=== PATIENT | male | born 1940 | race Caucasian/White ===

== ENCOUNTER 2016-08-13 09:03 | Inpatient (IN) | payer BC, OTHER ==
[~2016-08-13] VITALS: Ht 172.7 cm; Wt 59.5 kg
[~2016-08-13 09:03] MED LIST: ASPEC325 PO; CLOP1TAB15 PO; CRG25 PO; DVN80 PO; SERT25TA PO
[2016-08-13] MEDS ORDERED: SODIUM CHLORIDE 0.9% 1000ML 1,000 ML IV SCH ×2 (09:22→12:16)
--- NOTE | 2016-08-13 09:35 | EMERGENCY ROOM VISIT NOTE ---
History Report prepared by Negrito: Viviana Langley Under the Supervision of: Dr. Hollis Ngo M.D. First contact with patient: 09:21 Chief Complaint: ALTERED MENTAL STATUS Stated Complaint: CONFUSION Nursing Triage Summary: pt presents via [facility] from home with c/o confusion, lethargy, and s/p fall ems reports that patient has had increased confusion and lethargy since yesterday history of alzheimer's disease at baseline is able to recognize family, was unable to this morning patient was found on the floor facedown in the bathroom this morning has redness noted to right forehead and bilateral knees History of Present Illness The patient is a 76 year old male who presents to the Emergency Room via ALS with complaints of altered mental status starting yesterday. The patient has a history of Alzheimer's disease. He was last seen at baseline yesterday morning. His confusion is worse than normal. As per , the patient fell down in the bathroom this morning. He has erythema on his right forehead and bilateral knees. The patient remembers the fall. He currently denies any pain. He denies headache, fevers, chills, urinary symptoms, or any other complaints. HPI is limited secondary to altered mental status. Additional history is obtained as per . Source of History: patient, spouse/significant other History Limited By: AMS Onset: yesterday Position: other (global) Symptom Intensity: No pain Quality: other (altered mental status) Associated Symptoms: No chills, No fevers, No headache, No urinary symptoms Review of Systems ROS is limited secondary to altered mental status. Past Medical & Surgical Medical Problems: (1) CAD (coronary artery disease) (2) Hyperlipidemia (3) Hypertension (4) Mental status change (5) Myocardial infarction (6) Rhabdomyolysis Surgical Problems: (1) H/O inguinal hernia repair (2) Hx of colonoscopy Family History Heart disease Social History Smoking Status: Unknown if Ever Smoked Marital Status: Housing Status: lives with family Occupation Status: retired Current/Historical Medications Scheduled Aspirin (Aspir-81), 1 TAB PO DAILY Carvedilol (Coreg), 25 MG PO BID Memantine Hcl (Namenda Xr), 1 TAB PO DAILY Rivastigmine Tartrate (Exelon), 3 MG PO BID Sertraline (Zoloft), 25 MG PO DAILY Simvastatin (Zocor), 40 MG PO QPM Allergies Coded Allergies: No Known Allergies (Verified , 08/13/16) Physical Exam Vital Signs Date Time Temp Pulse Resp B/P Pulse Ox O2 Delivery O2 Flow Rate FiO2 08/13/16 11:07 68 08/13/16 10:10 64 14 130/77 92 Room Air 08/13/16 09:10 67 08/13/16 09:08 96 Room Air 08/13/16 09:08 36.9 70 16 154/89 96 Room Air Physical Exam GENERAL: Patient is a healthy-appearing well-nourished HEAD: Normocephalic atraumatic EYES: Ocular movements intact pupils equal and react to light OROPHARYNX mucous membranes are moist no exudates present no erythema or edema present NECK: Supple no nuchal rigidity CHEST: Good equal expansion LUNGS: Clear and equal to auscultation CARDIAC: Normal S1 and S2 ABDOMEN: Soft nontender no guarding BACK: No CVA tenderness EXTREMITIES: No pain upon palpation normal muscle strength in all groups no clubbing cyanosis or edema NEURO: Alert, not oriented to person, place or time, cannot follow simple commands. Cranial Nerves 2-12 grossly intact Medical Decision & Procedures ER Provider Diagnostic Interpretation: X-ray results as stated below per interpretation by me and the radiologist: SINGLE VIEW CHEST CLINICAL HISTORY: Strokelike symptoms. FINDINGS: An AP, portable, upright chest radiograph is compared to study dated 06/06/2010. Correlation is made with chest CT dated 01/03/2010. The examination is degraded by portable technique and patient rotation. The heart is mildly enlarged and there is atherosclerotic calcification of the thoracic aorta. The pulmonary vasculature is noncongested. Chronic interstitial thickening is unchanged. There is bibasilar atelectasis. No airspace consolidation is seen typical for pneumonia and there is no large pleural effusion. No pneumothorax is seen. The skeletal structures are osteopenic. The bony thorax is grossly intact. IMPRESSION: Cardiomegaly with no acute cardiopulmonary abnormality. Electronically signed by: Graeme Luna M.D. 08/13/2016 10:09 AM Dictated Date/Time: 08/13/2016 10:[address] results as stated below per my review and radiologist interpretation: CT HEAD WITHOUT CONTRAST (CT) CLINICAL HISTORY: Confusion. Stroke like symptoms. COMPARISON STUDY: 06/06/2010 TECHNIQUE: Axial CT of the brain is performed from the vertex to the skull base. IV contrast was not administered for this examination. CT DOSE: 537.48 mGy.cm FINDINGS: No intra or extra-axial mass lesions are visualized. There is no CT evidence of acute cortical infarction. There is no evidence of midline shift. There is no acute hemorrhage. No calvarial fractures are visualized. There are patchy white matter hypodensities likely on a small vessel basis. There is mild ventricular dilatation which has increased since the prior study. This is likely secondary to volume loss. There is mild mucosal thickening within the ethmoid and sphenoid sinuses. The frontal sinuses are hypoplastic. There are calcifications within the distal vertebral arteries. IMPRESSION: 1. No evidence of intracranial mass 2. No evidence of acute hemorrhage 3. Progressive ventricular dilatation, likely secondary to volume loss Electronically signed by: Leodan Galindo M.D. 08/13/2016 9:57 AM Dictated Date/Time: 08/13/2016 9:55 AM Laboratory Results Test 08/13/16 00:00 08/13/16 09:43 08/13/16 09:45 Urine Color DK YELLOW Urine Appearance CLEAR (CLEAR) Urine pH 5.0 (4.5-7.5) Urine Specific [place] 1.024 (1.000-1.030) Urine Protein TRACE (NEG) Urine Glucose (UA) NEG (NEG) Urine Ketones 1+ (NEG) Urine Occult Blood 3+ (NEG) Urine Nitrite NEG (NEG) Urine Bilirubin NEG (NEG) Urine Urobilinogen NEG (NEG) Urine Leukocyte Esterase NEG (NEG) Urine WBC (Auto) 1-5 /hpf (0-5) Urine RBC (Auto) 10-30 /hpf (0-4) Urine Hyaline Casts (Auto) 1-5 /lpf (0-5) Urine Epithelial Cells (Auto) 5-10 /lpf (0-5) Urine Bacteria (Auto) NEG (NEG) Bedside Prothrombin Time INR 1.2 (0.9-1.1) Immature Granulocyte % (Auto) 0.2 % White Blood Count 4.92 K/uL (4.8-10.8) Red Blood Count 5.00 M/uL (4.7-6.1) Hemoglobin 15.8 g/dL (14.0-18.0) Hematocrit 45.4 % (42-52) Mean Corpuscular Volume 90.8 fL (80-100) Mean Corpuscular Hemoglobin 31.6 pg (25-34) Mean Corpuscular Hemoglobin Concent 34.8 g/dl (32-36) Platelet Count 102 K/uL (130-400) Mean Platelet Volume 9.3 fL (7.4-10.4) Neutrophils (%) (Auto) 71.8 % Lymphocytes (%) (Auto) 15.2 % Monocytes (%) (Auto) 11.6 % Eosinophils (%) (Auto) 1.0 % Basophils (%) (Auto) 0.2 % Neutrophils # (Auto) 3.53 K/uL (1.4-6.5) Lymphocytes # (Auto) 0.75 K/uL (1.2-3.4) Monocytes # (Auto) 0.57 K/uL (0.11-0.59) Eosinophils # (Auto) 0.05 K/uL (0-0.5) Basophils # (Auto) 0.01 K/uL (0-0.2) Immature Granulocyte # (Auto) 0.01 K/uL (0.00-0.02) Prothrombin Time 11.8 SECONDS (9.0-12.0) Prothromb Time International Ratio 1.1 (0.9-1.1) Activated Partial Thromboplast Time 28.6 SECONDS (21.0-31.0) Partial Thromboplastin Ratio 1.1 Creatine Kinase MB 35.3 ng/ml (0.5-3.6) Creatine Kinase MB Ratio 1.3 (0-3.0) Troponin I < 0.015 ng/ml (0-0.045) Labs reviewed by ED physician. Medications Administered Medications (Trade) Dose Ordered Sig/Yuli Route Start Time Stop Time Status Last Admin Dose Admin Sodium Chloride 1,000 ml @ 50 mls/hr Q20H IV 08/13/16 09:22 08/13/16 13:16 DC 08/13/16 10:07 50 MLS/HR Sodium Chloride 500 ml @ 999 mls/hr Q31M STAT IV 08/13/16 10:37 08/13/16 11:07 DC 08/13/16 10:50 999 MLS/HR Sodium Chloride (Nss 1000ml) 1,000 ml @ 100 mls/hr Q10H IV 08/13/16 12:16 3/24/17 22:15 DC 08/13/16 13:50 100 MLS/HR ECG Indication: altered mental status Rate (beats per minute): 69 Rhythm: normal sinus Findings: no acute ischemic change, no ectopy, other (old anterior infarct) ED Course 0921: Past medical records reviewed. The patient was evaluated in room B09. A complete history and physical examination was performed. 0922: Sodium Chloride 1000 ml @ 50 mls/hr IV 1037: Sodium Chloride 500 ml @ 999 mls/hr IV 1047: Upon reexamination the patient is resting comfortably. I discussed results and treatment plan with the patient's family. They verbalize agreement and understanding. [facility] The patient will be evaluated for further management. Medical Decision Differential diagnosis: Etiologies such as metabolic, infection, hypoglycemia, electrolyte abnormalities , cardiac sources, intracerebral event, toxicologic, neurologic, as well as others were entertained. This is a 76-year-old male who presents emergency department acutely confused. The patient was found down on the floor this morning. He has reddened areas where his skin was in contact with the floor. He does appear to be in a mild rhabdomyolysis. CAT scan of his head is normal. He has no other evidence of infection or injury. I did discuss the case with the hospitalist service after gentle hydration. Patient family were in agreement with the treatment plan. Consults Time Called: 1045 Consulting Physician: [facility] Returned Call: [phone] [facility]. Impression Primary Impression: Altered mental status Additional Impression: Rhabdomyolysis Scribe Attestation The scribe's documentation has been prepared under my direction and personally reviewed by me in its entirety. I confirm that the note above accurately reflects all work, treatment, procedures, and medical decision making performed by me. Departure Information Dispostion Being Evaluated By Hospitalist Referrals Enrike Quintero D.O. (PCP) Patient Instructions [facility] Health Problem Qualifiers Primary Impression: Altered mental status Altered mental status type: unspecified Qualified Codes: R41.82 - Altered mental status, unspecified Additional Impression: Rhabdomyolysis Rhabdomyolysis type: traumatic Encounter type: initial encounter Qualified Codes: T79.6XXA - Traumatic ischemia of muscle, initial encounter
--- NOTE | 2016-08-13 09:58 | DIAGNOSTIC IMAGING REPORT ---
CT HEAD WITHOUT CONTRAST (CT) CLINICAL HISTORY: Confusion. Stroke like symptoms. COMPARISON STUDY: 06/06/2010 TECHNIQUE: Axial CT of the brain is performed from the vertex to the skull base. IV contrast was not administered for this examination. CT DOSE: 537.48 mGy.cm FINDINGS: No intra or extra-axial mass lesions are visualized. There is no CT evidence of acute cortical infarction. There is no evidence of midline shift. There is no acute hemorrhage. No calvarial fractures are visualized. There are patchy white matter hypodensities likely on a small vessel basis. There is mild ventricular dilatation which has increased since the prior study. This is likely secondary to volume loss. There is mild mucosal thickening within the ethmoid and sphenoid sinuses. The frontal sinuses are hypoplastic. There are calcifications within the distal vertebral arteries. IMPRESSION: 1. No evidence of intracranial mass 2. No evidence of acute hemorrhage 3. Progressive ventricular dilatation, likely secondary to volume loss Electronically signed by: Leodan Galindo M.D. 08/13/2016 9:57 AM Dictated Date/Time: 08/13/2016 9:55 AM
[2016-08-13 10:06] LABS: BASO % 0.2 %; BASO ABS # 0.01 K/uL (0-0.2); COMPLETE YES; HEMATOCRIT 45.4 % (42-52); IG% 0.2 %; LYMPH % 15.2 %; LYMPH ABS # 0.75 K/uL (1.2-3.4); MEAN CELL VOLUME 90.8 fL (80-100); MEAN CORPUSCULAR HEMOGLOBIN 31.6 pg (25-34); MEAN CORPUSCULAR HGB CONC 34.8 g/dl (32-36); MEAN PLATELET VOLUME 9.3 fL (7.4-10.4); MONO % 11.6 %; NEUT % 71.8 %; PLATELET COUNT 102 K/uL (130-400); WHITE BLOOD COUNT 4.92 K/uL (4.8-10.8)
[2016-08-13] MEDS ORDERED: SERT50TA PO (10:08)
[2016-08-13] MEDS ORDERED: ASPI-232 PO (10:08)
--- NOTE | 2016-08-13 10:10 | DIAGNOSTIC IMAGING REPORT ---
SINGLE VIEW CHEST CLINICAL HISTORY: Strokelike symptoms. FINDINGS: An AP, portable, upright chest radiograph is compared to study dated 06/06/2010. Correlation is made with chest CT dated 01/03/2010. The examination is degraded by portable technique and patient rotation. The heart is mildly enlarged and there is atherosclerotic calcification of the thoracic aorta. The pulmonary vasculature is noncongested. Chronic interstitial thickening is unchanged. There is bibasilar atelectasis. No airspace consolidation is seen typical for pneumonia and there is no large pleural effusion. No pneumothorax is seen. The skeletal structures are osteopenic. The bony thorax is grossly intact. IMPRESSION: Cardiomegaly with no acute cardiopulmonary abnormality. Electronically signed by: Graeme Luna M.D. 08/13/2016 10:09 AM Dictated Date/Time: 08/13/2016 10:07 AM
[2016-08-13 10:25] LABS: BLOOD UREA NITROGEN 20 mg/dl (7-18); BUN/CREATININE RATIO 18.2 (10-20); CALCIUM 9.2 mg/dl (8.5-10.1); CARBON DIOXIDE 31 mmol/L (21-32); CHLORIDE 105 mmol/L (98-107); GLUCOSE 99 mg/dl (70-99); POTASSIUM 3.7 mmol/L (3.5-5.1); SODIUM 143 mmol/L (136-145)
[2016-08-13] MEDS ORDERED: SODIUM CHLORIDE 0.9% 500ML 500 ML IV STA (10:37)
[2016-08-13 10:40] LABS: CKMB/CK RATIO 1.3 (0-3.0)
[2016-08-13] MEDS ORDERED: D5W AND 1/2NSS + 20MEQ KCL 1,000 ML IV SCH (11:00)
[2016-08-13] MEDS ORDERED: ONDANSETRON INJ 2 MG/ML 2 ML VIAL IV PRN (12:30)
[2016-08-13] MEDS ORDERED: ENOXAPARIN 40 MG/0.4 ML SYR SC SCH (12:30)
[2016-08-13] MEDS ORDERED: POLYETHYLENE (MIRALAX) 17 GM PACK PO PRN (12:30)
[2016-08-13] MEDS ORDERED: ALUMINUM/MAGNESIUM/SIMETH (MAALOX MAX) 30 ML UDC PO PRN (12:30)
[2016-08-13] MEDS ORDERED: ACETAMINOPHEN 325 MG TAB PO PRN (12:30)
[2016-08-13] MEDS ORDERED: MAGNESIUM HYDROXIDE SUSP 30 ML UDC PO PRN (12:30)
--- NOTE | 2016-08-13 13:08 | History and Physical ---
History & Physical Date & Time of Service: Aug 13, 2016 at 12:34 Chief Complaint: Confusion Primary Care Physician: Enrike Quintero D.O. History of Present Illness Source: patient, family ( and mother in law at bedside), clinic records, hospital records This is a 76 y/o male with a history of Alzheimer's disease, CAD, cardiomyopathy , depression, hyperlipidemia, hypertension, h/o prostate cancer s/p prostatectomy and radiation, REM sleep behavior disorder, and tremor who presented to the ED on 08/13 with worsening confusion and a fall. The patient has a history of Alzheimer's dementia at baseline that has been getting progressively worse the last few months per family and outpatient records. History obtained largely from family at bedside due to patient's mental status. Patient's notes that he has been more acutely confused in the last 2 days. He has been having more difficulties going about his normal daily tasks and seems to be "lost". The states that she found the patient face down on the bathroom floor this morning. She does not think that he lost consciousness as he was awake when she found him, and the patient personally denies any loss of consciousness. She believes he was on the floor for about 45 minutes. The patient denies any lightheadedness or dizziness prior to the event and states that he recalls the fall. The also notes that he may have had a fall yesterday as well, as she found him on his knees propping himself up against the bathroom tub yesterday afternoon. The patient denies chest pain, shortness of breath, nausea, vomiting, abdominal pain, weakness, numbness and tingling. Unable to obtain a more comprehensive ROS due to mental status. Past Medical/Surgical History Medical Problems: (1) CAD (coronary artery disease) Status: Chronic (2) Hyperlipidemia Status: Chronic (3) Hypertension Status: Chronic (4) Myocardial infarction Status: Resolved Alzheimer's disease. Cardiomyopathy. Depression. Prostate cancer status post prostatectomy and radiation. REM sleep behavior disorder. Tremor Surgical Problems: (1) H/O inguinal hernia repair Status: Resolved (2) Hx of colonoscopy Status: Resolved Family History Dementia Heart disease Hypertension Myocardial infarction at age less than 60 Social History Smoking Status: Never Smoker Smokeless Tobacco Use: No Alcohol Use: none Drug Use: none Marital Status: Housing status: lives with family ( and mother in law) Occupational Status: retired Immunizations History of Influenza Vaccine: Yes Influenza Vaccine Date: October 02, 2009 History of Tetanus Vaccine?: Yes Tetanus Immunization Date: Nov 02, 1996 History of Pneumococcal: Yes Pneumococcal Date: Apr 06, 2010 History of Hepatitis B Vaccine: No Multi-Drug Resistant Organisms History of MDRO: No Allergies Coded Allergies: No Known Allergies (Verified , 08/13/16) Home Medications Scheduled Aspirin (Aspir-81), 1 TAB PO DAILY Carvedilol (Coreg), 25 MG PO BID Memantine Hcl (Namenda Xr), 1 TAB PO DAILY Rivastigmine Tartrate (Exelon), 3 MG PO BID Sertraline (Zoloft), 25 MG PO DAILY Simvastatin (Zocor), 40 MG PO QPM Review of Systems Unable to obtain comprehensive ROS from patient due to mental status. See HPI for pertinent positives and negatives. Physical Exam Vital Signs Date Time Temp Pulse Resp B/P Pulse Ox O2 Delivery O2 Flow Rate FiO2 08/13/16 12:27 64 16 131/84 98 08/13/16 11:07 68 08/13/16 10:10 64 14 130/77 92 Room Air 08/13/16 09:10 67 08/13/16 09:08 96 Room Air 08/13/16 09:08 36.9 70 16 154/89 96 Room Air General Appearance: WD/WN, no apparent distress, + pertinent finding ( lethargic. per family this is baseline. pt sleeps 17 hours a day secondary to REM sleep behavioral disorder) Head: normocephalic, atraumatic Eyes: normal inspection, sclerae normal, + pertinent finding (exam limited as pt not cooperative) ENT: normal ENT inspection, hearing grossly normal, + pertinent finding (exam limited, pt uncooperative) Neck: supple, no JVD, trachea midline Respiratory/Chest: lungs clear, normal breath sounds, no respiratory distress Cardiovascular: regular rate, rhythm, no gallop, no murmur Abdomen/GI: normal bowel sounds, non tender, soft Extremities/Musculoskelatal: no calf tenderness, no pedal edema, + swelling (1 + pitting edema bilaterally to knees) Neurologic/Psych: normal mood/affect, + disoriented (unable to assess orientation due to lethargy and is not cooperating. states typically disoriented to time and only recognizes her and her mother. recently more disoriented to place.), + pertinent finding (lethargic, sleeping throughout exam , difficult to keep awake. this is apparently baseline. ) Skin: normal color, warm/dry, no rash, + pertinent finding (erythema on right side of forehead and knees bilaterally) Diagnostics Laboratory Results Results Past 24 Hours Test 08/13/16 09:22 08/13/16 09:41 08/13/16 09:45 Range/Units Bedside Glucose 84 70-99 mg/dl White Blood Count 4.92 4.8-10.8 K/uL Red Blood Count 5.00 4.7-6.1 M/uL Hemoglobin 15.8 14.0-18.0 g/dL Hematocrit 45.4 42-52 % Mean Corpuscular Volume 90.8 80-100 fL Mean Corpuscular Hemoglobin 31.6 25-34 pg Mean Corpuscular Hemoglobin Concent 34.8 32-36 g/dl Platelet Count 102 130-400 K/uL Mean Platelet Volume 9.3 7.4-10.4 fL Neutrophils (%) (Auto) 71.8 % Lymphocytes (%) (Auto) 15.2 % Monocytes (%) (Auto) 11.6 % Eosinophils (%) (Auto) 1.0 % Basophils (%) (Auto) 0.2 % Neutrophils # (Auto) 3.53 1.4-6.5 K/uL Lymphocytes # (Auto) 0.75 1.2-3.4 K/uL Monocytes # (Auto) 0.57 0.11-0.59 K/uL Eosinophils # (Auto) 0.05 0-0.5 K/uL Basophils # (Auto) 0.01 0-0.2 K/uL RDW Standard Deviation 44.0 36.4-46.3 fL RDW Coefficient of Variation 13.2 11.5-14.5 % Immature Granulocyte % (Auto) 0.2 % Immature Granulocyte # (Auto) 0.01 0.00-0.02 K/uL Sodium Level 143 136-145 mmol/L Potassium Level 3.7 3.5-5.1 mmol/L Chloride Level 105 98-107 mmol/L Carbon Dioxide Level 31 21-32 mmol/L Anion Gap 7.0 3-11 mmol/L Blood Urea Nitrogen 20 7-18 mg/dl Creatinine 1.10 0.60-1.40 mg/dl Est Creatinine Clear Calc Drug Dose 49.1 ml/min Estimated GFR () 75.7 Estimated GFR (Non- 65.3 BUN/Creatinine Ratio 18.2 10-20 Random Glucose 99 70-99 mg/dl Calcium Level 9.2 8.5-10.1 mg/dl Total Creatine Kinase 2808 39-308 U/L Creatine Kinase MB 35.3 0.5-3.6 ng/ml Creatine Kinase MB Ratio 1.3 0-3.0 Troponin I < 0.015 0-0.045 ng/ml Microbiology Results 08/13/16 Urine Culture, Karrie Batch Pending Diagnostic Radiology Reviewed the following studies and agree with interpretation as follows: Patient Name: VEENA LACY Unit Number: [id number] Dictated: 08/13/16954 Transcribed: 08/13/16954 ARG Printed Date/Time: [~ rep prt dt]/[~ rep prt tm] [~ rep ct labl] - [~ rep ct ivnm] [facility] [place] [address] Dictated: 08/13/16954 Transcribed: 08/13/16954 ARG Printed Date/Time: [~ rep prt dt]/[~ rep prt tm] [~ rep ct labl] - [~ rep ct ivnm] Patient: VEENA LACY Address1: [address] [facility] Rec: [id number] Address2: Acct ID: [id number] [facility] Zip: [place] [address] Date: 1940 Sex: M Room/Bed: Ref Phy: Enrike Quintero D.O. SC: ANGELINA Att Phy: Report #: [id number] Lana Phy: Enrike Quintero D.O. Test: HWO Admit Phy: Secondary Market Manager: EUNICE Interpreting Phy: Leodan Galindo M.D. Diagnosis: CONFUSION Ordering Phy: Hollis Ngo MD Service Date: 08/13/16 Admit Date: 08/13/16 MNE: PWRSCRIBE CONF: DICTATED BY: Leodan Galindo M.D.]] CC: Enrike Quintero D.O. Finnerty, Kevin M., MD Endcc: [~ rep ct add3]] CT HEAD WITHOUT CONTRAST (CT) CLINICAL HISTORY: Confusion. Stroke like symptoms. COMPARISON STUDY: 06/06/2010 TECHNIQUE: Axial CT of the brain is performed from the vertex to the skull base. IV contrast was not administered for this examination. CT DOSE: 537.48 mGy.cm FINDINGS: No intra or extra-axial mass lesions are visualized. There is no CT evidence of acute cortical infarction. There is no evidence of midline shift. There is no acute hemorrhage. No calvarial fractures are visualized. There are patchy white matter hypodensities likely on a small vessel basis. There is mild ventricular dilatation which has increased since the prior study. This is likely secondary to volume loss. There is mild mucosal thickening within the ethmoid and sphenoid sinuses. The frontal sinuses are hypoplastic. There are calcifications within the distal vertebral arteries. IMPRESSION: 1. No evidence of intracranial mass 2. No evidence of acute hemorrhage 3. Progressive ventricular dilatation, likely secondary to volume loss Electronically signed by: Leodan Galindo M.D. 08/13/2016 9:57 AM Dictated Date/Time: 08/13/2016 9:55 AM The status of this report is Signed. Draft = Not yet reviewed or approved by Radiologist. Signed = Reviewed and approved by Radiologist. <AttendingPhy></AttendingPhy> <FamilyPhy>Enrike Quintero D.O.</FamilyPhy> < PrimaryPhy>Enrike Quintero D.O.</PrimaryPhy> <UnitNumber>[id number]</ UnitNumber> <VisitNumber>[id number]</VisitNumber> <PatientName>VEENA LACY</ PatientName> <DateOfBirth>1940</DateOfBirth> <Location>C.EDB</Location> < ServiceDate>08/13/16</ServiceDate> <MNE>ESINDI</MNE> <OrderingPhy>Hollis Ngo MD</OrderingPhy> <OrderingPhyMNE>f rep ord dr hale</OrderingPhyMNE> < DictatingPhyMNE>f rep dict dr hale</DictatingPhyMNE> <CCListMNE>f rep ct mne</ CCListMNE> <AdmittingPhyMNE>f pt admit dr hale</AdmittingPhyMNE> <AttendingPhyMNE >f pt attend dr hale</AttendingPhyMNE> <ConsultingPhyMNE>f pt consult dr hale</ConsultingPhyMNE> <FamilyPhyMNE>f pt fam dr hale</FamilyPhyMNE> <OtherPhyMNE>f pt other dr hale</OtherPhyMNE> < PrimaryPhyMNE>f pt prim care dr hale</PrimaryPhyMNE> <ReferringPhyMNE>f pt referring dr hale</ReferringPhyMNE> Patient Name: VEENA LACY Unit Number: [id number] Dictated: 08/13/161006 Transcribed: 08/13/16 1007 EV Printed Date/Time: [~ rep prt dt]/[~ rep prt tm] [~ rep ct labl] - [~ rep ct ivnm] [facility] [place] [address] Dictated: 08/13/161006 Transcribed: 08/13/16 1007 EV Printed Date/Time: [~ rep prt dt]/[~ rep prt tm] [~ rep ct labl] - [~ rep ct ivnm] Patient: VEENA LACY Address1: [address] [facility] Rec: [id number] Address2: Acct ID: [id number] [facility] Zip: [place] [address] Date: 1940 Sex: M Room/Bed: Ref Phy: Enrike Quintero D.O. SC: ANGELINA Att Phy: Report #: [id number] Lana Phy: Enrike Quintero D.O. Test: CXR1P Admit Phy: Secondary Market Manager: HOMERO Interpreting Phy: Graeme Luna M.D. Diagnosis: CONFUSION Ordering Phy: Hollis Ngo MD Service Date: 08/13/16 Admit Date: 08/13/16 MNE: PWRSCRIBE CONF: DICTATED BY: Graeme Luna M.D.]] CC: Enrike Quintero D.O. Finnerty, Kevin M., MD Endcc: [~ rep ct add3]] SINGLE VIEW CHEST CLINICAL HISTORY: Strokelike symptoms. FINDINGS: An AP, portable, upright chest radiograph is compared to study dated 06/06/2010. Correlation is made with chest CT dated 01/03/2010. The examination is degraded by portable technique and patient rotation. The heart is mildly enlarged and there is atherosclerotic calcification of the thoracic aorta. The pulmonary vasculature is noncongested. Chronic interstitial thickening is unchanged. There is bibasilar atelectasis. No airspace consolidation is seen typical for pneumonia and there is no large pleural effusion. No pneumothorax is seen. The skeletal structures are osteopenic. The bony thorax is grossly intact. IMPRESSION: Cardiomegaly with no acute cardiopulmonary abnormality. Electronically signed by: Graeme Luna M.D. 08/13/2016 10:09 AM Dictated Date/Time: 08/13/2016 10:07 AM The status of this report is Signed. Draft = Not yet reviewed or approved by Radiologist. Signed = Reviewed and approved by Radiologist. <AttendingPhy></AttendingPhy> <FamilyPhy>Enrike Quintero D.O.</FamilyPhy> < PrimaryPhy>Enrike Quintero D.O.</PrimaryPhy> <UnitNumber>[id number]</ UnitNumber> <VisitNumber>[id number]</VisitNumber> <PatientName>VEENA LACY</ PatientName> <DateOfBirth>1940</DateOfBirth> <Location>C.EDB</Location> < ServiceDate>08/13/16</ServiceDate> <MNE>ESINDI</MNE> <OrderingPhy>Hollis Ngo MD</OrderingPhy> <OrderingPhyMNE>f rep ord dr hale</OrderingPhyMNE> < DictatingPhyMNE>f rep dict dr hale</DictatingPhyMNE> <CCListMNE>f rep ct mne</ CCListMNE> <AdmittingPhyMNE>f pt admit dr hale</AdmittingPhyMNE> <AttendingPhyMNE >f pt attend dr hale</AttendingPhyMNE> <ConsultingPhyMNE>f pt consult dr hale</ConsultingPhyMNE> <FamilyPhyMNE>f pt fam dr hale</FamilyPhyMNE> <OtherPhyMNE>f pt other dr hale</OtherPhyMNE> < PrimaryPhyMNE>f pt prim care dr hale</PrimaryPhyMNE> <ReferringPhyMNE>f pt referring dr hale</ReferringPhyMNE> EKG Reviewed EKG and agree with interpretation as follows: 69 bpm, NSR, left anterior fascicular block, LVH Impression Assessment and Plan 76 y/o male with a history of Alzheimer's disease, CAD, cardiomyopathy, depression, hyperlipidemia, hypertension, h/o prostate cancer s/p prostatectomy and radiation, REM sleep behavior disorder, and tremor who presented to the ED on 08/13 with worsening confusion and a fall. Dementia has been getting progressively worse the last few months; however, the patient's states that he has been even more confused the last 2 days. Patient found on the bathroom floor, down for about 45 minutes. Does not appear that he had a loss of consciousness. believes that he may have had a fall yesterday as well. AVSS on arrival. Head CT shows progressive ventricular dilatation, likely secondary to volume loss but no acute disease. Chest x-ray shows no acute disease. EKG shows no ischemic changes. Dysphasia screen done in the ED, patient cleared for regular diet. Initial labs significant for an elevated CK of 2808, otherwise grossly unremarkable. Altered mental status and fall in the setting of baseline Alzheimer's disease-- dementia progressively worse in the last few months per family and outpatient records -Admit to telemetry for cardiac monitoring -Consult Dr. Michel for further evaluation and determine need for more imaging. Patient follows with Dr. Michel outpatient -Straight cath urine for UA and urine culture to r/o UTI as pt is incontinent -EKGs q am and prn with chest pain -Continue Namenda 28 mg PO qd and rivastigmine 3 mg PO BID Rhabdomyolysis secondary to fall -CK elevated at 2808 on arrival -NSS at 100 cc/hr -Trend CK q am Cardiomyopathy/HTN--stable, EF was 25-30 in 2010 -Continue carvedilol 25 mg PO BID Depression -Continue sertraline 25 mg PO qd HLD -Continue simvastatin 40 mg PO qd DVT prophylaxis -Hold chemical prophylaxis for now -ORLY hose and SCDs Code Status -Level V, DO NOT RESUSCITATE This chart was completed in part utilizing [employer] Speech Voice Recognition software. Attempts were made to minimize the grammatical errors, random word insertions, pronoun errors and incomplete sentences. Any formal questions or concerns about the content, text or information contained within the body of this dictation should be directly addressed to the provider for clarification. PA Physician Supervision Note: I interviewed and examined the patient. Discussed with Monica Le PAC and agree with findings and plan as documented in the note. Any exceptions or clarifications are listed here: None 76M presenting after unwitnessed fall and inability to get up, recent decline in dementia no visable injury on admission, normal Head CT but elevated CK of 2808 VSS upon my eval pt was awake, fidgety and alert, not making sense but speaking in pressured speech, thinks he just got off a plane car is regular with Murmur lungs are clear, no viable injury alert with confusion consistent with dementia Progressive dementia with fall -Consult Dr. Michel for further evaluation and determine need for more imaging. Patient follows with Dr. Michel outpatient -Straight cath urine for UA and urine culture to r/o UTI as possible metabolic encephalopathy Namenda 28 mg PO qd and rivastigmine 3 mg PO BID Rhabdomyolysis secondary to fall, mild, hydrate with ivf Cardiomyopathy/HTN--stable caution with ivf, carvedilol 25 mg PO BID Depression sertraline 25 mg PO qd HLD simvastatin 40 mg PO qd DVT prophylaxis-ORLY hose and SCDs DO NOT RESUSCITATE Documented By: Ron Bray Level of Care Telemetry Resuscitation Status DO NOT RESUSCITATE VTE Prophylaxis VTE Risk Assessment Done? Y/N: Yes Risk Level: Moderate Given or contraindicated: T.E.D. Stockings, SCD's
[2016-08-13 13:15] LABS: BENZODIAZEPINE, URINE NEG (NEG); COCAINE,URINE NEG (NEG); PHENCYCLIDINE, URINE NEG (NEG)
[2016-08-13 13:18] VITALS: O2SAT 98; Ht 172.7 cm; Wt 59.5 kg
[2016-08-13 13:32] LABS: INR 1.1 (0.9-1.1); PARTIAL THROMBOPLASTIN RATIO 1.1; PROTHROMBIN TIME (PATIENT) 11.8 SECONDS (9.0-12.0)
[2016-08-13 13:53] LABS: URINE APPEARANCE CLEAR (CLEAR); URINE BILIRUBIN NEG (NEG); URINE COLOR DK YELLOW; URINE NITRITE NEG (NEG); URINE SPECIFIC GRAVITY 1.024 (1.000-1.030); UROBILINOGEN NEG (NEG)
[2016-08-13 14:04] LABS: MANUAL MICROSCOPIC REQUIRED? NO; REVIEW REQ? NO
[2016-08-13 15:32] VITALS: BP 128/72; PULSE 64; TEMP 36.5; O2SAT 94
[2016-08-13 16:00] VITALS: O2SAT 94
[2016-08-13 20:00] VITALS: O2SAT 94
[2016-08-13] MEDS ORDERED: SIMVASTATIN 40 MG TAB PO SCH (21:00)
[2016-08-13] MEDS: CARVEDILOL 25 MG TAB PO SCH (21:49)
[2016-08-13] MEDS: RIVASTIGMINE TARTRATE (EXELON) 1.5 MG CAP PO SCH (21:50)
[2016-08-13 23:42] VITALS: BP 131/72; PULSE 58; TEMP 36.6; O2SAT 96
[2016-08-14] VITALS (7 sets, daily range): BP systolic 93–145; BP diastolic 56–79; PULSE 47–74; TEMP 36.9; O2SAT 94–96
[2016-08-14 07:18] LABS: HEMATOCRIT 39.8 % (42-52); MEAN CELL VOLUME 90.9 fL (80-100); MEAN CORPUSCULAR HEMOGLOBIN 31.3 pg (25-34); MEAN CORPUSCULAR HGB CONC 34.4 g/dl (32-36); RED BLOOD COUNT 4.38 M/uL (4.7-6.1); WHITE BLOOD COUNT 5.27 K/uL (4.8-10.8)
[2016-08-14 07:51] LABS: BUN/CREATININE RATIO 18.5 (10-20); CALCIUM 8.5 mg/dl (8.5-10.1); CREATININE 0.97 mg/dl (0.60-1.40); POTASSIUM 3.7 mmol/L (3.5-5.1)
[2016-08-14 08:01] LABS: MEAN PLATELET VOLUME 9.3 fL (7.4-10.4); PLATELET COUNT 92 K/uL (130-400); PLT ESTIMATE DECREASED
[2016-08-14] MEDS: CARVEDILOL 25 MG TAB PO SCH (08:15)
[2016-08-14] MEDS: RIVASTIGMINE TARTRATE (EXELON) 1.5 MG CAP PO SCH (08:16)
[2016-08-14] MEDS ORDERED: SERTRALINE HCL 50 MG TAB PO SCH (09:00)
[2016-08-14] MEDS ORDERED: ASPIRIN 81 MG ECTAB PO SCH (09:00)
[2016-08-14] MEDS ORDERED: MEMANTINE HCL 28 MG PO SCH (09:00)
--- NOTE | 2016-08-14 09:47 | Hospitalist Progress Note ---
Hospitalist Progress Note Date of Service Aug 14, 2016. Subjective Pt evaluation today including: conversation w/ patient, conversation w/ family , physical exam, chart review, lab review, review of studies, review of inpatient medication list Voiding: incontinence Patient in no acute distress. Awake/alert in bed, sitting quietly and peacefully. Pleasant demeanor. ROS could not be obtained secondary to dementia. Medications Current Inpatient Medications Medications (Trade) Dose Ordered Sig/Yuli Route Start Time Stop Time Status Last Admin Dose Admin Acetaminophen (Tylenol Tab) 650 mg Q4H PRN PO 08/13/16 12:30 09/12/16 12:29 Al Hydrox/Mg Hydrox/Simethicone (Maalox Max Susp) 15 ml Q4H PRN PO 08/13/16 12:30 09/12/16 12:29 Magnesium Hydroxide (Milk Of Magnesia Susp) 30 ml Q12H PRN PO 08/13/16 12:30 09/12/16 12:29 Ondansetron HCl (Zofran Inj) 4 mg Q6H PRN IV 08/13/16 12:30 09/12/16 12:29 Polyethylene (Miralax Powder Packet) 17 gm DAILY PRN PO 08/13/16 12:30 09/12/16 12:29 Aspirin (Ecotrin Tab) 81 mg DAILY PO 08/14/16 09:00 09/13/16 08:59 08/14/16 08:18 81 MG Carvedilol (Coreg Tab) 25 mg BID PO 08/13/16 21:00 09/12/16 20:59 08/14/16 08:15 25 MG Sertraline HCl (Zoloft Tab) 25 mg DAILY PO 08/14/16 09:00 09/13/16 08:59 08/14/16 08:14 25 MG Simvastatin (Zocor Tab) 40 mg QPM PO 08/13/16 21:00 09/12/16 20:59 08/13/16 21:51 40 MG Miscellaneous Information (Order Awaiting Action) 1 ea QS N/A 08/13/16 16:00 09/12/16 15:59 Rivastigmine Tartrate (Exelon Cap) 3 mg BID PO 08/13/16 21:00 09/12/16 20:59 08/14/16 08:16 3 MG Objective Vital Signs Date Time Temp Pulse Resp B/P Pulse Ox O2 Delivery O2 Flow Rate FiO2 08/14/16 08:10 36.9 57 22 145/79 94 Room Air 08/14/16 07:37 94 Room Air 08/14/16 04:00 94 Room Air 08/14/16 03:47 36.9 74 18 122/76 96 Room Air 08/14/16 00:00 94 Room Air 08/13/16 23:42 36.6 58 20 131/72 96 Room Air 08/13/16 20:00 94 Room Air 08/13/16 16:00 94 Room Air 08/13/16 15:32 36.5 64 18 128/72 94 Room Air 08/13/16 13:18 98 Room Air 08/13/16 12:27 64 16 131/84 98 08/13/16 11:07 68 08/13/16 10:10 64 14 130/77 92 Room Air Physical Exam General Appearance: no apparent distress Eyes: normal inspection, PERRL ENT: hearing grossly normal Neck: supple Respiratory/Chest: lungs clear, no respiratory distress, no accessory muscle use Cardiovascular: regular rate, rhythm, + systolic murmur Abdomen: normal bowel sounds, non tender, soft Extremities: no pedal edema, no calf tenderness Neurologic/Psychiatric: alert, + disoriented Skin: normal color, warm/dry, no rash Laboratory Results Last 24 Hours Test 08/13/16 09:41 08/13/16 09:43 08/13/16 09:45 08/13/16 12:40 Bedside Glucose 84 mg/dl Bedside Prothrombin Time INR 1.2 White Blood Count 4.92 K/uL Red Blood Count 5.00 M/uL Hemoglobin 15.8 g/dL Hematocrit 45.4 % Mean Corpuscular Volume 90.8 fL Mean Corpuscular Hemoglobin 31.6 pg Mean Corpuscular Hemoglobin Concent 34.8 g/dl Platelet Count 102 K/uL Mean Platelet Volume 9.3 fL Neutrophils (%) (Auto) 71.8 % Lymphocytes (%) (Auto) 15.2 % Monocytes (%) (Auto) 11.6 % Eosinophils (%) (Auto) 1.0 % Basophils (%) (Auto) 0.2 % Neutrophils # (Auto) 3.53 K/uL Lymphocytes # (Auto) 0.75 K/uL Monocytes # (Auto) 0.57 K/uL Eosinophils # (Auto) 0.05 K/uL Basophils # (Auto) 0.01 K/uL RDW Standard Deviation 44.0 fL RDW Coefficient of Variation 13.2 % Immature Granulocyte % (Auto) 0.2 % Immature Granulocyte # (Auto) 0.01 K/uL Prothrombin Time 11.8 SECONDS Prothromb Time International Ratio 1.1 Activated Partial Thromboplast Time 28.6 SECONDS Partial Thromboplastin Ratio 1.1 Sodium Level 143 mmol/L Potassium Level 3.7 mmol/L Chloride Level 105 mmol/L Carbon Dioxide Level 31 mmol/L Anion Gap 7.0 mmol/L Blood Urea Nitrogen 20 mg/dl Creatinine 1.10 mg/dl Est Creatinine Clear Calc Drug Dose 49.1 ml/min Estimated GFR () 75.7 Estimated GFR (Non- 65.3 BUN/Creatinine Ratio 18.2 Random Glucose 99 mg/dl Calcium Level 9.2 mg/dl Total Creatine Kinase 2808 U/L Creatine Kinase MB 35.3 ng/ml Creatine Kinase MB Ratio 1.3 Troponin I < 0.015 ng/ml Urine Opiates Screen NEG Urine Methadone, Qualitative NEG Urine Barbiturates NEG Urine Phencyclidine (PCP) Level NEG Ur Amphetamine/Methamphetamine NEG MDMA (Ecstasy) Screen NEG Urine Benzodiazepines Screen NEG Urine Cocaine Metabolite NEG Urine Marijuana (THC) NEG Test 08/14/16 06:50 08/14/16 07:54 White Blood Count 5.27 K/uL Red Blood Count 4.38 M/uL Hemoglobin 13.7 g/dL Hematocrit 39.8 % Mean Corpuscular Volume 90.9 fL Mean Corpuscular Hemoglobin 31.3 pg Mean Corpuscular Hemoglobin Concent 34.4 g/dl RDW Standard Deviation 44.1 fL RDW Coefficient of Variation 13.2 % Platelet Count 92 K/uL Mean Platelet Volume 9.3 fL Platelet Estimate DECREASED Sodium Level 143 mmol/L Potassium Level 3.7 mmol/L Chloride Level 106 mmol/L Carbon Dioxide Level 30 mmol/L Anion Gap 7.0 mmol/L Blood Urea Nitrogen 18 mg/dl Creatinine 0.97 mg/dl Est Creatinine Clear Calc Drug Dose 55.4 ml/min Estimated GFR () 88.1 Estimated GFR (Non- 76.1 BUN/Creatinine Ratio 18.5 Random Glucose 96 mg/dl Calcium Level 8.5 mg/dl Total Creatine Kinase 2156 U/L Bedside Glucose 90 mg/dl Assessment and Plan 76 y/o male with a history of Alzheimer's disease, CAD, cardiomyopathy, depression, hyperlipidemia, hypertension, h/o prostate cancer s/p prostatectomy and radiation, REM sleep behavior disorder, and tremor who presented to the ED on 08/13 with worsening confusion and a fall. Dementia has been getting progressively worse the last few months; however, the patient's states that he has been even more confused the last 2 days. Patient found on the bathroom floor, down for about 45 minutes. Does not appear that he had a loss of consciousness. believes that he may have had a fall yesterday as well. AVSS on arrival. Head CT shows progressive ventricular dilatation, likely secondary to volume loss but no acute disease. Chest x-ray shows no acute disease. EKG shows no ischemic changes. Dysphasia screen done in the ED, patient cleared for regular diet. Initial labs significant for an elevated CK of 2808, otherwise grossly unremarkable. Altered mental status and fall in the setting of baseline Alzheimer's disease: - Admit to telemetry for cardiac monitoring--> reviewed- episodes of sinus nick in 50's, PVCs noted, otherwise NSR - U/A, pending UCx - EKGs QAM and PRN with chest pain - Continue Namenda 28 mg PO qd and Rivastigmine 3 mg PO BID - Consult Dr. Michel, appreciate recommendations -- Obtain brain MRI to r/o any infarct Mild Rhabdomyolysis, secondary to fall: - Initial CK elevated at 2808 - Trend CK- trending down - Treat w/ NSS at 100 cc/hr Cardiomyopathy, EF 25-30% in 2010/HTN: - Continue Carvedilol 25 mg PO BID Depression: Continue Sertraline 25 mg PO daily HLD: Continue Simvastatin 40 mg PO daily DVT prophylaxis: TEDs and SCDs Code Status: LEVEL V, DNR Dispo: - PT/OT evaluations - From home, lives w/ --> discussed discharge goals, plans for patient to return home w/ her; He has 24 hour family supervision and health services who come in a few times a week from 9am-3pm.
--- NOTE | 2016-08-14 10:51 | Neurology Consultation ---
Neurology Consultation Date of Consultation: Aug 14, 2016. Attending Physician: Ron Bray M.D. Primary Care Physician: Enrike Quintero D.O. Reason for Consultation: Change in mental status, recent fall, history of dementia, question need for further imaging History of Present Illness Source: patient, clinic records, hospital records The patient is a 76-year-old male who I have been following in neurology clinic for Alzheimer's dementia. His condition has become progressively severe and his care has been complicated by noncompliance with medications. He was last seen in clinic in February 2016. He is prescribed Namenda XR 28 mg per day in addition to Exelon capsules, 3 mg twice daily. He has associated REM sleep disorder and has exhibited nocturnal wandering and eating as well as general dysregulation of his sleep cycling with frequent daytime naps. He is also prescribed sertraline for associated depression. Mr. Simon had presented to the emergency department yesterday with worsening confusion, lethargy, and a recent fall while in the bathroom yesterday morning. He was noted to have an erythematous area around the right for head presumably related to this fall as well as some bruising on his knees. The patient's dementia is quite severe and he is an unreliable historian. He has little to no recollection of the events that led to his current hospitalization. He does seem to recognize me upon entering the room, however. He does not know my name although I have been following him for several years. I reviewed the images and radiologist's impression of the CT of the head completed in the emergency department. This study was compared with his CT of the head completed in May 2010. There has been interval, mild progression, in his generalized atrophy. Both the cortical sulci and lateral ventricles are a bit more prominent than they had been in the past. Electrocardiogram reveals a normal sinus rhythm, 69 bpm. Past Medical/Surgical History Medical Problems: (1) Altered mental status Status: Acute Family History Family history is negative for coronary artery disease in the father. Social History Smokeless Tobacco Use: No Alcohol Use: none Drug Use: none Marital Status: Housing Status: lives with family Occupation Status: retired Allergies Coded Allergies: No Known Allergies (Verified , 08/13/16) Current Inpatient Medications Current Inpatient Medications Medications (Trade) Dose Ordered Sig/Yuli Route Start Time Stop Time Status Last Admin Dose Admin Acetaminophen (Tylenol Tab) 650 mg Q4H PRN PO 08/13/16 12:30 09/12/16 12:29 Al Hydrox/Mg Hydrox/Simethicone (Maalox Max Susp) 15 ml Q4H PRN PO 08/13/16 12:30 09/12/16 12:29 Magnesium Hydroxide (Milk Of Magnesia Susp) 30 ml Q12H PRN PO 08/13/16 12:30 09/12/16 12:29 Ondansetron HCl (Zofran Inj) 4 mg Q6H PRN IV 08/13/16 12:30 09/12/16 12:29 Polyethylene (Miralax Powder Packet) 17 gm DAILY PRN PO 08/13/16 12:30 09/12/16 12:29 Aspirin (Ecotrin Tab) 81 mg DAILY PO 08/14/16 09:00 09/13/16 08:59 08/14/16 08:18 81 MG Carvedilol (Coreg Tab) 25 mg BID PO 08/13/16 21:00 09/12/16 20:59 08/14/16 08:15 25 MG Sertraline HCl (Zoloft Tab) 25 mg DAILY PO 08/14/16 09:00 09/13/16 08:59 08/14/16 08:14 25 MG Simvastatin (Zocor Tab) 40 mg QPM PO 08/13/16 21:00 09/12/16 20:59 08/13/16 21:51 40 MG Miscellaneous Information (Order Awaiting Action) 1 ea QS N/A 08/13/16 16:00 09/12/16 15:59 08/14/16 08:00 1 EA Rivastigmine Tartrate (Exelon Cap) 3 mg BID PO 08/13/16 21:00 09/12/16 20:59 08/14/16 08:16 3 MG Review of Systems As indicated in the history of present illness, the patient has severe dementia and is unable to provide a reliable history of present illness or review of systems. Of note, he does deny headache, vision change, dizziness, or musculoskeletal pain in spite of his recent history of a fall with suspected mild head injury. A full 10 point review of systems could not be reliably obtained due to patient' s severe dementia. Physical Exam Vital Signs (Past 24 Hrs): Date Time Temp Pulse Resp B/P Pulse Ox O2 Delivery O2 Flow Rate FiO2 08/14/16 08:10 36.9 57 22 145/79 94 Room Air 08/14/16 07:37 94 Room Air 08/14/16 04:00 94 Room Air 08/14/16 03:47 36.9 74 18 122/76 96 Room Air 08/14/16 00:00 94 Room Air 08/13/16 23:42 36.6 58 20 131/72 96 Room Air 08/13/16 20:00 94 Room Air 08/13/16 16:00 94 Room Air 08/13/16 15:32 36.5 64 18 128/72 94 Room Air 08/13/16 13:18 98 Room Air 08/13/16 12:27 64 16 131/84 98 08/13/16 11:07 68 The patient is a well-developed, elderly male. He is lying comfortably in bed and does seem to recognize me upon entering the room. He is unable to state my name, however. He is alert and oriented to person only. He is not oriented to place or time. Attention is normal. Concentration impaired. Recent memory severely impaired. 0 out of 3 delayed recall. Remote memory seems to be intact. He indicates that he recalls that he has previously worked for [employer]. He exhibits considerable difficulty with object naming although he is able to read simple text. He does not repeat phrases very well which I think is due to poor comprehension. He is unable to follow simple verbal commands but will mimic simple motor behavior. Vocabulary seems to be intact. Gen. fund of knowledge seems poor. Visual pulido full to confrontation. Visual acuity normal. Pupils equal round reactive to light and accommodation. Eye movements normal. Facial sensation intact. There is no facial droop. Normal facial symmetry and strength. Palate elevates to midline. Tongue protrudes to midline. Shoulder shrug and hearing intact bilaterally. There is no dysmetria with finger to nose or heel to amaro bilaterally. Sensation intact to light touch, temperature, vibration, and proprioception in all 4 limbs. Deep tendon reflexes are normoactive for the arms and legs bilaterally. Plantar responses downgoing bilaterally. Ophthalmoscopic examination reveals normal-appearing optic nerves and posterior elements. No papilledema or hemorrhages. Carotid pulses normal, no bruits to auscultation. Musculoskeletal examination reveals intact strength in the arms and legs bilaterally, proximally and distally. There is normal muscle tone and bulk throughout. No abnormal movements observed. No resting tremor. Gait and station not tested due to safety concerns. Laboratory Results Past 24 Hours: 08/14/16 06:50 08/14/16 06:50 Test 08/13/16 12:40 08/14/16 06:50 08/14/16 07:54 Urine Opiates Screen NEG (NEG) Urine Methadone, Qualitative NEG (NEG) Urine Barbiturates NEG (NEG) Urine Phencyclidine (PCP) Level NEG (NEG) Ur Amphetamine/Methamphetamine NEG (NEG) MDMA (Ecstasy) Screen NEG (NEG) Urine Benzodiazepines Screen NEG (NEG) Urine Cocaine Metabolite NEG (NEG) Urine Marijuana (THC) NEG (NEG) Red Blood Count 4.38 M/uL (4.7-6.1) Mean Corpuscular Volume 90.9 fL (80-100) Mean Corpuscular Hemoglobin 31.3 pg (25-34) Mean Corpuscular Hemoglobin Concent 34.4 g/dl (32-36) RDW Standard Deviation 44.1 fL (36.4-46.3) RDW Coefficient of Variation 13.2 % (11.5-14.5) Mean Platelet Volume 9.3 fL (7.4-10.4) Platelet Estimate DECREASED Anion Gap 7.0 mmol/L (3-11) Est Creatinine Clear Calc Drug Dose 55.4 ml/min Estimated GFR () 88.1 Estimated GFR (Non- 76.1 BUN/Creatinine Ratio 18.5 (10-20) Calcium Level 8.5 mg/dl (8.5-10.1) Total Creatine Kinase 2156 U/L (39-308) Bedside Glucose 90 mg/dl (70-99) Impression Severe, progressive, Alzheimer's dementia characterized by profound deficits of short-term memory, orientation, and aphasia (semantic dementia). Interval progression in generalized atrophy, both cortical, and centrally observed on recent CT of the head. The imaging is not suggestive of normal pressure hydrocephalus and is consistent with his known diagnosis of Alzheimer' s disease. Recent unwitnessed fall at home. Falls are commonly encountered in individuals with Alzheimer's dementia. I do not find any signs suggestive of parkinsonism or an obvious movement disorder at this time. Plan I think obtaining a follow-up brain MRI would be useful to exclude an acute or subacute infarct. However, I believe that his current neurological examination findings are most consistent with his history of Alzheimer's disease. Continue with current dosages of Namenda, Exelon, and sertraline. I would rather not increase his dosage of Exelon as this medication may potentiate bradycardia. As this patient's dementia has become increasingly severe, he may require a higher level of care than what can be provided at home. Patient's family will need to discuss his disposition with social work.
--- NOTE | 2016-08-14 12:44 | DIAGNOSTIC IMAGING REPORT ---
MRI OF THE BRAIN COMBO CLINICAL HISTORY: Dementia. Recent fall. COMPARISON STUDY: CT of the brain dated 08/13/2016. TECHNIQUE: MRI of the brain was performed utilizing various T1 and T2-weighted sequences in the axial, sagittal, and coronal planes. Contrast-enhanced sequences were acquired following the administration of 6 cc of Gadavist. The examination is modestly degraded by motion artifact. FINDINGS: Brain parenchyma: There are age-related involutional changes noting moderate patchy subcortical and periventricular microangiopathic disease. There is no hemorrhage or mass effect. There is no restricted diffusion to suggest acute ischemia. No enhancing mass lesion is identified on the postcontrast images. Fink-white matter differentiation is preserved. No extra-axial fluid collection is seen. The cerebellar tonsils are normal in configuration. Ventricles, sulci, and cisterns: Prominent secondary to involutional change. Pituitary and sella: Unremarkable. Intracranial vasculature: Normal flow voids are maintained at the skull base. Orbits: The bony orbits are grossly intact. Orbital contents are normal in appearance noting a left ocular lens implant. Sinuses and mastoids: Trace mucosal thickening is seen within the maxillary antra and the ethmoid sinuses. The mastoid air cells are clear. Calvarium: Unremarkable. Cervical cord: Partially visualized cervical spinal cord is normal in morphology and signal intensity. IMPRESSION: No acute intracranial abnormality. Electronically signed by: Graeme Luna M.D. 08/14/2016 12:43 PM Dictated Date/Time: 08/14/2016 12:40 PM
--- NOTE | 2016-08-14 13:13 | Discharge Instructions ---
Discharge Instructions Date of Service Aug 14, 2016. Admission Reason for Admission: Altered Mental Status,Rhabdomyolysis Discharge Discharge Diagnosis / Problem: Alzheimer's dementia; Fall; Rhabdomyolysis Discharge Goals Goal(s): Decrease discomfort, Improve function, Increase independence, Diagnostic testing, Therapeutic intervention, Prevent Disease Progression Activity Recommendations Activity Limitations: resume your previous activity . Instructions / Follow-Up Instructions / Follow-Up Resume all regular home medications as prescribed to you It is recommended you continue to have family supervision at all times to help prevent any future falls/injuries Home PT services is being setup by our correctional case records supervisor Please follow-up with your PCP within 5-7 days Please follow-up Neurology, Dr. Michel as instructed Please follow-up/keep all of your subspecialty appointments Current Hospital Diet Patient's current hospital diet: AHA Diet (Heart Healthy) Discharge Diet Recommended Diet: AHA Diet (Heart Healthy) Procedures Procedures Performed: 1. Chest x-ray 2. Head CT 3. Brain MRI Pending Studies Studies pending at discharge: no Laboratory Results Last 24 Hours Test 08/14/16 06:50 08/14/16 07:54 08/14/16 11:27 White Blood Count 5.27 K/uL Red Blood Count 4.38 M/uL Hemoglobin 13.7 g/dL Hematocrit 39.8 % Mean Corpuscular Volume 90.9 fL Mean Corpuscular Hemoglobin 31.3 pg Mean Corpuscular Hemoglobin Concent 34.4 g/dl RDW Standard Deviation 44.1 fL RDW Coefficient of Variation 13.2 % Platelet Count 92 K/uL Mean Platelet Volume 9.3 fL Platelet Estimate DECREASED Sodium Level 143 mmol/L Potassium Level 3.7 mmol/L Chloride Level 106 mmol/L Carbon Dioxide Level 30 mmol/L Anion Gap 7.0 mmol/L Blood Urea Nitrogen 18 mg/dl Creatinine 0.97 mg/dl Est Creatinine Clear Calc Drug Dose 55.4 ml/min Estimated GFR () 88.1 Estimated GFR (Non- 76.1 BUN/Creatinine Ratio 18.5 Random Glucose 96 mg/dl Calcium Level 8.5 mg/dl Total Creatine Kinase 2156 U/L Bedside Glucose 90 mg/dl 89 mg/dl Medical Emergencies . Who to Call and When: Medical Emergencies: If at any time you feel your situation is an emergency, please call 911 immediately. . Non-Emergent Contact Non-Emergency issues call your: Primary Care Provider . . "Provider Documentation" section prepared by Valeria Blandon. VTE Core Measure Inpt VTE Proph given/why not?: Shanika Del Real, [facility]
--- NOTE | 2016-08-14 13:21 | Discharge Summary ---
Discharge Summary Date of Service Aug 14, 2016. (Valeria Blandon PA-C) Discharge Summary Admission Date: Aug 13, 2016 at 12:24 Discharge Date: Aug 14, 2016 Discharge Disposition: Home with services Principal Diagnosis: Alzheimer's disease; Fall Problems/Secondary Diagnoses: 1. Altered mental status 2. Mild Rhabdomyolysis, secondary to fall 3. Cardiomyopathy, EF 25-30% in 2010 4. HTN 5. Depression 6. HLD Immunizations: Have You Had Influenza Vaccine: Yes Influenza Vaccine Date: October 02, 2009 History of Tetanus Vaccine?: Yes Tetanus Immunization Date: Nov 02, 1996 History of Pneumococcal: Yes Pneumococcal Date: Apr 06, 2010 History of Hepatitis B Vaccine: No Procedures: CT HEAD WITHOUT CONTRAST (CT) CLINICAL HISTORY: Confusion. Stroke like symptoms. COMPARISON STUDY: 06/06/2010 TECHNIQUE: Axial CT of the brain is performed from the vertex to the skull base. IV contrast was not administered for this examination. CT DOSE: 537.48 mGy.cm FINDINGS: No intra or extra-axial mass lesions are visualized. There is no CT evidence of acute cortical infarction. There is no evidence of midline shift. There is no acute hemorrhage. No calvarial fractures are visualized. There are patchy white matter hypodensities likely on a small vessel basis. There is mild ventricular dilatation which has increased since the prior study. This is likely secondary to volume loss. There is mild mucosal thickening within the ethmoid and sphenoid sinuses. The frontal sinuses are hypoplastic. There are calcifications within the distal vertebral arteries. IMPRESSION: 1. No evidence of intracranial mass 2. No evidence of acute hemorrhage 3. Progressive ventricular dilatation, likely secondary to volume loss Electronically signed by: Leodan Galindo M.D. 08/13/2016 9:57 AM Dictated Date/Time: 08/13/2016 9:55 AM The status of this report is Signed. Draft = Not yet reviewed or approved by Radiologist. Signed = Reviewed and approved by Radiologist. SINGLE VIEW CHEST CLINICAL HISTORY: Strokelike symptoms. FINDINGS: An AP, portable, upright chest radiograph is compared to study dated 06/06/2010. Correlation is made with chest CT dated 01/03/2010. The examination is degraded by portable technique and patient rotation. The heart is mildly enlarged and there is atherosclerotic calcification of the thoracic aorta. The pulmonary vasculature is noncongested. Chronic interstitial thickening is unchanged. There is bibasilar atelectasis. No airspace consolidation is seen typical for pneumonia and there is no large pleural effusion. No pneumothorax is seen. The skeletal structures are osteopenic. The bony thorax is grossly intact. IMPRESSION: Cardiomegaly with no acute cardiopulmonary abnormality. Electronically signed by: Graeme Luna M.D. 08/13/2016 10:09 AM Dictated Date/Time: 08/13/2016 10:07 AM The status of this report is Signed. Draft = Not yet reviewed or approved by Radiologist. Signed = Reviewed and approved by Radiologist. MRI OF THE BRAIN COMBO CLINICAL HISTORY: Dementia. Recent fall. COMPARISON STUDY: CT of the brain dated 08/13/2016. TECHNIQUE: MRI of the brain was performed utilizing various T1 and T2-weighted sequences in the axial, sagittal, and coronal planes. Contrast-enhanced sequences were acquired following the administration of 6 cc of Gadavist. The examination is modestly degraded by motion artifact. FINDINGS: Brain parenchyma: There are age-related involutional changes noting moderate patchy subcortical and periventricular microangiopathic disease. There is no hemorrhage or mass effect. There is no restricted diffusion to suggest acute ischemia. No enhancing mass lesion is identified on the postcontrast images. Fink-white matter differentiation is preserved. No extra-axial fluid collection is seen. The cerebellar tonsils are normal in configuration. Ventricles, sulci, and cisterns: Prominent secondary to involutional change. Pituitary and sella: Unremarkable. Intracranial vasculature: Normal flow voids are maintained at the skull base. Orbits: The bony orbits are grossly intact. Orbital contents are normal in appearance noting a left ocular lens implant. Sinuses and mastoids: Trace mucosal thickening is seen within the maxillary antra and the ethmoid sinuses. The mastoid air cells are clear. Calvarium: Unremarkable. Cervical cord: Partially visualized cervical spinal cord is normal in morphology and signal intensity. IMPRESSION: No acute intracranial abnormality. Electronically signed by: Graeme Luna M.D. 08/14/2016 12:43 PM Dictated Date/Time: 08/14/2016 12:40 PM The status of this report is Signed. Draft = Not yet reviewed or approved by Radiologist. Signed = Reviewed and approved by Radiologist. Consultations: Neurology- Dr. Michel (Valeria Blandon, PA-C) Medication Reconciliation Continued Medications: Aspirin (Aspir-81) 81 Mg Tab 1 TAB PO DAILY Carvedilol (Coreg) 25 Mg Tab 25 MG PO BID, TAB Memantine Hcl (Namenda Xr) 28 Mg Cap 1 TAB PO DAILY Rivastigmine Tartrate (Exelon) 3 Mg Cap 3 MG PO BID, CAP Sertraline (Zoloft) 25 Mg Tab 25 MG PO DAILY, TAB Simvastatin (Zocor) 40 Mg Tab 40 MG PO QPM, 0 Refills Referrals At Discharge Follow up Referrals: Family Practice Referral - Within 1 Week with Enrike Quintero D.O. Discharge Exam ROS unobtainable secondary to dementia Physical Exam: General Appearance: no apparent distress Eyes: normal inspection, PERRL ENT: hearing grossly normal Neck: supple Respiratory/Chest: lungs clear, no respiratory distress, no accessory muscle use Cardiovascular: regular rate, rhythm, + systolic murmur Abdomen / GI: normal bowel sounds, non tender, soft Extremities: no calf tenderness, no pedal edema Neurologic/Psychiatric: alert, + disoriented Skin: normal color, warm/dry, no rash (Valeria Blandon, PA-C) Hospital Course 76 y/o male with a history of Alzheimer's disease, CAD, cardiomyopathy, depression, hyperlipidemia, hypertension, h/o prostate cancer s/p prostatectomy and radiation, REM sleep behavior disorder, and tremor who presented to the ED on 08/13 with worsening confusion and a fall. Dementia has been getting progressively worse the last few months; however, the patient's states that he has been even more confused the last 2 days. Patient found on the bathroom floor, down for about 45 minutes. Does not appear that he had a loss of consciousness. believes that he may have had a fall yesterday as well. AVSS on arrival. Head CT shows progressive ventricular dilatation, likely secondary to volume loss but no acute disease. Chest x-ray shows no acute disease. EKG shows no ischemic changes. Dysphasia screen done in the ED, patient cleared for regular diet. Initial labs significant for an elevated CK of 2808, otherwise grossly unremarkable. Altered mental status and fall in the setting of baseline Alzheimer's disease: - Admit to telemetry for cardiac monitoring--> reviewed- episodes of sinus nick in 50's, PVCs noted, otherwise NSR - U/A w/ UCx- negative - EKGs QAM and PRN with chest pain - Continue Namenda 28 mg PO qd and Rivastigmine 3 mg PO BID - Consult Dr. Michel, appreciate recommendations -- Brain MRI- no acute intracranial findings Mild Rhabdomyolysis, secondary to fall: - Initial CK elevated at 2808 - Trend CK- trending down - Treated w/ NSS at 100 cc/hr Cardiomyopathy, EF 25-30% in 2010/HTN: Continue Carvedilol 25 mg PO BID Depression: Continue Sertraline 25 mg PO daily HLD: Continue Simvastatin 40 mg PO daily DVT prophylaxis: TEDs and SCDs Code Status: LEVEL V, DNR Dispo: Discharge to home with home PT -- From home, lives w/ --> discussed discharge goals, wants patient to return home w/ her; he has 24-hour family supervision and health services who come in a few times a week from 9am-3pm. PT recommends home PT services--> case management on board and to send referral Total Time Spent: Greater than 30 minutes This includes examination of the patient, discharge planning, medication reconciliation, and communication with other providers. (Valeria Blandon, MER) MJ Physician Supervision Note: I interviewed and examined the patient. Discussed with Valeria Blandon PAC and agree with findings and plan as documented in the note. 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 (Valeria Blandon, MER) Follow-Up Please follow-up with your PCP within 5-7 days Please follow-up with Neurology, Dr. Michel as instructed by him Please follow-up/keep all of your subspecialty appointments (Valeria Blandon, MJ-C) Additional Copies To Enrike Quintero D.O.
[2016-10-21] MEDS ORDERED: RIVA3CAP4 PO (10:08)
[2016-10-21] MEDS ORDERED: CARV25TA2 PO (10:08)
[2016-10-21] MEDS ORDERED: MEMA1CAP7 PO (10:08)
[2016-10-21] MEDS ORDERED: SERT25TA PO (12:20)
[2016-10-21] MEDS ORDERED: SIMV40TA2 PO (13:39)
[2017-01-04] MEDS ORDERED: SULF800T23 PO (23:04)
[2017-01-17] MEDS ORDERED: SRQ25 PO (13:08)
[2017-01-17] MEDS ORDERED: SACC250C3 PO (13:08)
== END 2016-08-14 16:30 | disposition home health service (06) | DRG 57 ==
LOC: ENRESERVTM → ENRESERVDT → EDBD 09:03 → C.EDB 09:04 → C.MED 12:24
PROVIDERS: ADMIT Internal Medicine; ATTEND Internal Medicine
DX: G30.9 Alzheimer's disease, unspecified (principal); M62.82 Rhabdomyolysis; I42.9 Cardiomyopathy, unspecified; I49.3 Ventricular premature depolarization; R41.82 Altered mental status, unspecified; R29.6 Repeated falls; W19.XXXA Unspecified fall, initial encounter; Y92.002 Bathroom of unspecified non-institutional (private) residence as the place of occurrence of the external cause; F02.80 Dementia in other diseases classified elsewhere, unspecified severity, without behavioral disturbance, psychotic disturbance, mood disturbance, and anxiety; I10 Essential (primary) hypertension; E78.5 Hyperlipidemia, unspecified; I25.10 Atherosclerotic heart disease of native coronary artery without angina pectoris; G47.52 REM sleep behavior disorder; R25.1 Tremor, unspecified; F32.9 Major depressive disorder, single episode, unspecified; I25.2 Old myocardial infarction; Z66 Do not resuscitate; Z79.82 Long term (current) use of aspirin; Z79.899 Other long term (current) drug therapy

== ENCOUNTER 2016-10-21 16:40 | Emergency (ER) | payer BC, OTHER ==
[~2016-10-21] VITALS: Ht 172.7 cm; Wt 61.1 kg
[~2016-10-21 16:40] MED LIST changes: -ASPEC325 PO; +ASPI-232 PO; +CARV25TA2 PO; -CLOP1TAB15 PO; -CRG25 PO; -DVN80 PO; +MEMA1CAP7 PO; +RIVA3CAP4 PO; +SIMV40TA2 PO
[2016-10-21 16:43] VITALS: TEMP 36.7; Ht 172.7 cm; Wt 61.1 kg
[2016-10-21] MEDS ORDERED: FUROSEMIDE 40 MG/4 ML VIAL IV STA (17:21)
[2016-10-21 17:27] VITALS: O2SAT 96
[2016-10-21 17:56] LABS: BASO % 0.4 %; BASO ABS # 0.02 K/uL (0-0.2); COMPLETE YES; EOS % 2.8 %; HEMATOCRIT 45.4 % (42-52); LYMPH % 20.1 %; LYMPH ABS # 1.09 K/uL (1.2-3.4); MEAN CELL VOLUME 92.1 fL (80-100); MEAN CORPUSCULAR HGB CONC 33.7 g/dl (32-36); MEAN PLATELET VOLUME 9.1 fL (7.4-10.4); MONO % 10.3 %; NEUT % 66.4 %; PLATELET COUNT 145 K/uL (130-400); RED BLOOD COUNT 4.93 M/uL (4.7-6.1); WHITE BLOOD COUNT 5.42 K/uL (4.8-10.8)
--- NOTE | 2016-10-21 18:02 | DIAGNOSTIC IMAGING REPORT ---
CHEST ONE VIEW PORTABLE HISTORY: Evaluate Fever/Sepsis COMPARISON: Chest 08/13/2016. FINDINGS: No pleural effusions. No pneumothorax. The heart remains mildly enlarged. No change in the linear densities at the left lung base. Mild right basilar interstitial thickening persists. No new focal lung consolidations. IMPRESSION: 1. Stable mild cardiomegaly. 2. No change in the left basilar linear densities suggesting subsegmental atelectasis and right basilar interstitial thickening. Electronically signed by: Mickey Mcfarlane M.D. 10/21/2016 6:01 PM Dictated Date/Time: 10/21/2016 5:58 PM
[2016-10-21 18:09] LABS: BUN/CREATININE RATIO 13.7 (10-20); CREATININE 1.2 mg/dl (0.60-1.40)
[2016-10-21 18:14] LABS: CKMB/CK RATIO 1.8 (0-3.0)
[2016-10-21 18:20] LABS: INR 1.2 (0.9-1.1); PARTIAL THROMBOPLASTIN RATIO 1.1; PROTHROMBIN TIME (PATIENT) 12.6 SECONDS (9.0-12.0)
--- NOTE | 2016-10-21 19:34 | DIAGNOSTIC IMAGING REPORT ---
BILATERAL LOWER EXTREMITY VENOUS DOPPLER HISTORY: swelling legs COMPARISON STUDY: None. FINDINGS: There is normal compressibility, flow, and augmentation within the bilateral lower extremity deep venous systems. IMPRESSION: No DVT within the right or left lower extremity. Electronically signed by: Mickey Mcfarlane M.D. 10/21/2016 7:33 PM Dictated Date/Time: 10/21/2016 7:33 PM
[2016-10-21] MEDS ORDERED: FURO20TA PO (19:53)
--- NOTE | 2016-10-21 19:57 | EMERGENCY ROOM VISIT NOTE ---
History Report prepared by Negrito: Amie Tapia Under the Supervision of: Dr. Saroj Bustillo M.D. First contact with patient: 17:03 Chief Complaint: EDEMA TO EXTREMITY Stated Complaint: SWOLLEN FEET History of Present Illness The patient is a 76 year old male who presents to the Emergency Room with complaints of constant bilateral feet swelling beginning today. The patient's states that the patient has a history of 2 heart attacks and has never had foot swelling previously. She notes that he has a history of Alzheimer's and does not verbalize his pain. She complains of blue feet when he was sitting with his feet down. She denies any difficulty breathing. The reports that the patient sits around a lot and he does not use compression socks. She states that he is not on any blood thinners. Source of History: spouse/significant other Onset: today Position: foot (bilateral) Quality: other (swelling) Note: Complains of blue feet. Denies any difficulty breathing. Review of Systems See HPI for pertinent positives & negatives. A total of 10 systems reviewed and were otherwise negative. Past Medical & Surgical Medical Problems: (1) CAD (coronary artery disease) (2) Hyperlipidemia (3) Hypertension (4) Mental status change (5) Myocardial infarction (6) Rhabdomyolysis Surgical Problems: (1) H/O inguinal hernia repair (2) Hx of colonoscopy Family History Dementia Heart disease Hypertension Myocardial infarction at age less than 60 Social History Smoking Status: Never Smoker Drug Use: none Marital Status: Housing Status: lives with family Occupation Status: retired Current/Historical Medications Scheduled Aspirin (Aspir-81), 1 TAB PO Q3DAYS Carvedilol (Coreg), 25 MG PO BID Furosemide (Lasix), 20 MG PO QD Memantine Hcl (Namenda Xr), 1 TAB PO DAILY Rivastigmine Tartrate (Exelon), 3 MG PO BID Sertraline (Zoloft), 25 MG PO QPM Simvastatin (Zocor), 40 MG PO QPM Allergies Coded Allergies: No Known Allergies (Verified , 08/13/16) Physical Exam Vital Signs Date Time Temp Pulse Resp B/P (MAP) Pulse Ox O2 Delivery O2 Flow Rate FiO2 10/21/16 17:52 59 10/21/16 17:36 55 18 144/89 97 Room Air 10/21/16 17:27 96 Room Air 10/21/16 16:43 36.7 57 18 133/84 95 Room Air Physical Exam CONSTITUTIONAL/VITAL SIGNS: Reviewed / noted above. GENERAL: Non-toxic in appearance. INTEGUMENTARY: Warm, dry, and [place]. HEAD: Normocephalic. EYES: without scleral icterus or trauma. ENT/OROPHARYNX: clear and moist. LYMPHADENOPATHY/NECK: Is supple without lymphadenopathy or meningismus. RESPIRATORY: Lungs clear and equal. CARDIOVASCULAR: Regular rate and rhythm. GI/ABDOMEN: Soft and nontender. No organomegaly or pulsatile mass. No rebound or guarding. Normal bowel sounds. EXTREMITIES: Symmetric bilateral lower extremity edema. Mild hyperemia on the dorsal aspects of the bilateral feet. BACK: No CVA tenderness. NEUROLOGICAL: Intact without focal deficits. PSYCHIATRIC: normal affect. MUSCULOSKELETAL: Normally developed with good muscle tone. Medical Decision & Procedures ER Provider Diagnostic Interpretation: Radiology results as stated below per my review and radiologist interpretation: BILATERAL LOWER EXTREMITY VENOUS DOPPLER FINDINGS: There is normal compressibility, flow, and augmentation within the bilateral lower extremity deep venous systems. IMPRESSION: No DVT within the right or left lower extremity. Electronically signed by: Mickey Mcfarlane M.D. 10/21/2016 7:33 PM CHEST ONE VIEW PORTABLE FINDINGS: No pleural effusions. No pneumothorax. The heart remains mildly enlarged. No change in the linear densities at the left lung base. Mild right basilar interstitial thickening persists. No new focal lung consolidations. IMPRESSION: 1. Stable mild cardiomegaly. 2. No change in the left basilar linear densities suggesting subsegmental atelectasis and right basilar interstitial thickening. Electronically signed by: Mickey Mcfarlane M.D. 10/21/2016 6:01 PM Dictated Date/Time: 10/21/2016 5:58 PM Dictated Date/Time: 10/21/2016 7:33 PM Laboratory Results 10/21/16 17:35 Red Blood Count 4.93, Mean Corpuscular Volume 92.1, Mean Corpuscular Hemoglobin 31.0, Mean Corpuscular Hemoglobin Concent 33.7, Mean Platelet Volume 9.1, Neutrophils (%) (Auto) 66.4, Lymphocytes (%) (Auto) 20.1, Monocytes (%) (Auto) 10.3, Eosinophils (%) (Auto) 2.8, Basophils (%) (Auto) 0.4, Neutrophils # (Auto ) 3.60, Lymphocytes # (Auto) 1.09, Monocytes # (Auto) 0.56, Eosinophils # (Auto ) 0.15, Basophils # (Auto) 0.02 10/21/16 17:35 Test 10/21/16 17:35 10/21/16 17:44 White Blood Count 5.42 K/uL (4.8-10.8) Red Blood Count 4.93 M/uL (4.7-6.1) Hemoglobin 15.3 g/dL (14.0-18.0) Hematocrit 45.4 % (42-52) Mean Corpuscular Volume 92.1 fL (80-100) Mean Corpuscular Hemoglobin 31.0 pg (25-34) Mean Corpuscular Hemoglobin Concent 33.7 g/dl (32-36) Platelet Count 145 K/uL (130-400) Mean Platelet Volume 9.1 fL (7.4-10.4) Neutrophils (%) (Auto) 66.4 % Lymphocytes (%) (Auto) 20.1 % Monocytes (%) (Auto) 10.3 % Eosinophils (%) (Auto) 2.8 % Basophils (%) (Auto) 0.4 % Neutrophils # (Auto) 3.60 K/uL (1.4-6.5) Lymphocytes # (Auto) 1.09 K/uL (1.2-3.4) Monocytes # (Auto) 0.56 K/uL (0.11-0.59) Eosinophils # (Auto) 0.15 K/uL (0-0.5) Basophils # (Auto) 0.02 K/uL (0-0.2) RDW Standard Deviation 44.6 fL (36.4-46.3) RDW Coefficient of Variation 13.2 % (11.5-14.5) Immature Granulocyte % (Auto) 0.0 % Immature Granulocyte # (Auto) 0.00 K/uL (0.00-0.02) Prothrombin Time 12.6 SECONDS (9.0-12.0) Prothromb Time International Ratio 1.2 (0.9-1.1) Activated Partial Thromboplast Time 28.8 SECONDS (21.0-31.0) Partial Thromboplastin Ratio 1.1 Anion Gap 5.0 mmol/L (3-11) Est Creatinine Clear Calc Drug Dose 46.0 ml/min Estimated GFR () 68.1 Estimated GFR (Non- 58.8 BUN/Creatinine Ratio 13.7 (10-20) Calcium Level 9.0 mg/dl (8.5-10.1) Total Bilirubin 1.0 mg/dl (0.2-1) Direct Bilirubin 0.3 mg/dl (0-0.2) Aspartate Amino Transf (AST/SGOT) 21 U/L (15-37) Alanine Aminotransferase (ALT/SGPT) 29 U/L (12-78) Alkaline Phosphatase 75 U/L (45-117) Total Creatine Kinase 136 U/L (39-308) Creatine Kinase MB 2.4 ng/ml (0.5-3.6) Creatine Kinase MB Ratio 1.8 (0-3.0) Total Protein 7.0 gm/dl (6.4-8.2) Albumin 3.8 gm/dl (3.4-5.0) Lipase 275 U/L (73-393) Bedside Troponin I 0.000 ng/ml (0-0.045) IC-Awe-E-Type Natriuretic Peptide 1667 pg/ml (0-900) Laboratory results as stated above per my review. Medications Administered Medications (Trade) Dose Ordered Sig/Yuli Route Start Time Stop Time Status Last Admin Dose Admin Furosemide (Lasix Inj) 20 mg NOW STAT IV 10/21/16 17:21 10/21/16 17:22 DC 10/21/16 17:59 20 MG ECG Indication: other (edema) Rate (beats per minute): 61 Rhythm: normal sinus Findings: T-wave inversion (Lateral), other (no acute injury) Comparison ECG Date: 08/14/16 Change: no significant change ED Course 170: Previous medical records were reviewed. The patient was evaluated in room C2B. A complete history and physical examination was performed. 1720: Lasix Inj 20mg IV. 1957: On reevaluation, the patient is doing well. I discussed the results and findings with the patient. He verbalized agreement of the treatment plan. The patient was discharged home. Medical Decision Differential diagnosis: Etiologies such as DVT, musculoskeletal, infection, joint effusion, trauma, lymphedema, idiopathic, CHF, as well as others were entertained.. Medication Reconciliation: I attest that I have personally reviewed the patient' s current medication list. Blood pressure Screening: Patient was found to have normal blood pressure on screening and does not require follow-up. This is a 76-year-old male who presents to the ED with a chief complaint of lower extremity edema. The patient's noticed that his feet were turning a bluish discoloration earlier prior to arrival. She states that since he is elevated his legs, this discoloration has improved. She noticed the edema several days ago and tried some compression stockings that seemed to be uncomfortable for him. There were also difficult to place. The patient has a history of dementia and is a poor historian and provides no additional complaints. He is in no distress and is pleasant on a conversation. The patient's exam reveals bilateral pitting edema that appears to be symmetric. The left is slightly worse than the right. There is some hyperemia of the dorsal aspect of the bilateral feet. There is no cyanosis. Dorsalis pedis pulses are intact. Capillary refill is normal. There is no evidence of infection or open wounds. His vital signs are normal. Chest x-ray did not show any acute disease. A CBC was normal. BUN and creatinine are normal. The BNP was 1667. There is no clinical findings to suggest congestive heart failure. The patient was treated with IV Lasix 20 mg. Bilateral lower extremity ultrasounds did not show evidence of DVT. The patient was told the results of the test. He'll be discharged on Lasix for the next 3 days. He is recommended to follow-up with his PCP for further evaluation of his symptoms. Impression Primary Impression: Bilateral lower extremity edema Scribe Attestation The scribe's documentation has been prepared under my direction and personally reviewed by me in its entirety. I confirm that the note above accurately reflects all work, treatment, procedures, and medical decision making performed by me. Departure Information Dispostion Home / Self-Care Prescriptions Furosemide (LASIX) 20 Mg Tab 20 MG PO QD for 3 Days, #3 TAB Prov: Hollis Dias D.O. 10/21/16 Referrals Enrike Quintero D.O. (PCP) Patient Instructions ED Leg Swelling Bilateral, My [facility] Additional Instructions Lasix as prescribed for the next 3 days. Follow-up with your doctor for recheck on Tuesday. Return for worsening or new concerns. Elevate legs when possible. Increase activities. Compression socks will help.
[2016-10-21 20:10] VITALS: BP 142/104; PULSE 64; O2SAT 95
[2017-01-04] MEDS ORDERED: SULF800T23 PO (23:04)
[2017-01-17] MEDS ORDERED: SACC250C3 PO (13:08)
[2017-01-17] MEDS ORDERED: SRQ25 PO (13:08)
== END 2016-10-21 20:11 | disposition home or self-care (01) ==
LOC: C.EDB 16:42 → C.EDC 20:11
DX: R60.0 Localized edema (principal); I25.2 Old myocardial infarction; G30.9 Alzheimer's disease, unspecified; F02.80 Dementia in other diseases classified elsewhere, unspecified severity, without behavioral disturbance, psychotic disturbance, mood disturbance, and anxiety; I25.10 Atherosclerotic heart disease of native coronary artery without angina pectoris; E78.5 Hyperlipidemia, unspecified; I10 Essential (primary) hypertension; M62.82 Rhabdomyolysis; Z81.8 Family history of other mental and behavioral disorders; Z82.49 Family history of ischemic heart disease and other diseases of the circulatory system; R91.8 Other nonspecific abnormal finding of lung field; R68.89 Other general symptoms and signs

== ENCOUNTER 2016-11-07 12:29 | Emergency (ER) | payer BC ==
[~2016-11-07] VITALS: Ht 172.7 cm; Wt 61.7 kg
[~2016-11-07 12:29] MED LIST changes: +FURO20TA PO
[2016-11-07 12:41] VITALS: Ht 172.7 cm; Wt 61.7 kg
[2016-11-07] MEDS ORDERED: XYLOCAINE 1%/SOD BICARB 20 ML VIAL INFIL ONE (13:30)
--- NOTE | 2016-11-07 13:43 | DIAGNOSTIC IMAGING REPORT ---
HEAD CT NONCONTRAST CT DOSE: 537.48 mGy.cm HISTORY: fall; scalp lac, hx Alzheimer TECHNIQUE: Multiaxial CT images of the head were performed without the use of intravenous contrast. Automated exposure control was utilized for this study. Comparison: Head CT 08/13/2016. Findings: The paranasal sinuses and mastoid air cells are clear. The calvarium and skull base are intact. There is no mass, hematoma, midline shift, acute infarct. White matter hypodensity is nonspecific but suggestive of microvascular ischemic change. The ventricles and sulci demonstrate moderate age-related involutional changes. Motion artifact. Impression: No significant change compared to the prior study. No acute intracranial abnormality. Electronically signed by: Mickey Mcfarlane M.D. 11/07/2016 1:42 PM Dictated Date/Time: 11/07/2016 1:38 PM
[2016-11-07 14:35] VITALS: BP 155/94; PULSE 60; TEMP 36.6; O2SAT 97
--- NOTE | 2016-11-07 14:51 | EMERGENCY ROOM VISIT NOTE ---
ED Visit Note First contact with patient: 13:11 I have personally seen and evaluated the patient with the PA. I agree with the diagnosis and management decisions and have been personally involved in the case. Please see Edgard Blackman PA-C's notes for further details of the history, physical and visit.
--- NOTE | 2016-11-08 21:42 | EMERGENCY ROOM VISIT NOTE ---
ED Visit Note First contact with patient: 13:11 Chief Complaint: Fall. History of Present Illness: Mr. Simon is a 76-year-old white male who ambulates into the ED accompanied by his following a fall. Patient's reports patient has severe Alzheimer's dementia. Patient reports patient was in the bathroom well. His pants were down and she felt that he fell while on the toilet. He reports he has had frequent falls and has been evaluated for an extended care facility for his dementia and falls which she is to be placed later this week. Patient reports while going into the bathroom she noticed her on the floor and he had a scalp laceration. She assisted him to standing. She called her son who is a physician assistant shift supervisor and he recommended that she bring him to the emergency department for evaluation and repair of his laceration. Currently patient reports she remembers falling in May but not recently. He is not having any complaints of pain in the area of his laceration or throughout the head. He denies any associated symptoms including dizziness, lightheadedness, visual changes, hearing changes, difficulty speaking, difficulty swallowing, difficulty ambulating/coordinating body movements, neck pain, chest pain, shortness of breath, abdominal pain, nausea, vomiting, extremity weakness/numbness/tingling. Review of Systems: As noted above in history of present illness. All body systems were reviewed and found to be negative as noted above. Past Medical History: As previously noted, coronary artery disease with 2 heart attacks and stent placement, kidney stones and prostrate cancer. Current Medications: Zocor, aspirin, Coreg, Zoloft, Exelon, Namenda. Allergies to Medications: denies. Social History: Patient is currently retired and lives with his ; she denies tobacco and alcohol use. Tetanus Immunization Status: reports up-to-date. Physical Examination: Vital Signs: Date Time Temp Pulse Resp B/P (MAP) Pulse Ox O2 Delivery O2 Flow Rate FiO2 11/07/16 14:35 36.6 60 18 155/94 97 11/07/16 12:41 36.6 91 18 138/80 97 Room Air GENERAL: 76-year-old male in no acute distress, nontoxic-appearing, afebrile and hemodynamically stable. NEUROLOGICAL: Awake, alert and oriented to person and only. Cranial nerves II through XII grossly intact. Good hand eye coordination. Poor short- term and long-term recall. Gait appears stable. Pronator drift test negative. Difficulty spelling account backwards. No focal motor or sensory deficits. SKIN: Warm, dry and pink. Scalp: Over the crown of the scalp patient has a 3.3 cm full-thickness laceration. No active bleeding. HEENT: Skull: Normocephalic. Laceration as noted above. No bony deformity, bony crepitus, depressions, swelling or ecchymosis. No raccoon's eyes or jim signs. No drainage from the ears or the nostril; no hemotympanum. Face : No bony tenderness, bony crepitus, swelling or ecchymosis. PERRLA. EOMI without nystagmus. Sclera white and conjunctiva pink. No malocclusion. No itch oral trauma. Airway patent. Speech is pressured but clear. Trachea midline. No jugular venous distention. BACK: No tenderness over the bony cervical and thoracic spine. Full range of motion of the cervical spine. THORAX: Lungs sounds are clear to auscultation and equal bilaterally with symmetrical chest wall. HEART: Regular rate and rhythm. No gallops, rubs or murmurs are appreciated. ABDOMEN: Flat, soft and nontender. Positive bowel sounds in all quadrants. No guarding, rigidity or organomegaly. PELVIS: Stable and nontender to compression and rock. EXTREMITIES: No tenderness over the shoulder, upper arms, elbows, forearms, wrists, hands, hips, thighs, knees, lower legs, ankles or feet. Full range of motion of all joints. Moves all extremities well on command and with purpose. All distal neurovascular statuses are intact and equal bilaterally. ED Course: Patient is assessed as noted above. Patient's medication list was reviewed. Head CT: Was reviewed by myself and read by the radiologist and shows no acute intracranial abnormalities or skull fractures. Radiologist compared to previous and shows similar white matter hypodensity suggestive of microvascular ischemic changes and moderate age related involution changes to the ventricles and sulci. Wound Repair: Complexity: Basic Verbal consent was obtained after the risks and benefits were explained. The skin was prepped with betadine and a sterile field set. Wound edges of the wound was anesthetized with 4.2 ml buffered 1% lidocaine. The wound was explored for foreign bodies and none found. Copious irrigation was performed using sterile saline. With direct pressure the bleeding subsided. Debridement was not performed. The wound edges were approximated using 7 whitley. Hemostasis and excellent approximation was achieved. Antibacterial ointment applied. No complications and the patient tolerated the procedure well. Patient and his were educated about brigitte's findings and instructed on his treatment plan; she verbalizes understanding and agreement with this plan. Clinical Impression: Laceration of the scalp. Status post fall. Disposition: Patient discharged home in stable condition; prior to departure he was reassessed and subjectively reported pain and symptom-free. Plan: Comfort measures, wound care, signs of infection and signs of head injury were discussed with the patient and his . Patient and were encouraged to follow-up with PCP or return to the ED for any signs of infection, signs of head injury or any new/concerning symptoms.
[2017-01-04] MEDS ORDERED: SULF800T23 PO (23:04)
[2017-01-17] MEDS ORDERED: SRQ25 PO (13:08)
[2017-01-17] MEDS ORDERED: SACC250C3 PO (13:08)
== END 2016-11-07 14:36 | disposition home or self-care (01) ==
LOC: C.EDB 12:31 → C.EDD 14:36
DX: S01.01XA Laceration without foreign body of scalp, initial encounter (principal); W18.11XA Fall from or off toilet without subsequent striking against object, initial encounter; I25.10 Atherosclerotic heart disease of native coronary artery without angina pectoris; Z98.61 Coronary angioplasty status; Z87.442 Personal history of urinary calculi; Z85.46 Personal history of malignant neoplasm of prostate; Z88.6 Allergy status to analgesic agent; Z88.8 Allergy status to other drugs, medicaments and biological substances

== ENCOUNTER 2017-01-05 22:31 | Inpatient (IN) | payer BC, OTHER ==
[~2017-01-05] VITALS: Ht 172.7 cm; Wt 58.3 kg
[~2017-01-05 22:31] MED LIST changes: -FURO20TA PO; +SULF800T23 PO
[2017-01-05] MEDS ORDERED: SERT50TA PO (22:54)
[2017-01-05] MEDS ORDERED: QUET1TAB32 PO (22:54)
[2017-01-05] MEDS ORDERED: MENTOIN12 TOP (22:58)
[2017-01-05 23:30] LABS: BASO % 0.4 %; BASO ABS # 0.02 K/uL (0-0.2); COMPLETE YES; EOS % 4.7 %; HEMATOCRIT 40.8 % (42-52); IG% 0.2 %; LYMPH ABS # 1.33 K/uL (1.2-3.4); MEAN CELL VOLUME 91.7 fL (80-100); MEAN CORPUSCULAR HEMOGLOBIN 30.1 pg (25-34); MEAN CORPUSCULAR HGB CONC 32.8 g/dl (32-36); MEAN PLATELET VOLUME 8.8 fL (7.4-10.4); NEUT % 62.7 %; PLATELET COUNT 139 K/uL (130-400); RED BLOOD COUNT 4.45 M/uL (4.7-6.1); WHITE BLOOD COUNT 5.31 K/uL (4.8-10.8)
[2017-01-05] MEDS ORDERED: LIDOCAINE 2% JELLY 5 ML TUBE EXT ONE (23:40)
[2017-01-05 23:54] LABS: PARTIAL THROMBOPLASTIN RATIO 1.1; PROTHROMBIN TIME (PATIENT) 11.2 SECONDS (9.0-12.0)
[2017-01-06 00:02] LABS: BUN/CREATININE RATIO 16.5 (10-20); CALCIUM 9.2 mg/dl (8.5-10.1); CREATININE 1.3 mg/dl (0.60-1.40); POTASSIUM 3.9 mmol/L (3.5-5.1)
[2017-01-06 00:34] LABS: MANUAL MICROSCOPIC REQUIRED? YES; URINE APPEARANCE CLOUDY (CLEAR); URINE BILIRUBIN NEG (NEG); URINE COLOR RED; URINE NITRITE NEG (NEG); URINE SPECIFIC GRAVITY 1.025 (1.000-1.030); UROBILINOGEN NEG (NEG)
[2017-01-06 00:36] LABS: REVIEW REQ? NO; URINE RBC >30 /hpf (0-4)
[2017-01-06 00:53] LABS: URINE BACTERIA NEG (NEG)
--- NOTE | 2017-01-06 01:53 | EMERGENCY ROOM VISIT NOTE ---
History Report prepared by Negrito: Diane Pike Under the Supervision of: Dr. Ron Weaver M.D. First contact with patient: 23:09 Chief Complaint: HEMATURIA Stated Complaint: BLEEDING Nursing Triage Summary: Pt arrived via ambulance ALS from [facility]. Staff reported to EMS that the pt had been taken to [facility] on tuesday for Blood clots in the patients brief. Staff reported that they never got any results. Tonight staff reported that they found several large clots while changing the pts brief. Pt has a history of dementia. EMS reported stable vitals enroute. History of Present Illness The patient is a 76 year old male who presents to the Emergency Room with complaints of persistent hematuria starting 2 days ago. He presents to the ED by EMS from [facility]. He was seen at [facility] 2 days ago for blood clots in his briefs. They were never given the results of the testing that day. Today they noticed more clots in his briefs so he was sent to the ED. He denies having any pain. The patient has a history of dementia. The history is limited due to the patient's dementia. Source of History: family, nursing staff History Limited By: dementia Onset: 2 days ago Position: other (global) Quality: other (hematuria) Timing: other (persistent) Note: Pt denies having any pain. Review of Systems Limited ROS due to patient's dementia. Past Medical & Surgical Medical Problems: (1) CAD (coronary artery disease) (2) Hyperlipidemia (3) Hypertension (4) Mental status change (5) Myocardial infarction (6) Rhabdomyolysis Surgical Problems: (1) H/O inguinal hernia repair (2) Hx of colonoscopy Family History Dementia Heart disease Hypertension Myocardial infarction at age less than 60 Social History Smoking Status: Unknown if Ever Smoked Drug Use: none Marital Status: Housing Status: lives with family Occupation Status: retired Current/Historical Medications Scheduled Menthol-Zinc Oxide (Risamine), 1 APPLN TOP QS Quetiapine Fumarate (Seroquel), 100 MG PO HS Rivastigmine Tartrate (Exelon), 3 MG PO BID Sertraline (Zoloft), 50 MG PO QAM Simvastatin (Zocor), 40 MG PO QPM Sulfa/Trimethoprim (Bactrim Ds 800MG/160MG), 1 TAB PO BID Allergies Coded Allergies: No Known Allergies (Verified , 01/05/17) Physical Exam Vital Signs Date Time Temp Pulse Resp B/P (MAP) Pulse Ox O2 Delivery O2 Flow Rate FiO2 01/06/17 00:49 53 16 147/76 96 Room Air 01/05/17 23:00 97 Room Air 01/05/17 22:53 36.9 55 20 170/98 97 Room Air 01/05/17 22:37 65 Physical Exam Constitutional: Vital signs reviewed. Eyes: Pupils are equal round reactive to light. Conjunctiva are noninjected. ENT: Pharynx is clear without erythema or exudate. Mucous membranes are moist. Neck supple without meningeal signs. Respiratory: Clear to auscultation bilaterally. Breath sounds are equal bilaterally. Cardiovascular: Regular rate and rhythm. No rubs or gallops. GI: Soft, nondistended and nontender. Bowel sounds are present. : Blood coming from the ureteral meatus. Musculoskeletal: No peripheral edema. No lower extremity tenderness. Integumentary: No cyanosis. Neurological: The patient is awake and alert. No focal deficits. Does not follow commands. Psychiatric: Pleasant. Medical Decision & Procedures Laboratory Results 01/05/17 23:10 Red Blood Count 4.45, Mean Corpuscular Volume 91.7, Mean Corpuscular Hemoglobin 30.1, Mean Corpuscular Hemoglobin Concent 32.8, Mean Platelet Volume 8.8, Neutrophils (%) (Auto) 62.7, Lymphocytes (%) (Auto) 25.0, Monocytes (%) (Auto) 7.0, Eosinophils (%) (Auto) 4.7, Basophils (%) (Auto) 0.4, Neutrophils # (Auto) 3.33, Lymphocytes # (Auto) 1.33, Monocytes # (Auto) 0.37, Eosinophils # (Auto) 0.25, Basophils # (Auto) 0.02 01/05/17 23:10 Test 01/05/17 23:10 01/06/17 00:00 White Blood Count 5.31 K/uL (4.8-10.8) Red Blood Count 4.45 M/uL (4.7-6.1) Hemoglobin 13.4 g/dL (14.0-18.0) Hematocrit 40.8 % (42-52) Mean Corpuscular Volume 91.7 fL (80-100) Mean Corpuscular Hemoglobin 30.1 pg (25-34) Mean Corpuscular Hemoglobin Concent 32.8 g/dl (32-36) Platelet Count 139 K/uL (130-400) Mean Platelet Volume 8.8 fL (7.4-10.4) Neutrophils (%) (Auto) 62.7 % Lymphocytes (%) (Auto) 25.0 % Monocytes (%) (Auto) 7.0 % Eosinophils (%) (Auto) 4.7 % Basophils (%) (Auto) 0.4 % Neutrophils # (Auto) 3.33 K/uL (1.4-6.5) Lymphocytes # (Auto) 1.33 K/uL (1.2-3.4) Monocytes # (Auto) 0.37 K/uL (0.11-0.59) Eosinophils # (Auto) 0.25 K/uL (0-0.5) Basophils # (Auto) 0.02 K/uL (0-0.2) RDW Standard Deviation 43.9 fL (36.4-46.3) RDW Coefficient of Variation 13.1 % (11.5-14.5) Immature Granulocyte % (Auto) 0.2 % Immature Granulocyte # (Auto) 0.01 K/uL (0.00-0.02) Prothrombin Time 11.2 SECONDS (9.0-12.0) Prothromb Time International Ratio 1.0 (0.9-1.1) Activated Partial Thromboplast Time 28.1 SECONDS (21.0-31.0) Partial Thromboplastin Ratio 1.1 Anion Gap 2.0 mmol/L (3-11) Est Creatinine Clear Calc Drug Dose 42.4 ml/min Estimated GFR () 61.9 Estimated GFR (Non- 53.4 BUN/Creatinine Ratio 16.5 (10-20) Calcium Level 9.2 mg/dl (8.5-10.1) Total Bilirubin 0.5 mg/dl (0.2-1) Direct Bilirubin 0.2 mg/dl (0-0.2) Aspartate Amino Transf (AST/SGOT) 17 U/L (15-37) Alanine Aminotransferase (ALT/SGPT) 24 U/L (12-78) Alkaline Phosphatase 94 U/L (45-117) Total Protein 7.0 gm/dl (6.4-8.2) Albumin 3.3 gm/dl (3.4-5.0) Urine Color RED Urine Appearance CLOUDY (CLEAR) Urine pH 7.0 (4.5-7.5) Urine Specific [place] 1.025 (1.000-1.030) Urine Protein 3+ (NEG) Urine Glucose (UA) NEG (NEG) Urine Ketones NEG (NEG) Urine Occult Blood 3+ (NEG) Urine Nitrite NEG (NEG) Urine Bilirubin NEG (NEG) Urine Urobilinogen NEG (NEG) Urine Leukocyte Esterase NEG (NEG) Urine RBC >30 /hpf (0-4) Urine WBC 10-30 /hpf (0-5) Urine Epithelial Cells 0-5 /lpf (0-5) Urine Bacteria NEG (NEG) Laboratory results as reviewed by me. Medications Administered Medications (Trade) Dose Ordered Sig/Yuli Route Start Time Stop Time Status Last Admin Dose Admin Lidocaine HCl (Xylocaine Jelly 2%) 5 ml STK-MED ONCE EXT 01/05/17 23:40 01/05/17 23:41 DC 01/06/17 00:00 5 ML ED Course 2310: The patient was evaluated in room B11B. A complete history and physical exam was performed. 2316: I spoke with the patient's son-in-law. He states that as far as he knows the patient did not have a Lyon catheter on Tuesday at [place] and was treated for UTI. He is not on blood thinners. 2340: Lidocaine HCl 5 ml EXT. 0013: I discussed the patient's case with Dr. Mansfield, [facility] urology. He recommends the Lyon be irrigated and if the bleeding does not stop the patient should be admitted to the hospital. 0015: I discussed the test results and plan with the patient's son-in-law at this time. He verbalized understanding and agreement. 0030: Records from [place] show that the patient was seen on the . His hemoglobin was 15.4 at that time. He was reported to have blood clots in his diaper. He was diagnosed with hemorrhagic cystitis, given IV Rocephin and discharged with Keflex. 0049: I reevaluated the patient. The nurse informed me that the Lyon was irrigated and several large clots were removed. 0126: The nurse has tried irrigating the Lyon again and it is still full of blood. The patient will be evaluated for further management. 0130: I spoke with Dr. Rodriguez of [facility] hospitalist service. We discussed the patient and his results. The patient will be further evaluated by her. Medical Decision This is a 76-year-old male who presents with hematuria. I did perform a limited focused review of portions of the patient's old chart on the electronic medical record. The patient has had no recent pertinent visits to this hospital. I did evaluate the patient as noted above. I did obtain history from the nurse as well as the patient's son-in-law who is a physician pharmacist assistant in this hospital. He is presenting with gross hematuria. He has not had a Lyon recently. There is no evidence of trauma. IV access was established. The patient was placed on a continuous monitor worker. I did order and personally review the patient's urinalysis as described above. I did order and review the patient's blood work as noted in the electronic medical record. His hemoglobin is slightly decreased compared to when he was in [place]. I did obtain records from [place] and his hemoglobin was 15 on the 13th of this month. A three-way Lyon catheter was placed. The Lyon was irrigated and manually. Initially clots were cleared but then they reformed and he was irrigated again. I did discuss the case with Dr. Mansfield of urology. He recommended hospitalization if the Lyon does not clear. He will see him in the morning if he is hospitalized. The Lyon continued to bleed and so we continued irrigation and I discussed the case with Dr. Byrne and Dr. Rodriguez. Medication Reconcilliation Current Medication List: was personally reviewed by me Blood Pressure Screening Patient's blood pressure: Elevated blood pressure Blood pressure disposition: Referred to PCP Consults Time Called: 000 Consulting Physician: Dr. Mansfield, [facility] urology Returned Call: 001 I discussed the patient's case with him. He recommends the Lyon be irrigated and if the bleeding does not stop the patient should be admitted to the hospital. Additional Consults: Time Called: 012 Consulted Physician: Dr. Rodriguez of [facility] hospitalist service Returned Call: 013 Additional Comments: I spoke with her. We discussed the patient and his results. The patient will be further evaluated by her. Impression Primary Impression: Gross hematuria Additional Impression: Anemia Scribe Attestation The scribe's documentation has been prepared under my direct and personally reviewed by me in its entirety. I confirm that the note above accurately reflects all work, treatment, procedures, and medical decision making performed by me. Departure Information Dispostion Being Evaluated By Hospitalist Referrals Enrike Quintero D.O. (PCP) Patient Instructions My [facility] Problem Qualifiers Additional Impression: Anemia Anemia type: unspecified type Qualified Codes: D64.9 - Anemia, unspecified
[2017-01-06] MEDS ORDERED: ONDANSETRON INJ 2 MG/ML 2 ML VIAL IV PRN (02:15)
--- NOTE | 2017-01-06 03:08 | History and Physical ---
History & Physical Date & Time of Service: Jan 06, 2017 at 02:54 Chief Complaint: Bleeding Primary Care Physician: Cleve Spann M.D. History of Present Illness Source: patient Secondary to dementia history is primarily through hospital records This is a 76 yo m from [facility] coming to the ED for persistent hematuria. Approximately two days prior the caregivers noted blood clots in his briefs. He was sent to [facility] where he was diagnosed with hemorrhagic cystitis and given a dose of Rocephin and d/c with Keflex. Today the caregivers once again noted blood clots in his briefs and he was sent by EMS to [facility] for further evaluation. Patient was evaluated in the ED and blood work was WNL except for a slightly decreased hgb compared to the CBC in [place] ( 15 to 13). Dr Mansfield was contacted by ED physician and stated to attempt irrigation however if bleeding does not resolve to admit patient. A three way valencia was placed and with manual irrigation multiple clots were noted and there was no clearing of the fluid. It was decided the patient would be admitted. On review of [facility] records the patient's UA reflected infection with >100,000 colonies of providencia rettgeri. It is found to be sensitive to ceftazidime, Rocephin, cipro, ertapenem, gentamicin, imipenem and bactrim. Past Medical/Surgical History Medical Problems: (1) CAD (coronary artery disease) Status: Chronic (2) Hyperlipidemia Status: Chronic (3) Hypertension Status: Chronic (4) Myocardial infarction Status: Resolved Surgical Problems: (1) H/O inguinal hernia repair Status: Resolved (2) Hx of colonoscopy Status: Resolved Family History Dementia Heart disease Hypertension Myocardial infarction at age less than 60 Social History Smoking Status: Unknown if Ever Smoked Drug Use: none Marital Status: Housing status: lives with family Occupational Status: retired Immunizations History of Influenza Vaccine: Yes Influenza Vaccine Date: October 02, 2009 History of Tetanus Vaccine?: Yes Tetanus Immunization Date: Nov 02, 1996 History of Pneumococcal: Yes Pneumococcal Date: Apr 06, 2010 History of Hepatitis B Vaccine: No Multi-Drug Resistant Organisms History of MDRO: No Allergies Coded Allergies: No Known Allergies (Verified , 01/05/17) Home Medications Scheduled Menthol-Zinc Oxide (Risamine), 1 APPLN TOP QS Quetiapine Fumarate (Seroquel), 100 MG PO HS Rivastigmine Tartrate (Exelon), 3 MG PO BID Sertraline (Zoloft), 50 MG PO QAM Simvastatin (Zocor), 40 MG PO QPM Sulfa/Trimethoprim (Bactrim Ds 800MG/160MG), 1 TAB PO BID Review of Systems unable to complete secondary to dementia Physical Exam Vital Signs Date Time Temp Pulse Resp B/P (MAP) Pulse Ox O2 Delivery O2 Flow Rate FiO2 01/06/17 02:24 56 01/06/17 02:00 56 18 117/77 98 Room Air 01/06/17 00:49 53 16 147/76 96 Room Air 01/05/17 23:00 97 Room Air 01/05/17 22:53 36.9 55 20 170/98 97 Room Air 01/05/17 22:37 65 General Appearance: no apparent distress Head: normocephalic, atraumatic Eyes: normal inspection ENT: normal ENT inspection Neck: supple Respiratory/Chest: normal breath sounds, no respiratory distress, no accessory muscle use Cardiovascular: regular rate, rhythm, no murmur, normal peripheral pulses Abdomen/GI: normal bowel sounds, non tender, soft Genitourinary - Male: normal male genitalia, + pertinent finding (gross blood noted from valencia) Back: normal inspection, no CVA tenderness Extremities/Musculoskelatal: no calf tenderness, no pedal edema Neurologic/Psych: alert Skin: normal color, warm/dry, no rash Lymphatic: no adenopathy Diagnostics Laboratory Results Results Past 24 Hours Test 01/05/17 23:10 01/06/17 00:00 Range/Units White Blood Count 5.31 4.8-10.8 K/uL Red Blood Count 4.45 4.7-6.1 M/uL Hemoglobin 13.4 14.0-18.0 g/dL Hematocrit 40.8 42-52 % Mean Corpuscular Volume 91.7 80-100 fL Mean Corpuscular Hemoglobin 30.1 25-34 pg Mean Corpuscular Hemoglobin Concent 32.8 32-36 g/dl Platelet Count 139 130-400 K/uL Mean Platelet Volume 8.8 7.4-10.4 fL Neutrophils (%) (Auto) 62.7 % Lymphocytes (%) (Auto) 25.0 % Monocytes (%) (Auto) 7.0 % Eosinophils (%) (Auto) 4.7 % Basophils (%) (Auto) 0.4 % Neutrophils # (Auto) 3.33 1.4-6.5 K/uL Lymphocytes # (Auto) 1.33 1.2-3.4 K/uL Monocytes # (Auto) 0.37 0.11-0.59 K/uL Eosinophils # (Auto) 0.25 0-0.5 K/uL Basophils # (Auto) 0.02 0-0.2 K/uL RDW Standard Deviation 43.9 36.4-46.3 fL RDW Coefficient of Variation 13.1 11.5-14.5 % Immature Granulocyte % (Auto) 0.2 % Immature Granulocyte # (Auto) 0.01 0.00-0.02 K/uL Prothrombin Time 11.2 9.0-12.0 SECONDS Prothromb Time International Ratio 1.0 0.9-1.1 Activated Partial Thromboplast Time 28.1 21.0-31.0 SECONDS Partial Thromboplastin Ratio 1.1 Sodium Level 145 136-145 mmol/L Potassium Level 3.9 3.5-5.1 mmol/L Chloride Level 109 98-107 mmol/L Carbon Dioxide Level 34 21-32 mmol/L Anion Gap 2.0 3-11 mmol/L Blood Urea Nitrogen 21 7-18 mg/dl Creatinine 1.30 0.60-1.40 mg/dl Est Creatinine Clear Calc Drug Dose 42.4 ml/min Estimated GFR () 61.9 Estimated GFR (Non- 53.4 BUN/Creatinine Ratio 16.5 10-20 Random Glucose 94 70-99 mg/dl Calcium Level 9.2 8.5-10.1 mg/dl Total Bilirubin 0.5 0.2-1 mg/dl Direct Bilirubin 0.2 0-0.2 mg/dl Aspartate Amino Transf (AST/SGOT) 17 15-37 U/L Alanine Aminotransferase (ALT/SGPT) 24 12-78 U/L Alkaline Phosphatase 94 45-117 U/L Total Protein 7.0 6.4-8.2 gm/dl Albumin 3.3 3.4-5.0 gm/dl Urine Color RED Urine Appearance CLOUDY CLEAR Urine pH 7.0 4.5-7.5 Urine Specific [place] 1.025 1.000-1.030 Urine Protein 3+ NEG Urine Glucose (UA) NEG NEG Urine Ketones NEG NEG Urine Occult Blood 3+ NEG Urine Nitrite NEG NEG Urine Bilirubin NEG NEG Urine Urobilinogen NEG NEG Urine Leukocyte Esterase NEG NEG Urine RBC >30 0-4 /hpf Urine WBC 10-30 0-5 /hpf Urine Epithelial Cells 0-5 0-5 /lpf Urine Bacteria NEG NEG Impression Assessment and Plan This is a 76 yo m suffering from gross hematuria possibly secondary to an infectious source vs inflammatory vs malignant Gross hematuria in the presence of a p. rettgeri infection - Med surg admission - continuous irrigation with q1h manual irrigation to assess for clots as the patient is unable to state if valencia is no longer irrigating - consult urology- jacquie aware - Rocephin to cover for p. rettgeri Anemia possible acute blood loss - recheck CBC in the am dementia- stable - continue sertraline and seroquel DVT Prophylaxis SCD in july of 2016 the patient was admitted and was DNR LEVEL V, unable to confirm during assessment and no POLST was noted with documentation from [facility] Resident Physician Supervision Note: I was present with Dr. Rodriguez during the history and exam. I discussed the case with the resident and agree with the findings and plan as documented in the note. Any exceptions or clarifications are listed here: 76 y/o M Hx CAD, HTN, HPL, advanced dementia - recent diagnosis of hemorrhagic cystitis -presenting with hematuria OE AAO x 0 S1,2 R CTAB NT, ND Hematuria apparent in valencia P: Discussed with urology - 3 way placed for continuous irrigation pending AM consult Above discussed with resident and ER attending Documented By: Les Byrne Level of Care Med/Surg VTE Prophylaxis VTE Risk Assessment Done? Y/N: Yes Risk Level: Moderate Given or contraindicated: SCD's Social Service Consult Lives in Detention Note Total Time: Critical Care 30 - 74 minutes Additional Copies To Enrike Quintero D.O.
[2017-01-06 03:44] VITALS: BP 140/80; PULSE 58; TEMP 36.5; O2SAT 93; Ht 172.7 cm; Wt 58.3 kg
[2017-01-06] MEDS ORDERED: CEFTRIAXONE SOD INJ 1 GM in DEXTROSE 5% ADD-VANTAGE 50ML 50 ML IV SCH (05:00)
[2017-01-06 06:37] LABS: BASO % 0.3 %; BASO ABS # 0.02 K/uL (0-0.2); COMPLETE YES; EOS % 4.4 %; HEMATOCRIT 40.4 % (42-52); IG% 0.1 %; LYMPH % 18.6 %; LYMPH ABS # 1.28 K/uL (1.2-3.4); MEAN CELL VOLUME 91.2 fL (80-100); MEAN CORPUSCULAR HGB CONC 32.9 g/dl (32-36); MONO % 9.6 %; PLATELET COUNT 140 K/uL (130-400); RED BLOOD COUNT 4.43 M/uL (4.7-6.1); WHITE BLOOD COUNT 6.88 K/uL (4.8-10.8)
[2017-01-06 07:10] LABS: BUN/CREATININE RATIO 16.3 (10-20); CREATININE 1.2 mg/dl (0.60-1.40); POTASSIUM 3.7 mmol/L (3.5-5.1)
[2017-01-06] MEDS ORDERED: OPTIRAY 320 IV PRN (07:30)
[2017-01-06 08:00] VITALS: BP 146/88; PULSE 60; TEMP 36.4; O2SAT 96
[2017-01-06] MEDS: SERTRALINE HCL 50 MG TAB PO SCH (08:28)
[2017-01-06] MEDS: RIVASTIGMINE TARTRATE (EXELON) 1.5 MG CAP PO SCH ×2 (08:28→22:17)
--- NOTE | 2017-01-06 09:50 | Medical Consult ---
Consultation Date of Consultation: Jan 06, 2017. Attending Physician: Les Byrne M.D. Reason for Consultation: Cystitis growing P. rettgeri History of Present Illness History obtained from medical records and medical staff as patient unable to provide adequate history. 76-year-old male with history of hypertension, hyperlipidemia, dementia, recently developed gross hematuria. He was seen at the [facility] ER and was given course of cephalexin. However he has had recurrence of hematuria and so was brought to the hospital and admitted. Culture from [place] has grown Proteus rettgeri, resistant to the cephalexin. No report of significant fever or abdominal or flank pain. Patient was started on ceftriaxone. Appears to be tolerating thus far. Past Medical/Surgical History Medical Problems: (1) Altered mental status Status: Acute (2) Anemia Status: Acute (3) Bilateral lower extremity edema Status: Acute (4) Gross hematuria Status: Acute (5) Scalp laceration Status: Acute Medical Problems: (1) CAD (coronary artery disease) (2) Hyperlipidemia (3) Hypertension (4) Mental status change (5) Myocardial infarction (6) Rhabdomyolysis Surgical Problems: (1) H/O inguinal hernia repair (2) Hx of colonoscopy Family History Dementia Heart disease Hypertension Myocardial infarction at age less than 60 Social History Smoking Status: Never Smoker Drug Use: none Marital Status: Housing Status: lives with family Occupation Status: retired Allergies Coded Allergies: No Known Allergies (Verified , 01/05/17) Current Inpatient Medications Current Inpatient Medications Medications (Trade) Dose Ordered Sig/Yuli Route Start Time Stop Time Status Last Admin Dose Admin Ondansetron HCl (Zofran Inj) 4 mg Q6H PRN IV 01/06/17 02:15 02/05/17 02:14 Quetiapine Fumarate (seroQUEL TAB) 100 mg HS PO 01/06/17 21:00 02/05/17 20:59 Sertraline HCl (Zoloft Tab) 50 mg QAM PO 01/06/17 09:00 02/05/17 08:59 Simvastatin (Zocor Tab) 40 mg QPM PO 01/06/17 21:00 02/05/17 20:59 Rivastigmine Tartrate (Exelon Cap) 3 mg BID PO 01/06/17 09:00 02/05/17 08:59 Ceftriaxone Sodium 1 gm/ Dextrose 50 ml @ 100 mls/hr Q24H IV 01/06/17 05:00 01/11/17 04:59 01/06/17 05:23 100 MLS/HR Ioversol (Optiray 320) 100 ml UD PRN IV 01/06/17 07:30 01/10/17 07:29 Review of Systems Not obtainable because of patient"s mental status Physical Exam Date Time Temp Pulse Resp B/P (MAP) Pulse Ox O2 Delivery O2 Flow Rate FiO2 01/06/17 08:00 36.4 60 14 146/88 (107) 96 Room Air 01/06/17 03:44 36.5 58 16 140/80 93 Room Air 01/06/17 03:15 Room Air 01/06/17 03:10 57 20 128/70 97 01/06/17 03:02 54 16 134/70 98 Room Air 01/06/17 02:24 56 01/06/17 02:00 56 18 117/77 98 Room Air 01/06/17 00:49 53 16 147/76 96 Room Air 01/05/17 23:00 97 Room Air 01/05/17 22:53 36.9 55 20 170/98 97 Room Air 01/05/17 22:37 65 General Appearance: WD/WN, no apparent distress, + thin Head: normocephalic, atraumatic Eyes: normal inspection, EOMI, sclerae normal ENT: normal ENT inspection, pharynx normal Neck: supple, no adenopathy, thyroid normal, trachea midline Respiratory/Chest: chest non-tender, lungs clear, normal breath sounds, no respiratory distress Cardiovascular: regular rate, rhythm, no gallop, no murmur Abdomen/GI: normal bowel sounds, non tender, soft, no organomegaly Genitourinary - Male: + pertinent finding (Blood-tinged urine in Lyon) Back: normal inspection, no CVA tenderness Extremities/Musculoskelatal: no calf tenderness, no pedal edema, non-tender Neurologic/Psych: alert, + disoriented Skin: normal color, warm/dry, no rash Lymphatic: no adenopathy Laboratory Results Date/Time Source Procedure Growth Status 01/06/17 03:30 Nasal MRSA DNA Surveillance Screen - Final Specimen Negative for MRSA by DNA Probe Complete Last 24 Hours Test 01/05/17 23:10 01/06/17 00:00 01/06/17 05:53 White Blood Count 5.31 K/uL 6.88 K/uL Red Blood Count 4.45 M/uL 4.43 M/uL Hemoglobin 13.4 g/dL 13.3 g/dL Hematocrit 40.8 % 40.4 % Mean Corpuscular Volume 91.7 fL 91.2 fL Mean Corpuscular Hemoglobin 30.1 pg 30.0 pg Mean Corpuscular Hemoglobin Concent 32.8 g/dl 32.9 g/dl Platelet Count 139 K/uL 140 K/uL Mean Platelet Volume 8.8 fL 9.0 fL Neutrophils (%) (Auto) 62.7 % 67.0 % Lymphocytes (%) (Auto) 25.0 % 18.6 % Monocytes (%) (Auto) 7.0 % 9.6 % Eosinophils (%) (Auto) 4.7 % 4.4 % Basophils (%) (Auto) 0.4 % 0.3 % Neutrophils # (Auto) 3.33 K/uL 4.61 K/uL Lymphocytes # (Auto) 1.33 K/uL 1.28 K/uL Monocytes # (Auto) 0.37 K/uL 0.66 K/uL Eosinophils # (Auto) 0.25 K/uL 0.30 K/uL Basophils # (Auto) 0.02 K/uL 0.02 K/uL RDW Standard Deviation 43.9 fL 43.4 fL RDW Coefficient of Variation 13.1 % 13.0 % Immature Granulocyte % (Auto) 0.2 % 0.1 % Immature Granulocyte # (Auto) 0.01 K/uL 0.01 K/uL Prothrombin Time 11.2 SECONDS Prothromb Time International Ratio 1.0 Activated Partial Thromboplast Time 28.1 SECONDS Partial Thromboplastin Ratio 1.1 Sodium Level 145 mmol/L 143 mmol/L Potassium Level 3.9 mmol/L 3.7 mmol/L Chloride Level 109 mmol/L 109 mmol/L Carbon Dioxide Level 34 mmol/L 29 mmol/L Anion Gap 2.0 mmol/L 5.0 mmol/L Blood Urea Nitrogen 21 mg/dl 20 mg/dl Creatinine 1.30 mg/dl 1.20 mg/dl Est Creatinine Clear Calc Drug Dose 42.4 ml/min 44.8 ml/min Estimated GFR () 61.9 68.1 Estimated GFR (Non- 53.4 58.8 BUN/Creatinine Ratio 16.5 16.3 Random Glucose 94 mg/dl 90 mg/dl Calcium Level 9.2 mg/dl 9.0 mg/dl Total Bilirubin 0.5 mg/dl Direct Bilirubin 0.2 mg/dl Aspartate Amino Transf (AST/SGOT) 17 U/L Alanine Aminotransferase (ALT/SGPT) 24 U/L Alkaline Phosphatase 94 U/L Total Protein 7.0 gm/dl Albumin 3.3 gm/dl Urine Color RED Urine Appearance CLOUDY Urine pH 7.0 Urine Specific [place] 1.025 Urine Protein 3+ Urine Glucose (UA) NEG Urine Ketones NEG Urine Occult Blood 3+ Urine Nitrite NEG Urine Bilirubin NEG Urine Urobilinogen NEG Urine Leukocyte Esterase NEG Urine RBC >30 /hpf Urine WBC 10-30 /hpf Urine Epithelial Cells 0-5 /lpf Urine Bacteria NEG Assessment & Plan Hemorrhagic cystitis with culture positive for resistant Proteus rettgeri. Will treat with ertapenem 1 gram daily for likely 10 days. Will follow.
[2017-01-06] MEDS ORDERED: ERTAPENEM IV 1 GM in SODIUM CHLOR 0.9% AD-VAN 50ML 50 ML IV SCH (10:00)
--- NOTE | 2017-01-06 10:30 | DIAGNOSTIC IMAGING REPORT ---
ABDOMEN AND PELVIS CT WITH AND WITHOUT IV CONTRAST, UROGRAM PROTOCOL CT DOSE: 1126.09 mGycm HISTORY: with and without IV contrast for gross hematuria TECHNIQUE: Multiaxial CT images of the abdomen and pelvis were performed both before and after the use of intravenous contrast to evaluate the urinary system. Maximal intensity projection images were performed at the workstation by the radiologist. A dose lowering technique was utilized adhering to the principles of ALARA. COMPARISON STUDY: Abdomen and pelvis CT 07/19/2013. FINDINGS: No hydronephrosis. There is a Lyon catheter within the bladder. Moderate amount of hyperdense material within the bladder consistent with blood products/hematuria. There is a small amount of contrast filling the bladder. The blood products could obscure a bladder mass. No definite bladder masses identified. There is a Lyon catheter within the bladder. Gas within the bladder lumen may be due to prior catheterization. No suspicious filling defects seen within the bilateral renal collecting systems, proximal ureters, or distal ureters. The bilateral mid ureters are not well opacified which limits evaluation. However, the mid ureters are normal in course and caliber. There is a 1.2 cm cyst within the right kidney. The left kidney enhances normally. No left renal calculi. There are few stones within the lower pole the right kidney with the largest measuring 6 mm. No ureteral calculi. The prostate gland is surgically absent. The heart remains mildly enlarged. Pectus excavatum deformity. Bibasilar subsegmental atelectasis. A few diverticula at the second portion of the duodenum. The gallbladder, liver, pancreas, spleen, and adrenal glands are unremarkable. No retroperitoneal lymphadenopathy. No suspicious lytic or blastic osseous lesions. No evidence for bowel obstruction. There is rectal wall thickening with mild perirectal fat stranding. IMPRESSION: 1. Right-sided nephrolithiasis. No hydronephrosis. 2. No suspicious filling defects seen within the opacified bilateral renal collecting systems or ureters. The mid ureters are not well opacified but are normal in caliber. 3. Hyperdense material consistent with blood products/hematuria within the bladder. This could obscure a bladder mass. However, no definite bladder lesions identified. 4. There is a Lyno catheter within the bladder. Gas within the bladder lumen is likely due to the recent catheterization. 4. Prostatectomy. 5. Rectal wall thickening with mild perirectal fat stranding. This is consistent with a nonspecific proctitis. Electronically signed by: Mickey Mcfarlane M.D. 01/06/2017 10:29 AM Dictated Date/Time: 01/06/2017 10:16 AM
[2017-01-06] MEDS ORDERED: NURSING VERBAL MED ORDER STA (12:37)
[2017-01-06] MEDS ORDERED: HYDROmorphone INJ 1 MG/ML SYR IV STA (12:40)
--- NOTE | 2017-01-06 13:43 | Urology Consultation ---
History General Date of Service: Jan 06, 2017. Chief Complaint: gross hematuria Primary Care Physician: Cleve Spann M.D. Pt seen a urologist before?: Yes (Dr. Subramanian) If yes, why?: prostate cancer, radiation cystitis History of Present Illness 76 yo male admitted for gross hematuria. The pt has seen Dr. Subramanian in the past. He has a hx of prostate cancer and radiation cystitis. Last seen by Dr. Subramanian in May. Noted to have a hx of hematuria while on Plavix in the past. Not currently on Plavix per his . Last PSA in May noted to be undetectable. Currently with valencia catheter in place with CBI running draining fruit punch colored urine. Pt noted to have been admitted to [facility] earlier this week, and diagnosed with hemorrhagic cystitis while there. UC&S noted to be growing providencia rettgeri. Currently being treated with ertapenem. The pt has dementia and is a poor historian. H&H stable at 13.3 and 40.4 this morning. Cr is 1.2. CT scan obtained this morning. No evidence for ureteral stone, obstruction, or renal mass. Right renal stone visualized. Suspected clot in the bladder also noted. Currently on one to one supervision as he has been pulling at his catheter and has a hx of being combative. Imaging Imaging: CT Laboratory Last 24 Hours Test 01/05/17 23:10 01/06/17 00:00 01/06/17 05:53 White Blood Count 5.31 K/uL 6.88 K/uL Red Blood Count 4.45 M/uL 4.43 M/uL Hemoglobin 13.4 g/dL 13.3 g/dL Hematocrit 40.8 % 40.4 % Mean Corpuscular Volume 91.7 fL 91.2 fL Mean Corpuscular Hemoglobin 30.1 pg 30.0 pg Mean Corpuscular Hemoglobin Concent 32.8 g/dl 32.9 g/dl Platelet Count 139 K/uL 140 K/uL Mean Platelet Volume 8.8 fL 9.0 fL Neutrophils (%) (Auto) 62.7 % 67.0 % Lymphocytes (%) (Auto) 25.0 % 18.6 % Monocytes (%) (Auto) 7.0 % 9.6 % Eosinophils (%) (Auto) 4.7 % 4.4 % Basophils (%) (Auto) 0.4 % 0.3 % Neutrophils # (Auto) 3.33 K/uL 4.61 K/uL Lymphocytes # (Auto) 1.33 K/uL 1.28 K/uL Monocytes # (Auto) 0.37 K/uL 0.66 K/uL Eosinophils # (Auto) 0.25 K/uL 0.30 K/uL Basophils # (Auto) 0.02 K/uL 0.02 K/uL RDW Standard Deviation 43.9 fL 43.4 fL RDW Coefficient of Variation 13.1 % 13.0 % Immature Granulocyte % (Auto) 0.2 % 0.1 % Immature Granulocyte # (Auto) 0.01 K/uL 0.01 K/uL Prothrombin Time 11.2 SECONDS Prothromb Time International Ratio 1.0 Activated Partial Thromboplast Time 28.1 SECONDS Partial Thromboplastin Ratio 1.1 Sodium Level 145 mmol/L 143 mmol/L Potassium Level 3.9 mmol/L 3.7 mmol/L Chloride Level 109 mmol/L 109 mmol/L Carbon Dioxide Level 34 mmol/L 29 mmol/L Anion Gap 2.0 mmol/L 5.0 mmol/L Blood Urea Nitrogen 21 mg/dl 20 mg/dl Creatinine 1.30 mg/dl 1.20 mg/dl Est Creatinine Clear Calc Drug Dose 42.4 ml/min 44.8 ml/min Estimated GFR () 61.9 68.1 Estimated GFR (Non- 53.4 58.8 BUN/Creatinine Ratio 16.5 16.3 Random Glucose 94 mg/dl 90 mg/dl Calcium Level 9.2 mg/dl 9.0 mg/dl Total Bilirubin 0.5 mg/dl Direct Bilirubin 0.2 mg/dl Aspartate Amino Transf (AST/SGOT) 17 U/L Alanine Aminotransferase (ALT/SGPT) 24 U/L Alkaline Phosphatase 94 U/L Total Protein 7.0 gm/dl Albumin 3.3 gm/dl Urine Color RED Urine Appearance CLOUDY Urine pH 7.0 Urine Specific [place] 1.025 Urine Protein 3+ Urine Glucose (UA) NEG Urine Ketones NEG Urine Occult Blood 3+ Urine Nitrite NEG Urine Bilirubin NEG Urine Urobilinogen NEG Urine Leukocyte Esterase NEG Urine RBC >30 /hpf Urine WBC 10-30 /hpf Urine Epithelial Cells 0-5 /lpf Urine Bacteria NEG Problem List Medical Problems: (1) Altered mental status Status: Acute (2) Anemia Status: Acute (3) Bilateral lower extremity edema Status: Acute (4) Gross hematuria Status: Acute (5) Scalp laceration Status: Acute Past History arthritis, cancer - prostate, coronary artery disease, high cholesterol, hypertension, myocardial infarction, urinary tract infection, other (radiation cystitis) Past Surgical History: appendectomy, colonoscopy, other (inguinal hernia repair ) Family History Dementia Heart disease Hypertension Myocardial infarction at age less than 60 Social History Hx Tobacco Use In Past Year?: No Smoking: non-smoker Alcohol: never Drug use: none Marital status: Housing status: long term Occupation status: retired Immunizations History of Influenza Vaccine: Yes Influenza Vaccine Date: October 02, 2009 History of Tetanus Vaccine?: Yes Tetanus Immunization Date: Nov 02, 1996 History of Pneumococcal: Yes Pneumococcal Date: Apr 06, 2010 History of Hepatitis B Vaccine: No History of MDRO No Allergies Coded Allergies: No Known Allergies (Verified , 01/05/17) Medications Home Medications: Home Meds and Scripts Medications Dose Route/Sig Max Daily Dose Days Date Category Dose Instructions Bactrim Ds 800MG/160MG (Trimethoprim/Sulfamethoxazole) Tab 1 Tab PO BID 10 01/05/17 Reported Risamine (Menthol-Zinc Oxide) 1 Oin Oin 1 Appln TOP QS 01/05/17 Reported apply to reddened areas on buttocks may also use as needed Zoloft (Sertraline HCl) 50 Mg Tab 50 Mg PO QAM 01/05/17 Reported Seroquel (Quetiapine Fumarate) 50 Mg Tab 100 Mg PO HS 01/05/17 Reported 2 tablet dose Exelon (Rivastigmine Tartrate) 3 Mg Cap 3 Mg PO BID 08/13/16 Reported Zocor (Simvastatin) 40 Mg Tab 40 Mg PO QPM 04/27/07 Reported Inpatient Medications: Current Inpatient Medications Medications (Trade) Dose Ordered Sig/Yuli Route Start Time Stop Time Status Last Admin Dose Admin Ondansetron HCl (Zofran Inj) 4 mg Q6H PRN IV 01/06/17 02:15 02/05/17 02:14 Quetiapine Fumarate (seroQUEL TAB) 100 mg HS PO 01/06/17 21:00 02/05/17 20:59 Sertraline HCl (Zoloft Tab) 50 mg QAM PO 01/06/17 09:00 02/05/17 08:59 Simvastatin (Zocor Tab) 40 mg QPM PO 01/06/17 21:00 02/05/17 20:59 Rivastigmine Tartrate (Exelon Cap) 3 mg BID PO 01/06/17 09:00 02/05/17 08:59 Ioversol (Optiray 320) 100 ml UD PRN IV 01/06/17 07:30 01/10/17 07:29 Ertapenem 1 gm/ Sodium Chloride 50 ml @ 120 mls/hr Q24H IV 01/06/17 10:00 01/16/17 09:59 Review of Systems Review of Systems Additional Comments: Pt with dementia and altered mental status. Denies pain, but unable to answer other questions for me today. Physical Exam Vital Signs: Vital Signs Past 12 Hours Date Time Temp Pulse Resp B/P (MAP) Pulse Ox O2 Delivery O2 Flow Rate FiO2 01/06/17 08:00 36.4 60 14 146/88 (107) 96 Room Air 01/06/17 03:44 36.5 58 16 140/80 93 Room Air 01/06/17 03:15 Room Air 01/06/17 03:10 57 20 128/70 97 01/06/17 03:02 54 16 134/70 98 Room Air 01/06/17 02:24 56 01/06/17 02:00 56 18 117/77 98 Room Air Physical Exam: General Appearance: no apparent distress Eyes: bilateral eyes normal inspection ENT: hearing grossly normal Neck: no JVD Respiratory/Chest: no respiratory distress, no accessory muscle use Cardiovascular: no JVD Extremities: normal inspection Neurologic/Psychiatric: alert, normal mood/affect Skin: normal color Assessment & Plan Assessment & Plan A/P: Gross hematuria, prostate cancer, radiation cystitis, UTI AFVSS. Valencia catheter irrigated by myself with 3L of sterile NSS today. Fair amount of clot return noted. Valencia draining light pink urine after irrigation. CBI restarted. Will observe for now. Continue CBI. Avoid anticoagulation while actively bleeding. Will provide a diet today. NPO after midnight in the event he needs a cysto with fulguration tomorrow. Monitor H&H. Supportive management with transfusions PRN. If hematuria continues to be an issue, would recommend outpatient hyperbaric O2 treatments with wound care. As for his UTI, continue IV ertapenem for now, but would transition to 7- 10 days of Cipro or Bactrim prior to d/c home. Thanks for the consult. Will continue to follow along with primary service.
[2017-01-06 15:07] VITALS: BP 161/71; PULSE 80; TEMP 36.3; O2SAT 94
--- NOTE | 2017-01-06 16:41 | Family Medicine Progress Note ---
Progress Note Date of Service Jan 06, 2017. Subjective Pt evaluation today including: conversation w/ patient, physical exam, lab review, review of studies Voiding: valencia catheter in place Patient was demented. Open his eyes upon call his name but wouldn't answer to my questions. He denied chest pain and abdominal by nodding his head. Additional Comments: Couldn't obtain full ROS given patient condition Medications Current Inpatient Medications Medications (Trade) Dose Ordered Sig/Yuli Route Start Time Stop Time Status Last Admin Dose Admin Ondansetron HCl (Zofran Inj) 4 mg Q6H PRN IV 01/06/17 02:15 02/05/17 02:14 Quetiapine Fumarate (seroQUEL TAB) 100 mg HS PO 01/06/17 21:00 02/05/17 20:59 Sertraline HCl (Zoloft Tab) 50 mg QAM PO 01/06/17 09:00 02/05/17 08:59 Simvastatin (Zocor Tab) 40 mg QPM PO 01/06/17 21:00 02/05/17 20:59 Rivastigmine Tartrate (Exelon Cap) 3 mg BID PO 01/06/17 09:00 02/05/17 08:59 Ioversol (Optiray 320) 100 ml UD PRN IV 01/06/17 07:30 01/10/17 07:29 Ertapenem 1 gm/ Sodium Chloride 50 ml @ 120 mls/hr Q24H IV 01/06/17 10:00 01/16/17 09:59 Objective Vital Signs Date Time Temp Pulse Resp B/P (MAP) Pulse Ox O2 Delivery O2 Flow Rate FiO2 01/06/17 15:07 36.3 80 16 161/71 (101) 94 Room Air 01/06/17 08:00 36.4 60 14 146/88 (107) 96 Room Air 01/06/17 07:45 Room Air 01/06/17 03:44 36.5 58 16 140/80 93 Room Air 01/06/17 03:15 Room Air 01/06/17 03:10 57 20 128/70 97 01/06/17 03:02 54 16 134/70 98 Room Air 01/06/17 02:24 56 01/06/17 02:00 56 18 117/77 98 Room Air 01/06/17 00:49 53 16 147/76 96 Room Air 01/05/17 23:00 97 Room Air 01/05/17 22:53 36.9 55 20 170/98 97 Room Air 01/05/17 22:37 65 Physical Exam General Appearance: WD/WN, no apparent distress Neck: supple, trachea midline Respiratory/Chest: chest non-tender, normal breath sounds, no respiratory distress, no accessory muscle use Cardiovascular: regular rate, rhythm Abdomen: normal bowel sounds, non tender, soft Extremities: non-tender, no pedal edema Neurologic/Psychiatric: alert Skin: normal color, warm/dry, no rash Laboratory Results Results Past 24 Hours Test 01/05/17 23:10 01/06/17 00:00 01/06/17 05:53 Range/Units White Blood Count 5.31 6.88 4.8-10.8 K/uL Red Blood Count 4.45 4.43 4.7-6.1 M/uL Hemoglobin 13.4 13.3 14.0-18.0 g/dL Hematocrit 40.8 40.4 42-52 % Mean Corpuscular Volume 91.7 91.2 80-100 fL Mean Corpuscular Hemoglobin 30.1 30.0 25-34 pg Mean Corpuscular Hemoglobin Concent 32.8 32.9 32-36 g/dl Platelet Count 139 140 130-400 K/uL Mean Platelet Volume 8.8 9.0 7.4-10.4 fL Neutrophils (%) (Auto) 62.7 67.0 % Lymphocytes (%) (Auto) 25.0 18.6 % Monocytes (%) (Auto) 7.0 9.6 % Eosinophils (%) (Auto) 4.7 4.4 % Basophils (%) (Auto) 0.4 0.3 % Neutrophils # (Auto) 3.33 4.61 1.4-6.5 K/uL Lymphocytes # (Auto) 1.33 1.28 1.2-3.4 K/uL Monocytes # (Auto) 0.37 0.66 0.11-0.59 K/uL Eosinophils # (Auto) 0.25 0.30 0-0.5 K/uL Basophils # (Auto) 0.02 0.02 0-0.2 K/uL RDW Standard Deviation 43.9 43.4 36.4-46.3 fL RDW Coefficient of Variation 13.1 13.0 11.5-14.5 % Immature Granulocyte % (Auto) 0.2 0.1 % Immature Granulocyte # (Auto) 0.01 0.01 0.00-0.02 K/uL Prothrombin Time 11.2 9.0-12.0 SECONDS Prothromb Time International Ratio 1.0 0.9-1.1 Activated Partial Thromboplast Time 28.1 21.0-31.0 SECONDS Partial Thromboplastin Ratio 1.1 Sodium Level 145 143 136-145 mmol/L Potassium Level 3.9 3.7 3.5-5.1 mmol/L Chloride Level 109 109 98-107 mmol/L Carbon Dioxide Level 34 29 21-32 mmol/L Anion Gap 2.0 5.0 3-11 mmol/L Blood Urea Nitrogen 21 20 7-18 mg/dl Creatinine 1.30 1.20 0.60-1.40 mg/dl Est Creatinine Clear Calc Drug Dose 42.4 44.8 ml/min Estimated GFR () 61.9 68.1 Estimated GFR (Non- 53.4 58.8 BUN/Creatinine Ratio 16.5 16.3 10-20 Random Glucose 94 90 70-99 mg/dl Calcium Level 9.2 9.0 8.5-10.1 mg/dl Total Bilirubin 0.5 0.2-1 mg/dl Direct Bilirubin 0.2 0-0.2 mg/dl Aspartate Amino Transf (AST/SGOT) 17 15-37 U/L Alanine Aminotransferase (ALT/SGPT) 24 12-78 U/L Alkaline Phosphatase 94 45-117 U/L Total Protein 7.0 6.4-8.2 gm/dl Albumin 3.3 3.4-5.0 gm/dl Urine Color RED Urine Appearance CLOUDY CLEAR Urine pH 7.0 4.5-7.5 Urine Specific [place] 1.025 1.000-1.030 Urine Protein 3+ NEG Urine Glucose (UA) NEG NEG Urine Ketones NEG NEG Urine Occult Blood 3+ NEG Urine Nitrite NEG NEG Urine Bilirubin NEG NEG Urine Urobilinogen NEG NEG Urine Leukocyte Esterase NEG NEG Urine RBC >30 0-4 /hpf Urine WBC 10-30 0-5 /hpf Urine Epithelial Cells 0-5 0-5 /lpf Urine Bacteria NEG NEG Microbiology Results 01/06/17 MRSA DNA Surveillance Screen - Final, Complete Specimen Negative for MRSA by DNA Probe Assessment and Plan This is a 76 yo male with hx of prostate cancer and radiation cystitis presented to the hospital from [facility] with hematuria in the setting of hemorrhagic cystitis. Patient was seen at the [facility] about 1 week ago and diagnosed with hemorrhagic cystitis. He received one dose of Rocephin and Keflex. UCx noted to be growing providencia rettgeri. He was brought in to the hospital because noted to have more hematuria and clots. He continue to have hematuria and clots. Urology is on board. * Gross hematuria in the presence hemorrhagic cystitis ( UCx showed p. rettgeri) - Continuous irrigation to assess for clots as the patient is unable to state if valencia is no longer irrigating - Consulted urology and recommended to continue with irrigation and manual irrigation with every shift. Continue with entrapenem for now and transition to 7-10 days of Cipro or Bactrim prior d/c to home. If hematuria continues to be an issue, recommended outpatient hyperbaric O2 treatments with wound care. - Continue with ertapenem - ID was consulted and recommended to continue with entapenem - NPO after midnight in the event he needs a cysto with fulguration tomorrow. * Anemia possible acute blood loss - recheck CBC in the am * Dementia - stable - continue sertraline and seroquel DVT Prophylaxis - Will hold on to pharmacological anticoagulant given active hematuria, - [facility] [place] Resident Physician Supervision Note: I was present with Dr. Kent during the history and exam. I discussed the case with the resident and agree with the findings and plan as documented in the note. Any exceptions or clarifications are listed here: 76-year-old male with end-stage dementia whom I know from the outpatient practice. He was diagnosed with Alzheimer's type dementia approximate seven years ago, and due to progressive disease including increased agitation/ aggressiveness, he was placed in a [facility] facility earlier this summer. Upon my examination today, the patient is quite sedated having just received a dose of Dilaudid. He does open his eyes to my voice, denies pain, but quickly falls back asleep. Infectious disease and urology consultations appreciated. We'll need to clarify recommendations for antibiotics. Documented By: Enrike Quintero
[2017-01-06 18:00] VITALS: BP 111/72; PULSE 68; O2SAT 95
[2017-01-06] MEDS: QUETIAPINE FUMARATE 100 MG TAB PO SCH (22:17)
[2017-01-06] MEDS: SIMVASTATIN 40 MG TAB PO SCH (22:17)
[2017-01-07] VITALS: BP 97/59; PULSE 75; TEMP 36.5; O2SAT 93
[2017-01-07 05:09] VITALS: BP 99/57
[2017-01-07 07:09] LABS: HEMATOCRIT 31.6 % (42-52); MEAN CELL VOLUME 89.8 fL (80-100); MEAN CORPUSCULAR HEMOGLOBIN 30.4 pg (25-34); MEAN CORPUSCULAR HGB CONC 33.9 g/dl (32-36); MEAN PLATELET VOLUME 8.7 fL (7.4-10.4); PLATELET COUNT 137 K/uL (130-400); RED BLOOD COUNT 3.52 M/uL (4.7-6.1); WHITE BLOOD COUNT 8.47 K/uL (4.8-10.8)
[2017-01-07 07:16] VITALS: BP 129/73; PULSE 64; TEMP 36.6; O2SAT 98
[2017-01-07 07:33] LABS: BUN/CREATININE RATIO 14.4 (10-20); CALCIUM 8.6 mg/dl (8.5-10.1); CREATININE 1.6 mg/dl (0.60-1.40); POTASSIUM 3.7 mmol/L (3.5-5.1)
--- NOTE | 2017-01-07 08:08 | Progress Note ---
Subjective Date of Service: Jan 07, 2017. Subjective Pt evaluation today including: conversation w/ patient, physical exam, chart review Pain: Controlled PO Intake: NPO Patient ext poor historian due to dementia. Currently resting comfortably. Answers questions weakly. CBI running on slow drip. Clear with pink color. Rate slowed to nearly off while evaluating and became more red. No clots. No obstruction. Tolerating well. History of radiation cystitis with acute cystitis on ABx. Problem List Medical Problems: (1) Altered mental status Status: Acute (2) Anemia Status: Acute (3) Bilateral lower extremity edema Status: Acute (4) Gross hematuria Status: Acute (5) Scalp laceration Status: Acute Review of Systems All Other Systems: Reviewed and Negative (Limited due to patient's mental status. Baseline dementia) Objective Vital Signs Date Time Temp Pulse Resp B/P (MAP) Pulse Ox O2 Delivery O2 Flow Rate FiO2 01/07/17 07:16 36.6 64 17 129/73 (91) 98 Room Air 01/07/17 05:09 99/57 (71) 01/07/17 00:00 36.5 75 16 97/59 (72) 93 Room Air 01/06/17 23:31 Room Air 01/06/17 18:00 68 111/72 (85) 95 01/06/17 15:30 Room Air 01/06/17 15:07 36.3 80 16 161/71 (101) 94 Room Air 01/06/17 08:00 36.4 60 14 146/88 (107) 96 Room Air Physical Exam General Appearance: no apparent distress Eyes: normal inspection ENT: normal ENT inspection Neck: no JVD Respiratory/Chest: no respiratory distress, no accessory muscle use Cardiovascular: regular rate, rhythm Abdomen: non tender, soft Extremities: non-tender Neurologic/Psychiatric: normal mood/affect Skin: normal color Comments: Lyon in place draining pink/red. CBI at slow drip Laboratory Results Last 24 Hours Test 01/07/17 06:49 White Blood Count 8.47 K/uL Red Blood Count 3.52 M/uL Hemoglobin 10.7 g/dL Hematocrit 31.6 % Mean Corpuscular Volume 89.8 fL Mean Corpuscular Hemoglobin 30.4 pg Mean Corpuscular Hemoglobin Concent 33.9 g/dl RDW Standard Deviation 43.1 fL RDW Coefficient of Variation 13.2 % Platelet Count 137 K/uL Mean Platelet Volume 8.7 fL Sodium Level 143 mmol/L Potassium Level 3.7 mmol/L Chloride Level 109 mmol/L Carbon Dioxide Level 32 mmol/L Anion Gap 2.0 mmol/L Blood Urea Nitrogen 23 mg/dl Creatinine 1.60 mg/dl Est Creatinine Clear Calc Drug Dose 33.6 ml/min Estimated GFR () 48.1 Estimated GFR (Non- 41.5 BUN/Creatinine Ratio 14.4 Random Glucose 106 mg/dl Calcium Level 8.6 mg/dl Assessment and Plan 1. UTI with hematuria 2. Radiation Cystitis 3. Hx of Exercise Scientist 4. Right 6 mm mid pole stone without obstruction. Currently doing well on CBI. Attempting to wean down. Due to history of radiation cystitis, likely diffuse areas of bleeding within bladder. May need to consider irrigation with alum or other agent if continues. No clots in catheter. Draining well at this time. Titrate back to clear pink. Will continue to follow. Labs reviewed. Will continue to monitor h&h. Continued [facility] stay due to: voiding difficulties, multiple IV medications needed
[2017-01-07] MEDS: SERTRALINE HCL 50 MG TAB PO SCH (11:12)
[2017-01-07] MEDS: RIVASTIGMINE TARTRATE (EXELON) 1.5 MG CAP PO SCH ×2 (11:12→20:31)
--- NOTE | 2017-01-07 12:28 | Progress Note ---
Progress Note Date of Service Jan 07, 2017. Progress Note Patient seen and evaluated Difficult to obtain a full history from him as he has some dementia Denies any acute pain or discomfort CBI running a very slow rate - pink urine, clears quickly with increasing the flow irrigant Assessment/plan Gross hematuria - likely secondary to radiation cystitis Hematocrit has drifted since his admission, expect that it may fall slightly further overnight Plan to start alum CBI Attempt to avoid operating room unless absolutely necessary - as I suspect this is going to be generalized capillary ooze without any large bleeding vessels I will follow closely
--- NOTE | 2017-01-07 14:25 | Family Medicine Progress Note ---
Progress Note Date of Service Jan 07, 2017. Subjective Pt evaluation today including: conversation w/ patient, physical exam, lab review Voiding: valencia catheter in place Patient was seen at the bedside. He denied chest pain or abdominal. Couldn't obtain full ROS given his dementia. Additional Comments: couldn't obtain full ROS given his dementia Medications Current Inpatient Medications Medications (Trade) Dose Ordered Sig/Yuli Route Start Time Stop Time Status Last Admin Dose Admin Ondansetron HCl (Zofran Inj) 4 mg Q6H PRN IV 01/06/17 02:15 02/05/17 02:14 Quetiapine Fumarate (seroQUEL TAB) 100 mg HS PO 01/06/17 21:00 02/05/17 20:59 01/06/17 22:17 100 MG Sertraline HCl (Zoloft Tab) 50 mg QAM PO 01/06/17 09:00 02/05/17 08:59 01/07/17 11:12 50 MG Simvastatin (Zocor Tab) 40 mg QPM PO 01/06/17 21:00 02/05/17 20:59 01/06/17 22:17 40 MG Rivastigmine Tartrate (Exelon Cap) 3 mg BID PO 01/06/17 09:00 02/05/17 08:59 01/07/17 11:12 3 MG Ioversol (Optiray 320) 100 ml UD PRN IV 01/06/17 07:30 01/10/17 07:29 Ertapenem 1000 mg/ Sodium Chloride 60 ml @ 120 mls/hr Q24H IV 01/07/17 21:00 01/16/17 20:59 Aluminum Ammonium Sulfate 30 gm/ Sodium Chloride 3,000 ml @ 0 mls/hr UD IR 01/07/17 12:30 02/06/17 12:29 UNV Objective Vital Signs Date Time Temp Pulse Resp B/P (MAP) Pulse Ox O2 Delivery O2 Flow Rate FiO2 01/07/17 07:56 Room Air 01/07/17 07:16 36.6 64 17 129/73 (91) 98 Room Air 01/07/17 05:09 99/57 (71) 01/07/17 00:00 36.5 75 16 97/59 (72) 93 Room Air 01/06/17 23:31 Room Air 01/06/17 18:00 68 111/72 (85) 95 01/06/17 15:30 Room Air 01/06/17 15:07 36.3 80 16 161/71 (101) 94 Room Air Physical Exam General Appearance: WD/WN, no apparent distress Neck: supple, trachea midline Respiratory/Chest: chest non-tender, lungs clear, no respiratory distress, no accessory muscle use Cardiovascular: regular rate, rhythm Abdomen: normal bowel sounds, non tender, soft Extremities: non-tender, no pedal edema Neurologic/Psychiatric: alert Skin: normal color, warm/dry, no rash Notes: Valencia cath is in place draining pink/red urine Laboratory Results Results Past 24 Hours Test 01/07/17 06:49 Range/Units White Blood Count 8.47 4.8-10.8 K/uL Red Blood Count 3.52 4.7-6.1 M/uL Hemoglobin 10.7 14.0-18.0 g/dL Hematocrit 31.6 42-52 % Mean Corpuscular Volume 89.8 80-100 fL Mean Corpuscular Hemoglobin 30.4 25-34 pg Mean Corpuscular Hemoglobin Concent 33.9 32-36 g/dl RDW Standard Deviation 43.1 36.4-46.3 fL RDW Coefficient of Variation 13.2 11.5-14.5 % Platelet Count 137 130-400 K/uL Mean Platelet Volume 8.7 7.4-10.4 fL Sodium Level 143 136-145 mmol/L Potassium Level 3.7 3.5-5.1 mmol/L Chloride Level 109 98-107 mmol/L Carbon Dioxide Level 32 21-32 mmol/L Anion Gap 2.0 3-11 mmol/L Blood Urea Nitrogen 23 7-18 mg/dl Creatinine 1.60 0.60-1.40 mg/dl Est Creatinine Clear Calc Drug Dose 33.6 ml/min Estimated GFR () 48.1 Estimated GFR (Non- 41.5 BUN/Creatinine Ratio 14.4 10-20 Random Glucose 106 70-99 mg/dl Calcium Level 8.6 8.5-10.1 mg/dl Assessment and Plan This is a 76 yo male with hx of prostate cancer and radiation cystitis [facility] with hematuria in the setting of hemorrhagic cystitis. Patient was seen at the [facility] about 1 week ago and diagnosed with hemorrhagic cystitis. He received one dose of Rocephin and Keflex. UCx noted to be growing providencia rettgeri. He was brought in to the hospital because noted to have more hematuria and clots. He continue to have hematuria and clots. Urology is on board. Recommended to continue with CBI. * Gross hematuria in the presence hemorrhagic cystitis ( UCx showed p. rettgeri) - Continuous irrigation to assess for clots as the patient is unable to state if valencia is no longer irrigating - Consulted urology and recommended to continue with irrigation and manual irrigation with every shift. Continue with entrapenem for now and transition to 7-10 days of Cipro or Bactrim prior d/c to home. If hematuria continues to be an issue, recommended outpatient hyperbaric O2 treatments with wound care. - ID was consulted and recommended to continue with entapenem [id number] - Dr. Mansfield saw the patient and recommended to continue with irrigation * Anemia possible acute blood loss - Last hgb was 10.7 - recheck CBC in the am * Dementia - stable - continue sertraline and seroquel DVT Prophylaxis - Will hold on to pharmacological anticoagulant given active hematuria, - SCD Resident Physician Supervision Note: I saw the patient and performed a history and physical examination independent Dr. Kent. I reviewed my findings and discuss plan of care with the resident physician. 76-year-old male whom I know from the outpatient practice now with end-stage dementia and apparent radiation cystitis. He is awake and quite talkative today ; this is in sharp contrast twice on yesterday just following administration of IV Dilaudid. He is confused, which is his baseline. There has been some issues with aggressiveness and agitation but does not seem evident at present. Urology input appreciated; with continued hematuria and slight downward trend of hemoglobin we will attempt aluminum CBI in hopes of avoiding the OR. PLAN #1 aluminum CBI. #2 follow blood count. #3 continue current antibiotics. #4 monitor BMP. Gentle IV fluid for elevated creatinine today. #5 continue Zoloft, Seroquel, and Exelon for his end-stage dementia. Documented By: Enrike Quintero
[2017-01-07 14:47] VITALS: BP 98/65; PULSE 80; TEMP 37; O2SAT 97
[2017-01-07] MEDS: AMMONIUM ALUM 30 GM in SODIUM CHLORIDE 0.9% IRRIG 3,000 ML IR PRN ×5 (15:06→22:25)
[2017-01-07] MEDS: QUETIAPINE FUMARATE 100 MG TAB PO SCH (20:32)
[2017-01-07] MEDS: SIMVASTATIN 40 MG TAB PO SCH (20:32)
[2017-01-07] MEDS: ERTAPENEM IV 1,000 MG in SODIUM CHLORIDE 0.9% 50ML 50 ML IV SCH (20:32)
[2017-01-07 22:49] VITALS: BP 133/79; PULSE 109; TEMP 36.7; O2SAT 93
[2017-01-08] MEDS ORDERED: HALOPERIDOL LACTATE 5 MG/ML 1 ML VIAL IV STA (00:09)
[2017-01-08] MEDS ORDERED: SODIUM CHLORIDE 0.9% 250ML 250 ML IV STA (00:11)
[2017-01-08] MEDS ORDERED: ACETAMINOPHEN IV 650 MG in EMPTY BAG 0 ML IV PRN (00:15)
[2017-01-08] MEDS ORDERED: HALOPERIDOL LACTATE 5 MG/ML 1 ML VIAL IM STA (00:41)
[2017-01-08] MEDS: AMMONIUM ALUM 30 GM in SODIUM CHLORIDE 0.9% IRRIG 3,000 ML IR PRN ×15 (02:08→23:00)
[2017-01-08 02:23] VITALS: BP 153/78; PULSE 108; TEMP 37.3; O2SAT 97
[2017-01-08] MEDS: SODIUM CHLORIDE 0.9% 1000ML 1,000 ML IV SCH ×2 (04:30→15:53)
[2017-01-08 04:49] LABS: HEMATOCRIT 26.6 % (42-52); MEAN CELL VOLUME 90.2 fL (80-100); MEAN CORPUSCULAR HEMOGLOBIN 30.5 pg (25-34); MEAN CORPUSCULAR HGB CONC 33.8 g/dl (32-36); MEAN PLATELET VOLUME 8.7 fL (7.4-10.4); PLATELET COUNT 199 K/uL (130-400); RED BLOOD COUNT 2.95 M/uL (4.7-6.1); WHITE BLOOD COUNT 15.73 K/uL (4.8-10.8)
[2017-01-08 05:05] LABS: BUN/CREATININE RATIO 19.3 (10-20); CALCIUM 8.9 mg/dl (8.5-10.1); CREATININE 1.6 mg/dl (0.60-1.40); POTASSIUM 3.8 mmol/L (3.5-5.1)
[2017-01-08] MEDS ORDERED: SODIUM CHLORIDE 0.9% 500ML 500 ML IV STA (06:05)
[2017-01-08 07:32] VITALS: BP 155/84; PULSE 107; TEMP 37; O2SAT 97
--- NOTE | 2017-01-08 09:25 | Progress Note ---
Subjective Date of Service: Jan 08, 2017. Subjective Pt evaluation today including: physical exam, chart review, lab review Voiding: valencia catheter in place Converted to 1% alum irrigation overnight Had some problems with clots, however overall tolerated the CBI well No change in baseline dementia making history challenging Does not seem to be uncomfortable this morning Color of the output from his bladder is changed significantly - implying cessation of active bleeding, as it is now dark in color. Majority the urine is clear with small clots that provide the color Problem List Medical Problems: (1) Altered mental status Status: Acute (2) Anemia Status: Acute (3) Bilateral lower extremity edema Status: Acute (4) Gross hematuria Status: Acute (5) Scalp laceration Status: Acute Review of Systems Constitutional: No see HPI, No fever, No chills, No sweats, No weight loss, No weakness, No fatigue, No problem reported Eyes: No see HPI, No worsening of vision, No eye pain, No redness, No discharge , No diplopia, No problem reported Abdomen: No see HPI, No pain, No nausea, No vomiting, No diarrhea, No constipation, No GI bleeding, No problem reported Male : + hematuria Objective Vital Signs Date Time Temp Pulse Resp B/P (MAP) Pulse Ox O2 Delivery O2 Flow Rate FiO2 01/08/17 08:08 Room Air 01/08/17 07:32 37.0 107 18 155/84 (107) 97 Room Air 01/08/17 02:23 37.3 108 18 153/78 (103) 97 Room Air 01/07/17 23:47 Room Air 01/07/17 22:49 36.7 109 16 133/79 (97) 93 Room Air 01/07/17 15:45 Room Air 01/07/17 14:47 37.0 80 18 98/65 (76) 97 Room Air Physical Exam General Appearance: no apparent distress (sleeping) Eyes: normal inspection ENT: hearing grossly normal Neck: no adenopathy Respiratory/Chest: no respiratory distress, no accessory muscle use Cardiovascular: + tachycardia Abdomen: non tender, soft, + pertinent finding (bladder output now darker in color - the majority of this is clear with dark flecks of clot) Extremities: no pedal edema Neurologic/Psychiatric: normal mood/affect Skin: normal color, warm/dry Lymphatic: no adenopathy Laboratory Results Last 24 Hours Test 01/08/17 04:41 White Blood Count 15.73 K/uL Red Blood Count 2.95 M/uL Hemoglobin 9.0 g/dL Hematocrit 26.6 % Mean Corpuscular Volume 90.2 fL Mean Corpuscular Hemoglobin 30.5 pg Mean Corpuscular Hemoglobin Concent 33.8 g/dl RDW Standard Deviation 43.5 fL RDW Coefficient of Variation 13.3 % Platelet Count 199 K/uL Mean Platelet Volume 8.7 fL Sodium Level 145 mmol/L Potassium Level 3.8 mmol/L Chloride Level 111 mmol/L Carbon Dioxide Level 29 mmol/L Anion Gap 5.0 mmol/L Blood Urea Nitrogen 31 mg/dl Creatinine 1.60 mg/dl Est Creatinine Clear Calc Drug Dose 33.6 ml/min Estimated GFR () 48.1 Estimated GFR (Non- 41.5 BUN/Creatinine Ratio 19.3 Random Glucose 138 mg/dl Calcium Level 8.9 mg/dl Assessment and Plan Hematuria/radiation cystitis/UTI Hemoglobin has drifted further - I suspect a lot of this is correction from his prior active bleeding, as his current urine appearance implies that the majority of the active bleeding has stopped No tachycardic We'll defer decision for transfusion to the primary team From a standpoint, he seems to be progressing appropriately Alum has converted his urine output from bright red to dark color- implying coagulation is effective with alum Recommend continuing alum for 24 more hours hope to see the urine clear more completely by tomorrow morning I will advance diet Continued [facility] stay due to: voiding difficulties, multiple IV medications needed
[2017-01-08] MEDS: SERTRALINE HCL 50 MG TAB PO SCH (10:00)
[2017-01-08] MEDS: RIVASTIGMINE TARTRATE (EXELON) 1.5 MG CAP PO SCH ×2 (10:00→21:26)
[2017-01-08 11:18] VITALS: BP 122/73; PULSE 97; TEMP 37.1; O2SAT 96
--- NOTE | 2017-01-08 14:47 | Family Medicine Progress Note ---
Progress Note Date of Service Jan 08, 2017. Subjective Pt evaluation today including: conversation w/ patient, physical exam, chart review, lab review Voiding: valencia catheter in place 76-year-old male with a past medical history of severe dementia, prostate cancer presented to the ER with complaints of persistent hematuria. He was initially seen at [facility] and diagnosed with hemorrhagic cystitis. Urinalysis revealed more than 100,000 colonies of providencia rettgeri. Was seen by urology and started on continuous bladder irrigation for radiation cystitis Denies any pain or discomfort. Additional Comments: Unable to obtain due to severe dementia Medications Current Inpatient Medications Medications (Trade) Dose Ordered Sig/Yuli Route Start Time Stop Time Status Last Admin Dose Admin Ondansetron HCl (Zofran Inj) 4 mg Q6H PRN IV 01/06/17 02:15 02/05/17 02:14 Quetiapine Fumarate (seroQUEL TAB) 100 mg HS PO 01/06/17 21:00 02/05/17 20:59 01/07/17 20:32 100 MG Sertraline HCl (Zoloft Tab) 50 mg QAM PO 01/06/17 09:00 02/05/17 08:59 01/08/17 10:00 50 MG Simvastatin (Zocor Tab) 40 mg QPM PO 01/06/17 21:00 02/05/17 20:59 01/07/17 20:32 40 MG Rivastigmine Tartrate (Exelon Cap) 3 mg BID PO 01/06/17 09:00 02/05/17 08:59 01/08/17 10:00 3 MG Ioversol (Optiray 320) 100 ml UD PRN IV 01/06/17 07:30 01/10/17 07:29 Ertapenem 1000 mg/ Sodium Chloride 60 ml @ 120 mls/hr Q24H IV 01/07/17 21:00 01/16/17 20:59 01/07/17 20:32 120 MLS/HR Aluminum Ammonium Sulfate 30 gm/ Sodium Chloride 3,000 ml @ 0 mls/hr UD PRN IR 01/07/17 12:30 02/06/17 12:29 01/08/17 15:54 1 MLS/HR Acetaminophen 650 mg/Empty Bag 65 ml @ 260 mls/hr Q6H PRN IV 01/08/17 00:15 02/07/17 00:14 Sodium Chloride 1,000 ml @ 80 mls/hr [id number] IV 01/08/17 03:15 02/07/17 03:14 01/08/17 15:53 80 MLS/HR Objective Vital Signs Date Time Temp Pulse Resp B/P (MAP) Pulse Ox O2 Delivery O2 Flow Rate FiO2 01/08/17 15:26 36.7 99 18 137/59 (85) 95 Room Air 01/08/17 11:18 37.1 97 17 122/73 (89) 96 Room Air 01/08/17 08:08 Room Air 01/08/17 07:32 37.0 107 18 155/84 (107) 97 Room Air 01/08/17 02:23 37.3 108 18 153/78 (103) 97 Room Air 01/07/17 23:47 Room Air 01/07/17 22:49 36.7 109 16 133/79 (97) 93 Room Air Physical Exam General Appearance: WD/WN Eyes: normal inspection ENT: hearing grossly normal Neck: supple Respiratory/Chest: chest non-tender, lungs clear, normal breath sounds, no accessory muscle use Cardiovascular: regular rate, rhythm Abdomen: normal bowel sounds, non tender Extremities: no pedal edema Neurologic/Psychiatric: + pertinent finding (dementia) Skin: normal color Laboratory Results 01/08/17 04:41 01/08/17 04:41 Test 01/08/17 04:41 Red Blood Count 2.95 M/uL (4.7-6.1) Mean Corpuscular Volume 90.2 fL (80-100) Mean Corpuscular Hemoglobin 30.5 pg (25-34) Mean Corpuscular Hemoglobin Concent 33.8 g/dl (32-36) RDW Standard Deviation 43.5 fL (36.4-46.3) RDW Coefficient of Variation 13.3 % (11.5-14.5) Mean Platelet Volume 8.7 fL (7.4-10.4) Anion Gap 5.0 mmol/L (3-11) Est Creatinine Clear Calc Drug Dose 33.6 ml/min Estimated GFR () 48.1 Estimated GFR (Non- 41.5 BUN/Creatinine Ratio 19.3 (10-20) Calcium Level 8.9 mg/dl (8.5-10.1) Assessment and Plan 76-year-old male with a past medical history of severe dementia, prostate cancer presented to the ER with complaints of persistent hematuria. He was initially seen at [facility] and diagnosed with hemorrhagic cystitis. Urinalysis revealed more than 100,000 colonies of providencia rettgeri. Was seen by urology and started on continuous bladder irrigation for radiation cystitis Persistent hematuria secondary to Radiation cystitis: - Continuous bladder irrigation with alum - No surgical intervention currently anticipated - Appreciate urology recommendations - Continue ertapenem X10 days for providencia per ID recommendations Acute blood loss anemia: - Hemoglobin at 9 from 10.7 yesterday. Baseline 15.8 - Monitor H&H -Consider transfusion if hemoglobin drops less than 8 Acute kidney injury: - Creatinine at 1.6 - Continue IV fluids and monitor creatinine Severe dementia/depression - Continue Seroquel and sertraline, rivastigmine DO NOT RESUSCITATE DVT prophylaxis: SCDs Pharmacological anticoagulation contraindicated considering active hematuria Disposition: Monitor in [facility] Resident Physician Supervision Note: I interviewed and examined the patient. Discussed with Dr. Sy and agree with findings and plan as documented in the note. Any exceptions or clarifications are listed here: I saw the patient approximately 5 PM, he was having some agitation - it was mild and the RECEIVING WORKER in the room was able provide reassurance and redirection. IMPRESSION 1) hematuria secondary to radiation cystitis and urinary tract infection 2) anemia, acute, secondary to hematuria PLAN 1) appreciate recommendations of urology, continue alum bladder irrigation 2) patient recommendations of infectious disease, continue current antibiotics 3) monitor hemoglobin 4) continue current regimen for his dementia; avoid benzodiazepines if at all possible; PRN Haldol for severe agitation. Documented By: Enrike Quintero Documented By: Enrike Quintero Continued [facility] stay due to: multiple IV medications needed, home environment unsafe for pt Discharge planning: uncertain Resident Tracking Resident Involvement: Resident Care Provided Care Provided: Adult Hospital Medicine
[2017-01-08 15:26] VITALS: BP 137/59; PULSE 99; TEMP 36.7; O2SAT 95
[2017-01-08] MEDS: QUETIAPINE FUMARATE 100 MG TAB PO SCH (21:26)
[2017-01-08] MEDS: SIMVASTATIN 40 MG TAB PO SCH (21:26)
[2017-01-08] MEDS: ERTAPENEM IV 1,000 MG in SODIUM CHLORIDE 0.9% 50ML 50 ML IV SCH (21:31)
[2017-01-08 23:15] VITALS: BP 126/69; PULSE 105; TEMP 37; O2SAT 96
[2017-01-09] VITALS (19 sets, daily range): BP systolic 88–149; BP diastolic 46–79; PULSE 71–114; TEMP 35.9–37.1; O2SAT 91–100
[2017-01-09] MEDS: AMMONIUM ALUM 30 GM in SODIUM CHLORIDE 0.9% IRRIG 3,000 ML IR PRN ×8 (01:19→22:49)
[2017-01-09] MEDS: SODIUM CHLORIDE 0.9% 1000ML 1,000 ML IV SCH ×3 (03:19→20:53)
[2017-01-09 06:57] LABS: BUN/CREATININE RATIO 24.4 (10-20); CALCIUM 8.1 mg/dl (8.5-10.1); CREATININE 1.2 mg/dl (0.60-1.40); POTASSIUM 3.7 mmol/L (3.5-5.1)
[2017-01-09 07:10] LABS: HEMATOCRIT 18.6 % (42-52); MEAN CELL VOLUME 92.1 fL (80-100); MEAN CORPUSCULAR HEMOGLOBIN 29.7 pg (25-34); MEAN CORPUSCULAR HGB CONC 32.3 g/dl (32-36); MEAN PLATELET VOLUME 8.5 fL (7.4-10.4); PLATELET COUNT 149 K/uL (130-400); RED BLOOD COUNT 2.02 M/uL (4.7-6.1); WHITE BLOOD COUNT 13.06 K/uL (4.8-10.8)
[2017-01-09] MEDS: SERTRALINE HCL 50 MG TAB PO SCH (08:31)
[2017-01-09] MEDS: RIVASTIGMINE TARTRATE (EXELON) 1.5 MG CAP PO SCH ×2 (08:31→20:39)
--- NOTE | 2017-01-09 08:57 | Progress Note ---
Subjective Date of Service: Jan 09, 2017. Subjective Pt evaluation today including: physical exam, chart review, lab review Pain: no discernible pain Voiding: valencia catheter in place History remains challenging because of his dementia In speaking with the nurse, it sounds as though he did fairly well overnight He had one episode that required irrigation manually - I'm somewhat unclear as to how much clot was present at that time No other major changes Urine is essentially clear today on very slow CBI with 1% Alum Hemoglobin has dropped notably He has developed a leukocytosis in the last 2 days Creatinine has nearly normalized Vital Signs Past 12 Hours Date Time Temp Pulse Resp B/P (MAP) Pulse Ox O2 Delivery O2 Flow Rate FiO2 01/09/17 08:30 36.6 108 18 107/66 01/09/17 08:16 Room Air 01/09/17 08:12 36.5 114 16 142/76 01/09/17 07:12 36.6 105 18 96/57 (70) 92 Room Air 01/09/17 03:07 37.1 108 18 135/72 (93) 91 Room Air 01/08/17 23:15 37.0 105 18 126/69 (88) 96 Room Air 01/09/17 06:07 01/09/17 06:07 Test 01/09/17 06:07 Red Blood Count 2.02 M/uL (4.7-6.1) Mean Corpuscular Volume 92.1 fL (80-100) Mean Corpuscular Hemoglobin 29.7 pg (25-34) Mean Corpuscular Hemoglobin Concent 32.3 g/dl (32-36) RDW Standard Deviation 46.3 fL (36.4-46.3) RDW Coefficient of Variation 14.1 % (11.5-14.5) Mean Platelet Volume 8.5 fL (7.4-10.4) Anion Gap 4.0 mmol/L (3-11) Est Creatinine Clear Calc Drug Dose 44.1 ml/min Estimated GFR () 68.1 Estimated GFR (Non- 58.8 BUN/Creatinine Ratio 24.4 (10-20) Calcium Level 8.1 mg/dl (8.5-10.1) Problem List Medical Problems: (1) Altered mental status Status: Acute (2) Anemia Status: Acute (3) Bilateral lower extremity edema Status: Acute (4) Gross hematuria Status: Acute (5) Scalp laceration Status: Acute Review of Systems Constitutional: No see HPI, No fever, No chills, No sweats, No weight loss, No weakness, No fatigue, No problem reported Eyes: No see HPI, No worsening of vision, No eye pain, No redness, No discharge , No diplopia, No problem reported ENT: No see HPI, No hearing loss, No unusual epistaxis, No nasal symptoms, No sore throat, No tinnitus, No dental problems, No trouble swallowing, No problem reported Respiratory: No see HPI, No cough, No sputum, No wheezing, No shortness of breath, No dyspnea on exertion, No dyspnea at rest, No hemoptysis, No problem reported Cardiac: No see HPI, No chest pain, No orthopnea, No PND, No edema, No claudication, No palpitations, No problem reported Breast: No see HPI, No breast lump, No change in shape, No nipple discharge, No breast pain, No problem reported Abdomen: No see HPI, No pain, No nausea, No vomiting, No diarrhea, No constipation, No GI bleeding, No problem reported Musculoskeletal: No see HPI, No joint pain, No muscle pain, No swelling, No calf pain, No problem reported Male : + hematuria Objective Vital Signs Date Time Temp Pulse Resp B/P (MAP) Pulse Ox O2 Delivery O2 Flow Rate FiO2 01/09/17 08:30 36.6 108 18 107/66 01/09/17 08:16 Room Air 01/09/17 08:12 36.5 114 16 142/76 01/09/17 07:12 36.6 105 18 96/57 (70) 92 Room Air 01/09/17 03:07 37.1 108 18 135/72 (93) 91 Room Air 01/08/17 23:15 37.0 105 18 126/69 (88) 96 Room Air 01/08/17 19:10 Room Air 01/08/17 15:26 36.7 99 18 137/59 (85) 95 Room Air 01/08/17 11:18 37.1 97 17 122/73 (89) 96 Room Air Physical Exam General Appearance: no apparent distress, + thin Eyes: normal inspection ENT: hearing grossly normal Neck: no adenopathy Respiratory/Chest: no respiratory distress, no accessory muscle use Cardiovascular: no edema Abdomen: non tender, soft Extremities: normal range of motion, non-tender Neurologic/Psychiatric: normal mood/affect, + disoriented (Alzheimer's) Skin: normal color, warm/dry Lymphatic: no adenopathy Laboratory Results Last 24 Hours Test 01/09/17 06:07 White Blood Count 13.06 K/uL Red Blood Count 2.02 M/uL Hemoglobin 6.0 g/dL Hematocrit 18.6 % Mean Corpuscular Volume 92.1 fL Mean Corpuscular Hemoglobin 29.7 pg Mean Corpuscular Hemoglobin Concent 32.3 g/dl RDW Standard Deviation 46.3 fL RDW Coefficient of Variation 14.1 % Platelet Count 149 K/uL Mean Platelet Volume 8.5 fL Sodium Level 148 mmol/L Potassium Level 3.7 mmol/L Chloride Level 116 mmol/L Carbon Dioxide Level 28 mmol/L Anion Gap 4.0 mmol/L Blood Urea Nitrogen 29 mg/dl Creatinine 1.20 mg/dl Est Creatinine Clear Calc Drug Dose 44.1 ml/min Estimated GFR () 68.1 Estimated GFR (Non- 58.8 BUN/Creatinine Ratio 24.4 Random Glucose 132 mg/dl Calcium Level 8.1 mg/dl Assessment and Plan Hematuria/radiation cystitis/UTI - Urine is clearing appropriately, continue alum for the time being, if he remains clear overnight consider clamping or transitioning the normal saline for 24 more hours before removal of catheter Despite clearing of his urine, he has had continued drop of his hemoglobin The current amount of blood in his urine does not explain a drop of this significance overnight and the scale of the drop (over several successive days) seems to be fairly significant for simple correction secondary to hydration/ hemo dilution He is tachycardic although normotensive transfusion is likely appropriate today If he has another significant drop after transfusion, I would strongly consider re-scanning him with a CT ARF recovering New leukocytosis, despite ertapenem No fevers Continued [facility] stay due to: multiple IV medications needed, home environment unsafe for pt Discharge planning: uncertain
--- NOTE | 2017-01-09 10:57 | Family Medicine Progress Note ---
Progress Note Date of Service Jan 09, 2017. Subjective Pt evaluation today including: conversation w/ patient, physical exam, chart review, lab review Additional Comments: unable to obtain due to severe dementia Medications Current Inpatient Medications Medications (Trade) Dose Ordered Sig/Yuli Route Start Time Stop Time Status Last Admin Dose Admin Ondansetron HCl (Zofran Inj) 4 mg Q6H PRN IV 01/06/17 02:15 02/05/17 02:14 Quetiapine Fumarate (seroQUEL TAB) 100 mg HS PO 01/06/17 21:00 02/05/17 20:59 01/08/17 21:26 100 MG Sertraline HCl (Zoloft Tab) 50 mg QAM PO 01/06/17 09:00 02/05/17 08:59 01/09/17 08:31 50 MG Simvastatin (Zocor Tab) 40 mg QPM PO 01/06/17 21:00 02/05/17 20:59 01/08/17 21:26 40 MG Rivastigmine Tartrate (Exelon Cap) 3 mg BID PO 01/06/17 09:00 02/05/17 08:59 01/09/17 08:31 3 MG Ioversol (Optiray 320) 100 ml UD PRN IV 01/06/17 07:30 01/10/17 07:29 Ertapenem 1000 mg/ Sodium Chloride 60 ml @ 120 mls/hr Q24H IV 01/07/17 21:00 01/16/17 20:59 01/08/17 21:31 120 MLS/HR Aluminum Ammonium Sulfate 30 gm/ Sodium Chloride 3,000 ml @ 0 mls/hr UD PRN IR 01/07/17 12:30 02/06/17 12:29 01/09/17 06:15 1 MLS/HR Acetaminophen 650 mg/Empty Bag 65 ml @ 260 mls/hr Q6H PRN IV 01/08/17 00:15 02/07/17 00:14 01/09/17 03:33 260 MLS/HR Sodium Chloride 1,000 ml @ 80 mls/hr [id number] IV 01/08/17 03:15 02/07/17 03:14 01/09/17 03:19 80 MLS/HR Objective Vital Signs Date Time Temp Pulse Resp B/P (MAP) Pulse Ox O2 Delivery O2 Flow Rate FiO2 8/20/17 10:15 36.6 90 18 129/63 96 01/09/17 09:46 90 102/64 01/09/17 09:25 90 112/65 01/09/17 09:15 36.5 83 18 88/46 01/09/17 08:45 36.5 71 18 122/61 01/09/17 08:30 36.6 108 18 107/66 01/09/17 08:16 Room Air 01/09/17 08:12 36.5 114 16 142/76 01/09/17 07:12 36.6 105 18 96/57 (70) 92 Room Air 01/09/17 03:07 37.1 108 18 135/72 (93) 91 Room Air 01/08/17 23:15 37.0 105 18 126/69 (88) 96 Room Air 01/08/17 19:10 Room Air 01/08/17 15:26 36.7 99 18 137/59 (85) 95 Room Air 01/08/17 11:18 37.1 97 17 122/73 (89) 96 Room Air Physical Exam General Appearance: WD/WN, no apparent distress Eyes: normal inspection ENT: normal ENT inspection, hearing grossly normal Neck: supple Respiratory/Chest: chest non-tender, no respiratory distress Cardiovascular: + tachycardia Abdomen: normal bowel sounds, non tender, soft, + pertinent finding (valencia bag with dark urine, tubing with clear urine) Neurologic/Psychiatric: + pertinent finding (severe dementia) Skin: normal color Laboratory Results 01/09/17 06:07 01/09/17 06:07 Test 01/09/17 06:07 Red Blood Count 2.02 M/uL (4.7-6.1) Mean Corpuscular Volume 92.1 fL (80-100) Mean Corpuscular Hemoglobin 29.7 pg (25-34) Mean Corpuscular Hemoglobin Concent 32.3 g/dl (32-36) RDW Standard Deviation 46.3 fL (36.4-46.3) RDW Coefficient of Variation 14.1 % (11.5-14.5) Mean Platelet Volume 8.5 fL (7.4-10.4) Anion Gap 4.0 mmol/L (3-11) Est Creatinine Clear Calc Drug Dose 44.1 ml/min Estimated GFR () 68.1 Estimated GFR (Non- 58.8 BUN/Creatinine Ratio 24.4 (10-20) Calcium Level 8.1 mg/dl (8.5-10.1) Assessment and Plan 76-year-old male with a past medical history of severe dementia, prostate cancer presented to the ER with complaints of persistent hematuria. He was initially seen at [facility] and diagnosed with hemorrhagic cystitis. Urinalysis revealed more than 100,000 colonies of providencia rettgeri. 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 Baseline 15.8 - Transfuse 2 units - Monitor H&H - Hemoccult pending - Consider CT abd if continues to drop Acute kidney injury: - Creatinine at 1.2 - Continue IV fluids and monitor creatinine Severe dementia/depression - Continue Seroquel and sertraline, rivastigmine DO NOT RESUSCITATE DVT prophylaxis: SCDs Pharmacological anticoagulation contraindicated considering active hematuria Disposition: Monitor in [facility] Resident Physician Supervision Note: I was present with Dr. Sy during the history and exam. I discussed the case with the resident and agree with the findings and plan as documented in the note. Any exceptions or clarifications are listed here: I was able to speak to the patient's today by telephone. Hemorrhagic Radiation cystitis Urinary tract infection Anemia secondary to acute blood loss Continue antibiotics Pressure recommendations of urology Hemoglobin improved status post transfusion; monitor CBC Dementia, end-stage (FAST 6D) Add Seroquel 25 mg by mouth every morning Continue Seroquel 100 mg by mouth every PM I did discuss with the that as his dementia progresses - he may pass through this agitated/aggressive stage to a more docile stage. When this happens, it is appropriate to scale back on the Seroquel. Documented By: Enrike Quintero Resident Tracking Resident Involvement: Resident Care Provided Care Provided: Adult Hospital Medicine
[2017-01-09 15:31] LABS: HEMATOCRIT 25.5 % (42-52); MEAN CELL VOLUME 90.4 fL (80-100); MEAN CORPUSCULAR HEMOGLOBIN 30.5 pg (25-34); MEAN CORPUSCULAR HGB CONC 33.7 g/dl (32-36); MEAN PLATELET VOLUME 8.6 fL (7.4-10.4); PLATELET COUNT 137 K/uL (130-400); RED BLOOD COUNT 2.82 M/uL (4.7-6.1); WHITE BLOOD COUNT 11.96 K/uL (4.8-10.8)
[2017-01-09 20:08] LABS: HEMATOCRIT 24.5 % (42-52)
[2017-01-09] MEDS: ERTAPENEM IV 1,000 MG in SODIUM CHLORIDE 0.9% 50ML 50 ML IV SCH (20:16)
[2017-01-09] MEDS: QUETIAPINE FUMARATE 100 MG TAB PO SCH (20:38)
[2017-01-09] MEDS: SIMVASTATIN 40 MG TAB PO SCH (20:39)
[2017-01-10] MEDS: AMMONIUM ALUM 30 GM in SODIUM CHLORIDE 0.9% IRRIG 3,000 ML IR PRN ×5 (01:46→08:57)
[2017-01-10] MEDS: SODIUM CHLORIDE 0.9% 1000ML 1,000 ML IV SCH ×2 (05:12→17:08)
[2017-01-10 05:37] LABS: HEMATOCRIT 23.4 % (42-52); MEAN CELL VOLUME 89.7 fL (80-100); MEAN CORPUSCULAR HEMOGLOBIN 30.7 pg (25-34); MEAN CORPUSCULAR HGB CONC 34.2 g/dl (32-36); MEAN PLATELET VOLUME 8.7 fL (7.4-10.4); PLATELET COUNT 146 K/uL (130-400); RED BLOOD COUNT 2.61 M/uL (4.7-6.1); WHITE BLOOD COUNT 9.13 K/uL (4.8-10.8)
[2017-01-10 06:04] LABS: BUN/CREATININE RATIO 23.1 (10-20); CALCIUM 7.8 mg/dl (8.5-10.1); CREATININE 0.87 mg/dl (0.60-1.40); POTASSIUM 3.5 mmol/L (3.5-5.1)
[2017-01-10 08:05] VITALS: BP 131/80; PULSE 78; TEMP 36.3; O2SAT 100
[2017-01-10] MEDS: RIVASTIGMINE TARTRATE (EXELON) 1.5 MG CAP PO SCH ×3 (08:58→22:11)
[2017-01-10] MEDS: SERTRALINE HCL 50 MG TAB PO SCH (08:58)
[2017-01-10] MEDS: QUETIAPINE FUMARATE 25 MG TAB PO SCH (08:58)
--- NOTE | 2017-01-10 09:22 | Progress Note ---
Subjective Date of Service: Jan 10, 2017. Subjective Pt evaluation today including: conversation w/ patient, chart review, lab review 76 yo male with radiation cystitis and gross hematuria. CBI with alum running this morning. Urine appears light pink in drainage tubing. Dark red/brown in urometer. Per RN, no clots irrigated from valencia overnight. Pt noted to have had a transfusion over the weekend. H&H currently stable at 8.0 and 23.4. The pt remains a poor historian with dementia and altered mental status. Problem List Medical Problems: (1) Altered mental status Status: Acute (2) Anemia Status: Acute (3) Bilateral lower extremity edema Status: Acute (4) Gross hematuria Status: Acute (5) Scalp laceration Status: Acute Review of Systems Pt unable to answer questions appropriately d/t altered mental status and dementia. Objective Vital Signs Date Time Temp Pulse Resp B/P (MAP) Pulse Ox O2 Delivery O2 Flow Rate FiO2 01/10/17 08:05 36.3 78 18 131/80 (97) 100 Room Air 01/09/17 23:15 Room Air 01/09/17 23:14 36.3 93 17 133/72 (92) 95 Room Air 01/09/17 16:30 95 Room Air 01/09/17 14:45 36.1 91 18 109/65 (80) 95 Room Air 01/09/17 13:55 35.9 93 16 149/79 97 01/09/17 13:07 36.5 90 18 115/52 100 01/09/17 12:40 36.5 90 18 127/76 100 01/09/17 12:10 36.3 88 16 118/68 97 01/09/17 11:57 36.6 81 18 119/73 96 01/09/17 11:40 36.3 98 18 111/68 01/09/17 10:48 36.5 87 18 114/67 96 01/09/17 10:15 36.6 90 18 129/63 96 01/09/17 09:46 90 102/64 01/09/17 09:25 90 112/65 01/09/17 09:15 36.5 83 18 88/46 Physical Exam General Appearance: no apparent distress Eyes: normal inspection ENT: hearing grossly normal Neck: no JVD Respiratory/Chest: no respiratory distress, no accessory muscle use Cardiovascular: no JVD Extremities: normal inspection Neurologic/Psychiatric: alert Skin: normal color Laboratory Results Last 24 Hours Test 01/09/17 14:15 01/09/17 15:13 01/09/17 19:57 01/10/17 04:56 Stool Occult Blood NEGATIVE White Blood Count 11.96 K/uL 9.13 K/uL Red Blood Count 2.82 M/uL 2.61 M/uL Hemoglobin 8.6 g/dL 8.2 g/dL 8.0 g/dL Hematocrit 25.5 % 24.5 % 23.4 % Mean Corpuscular Volume 90.4 fL 89.7 fL Mean Corpuscular Hemoglobin 30.5 pg 30.7 pg Mean Corpuscular Hemoglobin Concent 33.7 g/dl 34.2 g/dl RDW Standard Deviation 47.2 fL 47.7 fL RDW Coefficient of Variation 14.4 % 14.7 % Platelet Count 137 K/uL 146 K/uL Mean Platelet Volume 8.6 fL 8.7 fL Nucleated RBC Absolute Count (auto) 0.02 K/uL Nucleated Red Blood Cells % 0.2 % Sodium Level 149 mmol/L Potassium Level 3.5 mmol/L Chloride Level 117 mmol/L Carbon Dioxide Level 27 mmol/L Anion Gap 5.0 mmol/L Blood Urea Nitrogen 20 mg/dl Creatinine 0.87 mg/dl Est Creatinine Clear Calc Drug Dose 60.8 ml/min Estimated GFR () 97.8 Estimated GFR (Non- 84.4 BUN/Creatinine Ratio 23.1 Random Glucose 96 mg/dl Calcium Level 7.8 mg/dl Assessment and Plan A/P: Gross hematuria secondary to UTI and radiation cystitis. AFVSS. Hematuria improving. Will try stopping Alum today and only running CBI with NSS. Restart CBI with Alum if bleeding worsens. Avoid anticoagulation while actively bleeding. Continue to monitor H&H. Supportive management with transfusions PRN. NPO after midnight in the event he needs a cysto with fulguration tomorrow. If hematuria continues to be an issue, would recommend outpatient hyperbaric O2 treatments with wound care. As for his UTI, would transition to 7 days of Cipro or Bactrim prior to d/c home. Will continue to follow along with primary service. Continued [facility] stay due to: multiple IV medications needed, home environment unsafe for pt Discharge planning: uncertain
--- NOTE | 2017-01-10 10:15 | Family Medicine Progress Note ---
Progress Note Date of Service Jan 10, 2017. Subjective Pt evaluation today including: conversation w/ patient, physical exam, chart review, lab review, review of studies, conversation w/ center lead consultant, review of inpatient medication list Pain: denies pain PO Intake: NPO after midnight Voiding: valencia catheter in place (Continuous Bladder irrigation in place) Since yesterday , pt s/p 2u of PRBC's. Pinkish urine per nursing from CBI. Dark red blood in valencia bag. no clots on irrigation Constitutional: No fever, No chills, No weakness Respiratory: No cough, No wheezing, No shortness of breath Cardiovascular: No chest pain, No edema, No palpitations Abdomen: No pain, No nausea, No vomiting Male : + see HPI Skin: No rash, No itch Medications Current Inpatient Medications Medications (Trade) Dose Ordered Sig/Yuli Route Start Time Stop Time Status Last Admin Dose Admin Ondansetron HCl (Zofran Inj) 4 mg Q6H PRN IV 01/06/17 02:15 02/05/17 02:14 Quetiapine Fumarate (seroQUEL TAB) 100 mg HS PO 01/06/17 21:00 02/05/17 20:59 01/09/17 20:38 100 MG Sertraline HCl (Zoloft Tab) 50 mg QAM PO 01/06/17 09:00 02/05/17 08:59 01/10/17 08:58 50 MG Simvastatin (Zocor Tab) 40 mg QPM PO 01/06/17 21:00 02/05/17 20:59 01/09/17 20:39 40 MG Rivastigmine Tartrate (Exelon Cap) 3 mg BID PO 01/06/17 09:00 02/05/17 08:59 01/10/17 08:58 3 MG Ertapenem 1000 mg/ Sodium Chloride 60 ml @ 120 mls/hr Q24H IV 01/07/17 21:00 01/16/17 20:59 01/09/17 20:16 120 MLS/HR Aluminum Ammonium Sulfate 30 gm/ Sodium Chloride 3,000 ml @ 0 mls/hr UD PRN IR 01/07/17 12:30 02/06/17 12:29 Future Hold 01/10/17 08:57 30 MLS/HR Acetaminophen 650 mg/Empty Bag 65 ml @ 260 mls/hr Q6H PRN IV 01/08/17 00:15 02/07/17 00:14 01/09/17 03:33 260 MLS/HR Sodium Chloride 1,000 ml @ 80 mls/hr [id number] IV 01/08/17 03:15 02/07/17 03:14 01/10/17 17:08 80 MLS/HR Quetiapine Fumarate (seroQUEL TAB) 25 mg QAM PO 01/10/17 09:00 02/09/17 08:59 01/10/17 08:58 25 MG Oxybutynin Chloride (Ditropan Tab) 5 mg BID PRN PO 01/10/17 09:15 02/09/17 09:14 01/10/17 10:48 5 MG Objective Vital Signs Date Time Temp Pulse Resp B/P (MAP) Pulse Ox O2 Delivery O2 Flow Rate FiO2 01/10/17 14:51 36.8 86 14 126/74 (91) 96 Room Air 01/10/17 08:05 36.3 78 18 131/80 (97) 100 Room Air 01/10/17 07:30 Room Air 01/09/17 23:15 Room Air 01/09/17 23:14 36.3 93 17 133/72 (92) 95 Room Air Physical Exam Notes: GENERAL: alert, well nourished, NECK: supple, no nuchal rigidity, no adenopathy, non-tender LUNGS: Clear to auscultation. Normal chest wall mechanics HEART: no murmurs, S1 normal and S2 normal ABDOMEN: abdomen soft, non-tender, normo-active bowel sounds, no masses, no rebound or guarding. SKIN: no rashes and no bruising UPPER EXTREMITIES: upper extremities are grossly normal. LOWER EXTREMITIES: No pitting edema. NEURO EXAM: AOx1 to person only, unable to complete due to mental status Laboratory Results Results Past 24 Hours Test 01/09/17 19:57 01/10/17 04:56 Range/Units Hemoglobin 8.2 8.0 14.0-18.0 g/dL Hematocrit 24.5 23.4 42-52 % White Blood Count 9.13 4.8-10.8 K/uL Red Blood Count 2.61 4.7-6.1 M/uL Mean Corpuscular Volume 89.7 80-100 fL Mean Corpuscular Hemoglobin 30.7 25-34 pg Mean Corpuscular Hemoglobin Concent 34.2 32-36 g/dl RDW Standard Deviation 47.7 36.4-46.3 fL RDW Coefficient of Variation 14.7 11.5-14.5 % Platelet Count 146 130-400 K/uL Mean Platelet Volume 8.7 7.4-10.4 fL Sodium Level 149 136-145 mmol/L Potassium Level 3.5 3.5-5.1 mmol/L Chloride Level 117 98-107 mmol/L Carbon Dioxide Level 27 21-32 mmol/L Anion Gap 5.0 3-11 mmol/L Blood Urea Nitrogen 20 7-18 mg/dl Creatinine 0.87 0.60-1.40 mg/dl Est Creatinine Clear Calc Drug Dose 60.8 ml/min Estimated GFR () 97.8 Estimated GFR (Non- 84.4 BUN/Creatinine Ratio 23.1 10-20 Random Glucose 96 70-99 mg/dl Calcium Level 7.8 8.5-10.1 mg/dl Assessment and Plan 76 yo Hx Prostate Cancer p/w persistent Hematuria likely secondary to Radiation [facility]stitis [facility] current on Continuous Bladder Irrigation, Urine cx consistent Providencia Rettgeri Hematuria: secondary to Radiation cystitis: - improving, Urine more clear, no clots on irrigation, no evidence of active - Continuous bladder irrigation, Alum d/c'd per Urology - Possible cysto with fulguration tomorrow, NPO after midnight - Appreciate urology recommendations UTI, Urine cx pos. for Providencia - Continue Ertapenem X10 days total per ID Anemia: likely secondary to to hematuria - H/H stable, Hb 8 - F/u repeat H/H - Transfuse if <8 - Monitor H&H - Hemoccult neg Acute kidney injury, Hypernatremia: - Cr improved, .87<--1.2 - Na 149<--148 - Cont. IV fluids Severe dementia/depression - Continue Seroquel and sertraline, rivastigmine DNT DVT prophylaxis: SCDs anticoagulation contraindicated due to hematuria Disposition: MedSurg Continued [facility] stay due to: multiple IV medications needed Discharge planning: assisted facility ([facility]) Resident Tracking Resident Involvement: Resident Care Provided Care Provided: Adult Hospital Medicine Reviewed: Pt Seen/Exam by Me History comfortably sleeping in bed was up in chair earlier unable to hold conversation. Constitutional: denies: fever General Appearance: no apparent distress Respiratory: lungs clear, no respiratory distress Cardiovascular: regular rate, rhythm Neurologic/Psychiatric: other (somnolent) Skin Characteristics: warm/dry Comments catheter bag with dark urine Assessment/Plan Resident Physician Supervision Note: I was present with Dr. Ortiz in bedside. I verified the vega history and physical, reviewed labs and image studies, discussed the case with the resident and agree with the findings and care plan.
[2017-01-10] MEDS: OXYBUTYNIN CHLORIDE 5 MG TAB PO PRN (10:48)
[2017-01-10] MEDS ORDERED: NURSING VERBAL MED ORDER ONE (13:30)
--- NOTE | 2017-01-10 14:37 | Infectious Disease Progress Nt ---
Progress Note Date of Service Jan 10, 2017. Subjective Pt evaluation today including: conversation w/ patient, physical exam, chart review, lab review, review of studies, conversation w/ principal consultant, review of inpatient medication list Remains confused. No fever. CBI continues All Other Systems: Reviewed and Negative Medications Current Inpatient Medications Medications (Trade) Dose Ordered Sig/Yuli Route Start Time Stop Time Status Last Admin Dose Admin Ondansetron HCl (Zofran Inj) 4 mg Q6H PRN IV 01/06/17 02:15 02/05/17 02:14 Quetiapine Fumarate (seroQUEL TAB) 100 mg HS PO 01/06/17 21:00 02/05/17 20:59 01/09/17 20:38 100 MG Sertraline HCl (Zoloft Tab) 50 mg QAM PO 01/06/17 09:00 02/05/17 08:59 01/10/17 08:58 50 MG Simvastatin (Zocor Tab) 40 mg QPM PO 01/06/17 21:00 02/05/17 20:59 01/09/17 20:39 40 MG Rivastigmine Tartrate (Exelon Cap) 3 mg BID PO 01/06/17 09:00 02/05/17 08:59 01/10/17 08:58 3 MG Ertapenem 1000 mg/ Sodium Chloride 60 ml @ 120 mls/hr Q24H IV 01/07/17 21:00 01/16/17 20:59 01/09/17 20:16 120 MLS/HR Aluminum Ammonium Sulfate 30 gm/ Sodium Chloride 3,000 ml @ 0 mls/hr UD PRN IR 01/07/17 12:30 02/06/17 12:29 Future Hold 01/10/17 08:57 30 MLS/HR Acetaminophen 650 mg/Empty Bag 65 ml @ 260 mls/hr Q6H PRN IV 01/08/17 00:15 02/07/17 00:14 01/09/17 03:33 260 MLS/HR Sodium Chloride 1,000 ml @ 80 mls/hr [id number] IV 01/08/17 03:15 02/07/17 03:14 01/10/17 05:12 80 MLS/HR Quetiapine Fumarate (seroQUEL TAB) 25 mg QAM PO 01/10/17 09:00 02/09/17 08:59 01/10/17 08:58 25 MG Oxybutynin Chloride (Ditropan Tab) 5 mg BID PRN PO 01/10/17 09:15 02/09/17 09:14 01/10/17 10:48 5 MG Objective Vital Signs Date Time Temp Pulse Resp B/P (MAP) Pulse Ox O2 Delivery O2 Flow Rate FiO2 01/10/17 08:05 36.3 78 18 131/80 (97) 100 Room Air 01/10/17 07:30 Room Air 01/09/17 23:15 Room Air 01/09/17 23:14 36.3 93 17 133/72 (92) 95 Room Air 01/09/17 16:30 95 Room Air 01/09/17 14:45 36.1 91 18 109/65 (80) 95 Room Air Physical Exam General Appearance: WD/WN, no apparent distress Eyes: normal inspection, sclerae normal ENT: normal ENT inspection, pharynx normal Neck: supple, no adenopathy, trachea midline Respiratory/Chest: chest non-tender, lungs clear, normal breath sounds, no respiratory distress Cardiovascular: regular rate, rhythm, no gallop, no murmur Abdomen: normal bowel sounds, non tender, soft, no organomegaly Extremities: non-tender, no calf tenderness Neurologic/Psychiatric: alert, + disoriented Skin: normal color, no rash Lymphatic: no adenopathy Laboratory Results Last 24 Hours Test 01/09/17 15:13 01/09/17 19:57 01/10/17 04:56 White Blood Count 11.96 K/uL 9.13 K/uL Red Blood Count 2.82 M/uL 2.61 M/uL Hemoglobin 8.6 g/dL 8.2 g/dL 8.0 g/dL Hematocrit 25.5 % 24.5 % 23.4 % Mean Corpuscular Volume 90.4 fL 89.7 fL Mean Corpuscular Hemoglobin 30.5 pg 30.7 pg Mean Corpuscular Hemoglobin Concent 33.7 g/dl 34.2 g/dl RDW Standard Deviation 47.2 fL 47.7 fL RDW Coefficient of Variation 14.4 % 14.7 % Platelet Count 137 K/uL 146 K/uL Mean Platelet Volume 8.6 fL 8.7 fL Nucleated RBC Absolute Count (auto) 0.02 K/uL Nucleated Red Blood Cells % 0.2 % Sodium Level 149 mmol/L Potassium Level 3.5 mmol/L Chloride Level 117 mmol/L Carbon Dioxide Level 27 mmol/L Anion Gap 5.0 mmol/L Blood Urea Nitrogen 20 mg/dl Creatinine 0.87 mg/dl Est Creatinine Clear Calc Drug Dose 60.8 ml/min Estimated GFR () 97.8 Estimated GFR (Non- 84.4 BUN/Creatinine Ratio 23.1 Random Glucose 96 mg/dl Calcium Level 7.8 mg/dl Assessment and Plan Hemorrhagic cystitis with culture positive for resistant Proteus rettgeri. Will continue with ertapenem 1 gram daily for likely 10 days. Will follow.
[2017-01-10 14:51] VITALS: BP 126/74; PULSE 86; TEMP 36.8; O2SAT 96
[2017-01-10 20:06] LABS: HEMATOCRIT 23.8 % (42-52)
[2017-01-10] MEDS: SIMVASTATIN 40 MG TAB PO SCH ×2 (21:58→22:12)
[2017-01-10] MEDS: QUETIAPINE FUMARATE 100 MG TAB PO SCH ×2 (21:58→22:12)
[2017-01-10] MEDS: ERTAPENEM IV 1,000 MG in SODIUM CHLORIDE 0.9% 50ML 50 ML IV SCH (22:16)
[2017-01-10 23:12] VITALS: BP 124/72; PULSE 93; TEMP 36.5; O2SAT 96
[2017-01-11] VITALS (12 sets, daily range): BP systolic 115–147; BP diastolic 67–90; PULSE 65–99; TEMP 36.1–37.4; O2SAT 92–97
[2017-01-11] MEDS: SODIUM CHLORIDE 0.9% 1000ML 1,000 ML IV SCH (05:35)
--- NOTE | 2017-01-11 07:20 | Progress Note ---
Subjective Date of Service: Jan 11, 2017. Subjective Pt evaluation today including: conversation w/ patient, chart review Voiding: valencia catheter in place (patent with clear, yellow urine running with CBI) 76 yo male with gross hematuria secondary to radiation cystitis and UTI. Valencia draining clear, yellow urine this morning with CBI with NSS running fairly quickly. CBC yesterday was stable. No CBC this morning. Problem List Medical Problems: (1) Altered mental status Status: Acute (2) Anemia Status: Acute (3) Bilateral lower extremity edema Status: Acute (4) Gross hematuria Status: Acute (5) Scalp laceration Status: Acute Review of Systems Pt unable to answer questions d/t altered mental status. Objective Vital Signs Date Time Temp Pulse Resp B/P (MAP) Pulse Ox O2 Delivery O2 Flow Rate FiO2 01/10/17 23:15 Room Air 01/10/17 23:12 36.5 93 24 124/72 (89) 96 Room Air 01/10/17 15:30 Room Air 01/10/17 14:51 36.8 86 14 126/74 (91) 96 Room Air 01/10/17 08:05 36.3 78 18 131/80 (97) 100 Room Air 01/10/17 07:30 Room Air Physical Exam General Appearance: no apparent distress Neck: no JVD Respiratory/Chest: no respiratory distress, no accessory muscle use Cardiovascular: no JVD Extremities: normal inspection Neurologic/Psychiatric: + pertinent finding (pt sleeping) Skin: normal color Laboratory Results Last 24 Hours Test 01/10/17 19:52 01/11/17 07:13 Hemoglobin 8.0 g/dL Hematocrit 23.8 % Assessment and Plan A/P: Gross hematuria secondary to UTI and radiation cystitis. AFVSS. Hematuria improved. Will slow CBI this morning to see if urine remains clear. Avoid anticoagulation while actively bleeding. Recheck an H&H this morning. Supportive management with transfusions PRN. Will keep him NPO this morning, and check back on hematuria around lunch time. If hematuria continues to be an issue, would recommend outpatient hyperbaric O2 treatments with wound care. Tx of UTI per ID. Will continue to follow along with primary service. ADDENDUM: Urine clear yellow at 1128. CBI clamped. Will plan for TOV later this afternoon if remains clear or light pink with CBI clamped. Pt to be transfused with PRBCs per primary service at this time. Will provide a diet this morning. No plan for OR today as hematuria has improved. Continued [facility] stay due to: multiple IV medications needed Discharge planning: nursing home facility ([facility])
[2017-01-11 07:30] LABS: BASO % 0.1 %; BASO ABS # 0.01 K/uL (0-0.2); EOS % 5.6 %; HEMATOCRIT 23.4 % (42-52); IG% 0.3 %; LYMPH % 16.5 %; LYMPH ABS # 1.21 K/uL (1.2-3.4); MEAN CELL VOLUME 90.7 fL (80-100); MEAN CORPUSCULAR HEMOGLOBIN 29.8 pg (25-34); MEAN CORPUSCULAR HGB CONC 32.9 g/dl (32-36); MEAN PLATELET VOLUME 8.2 fL (7.4-10.4); MONO % 6.7 %; NEUT % 70.8 %; PLATELET COUNT 154 K/uL (130-400); RED BLOOD COUNT 2.58 M/uL (4.7-6.1); WHITE BLOOD COUNT 7.33 K/uL (4.8-10.8)
[2017-01-11 07:53] LABS: BUN/CREATININE RATIO 18.7 (10-20); CALCIUM 7.7 mg/dl (8.5-10.1); CREATININE 0.75 mg/dl (0.60-1.40); POTASSIUM 3.5 mmol/L (3.5-5.1)
[2017-01-11 07:57] LABS: COMPLETE YES; POLYCHROMASIA 1+
[2017-01-11] MEDS: RIVASTIGMINE TARTRATE (EXELON) 1.5 MG CAP PO SCH ×2 (08:59→20:45)
[2017-01-11] MEDS: QUETIAPINE FUMARATE 25 MG TAB PO SCH (08:59)
[2017-01-11] MEDS: SERTRALINE HCL 50 MG TAB PO SCH (08:59)
--- NOTE | 2017-01-11 09:47 | Infectious Disease Progress Nt ---
Progress Note Date of Service Jan 11, 2017. Subjective Pt evaluation today including: conversation w/ patient, physical exam, chart review, lab review, review of studies, conversation w/ farm service consultant, review of inpatient medication list Urine now running clear this morning. Patient remains afebrile. White count normal. No obvious new problems overnight. All Other Systems: Reviewed and Negative Medications Current Inpatient Medications Medications (Trade) Dose Ordered Sig/Yuli Route Start Time Stop Time Status Last Admin Dose Admin Ondansetron HCl (Zofran Inj) 4 mg Q6H PRN IV 01/06/17 02:15 02/05/17 02:14 Quetiapine Fumarate (seroQUEL TAB) 100 mg HS PO 01/06/17 21:00 02/05/17 20:59 01/10/17 22:12 100 MG Sertraline HCl (Zoloft Tab) 50 mg QAM PO 01/06/17 09:00 02/05/17 08:59 01/11/17 08:59 50 MG Simvastatin (Zocor Tab) 40 mg QPM PO 01/06/17 21:00 02/05/17 20:59 01/10/17 22:12 40 MG Rivastigmine Tartrate (Exelon Cap) 3 mg BID PO 01/06/17 09:00 02/05/17 08:59 01/11/17 08:59 3 MG Ertapenem 1000 mg/ Sodium Chloride 60 ml @ 120 mls/hr Q24H IV 01/07/17 21:00 01/16/17 20:59 01/10/17 22:16 120 MLS/HR Aluminum Ammonium Sulfate 30 gm/ Sodium Chloride 3,000 ml @ 0 mls/hr UD PRN IR 01/07/17 12:30 02/06/17 12:29 Future Hold 01/10/17 08:57 30 MLS/HR Acetaminophen 650 mg/Empty Bag 65 ml @ 260 mls/hr Q6H PRN IV 01/08/17 00:15 02/07/17 00:14 01/09/17 03:33 260 MLS/HR Sodium Chloride 1,000 ml @ 80 mls/hr [id number] IV 01/08/17 03:15 02/07/17 03:14 01/11/17 05:35 80 MLS/HR Quetiapine Fumarate (seroQUEL TAB) 25 mg QAM PO 01/10/17 09:00 02/09/17 08:59 01/11/17 08:59 25 MG Oxybutynin Chloride (Ditropan Tab) 5 mg BID PRN PO 01/10/17 09:15 02/09/17 09:14 01/10/17 10:48 5 MG Objective Vital Signs Date Time Temp Pulse Resp B/P (MAP) Pulse Ox O2 Delivery O2 Flow Rate FiO2 01/11/17 08:13 36.8 78 18 118/70 (86) 92 Room Air 01/11/17 07:30 Room Air 01/11/17 07:16 36.7 77 18 117/68 (84) 93 Room Air 01/10/17 23:15 Room Air 01/10/17 23:12 36.5 93 24 124/72 (89) 96 Room Air 01/10/17 15:30 Room Air 01/10/17 14:51 36.8 86 14 126/74 (91) 96 Room Air Physical Exam General Appearance: WD/WN, no apparent distress Eyes: normal inspection, EOMI, sclerae normal ENT: normal ENT inspection, hearing grossly normal, pharynx normal Neck: supple, no adenopathy, thyroid normal Respiratory/Chest: chest non-tender, lungs clear, normal breath sounds, no respiratory distress Cardiovascular: regular rate, rhythm, no gallop, no murmur Abdomen: normal bowel sounds, non tender, soft, no organomegaly Extremities: non-tender, no calf tenderness Neurologic/Psychiatric: alert, + disoriented Skin: normal color, no rash Lymphatic: no adenopathy Laboratory Results RUN DATE: 01/09/17 [facility] LAB PAGE 1 RUN TIME: 1822 Specimen Inquiry PATIENT: VEENA SIMON LOC: [facility] U # : [id number] AGE/SX: 76/M ROOM: [facility] REG : 01/06/[address]: Enrike Quintero D.O : 1940 BED: 2 DIS : STATUS: ADM IN TLOC: SPEC #: [id number] REJI: 01/09/17 STATUS: COMP REQ #: [id number] RECD: 01/09/[address]: Enrike Quintero D.O. SOURCE: STOOL ENTR: 01/09/[address] [facility] [address]: Akilah Kent MD SPDC: Declan Simon MD [facility] Les Taylor M.D., M.D. Yingling, Christopher T. M.D. ORDERED: CDIFF TOXIN B COMMENTS: Has Specimen Been Obtained/Collected? Y Procedure Result Verified Site CDIFF TOXIN B GENE*(2 YR OR >) Final 01/09/17-1822 No C. difficile toxin B gene detected Last 24 Hours Test 01/10/17 19:52 01/11/17 07:21 Hemoglobin 8.0 g/dL 7.7 g/dL Hematocrit 23.8 % 23.4 % White Blood Count 7.33 K/uL Red Blood Count 2.58 M/uL Mean Corpuscular Volume 90.7 fL Mean Corpuscular Hemoglobin 29.8 pg Mean Corpuscular Hemoglobin Concent 32.9 g/dl Platelet Count 154 K/uL Mean Platelet Volume 8.2 fL Neutrophils (%) (Auto) 70.8 % Lymphocytes (%) (Auto) 16.5 % Monocytes (%) (Auto) 6.7 % Eosinophils (%) (Auto) 5.6 % Basophils (%) (Auto) 0.1 % Neutrophils # (Auto) 5.19 K/uL Lymphocytes # (Auto) 1.21 K/uL Monocytes # (Auto) 0.49 K/uL Eosinophils # (Auto) 0.41 K/uL Basophils # (Auto) 0.01 K/uL RDW Standard Deviation 47.2 fL RDW Coefficient of Variation 14.4 % Immature Granulocyte % (Auto) 0.3 % Immature Granulocyte # (Auto) 0.02 K/uL Polychromasia 1+ Sodium Level 149 mmol/L Potassium Level 3.5 mmol/L Chloride Level 116 mmol/L Carbon Dioxide Level 28 mmol/L Anion Gap 5.0 mmol/L Blood Urea Nitrogen 14 mg/dl Creatinine 0.75 mg/dl Est Creatinine Clear Calc Drug Dose 70.5 ml/min Estimated GFR () 104.0 Estimated GFR (Non- 89.7 BUN/Creatinine Ratio 18.7 Random Glucose 99 mg/dl Calcium Level 7.7 mg/dl Assessment and Plan Hemorrhagic cystitis with culture positive for resistant Proteus rettgeri. Will continue with ertapenem 1 gram daily for 10 days total. Will follow.
--- NOTE | 2017-01-11 11:36 | Family Medicine Progress Note ---
Progress Note Date of Service Jan 11, 2017. Subjective Pt evaluation today including: conversation w/ patient, conversation w/ family , physical exam, chart review, lab review, review of studies, review of inpatient medication list Pain: denies Voiding: valencia catheter in place (CBI in place) Per nursing, urine overnight had a pinkish tinge, however. Clear urine running with CBI. no clots with irrigation. Pt had no specific complaints. Additional Comments: unable to assess due to patient's mental status Medications Current Inpatient Medications Medications (Trade) Dose Ordered Sig/Yuli Route Start Time Stop Time Status Last Admin Dose Admin Ondansetron HCl (Zofran Inj) 4 mg Q6H PRN IV 01/06/17 02:15 02/05/17 02:14 Quetiapine Fumarate (seroQUEL TAB) 100 mg HS PO 01/06/17 21:00 02/05/17 20:59 01/10/17 22:12 100 MG Sertraline HCl (Zoloft Tab) 50 mg QAM PO 01/06/17 09:00 02/05/17 08:59 01/11/17 08:59 50 MG Simvastatin (Zocor Tab) 40 mg QPM PO 01/06/17 21:00 02/05/17 20:59 01/10/17 22:12 40 MG Rivastigmine Tartrate (Exelon Cap) 3 mg BID PO 01/06/17 09:00 02/05/17 08:59 01/11/17 08:59 3 MG Ertapenem 1000 mg/ Sodium Chloride 60 ml @ 120 mls/hr Q24H IV 01/07/17 21:00 01/16/17 20:59 01/10/17 22:16 120 MLS/HR Aluminum Ammonium Sulfate 30 gm/ Sodium Chloride 3,000 ml @ 0 mls/hr UD PRN IR 01/07/17 12:30 02/06/17 12:29 Future Hold 01/10/17 08:57 30 MLS/HR Acetaminophen 650 mg/Empty Bag 65 ml @ 260 mls/hr Q6H PRN IV 01/08/17 00:15 02/07/17 00:14 01/09/17 03:33 260 MLS/HR Sodium Chloride 1,000 ml @ 80 mls/hr [id number] IV 01/08/17 03:15 02/07/17 03:14 01/11/17 05:35 80 MLS/HR Quetiapine Fumarate (seroQUEL TAB) 25 mg QAM PO 01/10/17 09:00 02/09/17 08:59 01/11/17 08:59 25 MG Oxybutynin Chloride (Ditropan Tab) 5 mg BID PRN PO 01/10/17 09:15 02/09/17 09:14 01/10/17 10:48 5 MG Objective Vital Signs Date Time Temp Pulse Resp B/P (MAP) Pulse Ox O2 Delivery O2 Flow Rate FiO2 01/11/17 11:59 36.6 90 14 137/84 (101) 94 Room Air 01/11/17 11:59 36.4 65 16 136/70 97 01/11/17 11:46 36.4 72 19 137/76 96 01/11/17 11:25 36.5 77 18 115/67 01/11/17 10:16 95 Room Air 01/11/17 08:13 36.8 78 18 118/70 (86) 92 Room Air 01/11/17 07:30 Room Air 01/11/17 07:16 36.7 77 18 117/68 (84) 93 Room Air 01/10/17 23:15 Room Air 01/10/17 23:12 36.5 93 24 124/72 (89) 96 Room Air 01/10/17 15:30 Room Air 01/10/17 14:51 36.8 86 14 126/74 (91) 96 Room Air Physical Exam Notes: GENERAL: alert NECK: supple, no nuchal rigidity, no adenopathy, non-tender LUNGS: Clear to auscultation. Normal chest wall mechanics HEART: no murmurs, S1 normal and S2 normal ABDOMEN: abdomen soft, non-tender, normo-active bowel sounds, no masses, no rebound or guarding. SKIN: no rashes and no bruising UPPER EXTREMITIES: upper extremities are grossly normal. LOWER EXTREMITIES: No pitting edema. NEURO EXAM: AOx1 to person only, unable to complete due to mental status Laboratory Results Results Past 24 Hours Test 01/10/17 19:52 01/11/17 07:21 Range/Units Hemoglobin 8.0 7.7 14.0-18.0 g/dL Hematocrit 23.8 23.4 42-52 % White Blood Count 7.33 4.8-10.8 K/uL Red Blood Count 2.58 4.7-6.1 M/uL Mean Corpuscular Volume 90.7 80-100 fL Mean Corpuscular Hemoglobin 29.8 25-34 pg Mean Corpuscular Hemoglobin Concent 32.9 32-36 g/dl Platelet Count 154 130-400 K/uL Mean Platelet Volume 8.2 7.4-10.4 fL Neutrophils (%) (Auto) 70.8 % Lymphocytes (%) (Auto) 16.5 % Monocytes (%) (Auto) 6.7 % Eosinophils (%) (Auto) 5.6 % Basophils (%) (Auto) 0.1 % Neutrophils # (Auto) 5.19 1.4-6.5 K/uL Lymphocytes # (Auto) 1.21 1.2-3.4 K/uL Monocytes # (Auto) 0.49 0.11-0.59 K/uL Eosinophils # (Auto) 0.41 0-0.5 K/uL Basophils # (Auto) 0.01 0-0.2 K/uL RDW Standard Deviation 47.2 36.4-46.3 fL RDW Coefficient of Variation 14.4 11.5-14.5 % Immature Granulocyte % (Auto) 0.3 % Immature Granulocyte # (Auto) 0.02 0.00-0.02 K/uL Polychromasia 1+ Sodium Level 149 136-145 mmol/L Potassium Level 3.5 3.5-5.1 mmol/L Chloride Level 116 98-107 mmol/L Carbon Dioxide Level 28 21-32 mmol/L Anion Gap 5.0 3-11 mmol/L Blood Urea Nitrogen 14 7-18 mg/dl Creatinine 0.75 0.60-1.40 mg/dl Est Creatinine Clear Calc Drug Dose 70.5 ml/min Estimated GFR () 104.0 Estimated GFR (Non- 89.7 BUN/Creatinine Ratio 18.7 10-20 Random Glucose 99 70-99 mg/dl Calcium Level 7.7 8.5-10.1 mg/dl Assessment and Plan 76 yo Hx Prostate Cancer p/w persistent 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 for Providencia - Continue Ertapenem X10 days total per ID Anemia: likely secondary to to hematuria - Hb 7.7 <--8 - Transfuse 1 PRBC - Follow H/H - Hemoccult neg Acute kidney injury, Hypernatremia: - resolved Hypernatremia - Na 149<--149 - Cont. IV fluids Severe dementia/depression - Continue Seroquel and sertraline, rivastigmine DNR DVT prophylaxis: SCDs anticoagulation contraindicated due to hematuria Disposition: MedSurg Continued [facility] stay due to: multiple IV medications needed Discharge planning: senior care facility Resident Tracking Resident Involvement: Resident Care Provided Care Provided: Adult Hospital Medicine Reviewed: Pt Seen/Exam by Me History no new concerns bleeding seems to have stabilized was up in chair for 2 hours earlier today nurse aid at bedside. Constitutional: denies: fever General Appearance: no apparent distress Respiratory: lungs clear, no respiratory distress Cardiovascular: regular rate, rhythm Neurologic/Psychiatric: other (sleeping. arousable) Skin Characteristics: warm/dry Comments valencia urine - dark color clearing Assessment/Plan Resident Physician Supervision Note: I was present with Dr. Ortiz in bedside. I verified the vega history and physical, reviewed labs and image studies, discussed the case with the resident and agree with the findings and care plan.
[2017-01-11] MEDS ORDERED: DEXTROSE 5% 500ML 500 ML IV ONE (15:30)
[2017-01-11] MEDS: ERTAPENEM IV 1,000 MG in SODIUM CHLORIDE 0.9% 50ML 50 ML IV SCH (20:45)
[2017-01-11] MEDS: QUETIAPINE FUMARATE 100 MG TAB PO SCH (20:45)
[2017-01-11] MEDS: SIMVASTATIN 40 MG TAB PO SCH (20:45)
[2017-01-12 06:31] LABS: BASO % 0.2 %; BASO ABS # 0.02 K/uL (0-0.2); COMPLETE YES; EOS % 0.8 %; HEMATOCRIT 26.3 % (42-52); IG% 0.3 %; LYMPH % 6.5 %; MEAN CELL VOLUME 89.5 fL (80-100); MEAN CORPUSCULAR HEMOGLOBIN 30.6 pg (25-34); MEAN CORPUSCULAR HGB CONC 34.2 g/dl (32-36); MEAN PLATELET VOLUME 8.7 fL (7.4-10.4); MONO % 7.2 %; PLATELET COUNT 188 K/uL (130-400); RED BLOOD COUNT 2.94 M/uL (4.7-6.1); WHITE BLOOD COUNT 10.74 K/uL (4.8-10.8)
[2017-01-12 07:04] LABS: BUN/CREATININE RATIO 12.8 (10-20); CALCIUM 8.3 mg/dl (8.5-10.1)
[2017-01-12 07:16] VITALS: BP 109/70; PULSE 64; TEMP 36.8; O2SAT 93
--- NOTE | 2017-01-12 08:05 | Progress Note ---
Subjective Date of Service: Jan 12, 2017. Subjective Pt evaluation today including: conversation w/ patient, chart review, lab review Voiding: valencia catheter in place (patent, draining clear, yellow urine with CBI running) 76 yo male with gross hematuria secondary to UTI and radiation cystitis. CBI stopped yesterday, but valencia catheter clotted off overnight. CBI restarted, and urine clear, yellow with CBI running quickly. H&H stable at 9.0 and 26.3. Pt transfused yesterday. Problem List Medical Problems: (1) Altered mental status Status: Acute (2) Anemia Status: Acute (3) Bilateral lower extremity edema Status: Acute (4) Gross hematuria Status: Acute (5) Scalp laceration Status: Acute Review of Systems Pt unable to answer questions d/t altered mental status. Objective Vital Signs Date Time Temp Pulse Resp B/P (MAP) Pulse Ox O2 Delivery O2 Flow Rate FiO2 01/12/17 07:16 36.8 64 17 109/70 (83) 93 Room Air 01/11/17 23:15 Room Air 01/11/17 22:49 37.4 95 18 147/73 (97) 92 Room Air 01/11/17 16:52 36.7 68 18 127/72 (90) 96 Room Air 01/11/17 15:44 96 Room Air 01/11/17 14:02 36.1 88 16 129/77 96 01/11/17 12:59 37.2 86 16 121/90 92 01/11/17 12:30 36.4 99 16 130/89 94 01/11/17 11:59 36.4 65 16 136/70 97 01/11/17 11:46 36.4 72 19 137/76 96 01/11/17 11:25 36.5 77 18 115/67 01/11/17 10:16 95 Room Air 01/11/17 08:13 36.8 78 18 118/70 (86) 92 Room Air Physical Exam General Appearance: no apparent distress Neck: no JVD Respiratory/Chest: no respiratory distress, no accessory muscle use Cardiovascular: no JVD Extremities: normal inspection Neurologic/Psychiatric: + pertinent finding (pt sleeping) Skin: normal color Laboratory Results Last 24 Hours Test 01/11/17 20:14 01/12/17 05:45 Sodium Level 146 mmol/L 148 mmol/L White Blood Count 10.74 K/uL Red Blood Count 2.94 M/uL Hemoglobin 9.0 g/dL Hematocrit 26.3 % Mean Corpuscular Volume 89.5 fL Mean Corpuscular Hemoglobin 30.6 pg Mean Corpuscular Hemoglobin Concent 34.2 g/dl Platelet Count 188 K/uL Mean Platelet Volume 8.7 fL Neutrophils (%) (Auto) 85.0 % Lymphocytes (%) (Auto) 6.5 % Monocytes (%) (Auto) 7.2 % Eosinophils (%) (Auto) 0.8 % Basophils (%) (Auto) 0.2 % Neutrophils # (Auto) 9.13 K/uL Lymphocytes # (Auto) 0.70 K/uL Monocytes # (Auto) 0.77 K/uL Eosinophils # (Auto) 0.09 K/uL Basophils # (Auto) 0.02 K/uL RDW Standard Deviation 45.1 fL RDW Coefficient of Variation 14.3 % Immature Granulocyte % (Auto) 0.3 % Immature Granulocyte # (Auto) 0.03 K/uL Potassium Level 4.0 mmol/L Chloride Level 114 mmol/L Carbon Dioxide Level 28 mmol/L Anion Gap 6.0 mmol/L Blood Urea Nitrogen 13 mg/dl Creatinine 1.00 mg/dl Est Creatinine Clear Calc Drug Dose 52.7 ml/min Estimated GFR () 85.0 Estimated GFR (Non- 73.3 BUN/Creatinine Ratio 12.8 Random Glucose 128 mg/dl Calcium Level 8.3 mg/dl Assessment and Plan A/P: Gross hematuria secondary to UTI and radiation cystitis. AFVSS. Hematuria continues to persists when CBI clamped. Will plan for OR tomorrow morning with Dr. Subramanian for a cysto with fulguration. Attempted to reach pt's for verbal telephone consent, but she was unavailable at this time. Will try to contact her again later today. Avoid anticoagulation while actively bleeding. Recheck an H&H and PT/INR in the AM. Supportive management with transfusions PRN. Will provide a diet today. NPO after midnight. If hematuria continues to be an issue, would recommend outpatient hyperbaric O2 treatments with wound care. Tx of UTI per ID. Will continue to follow along with primary service. Continued [facility] stay due to: multiple IV medications needed Discharge planning: halfway facility
[2017-01-12] MEDS: OXYBUTYNIN CHLORIDE 5 MG TAB PO PRN ×2 (09:11→19:12)
[2017-01-12] MEDS: QUETIAPINE FUMARATE 25 MG TAB PO SCH (09:11)
[2017-01-12] MEDS: SERTRALINE HCL 50 MG TAB PO SCH (09:11)
[2017-01-12] MEDS: RIVASTIGMINE TARTRATE (EXELON) 1.5 MG CAP PO SCH ×2 (09:11→20:39)
--- NOTE | 2017-01-12 10:55 | DIAGNOSTIC IMAGING REPORT ---
CHEST ONE VIEW PORTABLE CLINICAL HISTORY: 76 years-old Male presenting with pre-op. TECHNIQUE: Portable upright AP view of the chest was obtained. COMPARISON: 10/21/2016. FINDINGS: Cardiac silhouette remains enlarged. Atherosclerosis of the aortic arch. Hazy perihilar opacities more prominently on the left. Left retrocardiac opacity increased from prior. Likely small left pleural effusion. No pneumothorax. Osseous structures normal. Upper abdomen normal. IMPRESSION: 1. Increased left retrocardiac opacity, possibly atelectasis. 2. Persistent perihilar hazy opacities more prominently on the left. This may suggest vascular congestion. No rito pulmonary edema. 3. Cardiomegaly. Electronically signed by: Porfirio Concepcion M.D. 01/12/2017 10:54 AM Dictated Date/Time: 01/12/2017 10:52 AM
--- NOTE | 2017-01-12 11:42 | Family Medicine Progress Note ---
Progress Note Date of Service Jan 12, 2017. Subjective Pt evaluation today including: conversation w/ patient, conversation w/ family , physical exam, chart review, lab review, review of studies, review of inpatient medication list Pain: unable to assess PO Intake: npo after midnight s/p 1 u PRBC yesterday, Patient had active hematuria this morning. CBI was restarted. Additional Comments: unable to assess to patient's mental status Medications Current Inpatient Medications Medications (Trade) Dose Ordered Sig/Yuli Route Start Time Stop Time Status Last Admin Dose Admin Ondansetron HCl (Zofran Inj) 4 mg Q6H PRN IV 01/06/17 02:15 02/05/17 02:14 Quetiapine Fumarate (seroQUEL TAB) 100 mg HS PO 01/06/17 21:00 02/05/17 20:59 01/11/17 20:45 100 MG Sertraline HCl (Zoloft Tab) 50 mg QAM PO 01/06/17 09:00 02/05/17 08:59 01/12/17 09:11 50 MG Simvastatin (Zocor Tab) 40 mg QPM PO 01/06/17 21:00 02/05/17 20:59 01/11/17 20:45 40 MG Rivastigmine Tartrate (Exelon Cap) 3 mg BID PO 01/06/17 09:00 02/05/17 08:59 01/12/17 09:11 3 MG Ertapenem 1000 mg/ Sodium Chloride 60 ml @ 120 mls/hr Q24H IV 01/07/17 21:00 01/16/17 20:59 01/11/17 20:45 120 MLS/HR Aluminum Ammonium Sulfate 30 gm/ Sodium Chloride 3,000 ml @ 0 mls/hr UD PRN IR 01/07/17 12:30 02/06/17 12:29 Future Hold 01/10/17 08:57 30 MLS/HR Acetaminophen 650 mg/Empty Bag 65 ml @ 260 mls/hr Q6H PRN IV 01/08/17 00:15 02/07/17 00:14 01/09/17 03:33 260 MLS/HR Quetiapine Fumarate (seroQUEL TAB) 25 mg QAM PO 01/10/17 09:00 02/09/17 08:59 01/12/17 09:11 25 MG Oxybutynin Chloride (Ditropan Tab) 5 mg BID PRN PO 01/10/17 09:15 02/09/17 09:14 01/12/17 19:12 5 MG Objective Vital Signs Date Time Temp Pulse Resp B/P (MAP) Pulse Ox O2 Delivery O2 Flow Rate FiO2 01/12/17 15:10 Room Air 01/12/17 14:55 36.7 70 18 104/66 (79) 96 Room Air 01/12/17 07:30 Room Air 01/12/17 07:16 36.8 64 17 109/70 (83) 93 Room Air 01/11/17 23:15 Room Air 01/11/17 22:49 37.4 95 18 147/73 (97) 92 Room Air Physical Exam Notes: GENERAL: alert NECK: supple, no nuchal rigidity, no adenopathy, non-tender LUNGS: Clear to auscultation. Normal chest wall mechanics HEART: no murmurs, S1 normal and S2 normal ABDOMEN: abdomen soft, non-tender, normo-active bowel sounds, no masses, no rebound or guarding. SKIN: no rashes and no bruising UPPER EXTREMITIES: upper extremities are grossly normal. LOWER EXTREMITIES: No pitting edema. NEURO EXAM: AOx1 to person , unable to complete due to mental status Laboratory Results Results Past 24 Hours Test 01/11/17 20:14 01/12/17 05:45 Range/Units Sodium Level 146 148 136-145 mmol/L White Blood Count 10.74 4.8-10.8 K/uL Red Blood Count 2.94 4.7-6.1 M/uL Hemoglobin 9.0 14.0-18.0 g/dL Hematocrit 26.3 42-52 % Mean Corpuscular Volume 89.5 80-100 fL Mean Corpuscular Hemoglobin 30.6 25-34 pg Mean Corpuscular Hemoglobin Concent 34.2 32-36 g/dl Platelet Count 188 130-400 K/uL Mean Platelet Volume 8.7 7.4-10.4 fL Neutrophils (%) (Auto) 85.0 % Lymphocytes (%) (Auto) 6.5 % Monocytes (%) (Auto) 7.2 % Eosinophils (%) (Auto) 0.8 % Basophils (%) (Auto) 0.2 % Neutrophils # (Auto) 9.13 1.4-6.5 K/uL Lymphocytes # (Auto) 0.70 1.2-3.4 K/uL Monocytes # (Auto) 0.77 0.11-0.59 K/uL Eosinophils # (Auto) 0.09 0-0.5 K/uL Basophils # (Auto) 0.02 0-0.2 K/uL RDW Standard Deviation 45.1 36.4-46.3 fL RDW Coefficient of Variation 14.3 11.5-14.5 % Immature Granulocyte % (Auto) 0.3 % Immature Granulocyte # (Auto) 0.03 0.00-0.02 K/uL Potassium Level 4.0 3.5-5.1 mmol/L Chloride Level 114 98-107 mmol/L Carbon Dioxide Level 28 21-32 mmol/L Anion Gap 6.0 3-11 mmol/L Blood Urea Nitrogen 13 7-18 mg/dl Creatinine 1.00 0.60-1.40 mg/dl Est Creatinine Clear Calc Drug Dose 52.7 ml/min Estimated GFR () 85.0 Estimated GFR (Non- 73.3 BUN/Creatinine Ratio 12.8 10-20 Random Glucose 128 70-99 mg/dl Calcium Level 8.3 8.5-10.1 mg/dl Assessment and Plan 76 yo Hx Prostate Cancer p/w persistent 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 Subramanian UTI, Urine cx pos. for Providencia - Continue Ertapenem X10 days total per ID Anemia: likely secondary to to hematuria - Hb 9<--7.7 <--8 - s/p 1 PRBC 01/11 - Follow H/H - Hemoccult neg Acute kidney injury, Hypernatremia: - resolved Hypernatremia - Na 148 - got 500ml of D5W 01/11 - Cont. to monitor Severe dementia/depression - Continue Seroquel and sertraline, rivastigmine DNR DVT prophylaxis: SCDs anticoagulation contraindicated due to hematuria [facility] stay due to: multiple IV medications needed Discharge planning: home Resident Tracking Resident Involvement: Resident Care Provided Care Provided: Adult Hospital Medicine Reviewed: Pt Seen/Exam by Me History sitting upright in chair and eating unable to hold conversation speaking randomly Constitutional: denies: fever Respiratory: negative: short of breath Cardiovascular: denies chest pain Gastrointestinal/Abdominal: negative: abdominal pain General Appearance: no apparent distress Respiratory: lungs clear, no respiratory distress Cardiovascular: regular rate, rhythm Gastrointestinal: soft Neurologic/Psychiatric: alert Skin Characteristics: warm/dry Assessment/Plan Resident Physician Supervision Note: I was present with Dr. Ortiz in bedside. I verified the vega history and physical, reviewed labs and image studies, discussed the case with the resident and agree with the findings and care plan.
[2017-01-12 14:55] VITALS: BP 104/66; PULSE 70; TEMP 36.7; O2SAT 96
[2017-01-12] MEDS: QUETIAPINE FUMARATE 100 MG TAB PO SCH (20:39)
[2017-01-12] MEDS: ERTAPENEM IV 1,000 MG in SODIUM CHLORIDE 0.9% 50ML 50 ML IV SCH (20:39)
[2017-01-12] MEDS: SIMVASTATIN 40 MG TAB PO SCH (20:39)
[2017-01-12 23:04] VITALS: BP 113/72; PULSE 88; TEMP 36.9; O2SAT 93
[2017-01-13] VITALS (11 sets, daily range): BP systolic 112–167; BP diastolic 50–82; PULSE 69–96; TEMP 36.2–37.6; O2SAT 92–99
[2017-01-13 06:55] LABS: BASO % 0.1 %; BASO ABS # 0.01 K/uL (0-0.2); EOS % 5.6 %; HEMATOCRIT 26.2 % (42-52); IG% 0.3 %; LYMPH % 15.5 %; LYMPH ABS # 1.16 K/uL (1.2-3.4); MEAN CELL VOLUME 91.3 fL (80-100); MEAN CORPUSCULAR HEMOGLOBIN 29.6 pg (25-34); MEAN CORPUSCULAR HGB CONC 32.4 g/dl (32-36); MEAN PLATELET VOLUME 8.8 fL (7.4-10.4); MONO % 7.1 %; NEUT % 71.4 %; PLATELET COUNT 212 K/uL (130-400); RED BLOOD COUNT 2.87 M/uL (4.7-6.1); WHITE BLOOD COUNT 7.49 K/uL (4.8-10.8)
[2017-01-13 07:10] LABS: INR 1.1 (0.9-1.1); PROTHROMBIN TIME (PATIENT) 11.4 SECONDS (9.0-12.0)
--- NOTE | 2017-01-13 07:22 | Progress Note ---
Subjective Date of Service: Jan 13, 2017. Subjective Pt evaluation today including: conversation w/ patient, chart review, lab review Voiding: valencia catheter in place (clear, yellow urine with CBI running ) 76 yo male with gross hematuria secondary to UTI and radiation cystitis. Urine clear, yellow with CBI running. H&H has trended down slightly to 8.5 and 26.2. Pt sleeping this morning. Problem List Medical Problems: (1) Altered mental status Status: Acute (2) Anemia Status: Acute (3) Bilateral lower extremity edema Status: Acute (4) Gross hematuria Status: Acute (5) Scalp laceration Status: Acute Review of Systems Pt sleeping and unable to answer questions secondary to altered mental status. Objective Vital Signs Date Time Temp Pulse Resp B/P (MAP) Pulse Ox O2 Delivery O2 Flow Rate FiO2 01/13/17 05:59 36.6 83 20 125/79 (94) 99 Room Air 01/12/17 23:29 Room Air 01/12/17 23:04 36.9 88 18 113/72 (86) 93 Room Air 01/12/17 15:10 Room Air 01/12/17 14:55 36.7 70 18 104/66 (79) 96 Room Air 01/12/17 07:30 Room Air Physical Exam General Appearance: no apparent distress Neck: no JVD Respiratory/Chest: no respiratory distress, no accessory muscle use Cardiovascular: no JVD Extremities: normal inspection Neurologic/Psychiatric: + pertinent finding (pt sleeping) Skin: normal color Laboratory Results Last 24 Hours Test 01/13/17 06:09 White Blood Count 7.49 K/uL Red Blood Count 2.87 M/uL Hemoglobin 8.5 g/dL Hematocrit 26.2 % Mean Corpuscular Volume 91.3 fL Mean Corpuscular Hemoglobin 29.6 pg Mean Corpuscular Hemoglobin Concent 32.4 g/dl Platelet Count 212 K/uL Mean Platelet Volume 8.8 fL Neutrophils (%) (Auto) 71.4 % Lymphocytes (%) (Auto) 15.5 % Monocytes (%) (Auto) 7.1 % Eosinophils (%) (Auto) 5.6 % Basophils (%) (Auto) 0.1 % Neutrophils # (Auto) 5.35 K/uL Lymphocytes # (Auto) 1.16 K/uL Monocytes # (Auto) 0.53 K/uL Eosinophils # (Auto) 0.42 K/uL Basophils # (Auto) 0.01 K/uL RDW Standard Deviation 46.5 fL RDW Coefficient of Variation 14.5 % Immature Granulocyte % (Auto) 0.3 % Immature Granulocyte # (Auto) 0.02 K/uL Prothrombin Time 11.4 SECONDS Prothromb Time International Ratio 1.1 Assessment and Plan A/P: Gross hematuria secondary to UTI and radiation cystitis. AFVSS. Hematuria continues to persists when CBI clamped. Will plan for OR today with Dr. Subramanian for a cysto with fulguration. Consent obtained from pt's yesterday. Risks and benefits of the procedure discussed with his Miriam this morning. All questions answered. She agrees to the procedure at this time. Avoid anticoagulation while actively bleeding. Normal PT/INR this morning. If hematuria continues to be an issue, would recommend outpatient hyperbaric O2 treatments with wound care. Tx of UTI per ID. Will continue to follow along with primary service. Continued [facility] stay due to: multiple IV medications needed Discharge planning: home
[2017-01-13 07:35] LABS: BUN/CREATININE RATIO 17.5 (10-20); CALCIUM 7.8 mg/dl (8.5-10.1); CREATININE 0.83 mg/dl (0.60-1.40); POTASSIUM 2.9 mmol/L (3.5-5.1)
[2017-01-13 08:06] LABS: COMPLETE YES; POLYCHROMASIA 1+
[2017-01-13] MEDS ORDERED: FENTANYL CITRATE INJ 50 MCG/1 ML 2 ML VIAL ONE (08:19)
[2017-01-13] MEDS ORDERED: ATROPINE SULFATE 0.1 MG/ML 5ML SYR IV PRN (09:00)
[2017-01-13] MEDS ORDERED: EpHEDrine SULFATE INJ 50 MG/ML AMP IV PRN (09:00)
[2017-01-13] MEDS ORDERED: PROPOFOL IV EMULSION 10 MG/ML 20 ML VIAL IV ONE (09:06)
[2017-01-13] MEDS ORDERED: LIDOCAINE HCL 2% 2 ML VIAL (20MG/ML) ONE (09:09)
--- NOTE | 2017-01-13 10:24 | [facility] Post Operative Brief Note ---
Immediate Operative Summary Operative Date Jan 13, 2017. Pre-Operative Diagnosis Clot retention; Radiation Cystitis Post-Operative Diagnosis Clot retention; Radiation Cystitis Procedure(s) Performed Cystoscopy, Clot Evacuation and Fulgeration Surgeon Moris Product Marketing Executive Surgeon(s) None Estimated Blood Loss 100cc Findings significant clot removed from bladder clot adherent to bladder wall underlying bladder mucosa bled and oozed Specimens None per surgeon Drains [address] Disposition Recovery Room / PACU
--- NOTE | 2017-01-13 11:02 | Anesthesiology Progress Note ---
Anesthesia Post Op Note Date & Time Jan 13, 2017 at 11:02 Vital Signs Pain Intensity: 0.0 Vital Signs Past 12 Hours Date Time Temp Pulse Resp B/P (MAP) Pulse Ox O2 Delivery O2 Flow Rate FiO2 01/13/17 10:50 76 18 147/82 95 Nasal Cannula 2 01/13/17 10:40 75 15 149/85 100 Oxymask 10 01/13/17 10:30 78 20 143/86 100 Oxymask 10 01/13/17 10:20 37.0 70 18 147/84 100 Oxymask 10 01/13/17 07:50 36.6 70 16 114/64 (81) 95 Room Air 01/13/17 07:40 Room Air 01/13/17 05:59 36.6 83 20 125/79 (94) 99 Room Air 01/12/17 23:29 Room Air 01/12/17 23:04 36.9 88 18 113/72 (86) 93 Room Air Notes Mental Status: alert / awake / arousable, participated in evaluation Pt Amnestic to Procedure: Yes Nausea / Vomiting: adequately controlled Pain: adequately controlled Airway Patency, RR, SpO2: stable & adequate BP & HR: stable & adequate Hydration State: stable & adequate Anesthetic Complications: no major complications apparent
--- NOTE | 2017-01-13 11:07 | OPERATIVE REPORT ---
DATE OF OPERATION: 01/13/2017 PROCEDURE PERFORMED: Cystoscopy, clot evacuation and fulguration of large surface area. SURGEON: Dr. Lemuel Subramanian. HISTORY OF PRESENTATION: The patient is a 76-year-old male status post radical retropubic prostatectomy many years ago with Carlos 8 cancer, invasive into the seminal vesicle and status post radiation therapy for subsequent PSA rise. The patient did well with normal PSA, but unfortunately has developed dementia. 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 He was on Plavix at that time and had minimal bleeding subsequent to this. Last seen he had had no bleeding in the office within the year. Recently, he apparently stopped Plavix but developed significant gross hematuria, was admitted, had a 3-way Lyon catheter placed, was given alum irrigation, but even with what appeared to be relatively clearing and stabilization of his hematocrit the clot in his bladder kept clogging in the catheter. Because of this, he was scheduled to come to the OR for clot evacuation and fulguration. DESCRIPTION OF THE PROCEDURE: The patient was taken to the operating room, had Venodyne stockings placed, was on antibiotics. He was given general anesthesia, placed in dorsal lithotomy position and prepped and draped in the usual sterile fashion. A 22-Beninese cystoscope initially was passed per urethra. There was a significant amount of clot in the bladder that was attempted to be irrigated through this, but then I switched to a 24-Beninese resectoscope and using a Dee catheter, tried to remove as much as I could. It was quite apparent that a significant amount of clot was adherent to the bladder wall. I had to literally roll this clot off of the bladder wall using a loop and then eventually rollerball to get down to the bladder wall and when this was done the underlying surface was raw with areas of radiation cystitis that were oozing. I fulgurated all areas that I could see that were oozing. At the end of the procedure, there was no adherent clot and no significant oozing, but a large amount of surface area had been fulgurated with the rollerball at a level of 30. At the end of the procedure again there was no active bleeding. The cystoscope was removed. A 22 Beninese Lyon catheter with a 30 mL balloon 3-way was placed. The urine irrigated clear and he was started on 3-way bladder irrigation. The patient was then transferred to the recovery room in stable condition. I attest to the content of the Intraoperative Record and any orders documented therein. Any exception s are noted below.
[2017-01-13] MEDS: RIVASTIGMINE TARTRATE (EXELON) 1.5 MG CAP PO SCH ×2 (11:24→20:48)
[2017-01-13] MEDS: SERTRALINE HCL 50 MG TAB PO SCH (11:24)
[2017-01-13] MEDS: OXYBUTYNIN CHLORIDE 5 MG TAB PO PRN (11:24)
[2017-01-13] MEDS: QUETIAPINE FUMARATE 25 MG TAB PO SCH (11:24)
--- NOTE | 2017-01-13 12:46 | Family Medicine Progress Note ---
Progress Note Date of Service Jan 13, 2017. Subjective Pt evaluation today including: conversation w/ patient, conversation w/ family , physical exam, chart review, lab review, review of studies, review of inpatient medication list Pain: unable to assess PO Intake: NPO for procedure Voiding: valencia catheter in place Patient is s/p Cystoscopy with fulguration due to persistent hematuria. Per nurse, patient did show blood in urine overnight. No clots were found. CBI remains running until re-evaluation by Urology tmr. Additional Comments: unable to assess due to patient's dementia Medications Current Inpatient Medications Medications (Trade) Dose Ordered Sig/Yuli Route Start Time Stop Time Status Last Admin Dose Admin Ondansetron HCl (Zofran Inj) 4 mg Q6H PRN IV 01/06/17 02:15 02/05/17 02:14 Quetiapine Fumarate (seroQUEL TAB) 100 mg HS PO 01/06/17 21:00 02/05/17 20:59 01/12/17 20:39 100 MG Sertraline HCl (Zoloft Tab) 50 mg QAM PO 01/06/17 09:00 02/05/17 08:59 01/13/17 11:24 50 MG Simvastatin (Zocor Tab) 40 mg QPM PO 01/06/17 21:00 02/05/17 20:59 01/12/17 20:39 40 MG Rivastigmine Tartrate (Exelon Cap) 3 mg BID PO 01/06/17 09:00 02/05/17 08:59 01/13/17 11:24 3 MG Ertapenem 1000 mg/ Sodium Chloride 60 ml @ 120 mls/hr Q24H IV 01/07/17 21:00 01/16/17 20:59 01/12/17 20:39 120 MLS/HR Aluminum Ammonium Sulfate 30 gm/ Sodium Chloride 3,000 ml @ 0 mls/hr UD PRN IR 01/07/17 12:30 02/06/17 12:29 Future Hold 01/10/17 08:57 30 MLS/HR Acetaminophen 650 mg/Empty Bag 65 ml @ 260 mls/hr Q6H PRN IV 01/08/17 00:15 02/07/17 00:14 01/09/17 03:33 260 MLS/HR Quetiapine Fumarate (seroQUEL TAB) 25 mg QAM PO 01/10/17 09:00 02/09/17 08:59 01/13/17 11:24 25 MG Oxybutynin Chloride (Ditropan Tab) 5 mg BID PRN PO 01/10/17 09:15 02/09/17 09:14 01/13/17 11:24 5 MG Objective Vital Signs Date Time Temp Pulse Resp B/P (MAP) Pulse Ox O2 Delivery O2 Flow Rate FiO2 01/13/17 15:11 36.5 80 17 112/50 (70) 94 Room Air 01/13/17 15:10 Room Air 01/13/17 14:13 88 16 117/58 (77) 94 Room Air 01/13/17 13:15 88 19 112/69 (83) 92 Room Air 01/13/17 12:20 36.2 81 16 167/80 (109) 99 Nasal Cannula 2.0 01/13/17 12:17 99 Nasal Cannula 2.0 01/13/17 12:15 69 18 135/78 (97) 94 Nasal Cannula 2.0 01/13/17 11:45 75 18 153/82 (105) 92 Nasal Cannula 2.0 01/13/17 11:00 36.9 69 15 161/83 99 Nasal Cannula 2 01/13/17 10:50 76 18 147/82 95 Nasal Cannula 2 01/13/17 10:40 75 15 149/85 100 Oxymask 10 01/13/17 10:30 78 20 143/86 100 Oxymask 10 01/13/17 10:20 37.0 70 18 147/84 100 Oxymask 10 01/13/17 07:50 36.6 70 16 114/64 (81) 95 Room Air 01/13/17 07:40 Room Air 01/13/17 05:59 36.6 83 20 125/79 (94) 99 Room Air 01/12/17 23:29 Room Air 01/12/17 23:04 36.9 88 18 113/72 (86) 93 Room Air Physical Exam Notes: GENERAL: alert NECK: supple, no nuchal rigidity, no adenopathy, non-tender LUNGS: Clear to auscultation. Normal chest wall mechanics HEART: no murmurs, S1 normal and S2 normal ABDOMEN: abdomen soft, non-tender, normo-active bowel sounds, no masses, no rebound or guarding. SKIN: no rashes and no bruising UPPER EXTREMITIES: upper extremities are grossly normal. LOWER EXTREMITIES: No pitting edema. NEURO EXAM: AOx1 to person , unable to complete due to mental status Laboratory Results Results Past 24 Hours Test 01/13/17 06:09 Range/Units White Blood Count 7.49 4.8-10.8 K/uL Red Blood Count 2.87 4.7-6.1 M/uL Hemoglobin 8.5 14.0-18.0 g/dL Hematocrit 26.2 42-52 % Mean Corpuscular Volume 91.3 80-100 fL Mean Corpuscular Hemoglobin 29.6 25-34 pg Mean Corpuscular Hemoglobin Concent 32.4 32-36 g/dl Platelet Count 212 130-400 K/uL Mean Platelet Volume 8.8 7.4-10.4 fL Neutrophils (%) (Auto) 71.4 % Lymphocytes (%) (Auto) 15.5 % Monocytes (%) (Auto) 7.1 % Eosinophils (%) (Auto) 5.6 % Basophils (%) (Auto) 0.1 % Neutrophils # (Auto) 5.35 1.4-6.5 K/uL Lymphocytes # (Auto) 1.16 1.2-3.4 K/uL Monocytes # (Auto) 0.53 0.11-0.59 K/uL Eosinophils # (Auto) 0.42 0-0.5 K/uL Basophils # (Auto) 0.01 0-0.2 K/uL RDW Standard Deviation 46.5 36.4-46.3 fL RDW Coefficient of Variation 14.5 11.5-14.5 % Immature Granulocyte % (Auto) 0.3 % Immature Granulocyte # (Auto) 0.02 0.00-0.02 K/uL Polychromasia 1+ Prothrombin Time 11.4 9.0-12.0 SECONDS Prothromb Time International Ratio 1.1 0.9-1.1 Sodium Level 146 136-145 mmol/L Potassium Level 2.9 3.5-5.1 mmol/L Chloride Level 110 98-107 mmol/L Carbon Dioxide Level 29 21-32 mmol/L Anion Gap 7.0 3-11 mmol/L Blood Urea Nitrogen 15 7-18 mg/dl Creatinine 0.83 0.60-1.40 mg/dl Est Creatinine Clear Calc Drug Dose 63.8 ml/min Estimated GFR () 99.8 Estimated GFR (Non- 86.1 BUN/Creatinine Ratio 17.5 10-20 Random Glucose 92 70-99 mg/dl Calcium Level 7.8 8.5-10.1 mg/dl Assessment and Plan 76 yo Hx Prostate Cancer p/w persistent Hematuria likely secondary to Radiation cystitis seen initially at [facility], current on Continuous Bladder Irrigation, Urine cx consistent Providencia Rettgeri Hematuria: secondary to Radiation cystitis: - Active Bleeding, no clots on irrigation, CBI remained running - s/p Cystoscopy with fulguration today to treat hematuria. (01/13) - Await further Urology recommendations UTI, Urine cx pos. for Providencia - Continue Ertapenem X10 days total per ID Anemia: likely secondary to to hematuria - Hb 8.5<--9<--7.7 <--8 - s/p 1 PRBC 01/11 - Follow H/H - Hemoccult neg Acute kidney injury, Hypernatremia: - resolved Hypernatremia - Na 146 - Cont. to monitor Severe dementia/depression - Continue Seroquel and sertraline, rivastigmine DNR DVT prophylaxis: SCDs anticoagulation contraindicated due to hematuria Disposition: formerly at [facility] Personal [facility]dc Accepted at [facility] personal fdc Continued [facility] stay due to: home environment unsafe for pt Discharge planning: custodial facility Resident Tracking Resident Involvement: Resident Care Provided Care Provided: Adult Hospital Medicine
--- NOTE | 2017-01-13 20:10 | Infectious Disease Progress Nt ---
Progress Note Date of Service Jan 13, 2017. Subjective Pt evaluation today including: conversation w/ patient, physical exam, chart review, lab review, review of studies, conversation w/ retirement consultant, review of inpatient medication list Patient now status post evacuation of clot and fulgerization. patient remains afebrile. Hemodynamically stable post procedure. Still confused. All Other Systems: Reviewed and Negative Medications Current Inpatient Medications Medications (Trade) Dose Ordered Sig/Yuli Route Start Time Stop Time Status Last Admin Dose Admin Ondansetron HCl (Zofran Inj) 4 mg Q6H PRN IV 01/06/17 02:15 02/05/17 02:14 Quetiapine Fumarate (seroQUEL TAB) 100 mg HS PO 01/06/17 21:00 02/05/17 20:59 01/12/17 20:39 100 MG Sertraline HCl (Zoloft Tab) 50 mg QAM PO 01/06/17 09:00 02/05/17 08:59 01/13/17 11:24 50 MG Simvastatin (Zocor Tab) 40 mg QPM PO 01/06/17 21:00 02/05/17 20:59 01/12/17 20:39 40 MG Rivastigmine Tartrate (Exelon Cap) 3 mg BID PO 01/06/17 09:00 02/05/17 08:59 01/13/17 11:24 3 MG Ertapenem 1000 mg/ Sodium Chloride 60 ml @ 120 mls/hr Q24H IV 01/07/17 21:00 01/16/17 20:59 01/12/17 20:39 120 MLS/HR Aluminum Ammonium Sulfate 30 gm/ Sodium Chloride 3,000 ml @ 0 mls/hr UD PRN IR 01/07/17 12:30 02/06/17 12:29 Future Hold 01/10/17 08:57 30 MLS/HR Acetaminophen 650 mg/Empty Bag 65 ml @ 260 mls/hr Q6H PRN IV 01/08/17 00:15 02/07/17 00:14 01/09/17 03:33 260 MLS/HR Quetiapine Fumarate (seroQUEL TAB) 25 mg QAM PO 01/10/17 09:00 02/09/17 08:59 01/13/17 11:24 25 MG Oxybutynin Chloride (Ditropan Tab) 5 mg BID PRN PO 01/10/17 09:15 02/09/17 09:14 01/13/17 11:24 5 MG Objective Vital Signs Date Time Temp Pulse Resp B/P (MAP) Pulse Ox O2 Delivery O2 Flow Rate FiO2 01/13/17 18:48 37.3 96 17 114/73 (87) 94 Room Air 01/13/17 15:11 36.5 80 17 112/50 (70) 94 Room Air 01/13/17 15:10 Room Air 01/13/17 14:13 88 16 117/58 (77) 94 Room Air 01/13/17 13:15 88 19 112/69 (83) 92 Room Air 01/13/17 12:20 36.2 81 16 167/80 (109) 99 Nasal Cannula 2.0 01/13/17 12:17 99 Nasal Cannula 2.0 01/13/17 12:15 69 18 135/78 (97) 94 Nasal Cannula 2.0 01/13/17 11:45 75 18 153/82 (105) 92 Nasal Cannula 2.0 01/13/17 11:00 36.9 69 15 161/83 99 Nasal Cannula 2 01/13/17 10:50 76 18 147/82 95 Nasal Cannula 2 01/13/17 10:40 75 15 149/85 100 Oxymask 10 01/13/17 10:30 78 20 143/86 100 Oxymask 10 01/13/17 10:20 37.0 70 18 147/84 100 Oxymask 10 01/13/17 07:50 36.6 70 16 114/64 (81) 95 Room Air 01/13/17 07:40 Room Air 01/13/17 05:59 36.6 83 20 125/79 (94) 99 Room Air 01/12/17 23:29 Room Air 01/12/17 23:04 36.9 88 18 113/72 (86) 93 Room Air Physical Exam General Appearance: WD/WN, no apparent distress Eyes: normal inspection, sclerae normal ENT: normal ENT inspection, pharynx normal Neck: supple, no adenopathy, trachea midline Respiratory/Chest: chest non-tender, lungs clear, normal breath sounds, no respiratory distress Cardiovascular: regular rate, rhythm, no gallop, no murmur Abdomen: normal bowel sounds, non tender, soft, no organomegaly Extremities: non-tender, no calf tenderness Neurologic/Psychiatric: alert, + disoriented Skin: normal color, warm/dry, no rash Lymphatic: no adenopathy Laboratory Results Last 24 Hours Test 01/13/17 06:09 White Blood Count 7.49 K/uL Red Blood Count 2.87 M/uL Hemoglobin 8.5 g/dL Hematocrit 26.2 % Mean Corpuscular Volume 91.3 fL Mean Corpuscular Hemoglobin 29.6 pg Mean Corpuscular Hemoglobin Concent 32.4 g/dl Platelet Count 212 K/uL Mean Platelet Volume 8.8 fL Neutrophils (%) (Auto) 71.4 % Lymphocytes (%) (Auto) 15.5 % Monocytes (%) (Auto) 7.1 % Eosinophils (%) (Auto) 5.6 % Basophils (%) (Auto) 0.1 % Neutrophils # (Auto) 5.35 K/uL Lymphocytes # (Auto) 1.16 K/uL Monocytes # (Auto) 0.53 K/uL Eosinophils # (Auto) 0.42 K/uL Basophils # (Auto) 0.01 K/uL RDW Standard Deviation 46.5 fL RDW Coefficient of Variation 14.5 % Immature Granulocyte % (Auto) 0.3 % Immature Granulocyte # (Auto) 0.02 K/uL Polychromasia 1+ Prothrombin Time 11.4 SECONDS Prothromb Time International Ratio 1.1 Sodium Level 146 mmol/L Potassium Level 2.9 mmol/L Chloride Level 110 mmol/L Carbon Dioxide Level 29 mmol/L Anion Gap 7.0 mmol/L Blood Urea Nitrogen 15 mg/dl Creatinine 0.83 mg/dl Est Creatinine Clear Calc Drug Dose 63.8 ml/min Estimated GFR () 99.8 Estimated GFR (Non- 86.1 BUN/Creatinine Ratio 17.5 Random Glucose 92 mg/dl Calcium Level 7.8 mg/dl Assessment and Plan Hemorrhagic cystitis with culture positive for resistant Proteus rettgeri. Will continue with ertapenem 1 gram daily for 10 days total. Will follow.
[2017-01-13] MEDS: SIMVASTATIN 40 MG TAB PO SCH (20:48)
[2017-01-13] MEDS: QUETIAPINE FUMARATE 100 MG TAB PO SCH (20:48)
[2017-01-13] MEDS: ERTAPENEM IV 1,000 MG in SODIUM CHLORIDE 0.9% 50ML 50 ML IV SCH (20:50)
[2017-01-14 03:48] VITALS: BP 113/63; PULSE 65; TEMP 36.4; O2SAT 96
[2017-01-14 07:18] VITALS: BP 131/73; PULSE 64; TEMP 36.4; O2SAT 94
[2017-01-14 07:41] LABS: BASO % 0.1 %; BASO ABS # 0.01 K/uL (0-0.2); EOS % 5.5 %; HEMATOCRIT 26.8 % (42-52); IG% 0.2 %; LYMPH ABS # 1.22 K/uL (1.2-3.4); MEAN CELL VOLUME 90.8 fL (80-100); MEAN CORPUSCULAR HEMOGLOBIN 29.5 pg (25-34); MEAN PLATELET VOLUME 8.6 fL (7.4-10.4); NEUT % 70.2 %; PLATELET COUNT 241 K/uL (130-400); RED BLOOD COUNT 2.95 M/uL (4.7-6.1); WHITE BLOOD COUNT 8.14 K/uL (4.8-10.8)
[2017-01-14 08:08] LABS: BUN/CREATININE RATIO 16.7 (10-20); CALCIUM 7.9 mg/dl (8.5-10.1); CREATININE 0.83 mg/dl (0.60-1.40); POTASSIUM 3.1 mmol/L (3.5-5.1)
[2017-01-14 08:11] LABS: MEAN CORPUSCULAR HGB CONC 32.5 g/dl (32-36)
[2017-01-14] MEDS: SERTRALINE HCL 50 MG TAB PO SCH (08:19)
[2017-01-14] MEDS: QUETIAPINE FUMARATE 25 MG TAB PO SCH (08:19)
[2017-01-14] MEDS: RIVASTIGMINE TARTRATE (EXELON) 1.5 MG CAP PO SCH ×2 (08:19→21:42)
[2017-01-14 08:23] LABS: COMPLETE YES; POLYCHROMASIA 1+
--- NOTE | 2017-01-14 08:37 | Anesthesiology Progress Note ---
Anesthesia Post Op Note Date & Time Jan 14, 2017 at 08:37 Vital Signs Pain Intensity: 0.0 Vital Signs Past 12 Hours Date Time Temp Pulse Resp B/P (MAP) Pulse Ox O2 Delivery O2 Flow Rate FiO2 01/14/17 07:18 36.4 64 19 131/73 (92) 94 Room Air 01/14/17 03:48 36.4 65 16 113/63 (80) 96 Room Air 01/14/17 00:50 Room Air 01/13/17 23:03 37.2 85 16 117/64 (81) 95 Room Air Notes Mental Status: alert / awake / arousable, participated in evaluation Pt Amnestic to Procedure: Yes Nausea / Vomiting: adequately controlled Pain: adequately controlled Airway Patency, RR, SpO2: stable & adequate BP & HR: stable & adequate Hydration State: stable & adequate Anesthetic Complications: no major complications apparent
--- NOTE | 2017-01-14 08:45 | Progress Note ---
Subjective Date of Service: Jan 14, 2017. (Devika Grant CRNP) Subjective Pt evaluation today including: physical exam, chart review, lab review Voiding: valencia catheter in place 76 year old male s/p cystoscopy with clot evacuation and fulguration yesterday. CBI has been stopped and urine is just pink tinged otherwise clear. He did not have chronic indwelling valencia prior to hospitalization. Very low grade temp yesterday 37.6. H/H slightly improved. Has had 3 transfusions at the beginning of his hospital stay. ID follows for UTI Pt unable to communicate d/t end stage dementia. (Devika Grant, ANGEL) Problem List Medical Problems: (1) Altered mental status Status: Acute (2) Anemia Status: Acute (3) Bilateral lower extremity edema Status: Acute (4) Gross hematuria Status: Acute (5) Scalp laceration Status: Acute (Devika Grant, ANGEL) Review of Systems Unable to assess ROS due to end stage dementia. (Devika Grant, ANGEL) Objective Vital Signs Date Time Temp Pulse Resp B/P (MAP) Pulse Ox O2 Delivery O2 Flow Rate FiO2 01/14/17 07:18 36.4 64 19 131/73 (92) 94 Room Air 01/14/17 03:48 36.4 65 16 113/63 (80) 96 Room Air 01/14/17 00:50 Room Air 01/13/17 23:03 37.2 85 16 117/64 (81) 95 Room Air 01/13/17 19:15 37.6 90 18 130/79 (96) 94 Room Air 01/13/17 18:48 37.3 96 17 114/73 (87) 94 Room Air 01/13/17 15:11 36.5 80 17 112/50 (70) 94 Room Air 01/13/17 15:10 Room Air 01/13/17 14:13 88 16 117/58 (77) 94 Room Air 01/13/17 13:15 88 19 112/69 (83) 92 Room Air 01/13/17 12:20 36.2 81 16 167/80 (109) 99 Nasal Cannula 2.0 01/13/17 12:17 99 Nasal Cannula 2.0 01/13/17 12:15 69 18 135/78 (97) 94 Nasal Cannula 2.0 01/13/17 11:45 75 18 153/82 (105) 92 Nasal Cannula 2.0 01/13/17 11:00 36.9 69 15 161/83 99 Nasal Cannula 2 01/13/17 10:50 76 18 147/82 95 Nasal Cannula 2 01/13/17 10:40 75 15 149/85 100 Oxymask 10 01/13/17 10:30 78 20 143/86 100 Oxymask 10 01/13/17 10:20 37.0 70 18 147/84 100 Oxymask 10 (Devika Grant CRNP) Physical Exam General Appearance: WD/WN, no apparent distress Respiratory/Chest: no respiratory distress, no accessory muscle use Neurologic/Psychiatric: + disoriented Skin: normal color, warm/dry (Devika Grant CRNP) Laboratory Results Last 24 Hours Test 01/14/17 07:33 White Blood Count 8.14 K/uL Red Blood Count 2.95 M/uL Hemoglobin 8.7 g/dL Hematocrit 26.8 % Mean Corpuscular Volume 90.8 fL Mean Corpuscular Hemoglobin 29.5 pg Mean Corpuscular Hemoglobin Concent 32.5 g/dl Platelet Count 241 K/uL Mean Platelet Volume 8.6 fL Neutrophils (%) (Auto) 70.2 % Lymphocytes (%) (Auto) 15.0 % Monocytes (%) (Auto) 9.0 % Eosinophils (%) (Auto) 5.5 % Basophils (%) (Auto) 0.1 % Neutrophils # (Auto) 5.71 K/uL Lymphocytes # (Auto) 1.22 K/uL Monocytes # (Auto) 0.73 K/uL Eosinophils # (Auto) 0.45 K/uL Basophils # (Auto) 0.01 K/uL RDW Standard Deviation 46.6 fL RDW Coefficient of Variation 14.4 % Immature Granulocyte % (Auto) 0.2 % Immature Granulocyte # (Auto) 0.02 K/uL Polychromasia 1+ Sodium Level 146 mmol/L Potassium Level 3.1 mmol/L Chloride Level 110 mmol/L Carbon Dioxide Level 31 mmol/L Anion Gap 5.0 mmol/L Blood Urea Nitrogen 14 mg/dl Creatinine 0.83 mg/dl Est Creatinine Clear Calc Drug Dose 63.8 ml/min Estimated GFR () 99.8 Estimated GFR (Non- 86.1 BUN/Creatinine Ratio 16.7 Random Glucose 99 mg/dl Calcium Level 7.9 mg/dl (Devika Grant CRNP) Assessment and Plan Gross Hematuria s/p cysto w/ clot evac and fulg. CBI stopped. Urine clear light pink. Did not have indwelling valencia upon admission- recommend d/c valencia withTOV prior to d/c back to long term. Ok to d/c pt back to SNF from urology standpoint. Our office will call to schedule appt for about 2 weeks. ID to follow UTI/antibiotics. Thank you for allowing us to participate in the care of this pt. Continued [facility] stay due to: home environment unsafe for pt Discharge planning: longterm facility (Devika Grant CRNP) Agree with above. Gloria Subramanian (Lemuel Subramanian M.D.)
--- NOTE | 2017-01-14 10:49 | Family Medicine Progress Note ---
Progress Note Date of Service Jan 14, 2017. Subjective Pt evaluation today including: conversation w/ patient, physical exam, chart review, lab review, review of studies, review of inpatient medication list Pain: denies PO Intake: adequate Voiding: valencia catheter in place NO acute events, remains on CBI s/p cystoscopy and fulguration Additional Comments: unable to assess due to patient's mental state Medications Current Inpatient Medications Medications (Trade) Dose Ordered Sig/Yuli Route Start Time Stop Time Status Last Admin Dose Admin Ondansetron HCl (Zofran Inj) 4 mg Q6H PRN IV 01/06/17 02:15 02/05/17 02:14 Quetiapine Fumarate (seroQUEL TAB) 100 mg HS PO 01/06/17 21:00 02/05/17 20:59 01/14/17 21:40 100 MG Sertraline HCl (Zoloft Tab) 50 mg QAM PO 01/06/17 09:00 02/05/17 08:59 01/15/17 09:27 50 MG Simvastatin (Zocor Tab) 40 mg QPM PO 01/06/17 21:00 02/05/17 20:59 01/14/17 21:40 40 MG Rivastigmine Tartrate (Exelon Cap) 3 mg BID PO 01/06/17 09:00 02/05/17 08:59 01/15/17 09:28 3 MG Ertapenem 1000 mg/ Sodium Chloride 60 ml @ 120 mls/hr Q24H IV 01/07/17 21:00 01/16/17 20:59 01/14/17 21:48 120 MLS/HR Aluminum Ammonium Sulfate 30 gm/ Sodium Chloride 3,000 ml @ 0 mls/hr UD PRN IR 01/07/17 12:30 02/06/17 12:29 Future Hold 01/10/17 08:57 30 MLS/HR Acetaminophen 650 mg/Empty Bag 65 ml @ 260 mls/hr Q6H PRN IV 01/08/17 00:15 02/07/17 00:14 01/09/17 03:33 260 MLS/HR Quetiapine Fumarate (seroQUEL TAB) 25 mg QAM PO 01/10/17 09:00 02/09/17 08:59 01/15/17 09:27 25 MG Oxybutynin Chloride (Ditropan Tab) 5 mg BID PRN PO 01/10/17 09:15 02/09/17 09:14 01/13/17 11:24 5 MG Objective Vital Signs Date Time Temp Pulse Resp B/P (MAP) Pulse Ox O2 Delivery O2 Flow Rate FiO2 01/15/17 15:00 36.8 89 18 114/75 (88) 97 Room Air 01/15/17 07:30 Room Air 01/15/17 06:45 36.7 68 19 145/82 (103) 92 Room Air 01/15/17 00:07 Room Air 01/14/17 22:45 36.8 74 16 106/60 (75) 92 Room Air 01/14/17 17:49 36.7 93 18 115/81 (92) 92 Room Air Physical Exam Notes: GENERAL: alert NECK: supple, no nuchal rigidity, no adenopathy, non-tender LUNGS: Clear to auscultation. Normal chest wall mechanics HEART: no murmurs, S1 normal and S2 normal ABDOMEN: abdomen soft, non-tender, normo-active bowel sounds, no masses, no rebound or guarding. SKIN: no rashes and no bruising UPPER EXTREMITIES: upper extremities are grossly normal. LOWER EXTREMITIES: No pitting edema. NEURO EXAM: AOx1 to person , unable to complete due to mental status Laboratory Results Results Past 24 Hours Test 01/15/17 07:14 Range/Units White Blood Count 8.25 4.8-10.8 K/uL Red Blood Count 3.11 4.7-6.1 M/uL Hemoglobin 9.7 14.0-18.0 g/dL Hematocrit 27.9 42-52 % Mean Corpuscular Volume 89.7 80-100 fL Mean Corpuscular Hemoglobin 31.2 25-34 pg Mean Corpuscular Hemoglobin Concent 34.8 32-36 g/dl Platelet Count 252 130-400 K/uL Mean Platelet Volume 8.4 7.4-10.4 fL Neutrophils (%) (Auto) 72.2 % Lymphocytes (%) (Auto) 13.1 % Monocytes (%) (Auto) 8.4 % Eosinophils (%) (Auto) 5.7 % Basophils (%) (Auto) 0.4 % Neutrophils # (Auto) 5.96 1.4-6.5 K/uL Lymphocytes # (Auto) 1.08 1.2-3.4 K/uL Monocytes # (Auto) 0.69 0.11-0.59 K/uL Eosinophils # (Auto) 0.47 0-0.5 K/uL Basophils # (Auto) 0.03 0-0.2 K/uL RDW Standard Deviation 46.1 36.4-46.3 fL RDW Coefficient of Variation 14.2 11.5-14.5 % Immature Granulocyte % (Auto) 0.2 % Immature Granulocyte # (Auto) 0.02 0.00-0.02 K/uL Sodium Level 147 136-145 mmol/L Potassium Level 3.0 3.5-5.1 mmol/L Chloride Level 109 98-107 mmol/L Carbon Dioxide Level 33 21-32 mmol/L Anion Gap 5.0 3-11 mmol/L Blood Urea Nitrogen 17 7-18 mg/dl Creatinine 0.99 0.60-1.40 mg/dl Est Creatinine Clear Calc Drug Dose 53.3 ml/min Estimated GFR () 86.0 Estimated GFR (Non- 74.2 BUN/Creatinine Ratio 17.4 10-20 Random Glucose 99 70-99 mg/dl Calcium Level 8.3 8.5-10.1 mg/dl Assessment and Plan 76 yo Hx Prostate Cancer p/w persistent 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 (01/13) UTI, Urine cx pos. for Providencia - Continue Ertapenem 8/10 days total per ID Anemia: likely secondary to to hematuria - Hb 8.7<--8.5<--9<--7.7 <--8, H/h now stable - s/p 1 PRBC 01/11 - Follow H/H - Hemoccult neg Acute kidney injury, Hypernatremia: - resolved Hypernatremia - Na 146 - Cont. to monitor Severe dementia/depression - Continue Seroquel and sertraline, rivastigmine DNR DVT prophylaxis: SCDs anticoagulation contraindicated due to hematuria Disposition: PT/OT formerly at [facility] Accepted at [facility] to d/c tuesday after finished abx course Continued [facility] stay due to: multiple IV medications needed Discharge planning: assisted facility Resident Tracking Resident Involvement: Resident Care Provided Care Provided: Adult Hospital Medicine Reviewed: Pt Seen/Exam by Me History no new concerns patient talking but unable to follow conversation or answer question Constitutional: denies: fever General Appearance: no apparent distress Respiratory: lungs clear, no respiratory distress Cardiovascular: regular rate, rhythm Neurologic/Psychiatric: alert Assessment/Plan Resident Physician Supervision Note: I was present with Dr. Ortiz in bedside. I verified the vega history and physical, reviewed labs and image studies, discussed the case with the resident and agree with the findings and care plan.
--- NOTE | 2017-01-14 12:34 | Progress Note ---
Subjective Date of Service: Jan 14, 2017. Subjective Pt evaluation today including: conversation w/ patient, physical exam, chart review, review of studies urine light pink off cbi and clears immediately with it hct stable Problem List Medical Problems: (1) Altered mental status Status: Acute (2) Anemia Status: Acute (3) Bilateral lower extremity edema Status: Acute (4) Gross hematuria Status: Acute (5) Scalp laceration Status: Acute Objective Vital Signs Date Time Temp Pulse Resp B/P (MAP) Pulse Ox O2 Delivery O2 Flow Rate FiO2 01/14/17 07:45 Room Air 01/14/17 07:18 36.4 64 19 131/73 (92) 94 Room Air 01/14/17 03:48 36.4 65 16 113/63 (80) 96 Room Air 01/14/17 00:50 Room Air 01/13/17 23:03 37.2 85 16 117/64 (81) 95 Room Air 01/13/17 19:15 37.6 90 18 130/79 (96) 94 Room Air 01/13/17 18:48 37.3 96 17 114/73 (87) 94 Room Air 01/13/17 15:11 36.5 80 17 112/50 (70) 94 Room Air 01/13/17 15:10 Room Air 01/13/17 14:13 88 16 117/58 (77) 94 Room Air 01/13/17 13:15 88 19 112/69 (83) 92 Room Air Laboratory Results Last 24 Hours Test 01/14/17 07:33 White Blood Count 8.14 K/uL Red Blood Count 2.95 M/uL Hemoglobin 8.7 g/dL Hematocrit 26.8 % Mean Corpuscular Volume 90.8 fL Mean Corpuscular Hemoglobin 29.5 pg Mean Corpuscular Hemoglobin Concent 32.5 g/dl Platelet Count 241 K/uL Mean Platelet Volume 8.6 fL Neutrophils (%) (Auto) 70.2 % Lymphocytes (%) (Auto) 15.0 % Monocytes (%) (Auto) 9.0 % Eosinophils (%) (Auto) 5.5 % Basophils (%) (Auto) 0.1 % Neutrophils # (Auto) 5.71 K/uL Lymphocytes # (Auto) 1.22 K/uL Monocytes # (Auto) 0.73 K/uL Eosinophils # (Auto) 0.45 K/uL Basophils # (Auto) 0.01 K/uL RDW Standard Deviation 46.6 fL RDW Coefficient of Variation 14.4 % Immature Granulocyte % (Auto) 0.2 % Immature Granulocyte # (Auto) 0.02 K/uL Polychromasia 1+ Sodium Level 146 mmol/L Potassium Level 3.1 mmol/L Chloride Level 110 mmol/L Carbon Dioxide Level 31 mmol/L Anion Gap 5.0 mmol/L Blood Urea Nitrogen 14 mg/dl Creatinine 0.83 mg/dl Est Creatinine Clear Calc Drug Dose 63.8 ml/min Estimated GFR () 99.8 Estimated GFR (Non- 86.1 BUN/Creatinine Ratio 16.7 Random Glucose 99 mg/dl Calcium Level 7.9 mg/dl Assessment and Plan catheter removed if pt voids ok for d/c on antibiotic from gu pov f/u 2 weeks call for bleeding Continued [facility] stay due to: home environment unsafe for pt Discharge planning: jail facility
[2017-01-14 15:00] VITALS: BP 116/67; PULSE 82; TEMP 36.7; O2SAT 94
[2017-01-14 15:30] VITALS: O2SAT 94
[2017-01-14 17:49] VITALS: BP 115/81; PULSE 93; TEMP 36.7; O2SAT 92
[2017-01-14] MEDS: QUETIAPINE FUMARATE 100 MG TAB PO SCH (21:40)
[2017-01-14] MEDS: SIMVASTATIN 40 MG TAB PO SCH (21:40)
[2017-01-14] MEDS: ERTAPENEM IV 1,000 MG in SODIUM CHLORIDE 0.9% 50ML 50 ML IV SCH (21:48)
[2017-01-14 22:45] VITALS: BP 106/60; PULSE 74; TEMP 36.8; O2SAT 92
[2017-01-15 06:45] VITALS: BP 145/82; PULSE 68; TEMP 36.7; O2SAT 92
[2017-01-15 07:31] LABS: BASO % 0.4 %; BASO ABS # 0.03 K/uL (0-0.2); EOS % 5.7 %; HEMATOCRIT 27.9 % (42-52); IG% 0.2 %; LYMPH % 13.1 %; LYMPH ABS # 1.08 K/uL (1.2-3.4); MEAN CELL VOLUME 89.7 fL (80-100); MEAN CORPUSCULAR HEMOGLOBIN 31.2 pg (25-34); MEAN PLATELET VOLUME 8.4 fL (7.4-10.4); MONO % 8.4 %; NEUT % 72.2 %; PLATELET COUNT 252 K/uL (130-400); RED BLOOD COUNT 3.11 M/uL (4.7-6.1); WHITE BLOOD COUNT 8.25 K/uL (4.8-10.8)
[2017-01-15 08:04] LABS: COMPLETE YES; MEAN CORPUSCULAR HGB CONC 34.8 g/dl (32-36)
[2017-01-15 08:08] LABS: BUN/CREATININE RATIO 17.4 (10-20); CALCIUM 8.3 mg/dl (8.5-10.1); CREATININE 0.99 mg/dl (0.60-1.40)
[2017-01-15] MEDS: SERTRALINE HCL 50 MG TAB PO SCH (09:27)
[2017-01-15] MEDS: QUETIAPINE FUMARATE 25 MG TAB PO SCH (09:27)
[2017-01-15] MEDS: RIVASTIGMINE TARTRATE (EXELON) 1.5 MG CAP PO SCH ×2 (09:28→21:13)
--- NOTE | 2017-01-15 11:12 | Family Medicine Progress Note ---
Progress Note Date of Service Jan 15, 2017. Subjective Pt evaluation today including: conversation w/ patient, physical exam, chart review, lab review, review of studies, review of inpatient medication list Pain: denies PO Intake: denies Voiding: incontinence NO acute events overnight, Per nurse, no further gross hematuria s/p removal of valencia, however patient has been incontinent, Additional Comments: unable to assess ROS due to patient's baseline dementia Medications Current Inpatient Medications Medications (Trade) Dose Ordered Sig/Yuli Route Start Time Stop Time Status Last Admin Dose Admin Ondansetron HCl (Zofran Inj) 4 mg Q6H PRN IV 01/06/17 02:15 02/05/17 02:14 Quetiapine Fumarate (seroQUEL TAB) 100 mg HS PO 01/06/17 21:00 02/05/17 20:59 01/14/17 21:40 100 MG Sertraline HCl (Zoloft Tab) 50 mg QAM PO 01/06/17 09:00 02/05/17 08:59 01/15/17 09:27 50 MG Simvastatin (Zocor Tab) 40 mg QPM PO 01/06/17 21:00 02/05/17 20:59 01/14/17 21:40 40 MG Rivastigmine Tartrate (Exelon Cap) 3 mg BID PO 01/06/17 09:00 02/05/17 08:59 01/15/17 09:28 3 MG Ertapenem 1000 mg/ Sodium Chloride 60 ml @ 120 mls/hr Q24H IV 01/07/17 21:00 01/16/17 20:59 01/14/17 21:48 120 MLS/HR Aluminum Ammonium Sulfate 30 gm/ Sodium Chloride 3,000 ml @ 0 mls/hr UD PRN IR 01/07/17 12:30 02/06/17 12:29 Future Hold 01/10/17 08:57 30 MLS/HR Acetaminophen 650 mg/Empty Bag 65 ml @ 260 mls/hr Q6H PRN IV 01/08/17 00:15 02/07/17 00:14 01/09/17 03:33 260 MLS/HR Quetiapine Fumarate (seroQUEL TAB) 25 mg QAM PO 01/10/17 09:00 02/09/17 08:59 01/15/17 09:27 25 MG Oxybutynin Chloride (Ditropan Tab) 5 mg BID PRN PO 01/10/17 09:15 02/09/17 09:14 01/13/17 11:24 5 MG Objective Vital Signs Date Time Temp Pulse Resp B/P (MAP) Pulse Ox O2 Delivery O2 Flow Rate FiO2 01/15/17 07:30 Room Air 01/15/17 06:45 36.7 68 19 145/82 (103) 92 Room Air 01/15/17 00:07 Room Air 01/14/17 22:45 36.8 74 16 106/60 (75) 92 Room Air 01/14/17 17:49 36.7 93 18 115/81 (92) 92 Room Air 01/14/17 15:30 94 Room Air 01/14/17 15:00 36.7 82 18 116/67 (83) 94 Room Air Physical Exam Notes: GENERAL: alert, thin NECK: supple, no nuchal rigidity, no adenopathy, non-tender LUNGS: Clear to auscultation. Normal chest wall mechanics HEART: no murmurs, S1 normal and S2 normal ABDOMEN: abdomen soft, non-tender, normo-active bowel sounds, no masses, no rebound or guarding. SKIN: no rashes and no bruising UPPER EXTREMITIES: upper extremities are grossly normal. LOWER EXTREMITIES: No pitting edema. NEURO EXAM: AOx1 to person , unable to complete due to mental status Laboratory Results Results Past 24 Hours Test 01/15/17 07:14 Range/Units White Blood Count 8.25 4.8-10.8 K/uL Red Blood Count 3.11 4.7-6.1 M/uL Hemoglobin 9.7 14.0-18.0 g/dL Hematocrit 27.9 42-52 % Mean Corpuscular Volume 89.7 80-100 fL Mean Corpuscular Hemoglobin 31.2 25-34 pg Mean Corpuscular Hemoglobin Concent 34.8 32-36 g/dl Platelet Count 252 130-400 K/uL Mean Platelet Volume 8.4 7.4-10.4 fL Neutrophils (%) (Auto) 72.2 % Lymphocytes (%) (Auto) 13.1 % Monocytes (%) (Auto) 8.4 % Eosinophils (%) (Auto) 5.7 % Basophils (%) (Auto) 0.4 % Neutrophils # (Auto) 5.96 1.4-6.5 K/uL Lymphocytes # (Auto) 1.08 1.2-3.4 K/uL Monocytes # (Auto) 0.69 0.11-0.59 K/uL Eosinophils # (Auto) 0.47 0-0.5 K/uL Basophils # (Auto) 0.03 0-0.2 K/uL RDW Standard Deviation 46.1 36.4-46.3 fL RDW Coefficient of Variation 14.2 11.5-14.5 % Immature Granulocyte % (Auto) 0.2 % Immature Granulocyte # (Auto) 0.02 0.00-0.02 K/uL Sodium Level 147 136-145 mmol/L Potassium Level 3.0 3.5-5.1 mmol/L Chloride Level 109 98-107 mmol/L Carbon Dioxide Level 33 21-32 mmol/L Anion Gap 5.0 3-11 mmol/L Blood Urea Nitrogen 17 7-18 mg/dl Creatinine 0.99 0.60-1.40 mg/dl Est Creatinine Clear Calc Drug Dose 53.3 ml/min Estimated GFR () 86.0 Estimated GFR (Non- 74.2 BUN/Creatinine Ratio 17.4 10-20 Random Glucose 99 70-99 mg/dl Calcium Level 8.3 8.5-10.1 mg/dl Assessment and Plan 76 yo Hx Prostate Cancer p/w persistent 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 (01/13) - Valencia removed 01/15, no gross hematuria - +incontinence UTI, Urine cx pos. for Providencia - Continue Ertapenem day 01/30 total per ID Anemia: likely secondary to to hematuria - Hb improving - Hb 9.7<--8.5<--9<--7.7 <--8 - s/p 1 PRBC 01/11 - Follow H/H - Hemoccult neg Acute kidney injury, Hypernatremia: - resolved Hypernatremia (mild) - Na 147 - Cont. to monitor Severe dementia/depression - Continue Seroquel and sertraline, rivastigmine DNR DVT prophylaxis: SCDs anticoagulation contraindicated due to hematuria Disposition: formerly at [facility] Accepted at [facility] , will be accepted Wednesday 01/17 Continued [facility] stay due to: home environment unsafe for pt Discharge planning: other Resident Tracking Resident Involvement: Resident Care Provided Care Provided: Adult Hospital Medicine Reviewed: Pt Seen/Exam by Me History no new issues Constitutional: denies: fever General Appearance: no apparent distress Respiratory: lungs clear, no respiratory distress Cardiovascular: regular rate, rhythm Neurologic/Psychiatric: alert Assessment/Plan Resident Physician Supervision Note: I was present with Dr. Ortiz in bedside. I verified the vega history and physical, reviewed labs and image studies, discussed the case with the resident and agree with the findings and care plan.
--- NOTE | 2017-01-15 11:46 | Progress Note ---
Subjective Date of Service: Jan 15, 2017. Subjective Pt evaluation today including: physical exam, lab review, conversation w/ recruiting and selection consultant Pt demented and incontinent of clear urine Problem List Medical Problems: (1) Altered mental status Status: Acute (2) Anemia Status: Acute (3) Bilateral lower extremity edema Status: Acute (4) Gross hematuria Status: Acute (5) Scalp laceration Status: Acute Objective Vital Signs Date Time Temp Pulse Resp B/P (MAP) Pulse Ox O2 Delivery O2 Flow Rate FiO2 01/15/17 07:30 Room Air 01/15/17 06:45 36.7 68 19 145/82 (103) 92 Room Air 01/15/17 00:07 Room Air 01/14/17 22:45 36.8 74 16 106/60 (75) 92 Room Air 01/14/17 17:49 36.7 93 18 115/81 (92) 92 Room Air 01/14/17 15:30 94 Room Air 01/14/17 15:00 36.7 82 18 116/67 (83) 94 Room Air Laboratory Results Last 24 Hours Test 01/15/17 07:14 White Blood Count 8.25 K/uL Red Blood Count 3.11 M/uL Hemoglobin 9.7 g/dL Hematocrit 27.9 % Mean Corpuscular Volume 89.7 fL Mean Corpuscular Hemoglobin 31.2 pg Mean Corpuscular Hemoglobin Concent 34.8 g/dl Platelet Count 252 K/uL Mean Platelet Volume 8.4 fL Neutrophils (%) (Auto) 72.2 % Lymphocytes (%) (Auto) 13.1 % Monocytes (%) (Auto) 8.4 % Eosinophils (%) (Auto) 5.7 % Basophils (%) (Auto) 0.4 % Neutrophils # (Auto) 5.96 K/uL Lymphocytes # (Auto) 1.08 K/uL Monocytes # (Auto) 0.69 K/uL Eosinophils # (Auto) 0.47 K/uL Basophils # (Auto) 0.03 K/uL RDW Standard Deviation 46.1 fL RDW Coefficient of Variation 14.2 % Immature Granulocyte % (Auto) 0.2 % Immature Granulocyte # (Auto) 0.02 K/uL Sodium Level 147 mmol/L Potassium Level 3.0 mmol/L Chloride Level 109 mmol/L Carbon Dioxide Level 33 mmol/L Anion Gap 5.0 mmol/L Blood Urea Nitrogen 17 mg/dl Creatinine 0.99 mg/dl Est Creatinine Clear Calc Drug Dose 53.3 ml/min Estimated GFR () 86.0 Estimated GFR (Non- 74.2 BUN/Creatinine Ratio 17.4 Random Glucose 99 mg/dl Calcium Level 8.3 mg/dl Assessment and Plan catheter removed and pt incontinent of clear urine f/u 2 weeks call for bleeding Continued [facility] stay due to: home environment unsafe for pt Discharge planning: other
[2017-01-15 15:00] VITALS: BP 114/75; PULSE 89; TEMP 36.8; O2SAT 97
[2017-01-15 16:30] VITALS: O2SAT 97
[2017-01-15] MEDS: SIMVASTATIN 40 MG TAB PO SCH (21:14)
[2017-01-15] MEDS: QUETIAPINE FUMARATE 100 MG TAB PO SCH (21:14)
[2017-01-15] MEDS: ERTAPENEM IV 1,000 MG in SODIUM CHLORIDE 0.9% 50ML 50 ML IV SCH (21:21)
[2017-01-15 23:14] VITALS: BP 130/74; PULSE 74; TEMP 37; O2SAT 95
[2017-01-16 06:58] VITALS: BP 144/73; PULSE 90; TEMP 36.6; O2SAT 96
[2017-01-16 07:14] LABS: BASO % 0.3 %; BASO ABS # 0.02 K/uL (0-0.2); EOS % 5.6 %; HEMATOCRIT 28.8 % (42-52); IG% 0.1 %; LYMPH ABS # 1.24 K/uL (1.2-3.4); MEAN CELL VOLUME 90.6 fL (80-100); MEAN CORPUSCULAR HEMOGLOBIN 30.2 pg (25-34); MEAN PLATELET VOLUME 8.2 fL (7.4-10.4); MONO % 8.1 %; NEUT % 68.9 %; PLATELET COUNT 235 K/uL (130-400); RED BLOOD COUNT 3.18 M/uL (4.7-6.1); WHITE BLOOD COUNT 7.28 K/uL (4.8-10.8)
[2017-01-16 07:29] LABS: COMPLETE YES; MEAN CORPUSCULAR HGB CONC 33.3 g/dl (32-36)
[2017-01-16 07:37] LABS: BUN/CREATININE RATIO 17.9 (10-20); CALCIUM 8.4 mg/dl (8.5-10.1); POTASSIUM 3.2 mmol/L (3.5-5.1)
[2017-01-16] MEDS ORDERED: POTASSIUM CHLORIDE 10 MEQ TABCR PO STA (08:50)
[2017-01-16] MEDS: QUETIAPINE FUMARATE 25 MG TAB PO SCH (09:24)
[2017-01-16] MEDS: SERTRALINE HCL 50 MG TAB PO SCH (09:24)
[2017-01-16] MEDS: RIVASTIGMINE TARTRATE (EXELON) 1.5 MG CAP PO SCH ×2 (09:25→20:56)
--- NOTE | 2017-01-16 10:49 | Family Medicine Progress Note ---
Progress Note Date of Service Jan 16, 2017. Subjective Pt evaluation today including: conversation w/ patient, conversation w/ family , physical exam, chart review, lab review, review of studies, review of inpatient medication list Pain: denies PO Intake: adequate Voiding: incontinence Pt remains incontinent following removal of valencia. Patient had mount bouts of diarrhea yesterday. Additional Comments: unable to assess given patient's mental status Medications Current Inpatient Medications Medications (Trade) Dose Ordered Sig/Yuli Route Start Time Stop Time Status Last Admin Dose Admin Ondansetron HCl (Zofran Inj) 4 mg Q6H PRN IV 01/06/17 02:15 02/05/17 02:14 Quetiapine Fumarate (seroQUEL TAB) 100 mg HS PO 01/06/17 21:00 02/05/17 20:59 01/15/17 21:14 100 MG Sertraline HCl (Zoloft Tab) 50 mg QAM PO 01/06/17 09:00 02/05/17 08:59 01/16/17 09:24 50 MG Simvastatin (Zocor Tab) 40 mg QPM PO 01/06/17 21:00 02/05/17 20:59 01/15/17 21:14 40 MG Rivastigmine Tartrate (Exelon Cap) 3 mg BID PO 01/06/17 09:00 02/05/17 08:59 01/16/17 09:25 3 MG Ertapenem 1000 mg/ Sodium Chloride 60 ml @ 120 mls/hr Q24H IV 01/07/17 21:00 01/16/17 20:59 01/15/17 21:21 120 MLS/HR Aluminum Ammonium Sulfate 30 gm/ Sodium Chloride 3,000 ml @ 0 mls/hr UD PRN IR 01/07/17 12:30 02/06/17 12:29 Future Hold 01/10/17 08:57 30 MLS/HR Acetaminophen 650 mg/Empty Bag 65 ml @ 260 mls/hr Q6H PRN IV 01/08/17 00:15 02/07/17 00:14 01/09/17 03:33 260 MLS/HR Quetiapine Fumarate (seroQUEL TAB) 25 mg QAM PO 01/10/17 09:00 02/09/17 08:59 01/16/17 09:24 25 MG Oxybutynin Chloride (Ditropan Tab) 5 mg BID PRN PO 01/10/17 09:15 02/09/17 09:14 01/13/17 11:24 5 MG Diphenoxylate HCl/ Atropine (Lomotil Tab) 1 tab QID PRN PO 01/16/17 09:30 02/15/17 09:29 Objective Vital Signs Date Time Temp Pulse Resp B/P (MAP) Pulse Ox O2 Delivery O2 Flow Rate FiO2 01/16/17 07:15 Room Air 01/16/17 06:58 36.6 90 20 144/73 (96) 96 Room Air 01/15/17 23:51 Room Air 01/15/17 23:14 37.0 74 16 130/74 (92) 95 Room Air 01/15/17 16:30 97 Room Air 01/15/17 15:00 36.8 89 18 114/75 (88) 97 Room Air Physical Exam Notes: GENERAL: alert, thin NECK: supple, no nuchal rigidity, no adenopathy, non-tender LUNGS: Clear to auscultation. Normal chest wall mechanics HEART: no murmurs, S1 normal and S2 normal ABDOMEN: abdomen soft, non-tender, normo-active bowel sounds, no masses, no rebound or guarding. SKIN: no rashes and no bruising UPPER EXTREMITIES: upper extremities are grossly normal. LOWER EXTREMITIES: No pitting edema. NEURO EXAM: AOx1 to person , unable to complete due to patient's mental status Laboratory Results Results Past 24 Hours Test 01/16/17 07:03 Range/Units White Blood Count 7.28 4.8-10.8 K/uL Red Blood Count 3.18 4.7-6.1 M/uL Hemoglobin 9.6 14.0-18.0 g/dL Hematocrit 28.8 42-52 % Mean Corpuscular Volume 90.6 80-100 fL Mean Corpuscular Hemoglobin 30.2 25-34 pg Mean Corpuscular Hemoglobin Concent 33.3 32-36 g/dl Platelet Count 235 130-400 K/uL Mean Platelet Volume 8.2 7.4-10.4 fL Neutrophils (%) (Auto) 68.9 % Lymphocytes (%) (Auto) 17.0 % Monocytes (%) (Auto) 8.1 % Eosinophils (%) (Auto) 5.6 % Basophils (%) (Auto) 0.3 % Neutrophils # (Auto) 5.01 1.4-6.5 K/uL Lymphocytes # (Auto) 1.24 1.2-3.4 K/uL Monocytes # (Auto) 0.59 0.11-0.59 K/uL Eosinophils # (Auto) 0.41 0-0.5 K/uL Basophils # (Auto) 0.02 0-0.2 K/uL RDW Standard Deviation 45.8 36.4-46.3 fL RDW Coefficient of Variation 14.0 11.5-14.5 % Immature Granulocyte % (Auto) 0.1 % Immature Granulocyte # (Auto) 0.01 0.00-0.02 K/uL Sodium Level 145 136-145 mmol/L Potassium Level 3.2 3.5-5.1 mmol/L Chloride Level 109 98-107 mmol/L Carbon Dioxide Level 30 21-32 mmol/L Anion Gap 6.0 3-11 mmol/L Blood Urea Nitrogen 18 7-18 mg/dl Creatinine 1.00 0.60-1.40 mg/dl Est Creatinine Clear Calc Drug Dose 52.6 ml/min Estimated GFR () 85.0 Estimated GFR (Non- 73.3 BUN/Creatinine Ratio 17.9 10-20 Random Glucose 99 70-99 mg/dl Calcium Level 8.4 8.5-10.1 mg/dl Microbiology Results 01/16/17 C.difficile Toxin B Gene (PCR), Received Pending Assessment and Plan 76 yo Hx Prostate Cancer p/w persistent 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 (01/13) - Valencia removed 01/15, no gross hematuria - has incontinence Diarrhea -previous C diff negative -Repeat C diff - lomotil - hold nutritional supplement drink Urinary incontinence - bladder scan, catheterize depending on bladder scan results Perineal Skin erythema - ? sec to diarrhea/urinary incontinence - lomotil, catheterize, bladder scan - local care - antifungal cream UTI, Urine cx pos. for Providencia - Continue Ertapenem day 03/01 total per ID - D/C Ertapenem tmr Anemia: likely secondary to to hematuria , Hemoccult neg - Hb stable - Hb 9.6 <--9.7<--8.5<--9<--7.7 <--8 - s/p 1 PRBC 01/11 - Follow H/H Acute kidney injury, Hypernatremia: - resolved Hypernatremia (resolved) - Na 147-->145 - Cont. to monitor Severe dementia/depression - Continue Seroquel and sertraline, rivastigmine DNR DVT prophylaxis: -SCDs anticoagulation contraindicated due to hematuria Disposition: formerly at [facility] custodial Accepted at [facility] , will be accepted Wednesday 01/17 Continued [facility] stay due to: home environment unsafe for pt Discharge planning: custodial facility Resident Tracking Resident Involvement: Resident Care Provided Care Provided: Adult Hospital Medicine Reviewed: Pt Seen/Exam by Me History resting in bed comfortably nursing cleaning up the diaper. has had diarrhea. also reported by nursing - urinary incontinence Constitutional: denies: fever General Appearance: no apparent distress Respiratory: lungs clear, no respiratory distress Cardiovascular: regular rate, rhythm Neurologic/Psychiatric: alert Skin Characteristics: other (perineal skin with bright red erythema) Assessment/Plan Resident Physician Supervision Note: I was present with Dr. Ortiz in bedside. I verified the vega history and physical, reviewed labs and image studies, discussed the case with the resident and agree with the findings and care plan.
[2017-01-16] MEDS: DIPHENOXYLATE/ATROPINE 2.5/0.025MG TAB PO PRN (11:33)
--- NOTE | 2017-01-16 11:53 | Progress Note ---
Subjective Date of Service: Jan 16, 2017. Subjective Pt evaluation today including: conversation w/ family, physical exam, chart review, lab review no blood seen in urine Problem List Medical Problems: (1) Altered mental status Status: Acute (2) Anemia Status: Acute (3) Bilateral lower extremity edema Status: Acute (4) Gross hematuria Status: Acute (5) Scalp laceration Status: Acute Objective Vital Signs Date Time Temp Pulse Resp B/P (MAP) Pulse Ox O2 Delivery O2 Flow Rate FiO2 01/16/17 07:15 Room Air 01/16/17 06:58 36.6 90 20 144/73 (96) 96 Room Air 01/15/17 23:51 Room Air 01/15/17 23:14 37.0 74 16 130/74 (92) 95 Room Air 01/15/17 16:30 97 Room Air 01/15/17 15:00 36.8 89 18 114/75 (88) 97 Room Air Laboratory Results Last 24 Hours Test 01/16/17 07:03 White Blood Count 7.28 K/uL Red Blood Count 3.18 M/uL Hemoglobin 9.6 g/dL Hematocrit 28.8 % Mean Corpuscular Volume 90.6 fL Mean Corpuscular Hemoglobin 30.2 pg Mean Corpuscular Hemoglobin Concent 33.3 g/dl Platelet Count 235 K/uL Mean Platelet Volume 8.2 fL Neutrophils (%) (Auto) 68.9 % Lymphocytes (%) (Auto) 17.0 % Monocytes (%) (Auto) 8.1 % Eosinophils (%) (Auto) 5.6 % Basophils (%) (Auto) 0.3 % Neutrophils # (Auto) 5.01 K/uL Lymphocytes # (Auto) 1.24 K/uL Monocytes # (Auto) 0.59 K/uL Eosinophils # (Auto) 0.41 K/uL Basophils # (Auto) 0.02 K/uL RDW Standard Deviation 45.8 fL RDW Coefficient of Variation 14.0 % Immature Granulocyte % (Auto) 0.1 % Immature Granulocyte # (Auto) 0.01 K/uL Sodium Level 145 mmol/L Potassium Level 3.2 mmol/L Chloride Level 109 mmol/L Carbon Dioxide Level 30 mmol/L Anion Gap 6.0 mmol/L Blood Urea Nitrogen 18 mg/dl Creatinine 1.00 mg/dl Est Creatinine Clear Calc Drug Dose 52.6 ml/min Estimated GFR () 85.0 Estimated GFR (Non- 73.3 BUN/Creatinine Ratio 17.9 Random Glucose 99 mg/dl Calcium Level 8.4 mg/dl Assessment and Plan pt free of bleeding f/u in 6 to 8 weeks or prn for bleeding w clot retention discussed comfort care w would not treat hematuria unless pt in clot retention Continued [facility] stay due to: multiple IV medications needed Discharge planning: halfway facility
[2017-01-16 14:59] VITALS: BP 119/75; PULSE 94; TEMP 36.7; O2SAT 93
[2017-01-16 16:30] VITALS: O2SAT 93
[2017-01-16] MEDS: SIMVASTATIN 40 MG TAB PO SCH (20:56)
[2017-01-16] MEDS: QUETIAPINE FUMARATE 100 MG TAB PO SCH (20:57)
[2017-01-16 22:48] VITALS: BP 136/74; PULSE 79; TEMP 36.5; O2SAT 97
[2017-01-17 08:02] VITALS: BP 122/72; PULSE 75; TEMP 36.7; O2SAT 94
[2017-01-17 08:41] VITALS: O2SAT 94
--- NOTE | 2017-01-17 09:13 | Progress Note ---
Subjective Date of Service: Jan 17, 2017. 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 Per nursing staff, the pt remains incontinent. No further gross hematuria noted. The pt denies pain this morning. States that he does not know where he is. Problem List Medical Problems: (1) Altered mental status Status: Acute (2) Anemia Status: Acute (3) Bilateral lower extremity edema Status: Acute (4) Gross hematuria Status: Acute (5) Scalp laceration Status: Acute Review of Systems Male : + incontinence Pt denies pain this morning. Unable to answer questions d/t altered mental status. Objective Vital Signs Date Time Temp Pulse Resp B/P (MAP) Pulse Ox O2 Delivery O2 Flow Rate FiO2 01/17/17 08:41 94 Room Air 01/17/17 08:02 36.7 75 16 122/72 (89) 94 Room Air 01/17/17 07:20 Room Air 01/16/17 23:30 Room Air 01/16/17 22:48 36.5 79 16 136/74 (94) 97 Room Air 01/16/17 16:30 93 Room Air 01/16/17 14:59 36.7 94 16 119/75 (90) 93 Room Air Physical Exam General Appearance: no apparent distress Eyes: normal inspection ENT: hearing grossly normal Neck: no JVD Respiratory/Chest: no respiratory distress, no accessory muscle use Cardiovascular: no JVD Extremities: normal inspection Neurologic/Psychiatric: alert, normal mood/affect, + disoriented Skin: normal color Assessment and Plan POD #4 s/p cysto and fulguration for 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 AFVSS. Hematuria resolved. Tx of UTI per ID. Will check bladder scans qshift. Straight cath for PVR >350ml. Otherwise would avoid any cathing or valencia placement d/t risk for bleeding again. Pt Ok for d/c when OK with primary service. Will continue to follow along with primary service. Continued [facility] stay due to: home environment unsafe for pt Discharge planning: senior living facility
[2017-01-17] MEDS: RIVASTIGMINE TARTRATE (EXELON) 1.5 MG CAP PO SCH (09:17)
[2017-01-17] MEDS: QUETIAPINE FUMARATE 25 MG TAB PO SCH (09:17)
[2017-01-17] MEDS: DIPHENOXYLATE/ATROPINE 2.5/0.025MG TAB PO PRN (09:18)
[2017-01-17] MEDS: SERTRALINE HCL 50 MG TAB PO SCH (09:18)
[2017-01-17] MEDS ORDERED: POTASSIUM CHLORIDE 10 MEQ TABCR PO STA (10:19)
[2017-01-17] MEDS ORDERED: POTA20TA11 PO (10:28)
[2017-01-17] MEDS ORDERED: CHOLESTYRAMINE LIGHT 4 GM PKT PO SCH (10:30)
--- NOTE | 2017-01-17 10:57 | Discharge Instructions ---
Discharge Instructions Date of Service Jan 17, 2017. Admission Reason for Admission: Anemia, Gross Hematuria Discharge Discharge Diagnosis / Problem: Hematuria Discharge Goals Goal(s): Decrease discomfort, Improve function, Therapeutic intervention Activity Recommendations Activity Limitations: as noted below Lifting Limitations: gradually increase as tolerated . Instructions / Follow-Up Instructions / Follow-Up You were treated in the hospital for hematuria (blood in your urine) and a urinary tract infection. A cystoscopy was performed by Dr. Subramanian to treat your hematuria with a procedure called a Cystoscopy. This helped relieve your bleeding. Your urinary tract infection was treated with 10 days of Ertapenem, that you completed on 01/16. During your stay you were also transfused with 3 units of blood for anemia. Lab testing showed that you had low potassium most likely caused by your diarrhea, so you were given potassium orally before discharge and will have to supplement with oral potassium when you leave. Based on your current physical and clinical status, you will be discharged to [facility] for rehabilitation. - Take 20 mEq by mouth of Potassium Citrate daily - RECHECK BMP in 3 days to review your potassium level - Take Cholestyramine 4g by mouth twice daily for diarrgea - The urologist recommends checking a PVR (post void residual volume) if you are having difficulty with urination. If it is > 350cc you are recommended to have a straight catheterization. We will not be placing a valencia catheter at this time because it would cause further irritation of the bladder and repeating the cause of the blood in your urine. - Follow up with Dr. Subramanian in 2 weeks - he is your Urologist that preformed your procedure Current Hospital Diet Patient's current hospital diet: Regular Diet Discharge Diet Recommended Diet: Regular Diet Diet Texture: Mechanical Soft (ground) Procedures Procedures Performed: Cystoscopy, Clot Evacuation and Fulgeration Pending Studies Studies pending at discharge: no Medical Emergencies . Who to Call and When: Medical Emergencies: If at any time you feel your situation is an emergency, please call 911 immediately. . Non-Emergent Contact Non-Emergency issues call your: Primary Care Provider . . "Provider Documentation" section prepared by Arturo Hernandez. . VTE Core Measure Inpt VTE Proph given/why not?: SCD's
[2017-01-17] MEDS ORDERED: SRQ25 PO (13:08)
[2017-01-17] MEDS ORDERED: SACC250C3 PO (13:08)
--- NOTE | 2017-01-17 13:35 | Discharge Instructions ---
Discharge Instructions Date of Service Jan 17, 2017. Admission Reason for Admission: Anemia, Gross Hematuria Discharge Discharge Diagnosis / Problem: Hematuria Discharge Goals Goal(s): Decrease discomfort, Improve function, Therapeutic intervention Activity Recommendations Activity Level: Assistance Required Therapies: Physical Therapy, Occupational Therapy Lifting Limitations: gradually increase as tolerated . Additional Information Patient informed of condition: Yes Advance Directives: No DNR: Yes Level of Care: Skilled Communicable Disease: No Prognosis: Improving Johnson Catheter: No Instructions / Follow-Up Instructions / Follow-Up You were treated in the hospital for hematuria (blood in your urine) and a urinary tract infection. A cystoscopy was performed by Dr. Subramanian to treat your hematuria with a procedure called a Cystoscopy. This helped relieve your bleeding. Your urinary tract infection was treated with 10 days of Ertapenem, that you completed on 01/16. During your stay you were also transfused with 3 units of blood for anemia. Lab testing showed that you had low potassium most likely caused by your diarrhea, so you were given potassium orally before discharge and will have to supplement with oral potassium when you leave. Based on your current physical and clinical status, you will be discharged to [facility] for rehabilitation. Acute Changes on Discharge - Take 20 mEq by mouth of Potassium Citrate daily - RECHECK BMP and CBC in 2 days to review your potassium level and blood counts - Take Cholestyramine 4g by mouth twice daily for diarrhea - Take Florastor 250mg by mouth every day as a probiotic for diarrhea - Take Seroquel 25mg in the morning and 100mg at bedtime (initial home medication was only 100mg at bedtime) - The urologist recommends checking a PVR (post void residual volume) if you are having difficulty with urination. If it is > 350cc you are recommended to have a straight catheterization. We will not be placing a Johnson catheter at this time because it would cause further irritation of the bladder and repeating the cause of the blood in your urine. - Follow up with Dr. Subramanian in 2 weeks - he is your Urologist that preformed your procedure DISCHARGE SUMMARY 76 yo Hx Prostate Cancer p/w persistent Hematuria likely secondary to Radiation cystitis seen initially at [facility], initially on CBI with continued bleeding, now s/p cystoscopy with fulguration , w/ subsequent resolution of bleeding, Urine cx consistent Providencia Rettgeri on IV ertapenem Hematuria: secondary to Radiation cystitis: - S/p Cystoscopy with fulguration on 01/13 to treat hematuria - Johnson removed 01/15, no gross hematuria - Has incontinence --> Straight Cath if PVR > 350cc Diarrhea - C Diff negative x 2 (01/09, 01/16) - Stop Lomotil - Cholestyramine 4g by mouth twice daily for diarrhea - Florastor 250mg by mouth every day as a probiotic for diarrhea Urinary incontinence - Straight Cath if PVR > 350cc - NO JOHNSON Rash over back - Erythematous rash with scabbing over the back - Have stopped any possible offending medications or irritants that may have caused a contact or drug rash - Continue to monitor rash at [facility] Perineal Skin erythema - Secondary to diarrhea/urinary incontinence - local care - antifungal cream UTI, Urine cx pos. for Providencia - Completed 10 day course of Ertapenem Anemia: likely secondary to to hematuria , Hemoccult neg - Hb stable - Hb 9.6 <--9.7<--8.5<--9<--7.7 <--8 - S/p 1 PRBC 01/11 Acute kidney injury, Hypernatremia - resolved Hypernatremia (resolved) - Na 147-->145 - Cont. to monitor Severe dementia/depression - Continue Seroquel and sertraline, rivastigmine DNR DVT prophylaxis: - SCDs - anticoagulation contraindicated due to hematuria Disposition: Formerly at [facility] Personal skilled nursing Accepted at [facility] , will be accepted Wednesday 01/17 Current Hospital Diet Patient's current hospital diet: Regular Diet Discharge Diet Recommended Diet: Regular Diet Diet Texture: Mechanical Soft (ground) Procedures Procedures Performed: Cystoscopy, Clot Evacuation and Fulgeration Pending Studies Studies pending at discharge: no Medical Emergencies . Who to Call and When: Medical Emergencies: If at any time you feel your situation is an emergency, please call 911 immediately. . Non-Emergent Contact Non-Emergency issues call your: Primary Care Provider . . "Provider Documentation" section prepared by Arturo Hernandez. . Core Measure Problem Core Measures: None Resident Tracking Resident Involvement: Resident Care Provided Care Provided: Adult Hospital Medicine
[2017-01-17 14:01] VITALS: BP 122/72; PULSE 75; TEMP 36.7; O2SAT 94
[2017-01-17 15:10] VITALS: BP 111/63; PULSE 71; TEMP 36.6; O2SAT 96
--- NOTE | 2017-01-18 22:19 | Discharge Summary ---
Discharge Summary Date of Service Jan 18, 2017. (Arturo Hernandez MD) DOS is actually 01/17/17 (Idalia Amaya MD) Discharge Summary Admission Date: Jan 06, 2017 at 02:20 Discharge Date: Jan 17, 2017 Discharge Disposition: alf facility Principal Diagnosis: Hematuria Immunizations: Have You Had Influenza Vaccine: Yes Influenza Vaccine Date: October 02, 2009 History of Tetanus Vaccine?: Yes Tetanus Immunization Date: Nov 02, 1996 History of Pneumococcal: Yes Pneumococcal Date: Apr 06, 2010 History of Hepatitis B Vaccine: No (Arturo Hernandez MD) Problems/Secondary Diagnoses: History of Prostate Cancer Hematuria likely secondary to Radiation cystitis UTI Urinary incontinence Diarrhea Dermatitis Anemia Acute kidney injury Hypernatremia Severe dementia Depression (Idalia Amaya MD) Medication Reconciliation New Medications: Potassium Chloride Microencaps (Potassium Chloride Cr) 20 Meq Tab 1 TAB PO DAILY for 14 Days, #14 TAB Saccharomyces Boulardii (Florastor) 250 Mg Cap 250 MG PO BID for 30 Days, #60 CAP Quetiapine Fumarate (Quetiapine Fumarate) 25 Mg Tab 25 MG PO QAM for 30 Days, #30 TAB Continued Medications: Menthol-Zinc Oxide (Risamine) 1 Oin Oin 1 APPLN TOP QS apply to reddened areas on buttocks may also use as needed Quetiapine Fumarate (Seroquel) 50 Mg Tab 100 MG PO HS 2 tablet dose Rivastigmine Tartrate (Exelon) 3 Mg Cap 3 MG PO BID Sertraline (Zoloft) 50 Mg Tab 50 MG PO QAM Simvastatin (Zocor) 40 Mg Tab 40 MG PO QPM, 0 Refills Discontinued Medications: Sulfa/Trimethoprim (Bactrim Ds 800MG/160MG) Tab 1 TAB PO BID for 10 Days Referrals At Discharge Follow up Referrals: Urologist Referral - Within 2 Weeks with Lemuel Subramanian M.D. Discharge Exam Review of Systems: Constitutional: No fever, No chills, No fatigue Respiratory: No cough, No sputum, No shortness of breath Cardiovascular: No chest pain, No palpitations Abdomen: No pain, No nausea, No vomiting, No diarrhea, No constipation Musculoskeletal: No joint pain, No muscle pain Genitourinary - Male: No hematuria, No dysuria (Arturo Hernandez MD) Hospital Course DISCHARGE SUMMARY 76 yo Hx Prostate Cancer p/w persistent Hematuria likely secondary to Radiation cystitis seen initially at [facility], initially on CBI with continued bleeding, now s/p cystoscopy with fulguration , w/ subsequent resolution of bleeding, Urine cx consistent Providencia Rettgeri on IV ertapenem Hematuria: secondary to Radiation cystitis: - S/p Cystoscopy with fulguration on 01/13 to treat hematuria - Johnson removed 01/15, no gross hematuria - Has incontinence --> Straight Cath if PVR > 350cc Diarrhea - C Diff negative x 2 (01/09, 01/16) - Stop Lomotil - Cholestyramine 4g by mouth twice daily for diarrhea - Florastor 250mg by mouth every day as a probiotic for diarrhea Urinary incontinence - Straight Cath if PVR > 350cc - NO JOHNSON Rash over back - Erythematous rash with scabbing over the back - Have stopped any possible offending medications or irritants that may have caused a contact or drug rash - Continue to monitor rash at [facility] Perineal Skin erythema - Secondary to diarrhea/urinary incontinence - local care - antifungal cream UTI, Urine cx pos. for Providencia - Completed 10 day course of Ertapenem Anemia: likely secondary to to hematuria , Hemoccult neg - Hb stable - Hb 9.6 <--9.7<--8.5<--9<--7.7 <--8 - S/p 1 PRBC 01/11 Acute kidney injury, Hypernatremia - resolved Hypernatremia (resolved) - Na 147-->145 - Cont. to monitor Severe dementia/depression - Continue Seroquel and sertraline, rivastigmine DNR DVT prophylaxis: - SCDs - anticoagulation contraindicated due to hematuria Total Time Spent: Greater than 30 minutes This includes examination of the patient, discharge planning, medication reconciliation, and communication with other providers. (Arturo Hernandez MD) Discharge Instructions Please refer to the electronic Patient Visit Report (Discharge Instructions) for additional information. (Arturo Hernandez MD) Additional Copies To Cleve Gold M.D. Resident Tracking Resident Involvement: Resident Care Provided Care Provided: Adult Hospital Medicine (Arturo Hernandez MD) Reviewed: Pt Seen/Exam by Me (Idalia Amaya MD) History Resident Physician Supervision Note: I interviewed and examined the patient. Discussed with Dr. Hernandez and agree with findings and plan as documented in the note. Any exceptions or clarifications are listed here: Pt stable. Rash is resolving and no longer itchy as per patient. No further hematuria. Ready for discharge to SNF. GENERAL: alert, thin NECK: supple, trachea midline LUNGS: Clear to auscultation, breathing unlabored HEART: RRR no murmurs, S1 normal and S2 normal ABDOMEN: abdomen soft, non-tender, normo-active bowel sounds, no masses, no rebound or guarding. SKIN: back with faint macular pinpoint erythematous rash diffuse with some excoriation UPPER EXTREMITIES: upper extremities are grossly normal. LOWER EXTREMITIES: No pitting edema. NEURO EXAM: AOx1 to person , unable to complete due to patient's mental status 76 yo male here with hematuria, now resolved. Stable for discharge to SNF with care outlined as above Documented By: Idalia Amaya (Idalia Amaya MD)
== END 2017-01-17 17:08 | DRG 669 ==
LOC: EDBD 22:31 → C.EDB 22:35 → C.MSW 01-06 02:20 → ENRESERV 01-06 02:38
PROVIDERS: ADMIT Internal Medicine; ATTEND Family Medicine
PROC: 0T9B70Z Drainage of Bladder with Drainage Device, Via Natural or Artificial Opening (ICD-10-PCS; 2017-01-05)
PROC: 0T5B8ZZ Destruction of Bladder, Via Natural or Artificial Opening Endoscopic (ICD-10-PCS; principal; 2017-01-13 07:15)
PROC: 0TCB8ZZ Extirpation of Matter from Bladder, Via Natural or Artificial Opening Endoscopic (ICD-10-PCS; principal; 2017-01-13 07:15)
DX: N30.41 Irradiation cystitis with hematuria (principal); D62 Acute posthemorrhagic anemia; N17.9 Acute kidney failure, unspecified; E87.0 Hyperosmolality and hypernatremia; F02.81 Dementia in other diseases classified elsewhere, unspecified severity, with behavioral disturbance; G30.9 Alzheimer's disease, unspecified; N39.0 Urinary tract infection, site not specified; B96.89 Other specified bacterial agents as the cause of diseases classified elsewhere; R32 Unspecified urinary incontinence; R19.7 Diarrhea, unspecified; L27.0 Generalized skin eruption due to drugs and medicaments taken internally; L53.9 Erythematous condition, unspecified; I10 Essential (primary) hypertension; I25.10 Atherosclerotic heart disease of native coronary artery without angina pectoris; E78.5 Hyperlipidemia, unspecified; Z66 Do not resuscitate; Z87.440 Personal history of urinary (tract) infections; Z85.46 Personal history of malignant neoplasm of prostate; Z92.3 Personal history of irradiation; Z90.79 Acquired absence of other genital organ(s); I25.2 Old myocardial infarction; Z79.83 Long term (current) use of bisphosphonates; Z79.899 Other long term (current) drug therapy; Z81.8 Family history of other mental and behavioral disorders; Z82.49 Family history of ischemic heart disease and other diseases of the circulatory system; N20.0 Calculus of kidney; D72.829 Elevated white blood cell count, unspecified

== ENCOUNTER → 2017-01-19 | Outpatient (CLI) | payer BC ==
[~2017-01-19] MED LIST changes: +ACET-1311 PO; +ACET-749 PO; -ASPI-232 PO; -CARV25TA2 PO; +FLUD0.1T10 PO; -MEMA1CAP7 PO; +MENTOIN12 TOP; +POTA20TA11 PO; +QSTP PO; +QUET1TAB30 PO; +QUET1TAB32 PO; +SACC250C3 PO; -SERT25TA PO; +SERT50TA PO; +SRQ25 PO; -SULF800T23 PO
[2017-01-19 08:34] LABS: MEAN CELL VOLUME 94.3 fL (80-100); MEAN CORPUSCULAR HEMOGLOBIN 30.2 pg (25-34); MEAN PLATELET VOLUME 8.6 fL (7.4-10.4); PLATELET COUNT 321 K/uL (130-400); RED BLOOD COUNT 3.18 M/uL (4.7-6.1); WHITE BLOOD COUNT 10.41 K/uL (4.8-10.8)
[2017-01-19 08:45] LABS: BLOOD UREA NITROGEN 22 mg/dl (7-18); BUN/CREATININE RATIO 19.6 (10-20); CALCIUM 9.3 mg/dl (8.5-10.1); CARBON DIOXIDE 29 mmol/L (21-32); CHLORIDE 111 mmol/L (98-107); GLUCOSE 103 mg/dl (70-99); SODIUM 147 mmol/L (136-145)
== END | disposition home or self-care (01) ==
LOC: C.LABCC 08:11
PROVIDERS: ATTEND Internal Medicine
DX: N48.89 Other specified disorders of penis (principal)

== ENCOUNTER → 2017-01-28 | Outpatient (CLI) | payer BC ==
[2017-01-28 08:42] LABS: BASO % 0.8 %; BASO ABS # 0.06 K/uL (0-0.2); COMPLETE YES; EOS % 11.9 %; HEMATOCRIT 33.7 % (42-52); IG% 0.1 %; LYMPH % 20.2 %; MEAN CELL VOLUME 92.3 fL (80-100); MEAN CORPUSCULAR HEMOGLOBIN 28.5 pg (25-34); MEAN CORPUSCULAR HGB CONC 30.9 g/dl (32-36); MEAN PLATELET VOLUME 8.4 fL (7.4-10.4); MONO % 7.8 %; NEUT % 59.2 %; PLATELET COUNT 268 K/uL (130-400); RED BLOOD COUNT 3.65 M/uL (4.7-6.1); WHITE BLOOD COUNT 7.42 K/uL (4.8-10.8)
== END ==
LOC: C.LABCC 08:06
PROVIDERS: ATTEND Internal Medicine
DX: D64.9 Anemia, unspecified (principal)

== ENCOUNTER 2017-02-08 20:05 | Emergency (ER) | payer BC ==
[~2017-02-08] VITALS: Ht 172.7 cm; Wt 53.3 kg
[~2017-02-08 20:05] MED LIST changes: -ACET-1311 PO; -ACET-749 PO; -FLUD0.1T10 PO; -QSTP PO; -QUET1TAB30 PO
[2017-02-08 20:19] VITALS: TEMP 36.4; Ht 172.7 cm; Wt 53.3 kg
[2017-02-08] MEDS ORDERED: QSTP PO (20:32)
[2017-02-08] MEDS ORDERED: ACET-749 PO (20:32)
[2017-02-08] MEDS ORDERED: QUET1TAB30 PO (20:34)
--- NOTE | 2017-02-08 21:21 | DIAGNOSTIC IMAGING REPORT ---
CHEST ONE VIEW PORTABLE CLINICAL HISTORY: L pneumothorax chest pain COMPARISON STUDY: 01/12/2017 FINDINGS: Mild chronic left basilar atelectatic change. Improved visibility left hemidiaphragm. Lungs otherwise appear clear. No evidence pneumothorax. IMPRESSION: Atelectatic change left base improved from the prior exam. Lungs otherwise are clear with no evidence for pneumothorax. The above report was generated using voice recognition software. It may contain grammatical, syntax or spelling errors. Electronically signed by: Gary Jules M.D. 02/08/2017 9:20 PM Dictated Date/Time: 02/08/2017 9:19 PM
--- NOTE | 2017-02-08 21:44 | DIAGNOSTIC IMAGING REPORT ---
(CHEST) THORAX WITHOUT CT DOSE: 257.65 mGy.cm HISTORY: Dyspnea. Abnormal chest x-ray. ? L PTs on outpt CXR TECHNIQUE: Multiaxial CT images of the chest were performed without contrast. A dose lowering technique was utilized adhering to the principles of ALARA. COMPARISON: 01/03/2010 FINDINGS: Study is negative for pneumothorax. Bibasilar atelectatic change stable to slightly improved from the prior study. Several scattered parenchymal nodules unchanged from the prior study. No significant new or interval nodular process. Hilar and mediastinal regions are considered unremarkable. IMPRESSION: 1. Left and to a lesser extent right basilar atelectatic change stable to slightly improved from the prior study. 2. Stable parenchymal nodularity throughout both hemithoraces. 3. Several stable calcified pleural plaques. 4. No acute process is felt to be present. The above report was generated using voice recognition software. It may contain grammatical, syntax or spelling errors. Electronically signed by: Gary Jules M.D. 02/08/2017 9:42 PM Dictated Date/Time: 02/08/2017 9:40 PM
--- NOTE | 2017-02-08 22:05 | EMERGENCY ROOM VISIT NOTE ---
History Report prepared by Negrito: Carl Mckeon Under the Supervision of: Dr. Keren Perkins M.D. First contact with patient: 20:38 Chief Complaint: OTHER COMPLAINT Stated Complaint: Unresponsiveness episode, Eval left sided Pneumo History of Present Illness The patient is a 76 year old male who presents to the Emergency Room for an episode of unresponsiveness occurring earlier in the day. Per the nursing staff , the patient was eating this morning and he had a period of unresponsiveness. When he got back to normal he had a decreased oxygen saturation. He had a chest x-ray done, and it showed a possible left sided pneumothorax. History is limited secondary to dementia. Source of History: nursing staff Onset: earlier today Position: other (global) Quality: other (unresponsiveness) Timing: resolved Review of Systems History is limited secondary to dementia. Past Medical & Surgical Medical Problems: (1) CAD (coronary artery disease) (2) Hyperlipidemia (3) Hypertension (4) Mental status change (5) Myocardial infarction (6) Rhabdomyolysis Surgical Problems: (1) H/O inguinal hernia repair (2) Hx of colonoscopy Family History Dementia Heart disease Hypertension Myocardial infarction at age less than 60 Social History Smoking Status: Unknown if Ever Smoked Drug Use: none Marital Status: Housing Status: lives with family Occupation Status: retired Current/Historical Medications Scheduled Cholestyramine (Cholestyramine Light), 4 GM PO BID Quetiapine Fumarate (Seroquel), 100 MG PO HS Quetiapine Fumarate (Seroquel), 25 MG PO QAM Rivastigmine Tartrate (Exelon), 3 MG PO BID Saccharomyces Boulardii (Florastor), 250 MG PO BID Sertraline (Zoloft), 50 MG PO QAM Simvastatin (Zocor), 40 MG PO QPM Scheduled PRN Acetaminophen/Codeine (Tylenol W/Codeine #3), 1 TAB PO HS PRN for Pain Allergies Coded Allergies: No Known Allergies (Verified , 02/08/17) Physical Exam Vital Signs Date Time Temp Pulse Resp B/P (MAP) Pulse Ox O2 Delivery O2 Flow Rate FiO2 02/08/17 22:28 80 18 130/68 98 02/08/17 21:37 87 18 125/79 97 Room Air 02/08/17 20:20 96 02/08/17 20:19 36.4 92 16 118/69 96 Room Air Physical Exam Vital signs reviewed. General: Chronically ill-appearing elderly male in no distress. cachectic, frail , confused, unable to follow commands. HEENT: No scleral icterus, PERRLA, neck supple. Atraumatic. Cardiovascular: Regular rate and rhythm, no extra sounds. Pulmonary: Diminished left sided lung sounds. Some crackles at the bases bilaterally. Abdomen: Soft, nontender, nondistended, positive bowel sounds. Musculoskeletal: Atraumatic, no peripheral edema. Neurologic: Patient awake alert and oriented x 3 Skin: Warm, dry, no rash Medical Decision & Procedures ER Provider Diagnostic Interpretation: Radiology results as stated below per my review and radiologist interpretation: CHEST ONE VIEW PORTABLE CLINICAL HISTORY: L pneumothorax chest pain COMPARISON STUDY: 01/12/2017 FINDINGS: Mild chronic left basilar atelectatic change. Improved visibility left hemidiaphragm. Lungs otherwise appear clear. No evidence pneumothorax. IMPRESSION: Atelectatic change left base improved from the prior exam. Lungs otherwise are clear with no evidence for pneumothorax. The above report was generated using voice recognition software. It may contain grammatical, syntax or spelling errors. Electronically signed by: Gary Jules M.D. 02/08/2017 9:20 PM Dictated Date/Time: 02/08/2017 9:19 PM (CHEST) THORAX WITHOUT CT DOSE: 257.65 mGy.cm HISTORY: Dyspnea. Abnormal chest x-ray. ? L PTs on outpt CXR TECHNIQUE: Multiaxial CT images of the chest were performed without contrast. A dose lowering technique was utilized adhering to the principles of ALARA. COMPARISON: 01/03/2010 FINDINGS: Study is negative for pneumothorax. Bibasilar atelectatic change stable to slightly improved from the prior study. Several scattered parenchymal nodules unchanged from the prior study. No significant new or interval nodular process. Hilar and mediastinal regions are considered unremarkable. IMPRESSION: 1. Left and to a lesser extent right basilar atelectatic change stable to slightly improved from the prior study. 2. Stable parenchymal nodularity throughout both hemithoraces. 3. Several stable calcified pleural plaques. 4. No acute process is felt to be present. The above report was generated using voice recognition software. It may contain grammatical, syntax or spelling errors. Electronically signed by: Gary Jules M.D. 02/08/2017 9:42 PM Dictated Date/Time: 02/08/2017 9:40 PM ED Course 2037: Past medical records reviewed. The patient was evaluated in room A9. A complete history and physical examination was performed. 2139: Upon reevaluation, the patient was doing well. He was discharged home. Medical Decision Differential diagnosis: Etiologies such as infections, reactive airway disease, pneumonia, pneumothorax , COPD, CHF, cardiac ischemia, pulmonary embolism, musculoskeletal, gastrointestinal, as well as others were entertained. This patient was evaluated and appeared to be in no significant distress. Chest x-ray was obtained and reveals no evidence of pneumothorax. Follow-up CT scan of the chest is also negative for pneumothorax. Patient was discharged back to his nursing facility for further care. He will return to the ER for worsening of symptoms or any medical concerns. Medication Reconcilliation Current Medication List: was personally reviewed by me Blood Pressure Screening Patient's blood pressure: Normal blood pressure Impression Primary Impression: Abnormality of lung on chest x-ray Additional Impression: evaluation for pneumothorax Scribe Attestation The scribe's documentation has been prepared under my direction and personally reviewed by me in its entirety. I confirm that the note above accurately reflects all work, treatment, procedures, and medical decision making performed by me. Departure Information Dispostion Home / Self-Care Referrals [facility]ch Tree[facility] (PCP) Forms HOME CARE DOCUMENTATION FORM, IMPORTANT VISIT INFORMATION, WORK / SCHOOL INSTRUCTIONS Patient Instructions My [facility] Additional Instructions Diagnosis: Evaluation for pneumothorax There is no pneumothorax identified on x-ray or CT scan here this evening. Continue care at nursing facility. Return to the emergency department for worsening of symptoms or any medical concerns. Problem Qualifiers
[2017-02-08 22:28] VITALS: BP 130/68; PULSE 80; O2SAT 98
== END 2017-02-08 22:29 | disposition home or self-care (01) ==
LOC: EDBD 20:05 → C.EDA 20:16
DX: R91.8 Other nonspecific abnormal finding of lung field (principal); F03.90 Unspecified dementia, unspecified severity, without behavioral disturbance, psychotic disturbance, mood disturbance, and anxiety; I25.10 Atherosclerotic heart disease of native coronary artery without angina pectoris; E78.5 Hyperlipidemia, unspecified; I10 Essential (primary) hypertension; I25.2 Old myocardial infarction; M62.82 Rhabdomyolysis; Z82.49 Family history of ischemic heart disease and other diseases of the circulatory system; Z79.899 Other long term (current) drug therapy

== ENCOUNTER → 2017-02-09 | Outpatient (CLI) | payer BC ==
[~2017-02-09] MED LIST changes: +ACET-1311 PO; +ACET-749 PO; +FLUD0.1T10 PO; -MENTOIN12 TOP; -POTA20TA11 PO; +QSTP PO; +QUET1TAB30 PO; -SRQ25 PO
[2017-02-09 08:17] LABS: HEMATOCRIT 33.1 % (42-52); MEAN CELL VOLUME 87.1 fL (80-100); MEAN CORPUSCULAR HEMOGLOBIN 27.6 pg (25-34); MEAN CORPUSCULAR HGB CONC 31.7 g/dl (32-36); MEAN PLATELET VOLUME 8.5 fL (7.4-10.4); PLATELET COUNT 243 K/uL (130-400); WHITE BLOOD COUNT 8.92 K/uL (4.8-10.8)
[2017-02-09 08:26] LABS: ALT/SGPT 16 U/L (12-78); BLOOD UREA NITROGEN 16 mg/dl (7-18); BUN/CREATININE RATIO 16.5 (10-20); CALCIUM 9.5 mg/dl (8.5-10.1); CARBON DIOXIDE 27 mmol/L (21-32); CHLORIDE 106 mmol/L (98-107); CREATININE 0.95 mg/dl (0.60-1.40); GLUCOSE 108 mg/dl (70-99); MAGNESIUM 1.9 mg/dl (1.8-2.4); POTASSIUM 3.6 mmol/L (3.5-5.1); SODIUM 141 mmol/L (136-145)
[2017-02-09 08:29] LABS: ALB/GLOB RATIO 0.6 (0.9-2); ALKALINE PHOSPHATASE 81 U/L (45-117); AST/SGOT 15 U/L (15-37)
== END ==
LOC: C.LABCC 07:59
PROVIDERS: ATTEND Internal Medicine
DX: R55 Syncope and collapse (principal)

== ENCOUNTER 2017-02-18 10:01 | Inpatient (IN) | payer BC, OTHER ==
[2017-02-18] VITALS (10 sets, daily range): BP systolic 117–149; BP diastolic 69–90; PULSE 113–128; TEMP 36.6–37.4; O2SAT 91–95; Ht 172.7 cm; Wt 51.8 kg
[~2017-02-18] VITALS: Ht 172.7 cm; Wt 51.8 kg
[~2017-02-18 10:01] MED LIST changes: -ACET-1311 PO; -FLUD0.1T10 PO
[2017-02-18] MEDS ORDERED: SODIUM CHLORIDE 0.9% 1000ML 1,000 ML IV STA ×3 (10:22→12:07)
[2017-02-18 10:44] LABS: BASO % 0.1 %; BASO ABS # 0.02 K/uL (0-0.2); COMPLETE YES; HEMATOCRIT 42.4 % (42-52); IG% 0.5 %; LYMPH % 6.3 %; LYMPH ABS # 1.13 K/uL (1.2-3.4); MEAN CELL VOLUME 87.1 fL (80-100); MEAN CORPUSCULAR HEMOGLOBIN 27.1 pg (25-34); MEAN CORPUSCULAR HGB CONC 31.1 g/dl (32-36); MEAN PLATELET VOLUME 10.2 fL (7.4-10.4); MONO % 6.7 %; NEUT % 86.4 %; PLATELET COUNT 351 K/uL (130-400); RED BLOOD COUNT 4.87 M/uL (4.7-6.1); WHITE BLOOD COUNT 17.82 K/uL (4.8-10.8)
--- NOTE | 2017-02-18 10:51 | DIAGNOSTIC IMAGING REPORT ---
CHEST ONE VIEW PORTABLE CLINICAL HISTORY: fever COMPARISON STUDY: 02/08/2017 FINDINGS: The heart is borderline enlarged. There is no failure. There is no focal pulmonary consolidation. There are no pleural effusions.[ IMPRESSION: No active disease in the chest. Electronically signed by: Leodan Galindo M.D. 02/18/2017 10:49 AM Dictated Date/Time: 02/18/2017 10:49 AM
[2017-02-18] MEDS ORDERED: ACETAMINOPHEN IV 650 MG in EMPTY BAG 0 ML IV STA (11:02)
[2017-02-18] MEDS ORDERED: CEFEPIME IV 1,000 MG in DEXTROSE 5% 100ML 100 ML IV STA (11:05)
[2017-02-18] MEDS ORDERED: ACETAMINOPHEN 1000 MG/100 ML IV IV ONE (11:05)
[2017-02-18] MEDS ORDERED: ACET-1311 PO (11:23)
[2017-02-18] MEDS ORDERED: FLUD0.1T10 PO (11:23)
[2017-02-18 11:47] LABS: INR 1.3 (0.9-1.1); PARTIAL THROMBOPLASTIN RATIO 1.1; PROTHROMBIN TIME (PATIENT) 14.1 SECONDS (9.0-12.0)
--- NOTE | 2017-02-18 12:06 | DIAGNOSTIC IMAGING REPORT ---
CT HEAD WITHOUT CONTRAST (CT) CLINICAL HISTORY: Acute change in mental status. Lethargy. COMPARISON STUDY: 11/07/2016 TECHNIQUE: Axial CT of the brain is performed from the vertex to the skull base. IV contrast was not administered for this examination. A dose lowering technique was utilized adhering to the principles of ALARA. CT DOSE: FINDINGS: No intra or extra-axial mass lesions are visualized. There is no CT evidence of acute cortical infarction. There is no evidence of midline shift. There is no acute hemorrhage. No calvarial fractures are visualized. There are patchy white matter hypodensities likely on a small vessel basis. There is stable ventricular dilatation, likely secondary to volume loss There is no evidence of acute sinusitis IMPRESSION: No acute intracranial findings Electronically signed by: Leodan Galindo M.D. 02/18/2017 12:05 PM Dictated Date/Time: 02/18/2017 12:03 PM
[2017-02-18 12:09] LABS: BUN/CREATININE RATIO 25.7 (10-20); CALCIUM 8.2 mg/dl (8.5-10.1); CREATININE 4.6 mg/dl (0.60-1.40); MAGNESIUM 2.9 mg/dl (1.8-2.4); POTASSIUM 5.3 mmol/L (3.5-5.1); THYROID STIMULATING HORMONE 0.709 uIu/ml (0.300-4.500)
[2017-02-18 12:15] LABS: URINE APPEARANCE TURBID (CLEAR); URINE BILIRUBIN NEG (NEG); URINE COLOR ORANGE; URINE EPITHELIAL CELL AUTO >30 /lpf (0-5); URINE NITRITE NEG (NEG); URINE PH >= 9.0 (4.5-7.5); URINE SPECIFIC GRAVITY 1.018 (1.000-1.030); UROBILINOGEN NEG (NEG)
--- NOTE | 2017-02-18 12:22 | EMERGENCY ROOM VISIT NOTE ---
History Report prepared by Negrito: Arias Nance Under the Supervision of: Dr. Janee Pimentel D.O. First contact with patient: 10:07 Chief Complaint: ALTERED MENTAL STATUS Stated Complaint: LETHARGIC/AMS History of Present Illness The patient is a 76 year old male who presents to the Emergency Room with complaints of a persistent altered mental status beginning yesterday. He is a resident at [facility]. He has a history of dementia and CVA. The patient is reported to have had increased confusion yesterday, and was found to be febrile this morning. HPI limited secondary to AMS. Source of History: nursing staff History Limited By: AMS Onset: Today Quality: other (altered mental status) Timing: other (persistent) Associated Symptoms: + fevers Review of Systems ROS limited secondary to AMS. Past Medical & Surgical Medical Problems: (1) CAD (coronary artery disease) (2) Hyperlipidemia (3) Hypertension (4) Mental status change (5) Myocardial infarction (6) Rhabdomyolysis (7) Sepsis due to urinary tract infection Surgical Problems: (1) H/O inguinal hernia repair (2) Hx of colonoscopy Family History Dementia Heart disease Hypertension Myocardial infarction at age less than 60 Social History Smoking Status: Unknown if Ever Smoked Drug Use: none Marital Status: Housing Status: lives with family Occupation Status: retired Current/Historical Medications Scheduled Acetaminophen (Tylenol), 650 MG PO HS Cholestyramine (Cholestyramine Light), 4 GM PO BID Fludrocortisone Acetate (Florinef), 0.1 MG PO DAILY Quetiapine Fumarate (Seroquel), 100 MG PO HS Quetiapine Fumarate (Seroquel), 25 MG PO QAM Rivastigmine Tartrate (Exelon), 3 MG PO BID Saccharomyces Boulardii (Florastor), 250 MG PO BID Sertraline (Zoloft), 50 MG PO QAM Simvastatin (Zocor), 40 MG PO QPM Allergies Coded Allergies: No Known Allergies (Verified , 02/18/17) Physical Exam Vital Signs Date Time Temp Pulse Resp B/P (MAP) Pulse Ox O2 Delivery O2 Flow Rate FiO2 02/18/17 12:31 120/82 02/18/17 12:25 112 37 93 Nasal Cannula 3.0 02/18/17 12:20 111/68 02/18/17 11:41 110 30 107/74 93 Nasal Cannula 3.0 02/18/17 11:36 115 28 97 Non-Rebreather 15.0 02/18/17 11:31 114/71 02/18/17 11:26 113 41 98 Non-Rebreather 15.0 02/18/17 11:21 120/69 02/18/17 11:16 121 38 99 Non-Rebreather 15.0 02/18/17 11:11 119/72 02/18/17 11:06 117 35 99 02/18/17 11:01 118/76 02/18/17 10:56 123 38 99 02/18/17 10:51 118 36 116/73 100 Non-Rebreather 15.0 02/18/17 10:42 118/62 02/18/17 10:41 129 34 100 02/18/17 10:31 133 43 123/76 98 02/18/17 10:29 141 02/18/17 10:27 114/83 02/18/17 10:23 132 02/18/17 10:21 111 45 100 02/18/17 10:11 69 41 99 02/18/17 10:04 92/65 02/18/17 10:01 100 Non-Rebreather 15.0 02/18/17 10:01 100 Non-Rebreather 15.0 02/18/17 10:01 38.7 135 42 114/82 100 Non-Rebreather 15.0 Physical Exam GENERAL: Frail and cachectic appearing. EYE EXAM: normal conjunctiva, PERRL and EOM's grossly intact OROPHARYNX: no exudate, no erythema, lips, buccal mucosa, and tongue normal and mucous membranes are moist NECK: supple, no nuchal rigidity, no adenopathy, non-tender LUNGS: Decreased breath sounds bilaterally, but no wheezes rhonchi or rales. HEART: no murmurs, S1 normal and S2 normal ABDOMEN: abdomen soft, non-tender, normo-active bowel sounds, no masses, no rebound or guarding. BACK: Back is symmetrical on inspection and there is no deformity, no midline tenderness, no CVA tenderness. SKIN: Skin is pale and cool. No rashes and no bruising. UPPER EXTREMITIES: upper extremities are grossly normal. LOWER EXTREMITIES: No pitting edema. NEURO EXAM: Winces with painful stimuli. Able to squeeze hand. Does not open eyes. Non-verbal. GCS of 6. Medical Decision & Procedures ER Provider Diagnostic Interpretation: Radiology results have been interpreted by the radiologist and reviewed by me. CHEST ONE VIEW PORTABLE FINDINGS: The heart is borderline enlarged. There is no failure. There is no focal pulmonary consolidation. There are no pleural effusions.[ IMPRESSION: No active disease in the chest. Electronically signed by: Leodan Galindo M.D. 02/18/2017 10:[address] HEAD WITHOUT CONTRAST (CT) FINDINGS: No intra or extra-axial mass lesions are visualized. There is no CT evidence of acute cortical infarction. There is no evidence of midline shift. There is no acute hemorrhage. No calvarial fractures are visualized. There are patchy white matter hypodensities likely on a small vessel basis. There is stable ventricular dilatation, likely secondary to volume loss There is no evidence of acute sinusitis IMPRESSION: No acute intracranial findings Electronically signed by: Leodan Galindo M.D. 02/18/2017 12:05 PM Laboratory Results 02/18/17 10:00 Red Blood Count 4.87, Mean Corpuscular Volume 87.1, Mean Corpuscular Hemoglobin 27.1, Mean Corpuscular Hemoglobin Concent 31.1, Mean Platelet Volume 10.2, Neutrophils (%) (Auto) 86.4, Lymphocytes (%) (Auto) 6.3, Monocytes (%) (Auto) 6.7, Eosinophils (%) (Auto) 0.0, Basophils (%) (Auto) 0.1, Neutrophils # (Auto) 15.39, Lymphocytes # (Auto) 1.13, Monocytes # (Auto) 1.19, Eosinophils # (Auto) 0.00, Basophils # (Auto) 0.02 02/18/17 11:20 Test 02/18/17 10:00 02/18/17 10:20 02/18/17 11:20 White Blood Count 17.82 K/uL (4.8-10.8) Red Blood Count 4.87 M/uL (4.7-6.1) Hemoglobin 13.2 g/dL (14.0-18.0) Hematocrit 42.4 % (42-52) Mean Corpuscular Volume 87.1 fL (80-100) Mean Corpuscular Hemoglobin 27.1 pg (25-34) Mean Corpuscular Hemoglobin Concent 31.1 g/dl (32-36) Platelet Count 351 K/uL (130-400) Mean Platelet Volume 10.2 fL (7.4-10.4) Neutrophils (%) (Auto) 86.4 % Lymphocytes (%) (Auto) 6.3 % Monocytes (%) (Auto) 6.7 % Eosinophils (%) (Auto) 0.0 % Basophils (%) (Auto) 0.1 % Neutrophils # (Auto) 15.39 K/uL (1.4-6.5) Lymphocytes # (Auto) 1.13 K/uL (1.2-3.4) Monocytes # (Auto) 1.19 K/uL (0.11-0.59) Eosinophils # (Auto) 0.00 K/uL (0-0.5) Basophils # (Auto) 0.02 K/uL (0-0.2) RDW Standard Deviation 53.1 fL (36.4-46.3) RDW Coefficient of Variation 16.7 % (11.5-14.5) Immature Granulocyte % (Auto) 0.5 % Immature Granulocyte # (Auto) 0.09 K/uL (0.00-0.02) Urine Color ORANGE Urine Appearance TURBID (CLEAR) Urine pH >= 9.0 (4.5-7.5) Urine Specific Gibson 1.018 (1.000-1.030) Urine Protein 1+ (NEG) Urine Glucose (UA) NEG (NEG) Urine Ketones NEG (NEG) Urine Occult Blood 3+ (NEG) Urine Nitrite NEG (NEG) Urine Bilirubin NEG (NEG) Urine Urobilinogen NEG (NEG) Urine Leukocyte Esterase LARGE (NEG) Urine WBC (Auto) >30 /hpf (0-5) Urine RBC (Auto) >30 /hpf (0-4) Urine Hyaline Casts (Auto) 1-5 /lpf (0-5) Urine Epithelial Cells (Auto) >30 /lpf (0-5) Urine Bacteria (Auto) 4+ (NEG) Urine Crystals TRIPLE PHOSPHATE Urine Yeast (Auto) (NONE PRSENT) Prothrombin Time 14.1 SECONDS (9.0-12.0) Prothromb Time International Ratio 1.3 (0.9-1.1) Activated Partial Thromboplast Time 28.8 SECONDS (21.0-31.0) Partial Thromboplastin Ratio 1.1 Anion Gap 10.0 mmol/L (3-11) Est Creatinine Clear Calc Drug Dose 9.7 ml/min Estimated GFR () 13.4 Estimated GFR (Non- 11.6 BUN/Creatinine Ratio 25.7 (10-20) Calcium Level 8.2 mg/dl (8.5-10.1) Magnesium Level 2.9 mg/dl (1.8-2.4) Total Bilirubin 0.3 mg/dl (0.2-1) Direct Bilirubin 0.1 mg/dl (0-0.2) Aspartate Amino Transf (AST/SGOT) 40 U/L (15-37) Alanine Aminotransferase (ALT/SGPT) 28 U/L (12-78) Alkaline Phosphatase 84 U/L (45-117) Troponin I 0.199 ng/ml (0-0.045) Total Protein 6.3 gm/dl (6.4-8.2) Albumin 2.0 gm/dl (3.4-5.0) Thyroid Stimulating Hormone (TSH) 0.709 uIu/ml (0.300-4.500) Laboratory results per my review. Medications Administered Medications (Trade) Dose Ordered Sig/Yuli Route Start Time Stop Time Status Last Admin Dose Admin Sodium Chloride 1,000 ml @ 999 mls/hr Q1H1M STAT IV 02/18/17 10:22 02/18/17 11:22 DC 02/18/17 10:01 999 MLS/HR Sodium Chloride 1,000 ml @ 999 mls/hr Q1H1M STAT IV 02/18/17 10:22 02/18/17 11:22 DC 02/18/17 10:10 999 MLS/HR Acetaminophen (Ofirmev Iv) 1,000 mg STK-MED ONCE IV 02/18/17 11:05 02/18/17 11:06 DC 02/18/17 11:17 1,000 MG Cefepime HCl 1000 mg/Dextrose 111.3 ml @ 200 mls/hr NOW STAT IV 02/18/17 11:05 02/18/17 11:38 DC 02/18/17 11:29 200 MLS/HR Sodium Chloride 1,000 ml @ 125 mls/hr Q8H STAT IV 02/18/17 12:07 02/18/17 14:19 DC 02/18/17 12:16 125 MLS/HR ECG Indication: altered mental status Rate (beats per minute): 130 Rhythm: sinus tachycardia Findings: no acute ischemic change, other (Normal intervals. LAD. ) ED Course 1013: The patient was evaluated in room B9. A complete history and physical exam was performed. 1022: Ordered Sodium Chloride 1000 ml @ 999 mls/hr IV, Sodium Chloride 1000 ml @ 999 mls/hr IV. 1036: I checked in on the patient. He is unchanged. 1100: I spoke with the patient's over the phone. She confirms that the patient is DNR/DNI, but is okay to receive other treatment. 1102: Ordered Acetaminophen 650 mg 65 mL @ 260 mL/hr IV. 1105: Ordered Cefepime HCl 1000 mg/Dextrose 111.3 mL @ 200 mL/hr IV. 1115: I discussed the patient's case with his step son over the phone. 1150: Upon reevaluation, the patient is resting comfortably. I discussed the findings and the treatment plan with the patient. He expresses agreement and understanding. I spoke with Dr. Thacker of the [facility] Hospitalist Service. He will be evaluated for further management. 1207: Ordered Sodium Chloride 1000 ml @ 125 mls/hr IV. Medical Decision Differential diagnosis: Etiologies such as metabolic, infection, hypoglycemia, electrolyte abnormalities , cardiac sources, intracerebral event, toxicologic, neurologic, as well as others were entertained. Review of EMR: Patient was seen in the ED 10 days ago for an episode of hypoxia and unresponsiveness. He had a CT chest which was normal and was discharged to [facility]. Patient here with history of dementia, however worsening mental status compared to baseline and today developed a fever. Patient initially found to be very clinically dehydrated, as well as likely septic in the setting of a fever with tachycardia and hypotension. Patient responded appropriately and quickly to IV fluid resuscitation. Cultures drawn, patient started on antibiotics, most likely source urine. Discussed with pharmacy prior to order. Discussion with patient's spouse as well as stepson regarding CODE STATUS and interventions. Patient is DNR/DNI. Electrolyte abnormalities likely from severe dehydration and renal failure. Doubt neuro etiology of AMS, more likely from sepsis/ARF/ dehydration. Medication Reconcilliation Current Medication List: was personally reviewed by me Blood Pressure Screening Patient's blood pressure: Normal blood pressure Blood pressure disposition: Did not require urgent referral Consults Time Called: 1143 Consulting Physician: Dr. Thacker -ROSEMARY Returned Call: 1153 I reviewed the patient's case with Dr. Thacker. [facility] for further management. Impression Primary Impression: Sepsis Additional Impressions: Acute renal failure Elevated troponin Mental status change Dehydration Hypernatremia Hyperkalemia Critical Care I have personally spent 35 minutes of critical care time in the direct management of this patient. This includes bedside care, interpretation of diagnostic studies, and testing, discussion with consultants, patient, and family members, and other required patient management activities. This 35 minutes is in excess of all separately billable procedures. Scribe Attestation The scribe's documentation has been prepared under my direction and personally reviewed by me in its entirety. I confirm that the note above accurately reflects all work, treatment, procedures, and medical decision making performed by me. Departure Information Dispostion Being Evaluated By Hospitalist Referrals Bianka Zavala (PCP) Patient Instructions My [facility] Problem Qualifiers Primary Impression: Sepsis Sepsis type: sepsis due to unspecified organism Qualified Codes: A41.9 - Sepsis, unspecified organism Additional Impressions: Acute renal failure Acute renal failure type: unspecified Qualified Codes: N17.9 - Acute kidney failure, unspecified Mental status change Altered mental status type: unspecified Qualified Codes: R41.82 - Altered mental status, unspecified
[2017-02-18 12:28] LABS: MANUAL MICROSCOPIC REQUIRED? NO; REVIEW REQ? YES; SULFASALICYLIC ACID POS (NEG)
[2017-02-18] MEDS ORDERED: SODIUM CHLORIDE 0.9% 1000ML 1,000 ML IV SCH (12:32)
[2017-02-18] MEDS ORDERED: VANCOMYCIN INJ 1,000 MG in SODIUM CHLORIDE 0.9% 250ML 250 ML IV SCH (12:32)
[2017-02-18] MEDS ORDERED: ONDANSETRON INJ 2 MG/ML 2 ML VIAL IV PRN (12:45)
[2017-02-18] MEDS ORDERED: ENOXAPARIN 30 MG/0.3 ML SYR SC SCH (12:45)
[2017-02-18] MEDS ORDERED: ALBUMIN HUMAN 25% 12.5 GM/50 ML VIAL IV SCH (12:45)
[2017-02-18] MEDS ORDERED: VANCOMYCIN 1GM/270ML NSS 270 ML IV ONE (13:00)
[2017-02-18] MEDS ORDERED: VANCOMYCIN INJ 1,000 MG in SODIUM CHLORIDE 0.9% 250ML 250 ML IV ONE (13:00)
[2017-02-18] MEDS ORDERED: PIPERACILL/TAZOBAC CONSULT ACTIVE PRN (13:30)
[2017-02-18] MEDS ORDERED: VANCOMYCIN CONSULT ACTIVE PRN (13:45)
[2017-02-18] MEDS ORDERED: CEFEPIME CONSULT ACTIVE PRN ×2 (13:45)
[2017-02-18] MEDS ORDERED: PIPERACILL/TAZOBAC IV 3.375 GM in DEXTROSE 5% 100ML 100 ML IV SCH (14:00)
[2017-02-18] MEDS ORDERED: SODIUM CHLORIDE 0.45% 1000ML 1,000 ML IV SCH (14:15)
--- NOTE | 2017-02-18 15:32 | Pharmacy Progress Note ---
Pharmacy Antibiotic Consult Date of Service: Feb 18, 2017. Pharmacy Dosing Scope * Pharmacy is consulted to initiate Vancomycin IV dosing therapy, order appropriate labs and adjust drug dose/frequency. Subjective * The patient is a 76 year old male admitted on Feb 18, 2017 at 12:32 for AMS, complicated UTI. Objective Height (Feet): 5 Height (Inches): 8.00 Weight (Kilograms): 49.200 Lab Results (24hrs): Test 02/18/17 10:00 02/18/17 10:20 02/18/17 11:20 02/18/17 14:22 White Blood Count 17.82 K/uL (4.8-10.8) Red Blood Count 4.87 M/uL (4.7-6.1) Hemoglobin 13.2 g/dL (14.0-18.0) Hematocrit 42.4 % (42-52) Mean Corpuscular Volume 87.1 fL (80-100) Mean Corpuscular Hemoglobin 27.1 pg (25-34) Mean Corpuscular Hemoglobin Concent 31.1 g/dl (32-36) Platelet Count 351 K/uL (130-400) Mean Platelet Volume 10.2 fL (7.4-10.4) Neutrophils (%) (Auto) 86.4 % Lymphocytes (%) (Auto) 6.3 % Monocytes (%) (Auto) 6.7 % Eosinophils (%) (Auto) 0.0 % Basophils (%) (Auto) 0.1 % Neutrophils # (Auto) 15.39 K/uL (1.4-6.5) Lymphocytes # (Auto) 1.13 K/uL (1.2-3.4) Monocytes # (Auto) 1.19 K/uL (0.11-0.59) Eosinophils # (Auto) 0.00 K/uL (0-0.5) Basophils # (Auto) 0.02 K/uL (0-0.2) RDW Standard Deviation 53.1 fL (36.4-46.3) RDW Coefficient of Variation 16.7 % (11.5-14.5) Immature Granulocyte % (Auto) 0.5 % Immature Granulocyte # (Auto) 0.09 K/uL (0.00-0.02) Urine Color ORANGE Urine Appearance TURBID (CLEAR) Urine pH >= 9.0 (4.5-7.5) Urine Specific Taylor 1.018 (1.000-1.030) Urine Protein 1+ (NEG) Urine Glucose (UA) NEG (NEG) Urine Ketones NEG (NEG) Urine Occult Blood 3+ (NEG) Urine Nitrite NEG (NEG) Urine Bilirubin NEG (NEG) Urine Urobilinogen NEG (NEG) Urine Leukocyte Esterase LARGE (NEG) Urine WBC (Auto) >30 /hpf (0-5) Urine RBC (Auto) >30 /hpf (0-4) Urine Hyaline Casts (Auto) 1-5 /lpf (0-5) Urine Epithelial Cells (Auto) >30 /lpf (0-5) Urine Bacteria (Auto) 4+ (NEG) Urine Crystals TRIPLE PHOSPHATE Urine Yeast (Auto) (NONE PRSENT) Prothrombin Time 14.1 SECONDS (9.0-12.0) Prothromb Time International Ratio 1.3 (0.9-1.1) Activated Partial Thromboplast Time 28.8 SECONDS (21.0-31.0) Partial Thromboplastin Ratio 1.1 Sodium Level 162 mmol/L (136-145) Potassium Level 5.3 mmol/L (3.5-5.1) Chloride Level 133 mmol/L (98-107) Carbon Dioxide Level 19 mmol/L (21-32) Anion Gap 10.0 mmol/L (3-11) Blood Urea Nitrogen 116 mg/dl (7-18) Creatinine 4.60 mg/dl (0.60-1.40) Est Creatinine Clear Calc Drug Dose 9.7 ml/min Estimated GFR () 13.4 Estimated GFR (Non- 11.6 BUN/Creatinine Ratio 25.7 (10-20) Random Glucose 165 mg/dl (70-99) Lactic Acid Level 2.2 mmol/L (0.4-2.0) 1.5 mmol/L (0.4-2.0) Calcium Level 8.2 mg/dl (8.5-10.1) Magnesium Level 2.9 mg/dl (1.8-2.4) Total Bilirubin 0.3 mg/dl (0.2-1) Direct Bilirubin 0.1 mg/dl (0-0.2) Aspartate Amino Transf (AST/SGOT) 40 U/L (15-37) Alanine Aminotransferase (ALT/SGPT) 28 U/L (12-78) Alkaline Phosphatase 84 U/L (45-117) Troponin I 0.199 ng/ml (0-0.045) Total Protein 6.3 gm/dl (6.4-8.2) Albumin 2.0 gm/dl (3.4-5.0) Thyroid Stimulating Hormone (TSH) 0.709 uIu/ml (0.300-4.500) Micro Results: * Blood and urine cultures are pending Recent Pertinent Medications * Pt is also receiving Cefepime 1gm IV every 24 hours Assessment & Plan * Mr. Simon is admitted with AMS d/t complicated UTI. * Baseline Scr ~1-1.2, now 4.6 (CrCl ~10ML/min) * Loading dose of Vanco 1gm given upon admission and will order an random level with am labs on 02/19/17. Hopefully renal function will improve and pharmacy will redose both vanco and cefepime. Pharmacy will continue to follow and will adjust dose/frequency as necessary. Thank you
--- NOTE | 2017-02-18 15:37 | History and Physical ---
History & Physical Date & Time of Service: Feb 18, 2017 at 15:21 Chief Complaint: Acute Renal Failure, Sepsis Due To Uti Primary Care Physician: Bianka Zavala History of Present Illness Source: clinic records, hospital records The patient is unable to contribute to his history of present illness due to altered mental status and baseline dementia. He is a resident of [facility], who was brought into the ED due to increased confusion that began yesterday, and developed a temperature this morning. Past Medical/Surgical History Medical Problems: (1) CAD (coronary artery disease) Status: Chronic (2) Hyperlipidemia Status: Chronic (3) Hypertension Status: Chronic (4) Myocardial infarction Status: Resolved Surgical Problems: (1) H/O inguinal hernia repair Status: Resolved (2) Hx of colonoscopy Status: Resolved Family History Dementia Heart disease Hypertension Myocardial infarction at age less than 60 Social History Smoking Status: Unknown if Ever Smoked Smokeless Tobacco Use: No Alcohol Use: none Drug Use: none Marital Status: Housing status: long-term Occupational Status: retired Immunizations History of Influenza Vaccine: Yes Influenza Vaccine Date: October 02, 2009 History of Tetanus Vaccine?: Yes Tetanus Immunization Date: Nov 02, 1996 History of Pneumococcal: Yes Pneumococcal Date: Apr 06, 2010 History of Hepatitis B Vaccine: No Multi-Drug Resistant Organisms History of MDRO: No Allergies Coded Allergies: No Known Allergies (Verified , 02/18/17) Home Medications Scheduled Acetaminophen (Tylenol), 650 MG PO HS Cholestyramine (Cholestyramine Light), 4 GM PO BID Fludrocortisone Acetate (Florinef), 0.1 MG PO DAILY Quetiapine Fumarate (Seroquel), 100 MG PO HS Quetiapine Fumarate (Seroquel), 25 MG PO QAM Rivastigmine Tartrate (Exelon), 3 MG PO BID Saccharomyces Boulardii (Florastor), 250 MG PO BID Sertraline (Zoloft), 50 MG PO QAM Simvastatin (Zocor), 40 MG PO QPM Review of Systems The patient is unable to participate in review of systems due to altered mental state and baseline dementia. Otherwise as above. Physical Exam Vital Signs Date Time Temp Pulse Resp B/P (MAP) Pulse Ox O2 Delivery O2 Flow Rate FiO2 02/18/17 14:00 36.6 113 20 117/76 94 Nasal Cannula 3.0 02/18/17 13:15 37.6 02/18/17 13:14 37.6 100 25 101/73 94 02/18/17 13:06 108 27 94 Nasal Cannula 3.0 02/18/17 13:01 101/73 02/18/17 12:36 110 28 94 02/18/17 12:31 120/82 02/18/17 12:25 112 37 93 Nasal Cannula 3.0 02/18/17 12:20 111/68 02/18/17 11:41 110 30 107/74 93 Nasal Cannula 3.0 02/18/17 11:36 115 28 97 Non-Rebreather 15.0 02/18/17 11:31 114/71 02/18/17 11:26 113 41 98 Non-Rebreather 15.0 02/18/17 11:21 120/69 02/18/17 11:16 121 38 99 Non-Rebreather 15.0 02/18/17 11:11 119/72 02/18/17 11:06 117 35 99 02/18/17 11:01 118/76 02/18/17 10:56 123 38 99 02/18/17 10:51 118 36 116/73 100 Non-Rebreather 15.0 02/18/17 10:42 118/62 02/18/17 10:41 129 34 100 02/18/17 10:31 133 43 123/76 98 02/18/17 10:29 141 02/18/17 10:27 114/83 02/18/17 10:23 132 02/18/17 10:21 111 45 100 02/18/17 10:11 69 41 99 02/18/17 10:04 92/65 02/18/17 10:01 100 Non-Rebreather 15.0 02/18/17 10:01 100 Non-Rebreather 15.0 02/18/17 10:01 38.7 135 42 114/82 100 Non-Rebreather 15.0 The patient is somnolent, looks chronically ill, has nonrebreather mask on, lying in bed and in mild distress. HEENT--PERRL, EOMI, mucous membranes and oropharynx dry. Neck--supple, no JVD or bruits, thyroid normal, trachea midline, no adenopathy. Heart--mildly tachycardic, no murmurs, rubs or gallops. Lungs--clear bilaterally but decreased throughout, mild respiratory distress, no accessory muscle use. Abdomen--normal bowel sounds and soft, nontender and nondistended, no hernias or masses, no organomegaly. Extremities--no cyanosis, clubbing or edema. There are good distal pulses b/l. Dermatologic--normal skin turgor, normal color, warm and dry, no abnormal lymph nodes, no rash. Neurologic--cranial nerves II through XII grossly intact. Rheumatologic--moves all 4 extremities. Psychiatric--somnolent Diagnostics Laboratory Results Results Past 24 Hours Test 02/18/17 10:00 02/18/17 10:20 02/18/17 11:20 02/18/17 14:22 Range/Units White Blood Count 17.82 4.8-10.8 K/uL Red Blood Count 4.87 4.7-6.1 M/uL Hemoglobin 13.2 14.0-18.0 g/dL Hematocrit 42.4 42-52 % Mean Corpuscular Volume 87.1 80-100 fL Mean Corpuscular Hemoglobin 27.1 25-34 pg Mean Corpuscular Hemoglobin Concent 31.1 32-36 g/dl Platelet Count 351 130-400 K/uL Mean Platelet Volume 10.2 7.4-10.4 fL Neutrophils (%) (Auto) 86.4 % Lymphocytes (%) (Auto) 6.3 % Monocytes (%) (Auto) 6.7 % Eosinophils (%) (Auto) 0.0 % Basophils (%) (Auto) 0.1 % Neutrophils # (Auto) 15.39 1.4-6.5 K/uL Lymphocytes # (Auto) 1.13 1.2-3.4 K/uL Monocytes # (Auto) 1.19 0.11-0.59 K/uL Eosinophils # (Auto) 0.00 0-0.5 K/uL Basophils # (Auto) 0.02 0-0.2 K/uL RDW Standard Deviation 53.1 36.4-46.3 fL RDW Coefficient of Variation 16.7 11.5-14.5 % Immature Granulocyte % (Auto) 0.5 % Immature Granulocyte # (Auto) 0.09 0.00-0.02 K/uL Urine Color ORANGE Urine Appearance TURBID CLEAR Urine pH >= 9.0 4.5-7.5 Urine Specific [place] 1.018 1.000-1.030 Urine Protein 1+ NEG Urine Glucose (UA) NEG NEG Urine Ketones NEG NEG Urine Occult Blood 3+ NEG Urine Nitrite NEG NEG Urine Bilirubin NEG NEG Urine Urobilinogen NEG NEG Urine Leukocyte Esterase LARGE NEG Urine WBC (Auto) >30 0-5 /hpf Urine RBC (Auto) >30 0-4 /hpf Urine Hyaline Casts (Auto) 1-5 0-5 /lpf Urine Epithelial Cells (Auto) >30 0-5 /lpf Urine Bacteria (Auto) 4+ NEG Urine Crystals TRIPLE PHOSPHATE NONE PRSENT Urine Yeast (Auto) NONE PRSENT Prothrombin Time 14.1 9.0-12.0 SECONDS Prothromb Time International Ratio 1.3 0.9-1.1 Activated Partial Thromboplast Time 28.8 21.0-31.0 SECONDS Partial Thromboplastin Ratio 1.1 Sodium Level 162 136-145 mmol/L Potassium Level 5.3 3.5-5.1 mmol/L Chloride Level 133 98-107 mmol/L Carbon Dioxide Level 19 21-32 mmol/L Anion Gap 10.0 3-11 mmol/L Blood Urea Nitrogen 116 7-18 mg/dl Creatinine 4.60 0.60-1.40 mg/dl Est Creatinine Clear Calc Drug Dose 9.7 ml/min Estimated GFR () 13.4 Estimated GFR (Non- 11.6 BUN/Creatinine Ratio 25.7 10-20 Random Glucose 165 70-99 mg/dl Lactic Acid Level 2.2 1.5 0.4-2.0 mmol/L Calcium Level 8.2 8.5-10.1 mg/dl Magnesium Level 2.9 1.8-2.4 mg/dl Total Bilirubin 0.3 0.2-1 mg/dl Direct Bilirubin 0.1 0-0.2 mg/dl Aspartate Amino Transf (AST/SGOT) 40 15-37 U/L Alanine Aminotransferase (ALT/SGPT) 28 12-78 U/L Alkaline Phosphatase 84 45-117 U/L Troponin I 0.199 0-0.045 ng/ml Total Protein 6.3 6.4-8.2 gm/dl Albumin 2.0 3.4-5.0 gm/dl Thyroid Stimulating Hormone (TSH) 0.709 0.300-4.500 uIu/ml Microbiology Results 02/18/17 Blood Culture, Received Pending 02/18/17 Blood Culture, Received Pending 02/18/17 MRSA DNA Surveillance Screen, Received Pending 02/18/17 Urine Culture, Ordered Pending Diagnostic Radiology Patient Name: VEENA LACY Unit Number: [id number] Dictated: 02/18/171048 Transcribed: 02/18/171048 ARG Printed Date/Time: [~ rep prt dt]/[~ rep prt tm] [~ rep ct labl] - [~ rep ct ivnm] [facility] [place] [address] Dictated: 02/18/171048 Transcribed: 02/18/171048 ARG Printed Date/Time: [~ rep prt dt]/[~ rep prt tm] [~ rep ct labl] - [~ rep ct ivnm] [~ rep ct add3]] CHEST ONE VIEW PORTABLE CLINICAL HISTORY: fever COMPARISON STUDY: 02/08/2017 FINDINGS: The heart is borderline enlarged. There is no failure. There is no focal pulmonary consolidation. There are no pleural effusions.[ IMPRESSION: No active disease in the chest. Electronically signed by: Leodan Galindo M.D. 02/18/2017 10:49 AM Dictated Date/Time: 02/18/2017 10:49 AM The status of this report is Signed. Draft = Not yet reviewed or approved by Radiologist. Signed = Reviewed and approved by Radiologist. <AttendingPhy></AttendingPhy> <[facility]hy>[facility]</FamilyPhy> <Primary[facility]hy> [facility]</PrimaryPhy> <UnitNumber>[id number]</UnitNumber> <VisitNumber> [id number]</VisitNumber> <PatientName>VEENA LACY</PatientName> <DateOfBirth> 1940</DateOfBirth> <Location>C.EDB</Location> <ServiceDate>02/18/17</ ServiceDate> <MNE>ESINDI</MNE> <OrderingPhy>PheJanee french DO</OrderingPhy> < OrderingPhyMNE>f rep ord dr hale</OrderingPhyMNE> <DictatingPhyMNE>f rep dict dr hale</DictatingPhyMNE> <CCListMNE>f rep ct mne</CCListMNE> <AdmittingPhyMNE>f pt admit dr hale</AdmittingPhyMNE> <AttendingPhyMNE>f pt attend dr hale</ AttendingPhyMNE> <ConsultingPhyMNE>f pt consult dr hale</ConsultingPhyMNE> <FamilyPhyMNE>f pt fam dr hale</FamilyPhyMNE> <OtherPhyMNE>f pt other dr hale</OtherPhyMNE> < PrimaryPhyMNE>f pt prim care dr hale</PrimaryPhyMNE> <ReferringPhyMNE>f pt referring dr hale</ReferringPhyMNE> Patient Name: VEENA LACY Unit Number: [id number] Dictated: 02/18/171202 Transcribed: 02/18/171202 ARG Printed Date/Time: [~ rep prt dt]/[~ rep prt tm] [~ rep ct labl] - [~ rep ct ivnm] [facility] Radiology Department [place] [id number] Dictated: 02/18/171202 Transcribed: 02/18/171202 ARG Printed Date/Time: [~ rep prt dt]/[~ rep prt tm] [~ rep ct labl] - [~ rep ct ivnm] [~ rep ct add3]] CT HEAD WITHOUT CONTRAST (CT) CLINICAL HISTORY: Acute change in mental status. Lethargy. COMPARISON STUDY: 11/07/2016 TECHNIQUE: Axial CT of the brain is performed from the vertex to the skull base. IV contrast was not administered for this examination. A dose lowering technique was utilized adhering to the principles of ALARA. CT DOSE: FINDINGS: No intra or extra-axial mass lesions are visualized. There is no CT evidence of acute cortical infarction. There is no evidence of midline shift. There is no acute hemorrhage. No calvarial fractures are visualized. There are patchy white matter hypodensities likely on a small vessel basis. There is stable ventricular dilatation, likely secondary to volume loss There is no evidence of acute sinusitis IMPRESSION: No acute intracranial findings Electronically signed by: Leodan Galindo M.D. 02/18/2017 12:05 PM Dictated Date/Time: 02/18/2017 12:03 PM The status of this report is Signed. Draft = Not yet reviewed or approved by Radiologist. Signed = Reviewed and approved by Radiologist. <AttendingPhy></AttendingPhy> <FamilyPhy>[facility]ou[facility], Purdy</FamilyPhy> <PrimaryPhy> [facility]</PrimaryPhy> <UnitNumber>[id number]</UnitNumber> <VisitNumber> [id number]</VisitNumber> <PatientName>VEENA LACY</PatientName> <DateOfBirth> 1940</DateOfBirth> <Location>C.EDB</Location> <ServiceDate>02/18/17</ ServiceDate> <MNE>ESINDI</MNE> <OrderingPhy>Loren Janee Elijah DO</OrderingPhy> < OrderingPhyMNE>f rep ord dr hale</OrderingPhyMNE> <DictatingPhyMNE>f rep dict dr hale</DictatingPhyMNE> <CCListMNE>f rep ct mne</CCListMNE> <AdmittingPhyMNE>f pt admit dr hale</AdmittingPhyMNE> <AttendingPhyMNE>f pt attend dr hale</ AttendingPhyMNE> <ConsultingPhyMNE>f pt consult dr hale</ConsultingPhyMNE> <FamilyPhyMNE>f pt fam dr hale</FamilyPhyMNE> <OtherPhyMNE>f pt other dr hale</OtherPhyMNE> < PrimaryPhyMNE>f pt prim care dr hale</PrimaryPhyMNE> <ReferringPhyMNE>f pt referring dr hale</ReferringPhyMNE> EKG EKG shows sinus tachycardia 130 bpm, left anterior fascicular block, nonspecific ST-T changes. Impression Assessment and Plan CAD/hypertension/Elevated troponin/sinus tachycardia-- The patient will be admitted to telemetry for serial cardiac enzymes, cardiac rhythm monitoring and a 2-D echocardiogram with Dopplers. Likely supply demand mismatch Sepsis secondary to UTI/dehydration/hypernatremia of 162/acute renal failure with creatinine 4.6-- Check serum osmolality and urine osmolality. Received 2 L of normal saline in the ED. Half-normal saline at 125 ML's per hour. Vancomycin IV, cefepime IV. Follow urine culture and sensitivities. Serial BMP and magnesium levels. Hyperglycemia-- Likely secondary to hemoconcentration Follow BMP in the a.m. CODE STATUS--patient is a level V DO NOT RESUSCITATE Level of Care Telemetry Advanced Directives Existing Advance Directive: Yes Existing Living Will: Yes Existing Power of Orthopedic Technician: Yes Resuscitation Status DO NOT RESUSCITATE VTE Prophylaxis VTE Risk Assessment Done? Y/N: Yes Risk Level: Not Assessed Given or contraindicated: SCD's Social Service Consult Lives in Long-Term
[2017-02-18] MEDS: ACETAMINOPHEN IV 650 MG in EMPTY BAG 0 ML IV SCH (20:14)
[2017-02-18 20:22] LABS: HEMATOCRIT 39.3 % (42-52); MEAN CELL VOLUME 86.2 fL (80-100); MEAN CORPUSCULAR HEMOGLOBIN 25.9 pg (25-34); MEAN PLATELET VOLUME 9.9 fL (7.4-10.4); PLATELET COUNT 313 K/uL (130-400); RED BLOOD COUNT 4.56 M/uL (4.7-6.1); WHITE BLOOD COUNT 25.09 K/uL (4.8-10.8)
[2017-02-18 20:38] LABS: INR 1.2 (0.9-1.1); PARTIAL THROMBOPLASTIN RATIO 1.2; PROTHROMBIN TIME (PATIENT) 13.4 SECONDS (9.0-12.0)
--- NOTE | 2017-02-18 20:50 | DIAGNOSTIC IMAGING REPORT ---
CHEST ONE VIEW PORTABLE HISTORY: 76 years-old Male shortness of breath acute sepsis with shortness of breath COMPARISON: Chest radiograph 02/18/2017 TECHNIQUE: Portable upright AP view of the chest FINDINGS: The patient is side bent to the right and slightly rotated to the left. Cardiac silhouette is mildly enlarged. No pneumothorax, pleural effusion or overt pulmonary edema. There has been interval development of hazy subsegmental right basilar opacity. The bones are grossly intact. IMPRESSION: 1. Interval development of subsegmental hazy right lateral lung base opacity suggesting atelectasis or less likely pneumonia. 2. Mild cardiomegaly without overt edema. The above report was generated using voice recognition software. It may contain grammatical, syntax or spelling errors. Electronically signed by: Sharan Enriquez M.D. 02/18/2017 8:48 PM Dictated Date/Time: 02/18/2017 8:47 PM
[2017-02-18 20:51] LABS: ACANTHOCYTES 1+; ARTERIAL BLD GAS O2 SATURATION 94.6 % (90-95); ARTERIAL BLOOD GAS BASE EXCESS -4.5 mEq/L (-9-1.8); ARTERIAL BLOOD GAS HCO3 18 mmol/L (19-24); ARTERIAL BLOOD GAS PO2 76 mm/Hg (80-95); ARTERIAL BLOOD GAS pH 7.45 (7.35-7.45); BASO % 0.1 %; BASO ABS # 0.02 K/uL (0-0.2); COMPLETE YES; IG% 0.6 %; LYMPH % 5.1 %; LYMPH ABS # 1.28 K/uL (1.2-3.4); MONO % 5.6 %; NEUT % 88.6 %
[2017-02-18 20:54] LABS: ALLEN TEST POS (POS); O2 ADMINISTRATION 3.5L
[2017-02-18 20:57] LABS: CKMB/CK RATIO 2.2 (0-3.0)
[2017-02-18] MEDS ORDERED: HEPARIN SOD 5000 UNIT/0.5 ML CARP SQ SCH (21:00)
[2017-02-18 21:04] LABS: ALB/GLOB RATIO 0.5 (0.9-2); BUN/CREATININE RATIO 27.8 (10-20); CALCIUM 8.6 mg/dl (8.5-10.1); CREATININE 4.1 mg/dl (0.60-1.40); POTASSIUM 4.5 mmol/L (3.5-5.1)
[2017-02-18] MEDS ORDERED: HEPARIN IV LOW DOSE NO BOLUS SCH (21:52)
[2017-02-18] MEDS: HEPARIN 25,000 UNIT/500ML D5W 500 ML IV PRN (23:02)
[2017-02-18] MEDS: SODIUM CHLORIDE 0.45% 1000ML 1,000 ML IV SCH (23:06)
[2017-02-19] VITALS (13 sets, daily range): BP systolic 116–140; BP diastolic 76–89; PULSE 116–126; TEMP 36–37.9; O2SAT 91–97
[2017-02-19] MEDS: ACETAMINOPHEN IV 650 MG in EMPTY BAG 0 ML IV SCH ×2 (02:04→08:09)
--- NOTE | 2017-02-19 05:34 | DIAGNOSTIC IMAGING REPORT ---
VENOUS DOPPLER LWR EXT BILA CLINICAL HISTORY: 76 years-old Male presenting with assessment for DVT as unable to perform CT for PE, shortness of breath, acute sepsis. TECHNIQUE: Real-time grayscale and color and spectral Doppler ultrasound imaging of the veins of the bilateral lower extremities was performed. Compression and augmentation were also utilized. COMPARISON: 10/21/2016. FINDINGS: Right: Common femoral vein: Patent. Femoral vein: Patent. Greater saphenous vein: Patent. Popliteal vein: Patent. Calf veins: Patent. Left: Common femoral vein: Patent. Femoral vein: Patent. Greater saphenous vein: Patent. Popliteal vein: Patent. Calf veins: Patent. Other: None. IMPRESSION: No evidence of deep venous thrombosis. Electronically signed by: Porfirio Concepcion M.D. 02/19/2017 5:33 AM Dictated Date/Time: 02/19/2017 5:32 AM
[2017-02-19 06:16] LABS: HEMATOCRIT 39.5 % (42-52); MEAN CELL VOLUME 87.8 fL (80-100); MEAN CORPUSCULAR HEMOGLOBIN 26.9 pg (25-34); MEAN CORPUSCULAR HGB CONC 30.6 g/dl (32-36); PLATELET COUNT 344 K/uL (130-400); WHITE BLOOD COUNT 29.32 K/uL (4.8-10.8)
[2017-02-19 06:27] LABS: INR 1.3 (0.9-1.1); PARTIAL THROMBOPLASTIN RATIO 1.4; PROTHROMBIN TIME (PATIENT) 13.6 SECONDS (9.0-12.0)
[2017-02-19 06:46] LABS: BUN/CREATININE RATIO 32.3 (10-20); CALCIUM 8.7 mg/dl (8.5-10.1); CREATININE 3.6 mg/dl (0.60-1.40); MAGNESIUM 3.1 mg/dl (1.8-2.4); POTASSIUM 4.6 mmol/L (3.5-5.1)
[2017-02-19 06:49] LABS: ARTERIAL BLD GAS O2 SATURATION 92.9 % (90-95); ARTERIAL BLOOD GAS BASE EXCESS -6.4 mEq/L (-9-1.8); ARTERIAL BLOOD GAS HCO3 19 mmol/L (19-24); ARTERIAL BLOOD GAS PO2 75 mm/Hg (80-95); ARTERIAL BLOOD GAS pH 7.33 (7.35-7.45)
[2017-02-19 06:50] LABS: ALLEN TEST POS (POS); O2 ADMINISTRATION 9L
[2017-02-19 06:52] LABS: CKMB/CK RATIO 2.3 (0-3.0)
[2017-02-19] MEDS ORDERED: HEPARIN IV BOLUS 3,000 UNIT in SYRINGE 0 ML IV ONE (07:30)
--- NOTE | 2017-02-19 07:44 | Progress Note ---
Progress Note Date of Service Feb 19, 2017. Progress Note Called by RN overnight due to tachypnea. Patient appeared to be using accessory muscles. RR 44 appears increased from previous. Saturations 94% on 3L appears similar to earlier when admitted. Remains tachycardia 110-120. Admission for UTI sepsis on vancomycin and cefepime. Previous Hx of dementia, CAD, LVEF 25-30 % in 2010. On Examination HS: RRR tachycardia, no murmus noted Lungs: crackles bibasal but good air entry b/l. Abdomen: tender all 4 extremities and abdomen. BS normal. Repeat labs were ordered with his troponin Calves SNT b/l Assessment and Plan: Tachypnea - ABG, CBC, CMP, Troponin, lactic acid ordered stat His WBC appeared to get worse however lactic acid was normal and the patient was not acidotic on first labs. NSS switched to 0.5NSS and bolus given. I called his to inform her that her was extremely unwell and she wished to be contacted overnight if further developments. I informed her he was needing more oxygen and was having a harder time breathing. Patient care was discussed with Dr Byrne and started on heparin drip without bolus for treatment for potential PE. Unable to perform CT for PE due to elevated Cr. He continued to remain tachypneic overnight with increasing oxygen requirement. pH now 7.33. Patient was handed over to Dr Amaya. We will get a Ct for stones due to possible UTI sepsis and patient having some abdominal pain.
[2017-02-19] MEDS ORDERED: INFLUENZA ADMINISTRATION CHARGE ONE (08:00)
[2017-02-19] MEDS ORDERED: INFLUENZA VACCINE HIGH DOSE 65+ 0.5 ML SYR IM. ONE (08:00)
[2017-02-19] MEDS: SODIUM CHLORIDE 0.45% 1000ML 1,000 ML IV SCH ×3 (08:10→20:56)
[2017-02-19 08:25] LABS: BASO % 0.1 %; BASO ABS # 0.02 K/uL (0-0.2); COMPLETE YES; ECHINOCYTES 1+; IG% 0.6 %; LYMPH % 3.5 %; LYMPH ABS # 1.04 K/uL (1.2-3.4); MONO % 3.7 %; NEUT % 92.1 %; POLYCHROMASIA 1+; TOXIC GRANULATION 1+
--- NOTE | 2017-02-19 08:45 | DIAGNOSTIC IMAGING REPORT ---
CHEST ONE VIEW PORTABLE CLINICAL HISTORY: 76 years-old Male presenting with Tachypnea. TECHNIQUE: Portable upright AP view of the chest was obtained. COMPARISON: 02/18/2017. FINDINGS: Cardiac silhouette remains enlarged. Minimal vague opacity at the right lung base, not increased from prior. Apparent increase in left retrocardiac opacity. No large effusion or pneumothorax. Osseous structures normal. Upper abdomen normal. IMPRESSION: 1. Cardiomegaly. 2. Minimal bibasilar opacities, possibly atelectasis. No rito pulmonary edema. Electronically signed by: Porfirio Concepcion M.D. 02/19/2017 8:43 AM Dictated Date/Time: 02/19/2017 8:41 AM
[2017-02-19] MEDS ORDERED: VANCOMYCIN INJ 750 MG in SODIUM CHLORIDE 0.9% 250ML 250 ML IV SCH (09:30)
--- NOTE | 2017-02-19 09:51 | DIAGNOSTIC IMAGING REPORT ---
ABD/PELVIS WITHOUT FOR STONE CLINICAL HISTORY: 76 years-old Male presenting with blood in urine, UTI sepsis ?stone. TECHNIQUE: Multidetector CT of the abdomen and pelvis was performed without the use of intravenous contrast. IV contrast: None. A dose lowering technique was used consistent with the principles of ALARA (as low as reasonably achievable). COMPARISON: 01/06/2017. CT DOSE (mGy.cm): The estimated cumulative dose is 389.73 mGy.cm. FINDINGS: Respiratory motion degrades evaluation of the upper abdomen and lung bases. Assistant Shift Supervisor topogram: Surgical clips project over the pelvis. A Lyon catheter is in place. Lung bases: Interval increase in dependent and peribronchovascular consolidation in the right lower lobe. Volume loss and dependent consolidation in the left lower lobe, likely atelectasis. Pectus excavatum deformity. Results in leftward displacement of the heart. Coronary artery calcification. No pericardial or pleural effusion. Liver: Normal morphology. Normal density. Biliary: No gross biliary ductal dilatation allowing for noncontrast technique. Normal gallbladder. Pancreas: Normal noncontrast appearance. Spleen: Normal noncontrast appearance. Adrenal glands: Normal noncontrast appearance. Kidneys and ureters: Interval development of moderate bilateral pelvocaliectasis with urothelial thickening. Moderate dilation of the bilateral ureters. Questionable punctate nonobstructing calculus at the upper pole of the left kidney (series 3 image 101), although this was not present last month suggesting possible artifact. Nonobstructing right renal calculus measuring approximately 5 mm in the interpolar region. Additional punctate nonobstructing calculi at the lower pole the right kidney. Bladder: A Lyon catheter partially decompresses the urinary bladder. Urinary bladder demonstrates circumferential wall thickening and contains either inspissated contrast material or calcification along the mucosa. Previously noted bladder hematoma is not apparent. Submucosal edema suggested. Pelvic organs: Postsurgical changes of prostatectomy. Bowel: Interval resolution of mild wall thickening of the rectum. No bowel obstruction. Peritoneal cavity: No free fluid or intraperitoneal gas. Vasculature: Atherosclerosis of the normal caliber abdominal aorta. Lymph nodes: Scattered prominent retroperitoneal lymph nodes, the largest in the left periaortic region/aortic bifurcation, measuring 8 mm in the short axis (series 2 image 86). Numerous surgical clips in the pelvis from prior lymph node dissection. Abdominal wall: Normal. Musculoskeletal: Degenerative changes of the spine. Degenerative changes of the sacroiliac joints. No destructive osseous lesions. IMPRESSION: 1. Interval development of mucosal bladder calcification versus inspissated retained contrast along the mucosa. This is favored to represent calcification and could be secondary to prior hematoma, radiation, or cystitis. The circumferential nature of the calcification suggests against neoplasm. However, direct visualization could be considered. 2. Bladder wall thickening could also suggest cystitis. Correlate with urinalysis. 3. Moderate bilateral hydronephrosis, new from prior. No obstructing calculi. Allowing for noncontrast technique, no obstructing mass. The presence of urothelial thickening raises concern for upper tract infection. Evaluation for pyelonephritis is limited without intravenous contrast. 4. Nonobstructing renal calculi. 5. Interval development of dependent and peribronchovascular consolidation in the right lower lobe, concerning for an infectious etiology or aspiration. 6. Prostatectomy. 7. Prominent retroperitoneal lymph nodes, which are subcentimeter in the short axis and possibly reactive. Electronically signed by: Porfirio Concepcion M.D. 02/19/2017 9:50 AM Dictated Date/Time: 02/19/2017 9:34 AM
[2017-02-19 12:04] LABS: CALCIUM 8.9 mg/dl (8.5-10.1); CREATININE 3.4 mg/dl (0.60-1.40); POTASSIUM 4.5 mmol/L (3.5-5.1)
[2017-02-19] MEDS: METRONIDAZOLE / NSS 500 MG in PREMIXED NSS 100 ML IV SCH ×2 (12:08→18:34)
[2017-02-19] MEDS: CEFEPIME IV 1,000 MG in DEXTROSE 5% 100ML 100 ML IV SCH (13:46)
[2017-02-19 14:16] LABS: PARTIAL THROMBOPLASTIN RATIO 1.6
--- NOTE | 2017-02-19 14:59 | Pharmacy Progress Note ---
Pharmacy Abx Dose Progress Nt Date of Service Feb 19, 2017. Pharmacy Dosing Scope The patient received the following antimicrobial agents per Pharmacy consult: Vancomycin 1000 mg IV x 1 dose yesterday at 1430. Objective Height (Feet): 5 Height (Inches): 8.00 Weight (Kilograms): 52.200 Vital Signs (Past 12Hrs) Vital Signs Past 12 Hours Date Time Temp Pulse Resp B/P (MAP) Pulse Ox O2 Delivery O2 Flow Rate FiO2 02/19/17 11:30 Oxymask 10.0 02/19/17 11:13 36.0 118 116/78 (91) 95 Oxymask 11.0 02/19/17 07:30 Oxymask 10.0 02/19/17 07:21 36.9 116 20 127/85 (99) 96 Oxymask 9.0 02/19/17 05:35 37.9 121 32 127/89 (102) 93 Oxymask 10.0 02/19/17 04:25 37.5 122 35 140/77 (98) 93 Nasal Cannula 6.0 02/19/17 04:00 94 Nasal Cannula 6.0 02/19/17 03:34 36.9 117 35 133/88 (103) 93 Nasal Cannula 6.0 Oxymask 02/19/17 02:25 36.8 119 37 133/85 (101) 93 Oxymask 6.0 Lab Results (24Hrs) Laboratory Tests (24 Hours) Item Value Date Time Random Vancomycin Level 12.6 mcg/ml 02/19/17 0519 Test 02/19/17 05:19 02/19/17 11:04 White Blood Count 29.32 K/uL (4.8-10.8) H Red Blood Count 4.50 M/uL (4.7-6.1) L Hemoglobin 12.1 g/dL (14.0-18.0) L Hematocrit 39.5 % (42-52) L Mean Corpuscular Volume 87.8 fL (80-100) Mean Corpuscular Hemoglobin 26.9 pg (25-34) Mean Corpuscular Hemoglobin Concent 30.6 g/dl (32-36) L Platelet Count 344 K/uL (130-400) Mean Platelet Volume 10.0 fL (7.4-10.4) Neutrophils (%) (Auto) 92.1 % Lymphocytes (%) (Auto) 3.5 % Monocytes (%) (Auto) 3.7 % Eosinophils (%) (Auto) 0.0 % Basophils (%) (Auto) 0.1 % Neutrophils # (Auto) 26.99 K/uL (1.4-6.5) H Lymphocytes # (Auto) 1.04 K/uL (1.2-3.4) L Monocytes # (Auto) 1.09 K/uL (0.11-0.59) H Eosinophils # (Auto) 0.01 K/uL (0-0.5) Basophils # (Auto) 0.02 K/uL (0-0.2) Total Creatine Kinase 240 U/L (39-308) Lactic Acid Level 1.7 mmol/L (0.4-2.0) Micro Results Date/Time Source Procedure Growth Status 02/18/17 11:20 Blood Blood Culture - Preliminary Gram Negative Bacilli Resulted 02/18/17 10:00 Blood Blood Culture Pending Received 02/18/17 14:00 Nasal MRSA DNA Surveillance Screen - Final Specimen Negative for MRSA by DNA Probe Complete 02/18/17 10:20 Urine,Catheterized Urine Culture - Preliminary Proteus Species Resulted Assessment & Plan Assessment 76 year old male receiving Vancomycin for treatment of complicated UTI, Sepsis Day # 2 of antimicrobial therapy. Plan Vancomycin IV * RANDOM Vanco level = 12.6 mcg/mL is sub-therapeutic. * Vancomycin 750 mg IV x 1 dose was ordered and given at 1000 today. * Goal trough for bacteremia = 15-20 mcg/ml. * Random level ordered for: 02/20 with AM labs. * ONE-time Vancomycin doses will be ordered for this patient based on levels; that is when the random Vancomycin level falls below 20. Pharmacy will continue to follow and will adjust dose/frequency as necessary. Thank you.
[2017-02-19] MEDS ORDERED: HEPARIN IV BOLUS 2,000 UNIT in SYRINGE 0 ML IV ONE ×2 (15:15→22:00)
--- NOTE | 2017-02-19 17:27 | Progress Note ---
Subjective Date of Service: Feb 19, 2017. Subjective Pt evaluation today including: physical exam, chart review, lab review, review of studies (CT abd/pelvis, cxr, etc), review of inpatient medication list PO Intake: npo Voiding: valencia catheter in place tele with sinus tach and run of SVT during my visit the patient was unresponsive to voice he spontaneously moved all 4 limbs, however events of overnight reviewed worsening respiratory status noted Problem List Medical Problems: (1) Abnormality of lung on chest x-ray Status: Acute (2) Acute renal failure Status: Acute (3) Altered mental status Status: Acute (4) Anemia Status: Acute (5) Bilateral lower extremity edema Status: Acute (6) Elevated troponin Status: Acute (7) Gross hematuria Status: Acute (8) Scalp laceration Status: Acute (9) Sepsis Status: Acute Review of Systems unable to obtain ROS due to unresponsive status Objective Vital Signs Date Time Temp Pulse Resp B/P (MAP) Pulse Ox O2 Delivery O2 Flow Rate FiO2 02/19/17 16:09 36.2 126 22 140/77 (98) 91 Mask 11.0 02/19/17 16:00 Oxymask 10.0 02/19/17 11:30 Oxymask 10.0 02/19/17 11:13 36.0 118 116/78 (91) 95 Oxymask 11.0 02/19/17 07:30 Oxymask 10.0 02/19/17 07:21 36.9 116 20 127/85 (99) 96 Oxymask 9.0 02/19/17 05:35 37.9 121 32 127/89 (102) 93 Oxymask 10.0 02/19/17 04:25 37.5 122 35 140/77 (98) 93 Nasal Cannula 6.0 02/19/17 04:00 94 Nasal Cannula 6.0 02/19/17 03:34 36.9 117 35 133/88 (103) 93 Nasal Cannula 6.0 Oxymask 02/19/17 02:25 36.8 119 37 133/85 (101) 93 Oxymask 6.0 02/19/17 01:18 37.0 119 35 137/76 (96) 93 Oxymask 6.0 02/18/17 23:59 94 Nasal Cannula 6.0 02/18/17 23:26 36.8 118 40 149/90 (109) 92 Oxymask 6.0 02/18/17 22:17 37.4 128 38 127/76 (93) 93 Oxymask 6.0 02/18/17 20:50 37.0 120 38 122/69 (86) 91 Nasal Cannula 3.0 02/18/17 20:00 94 Nasal Cannula 3.0 02/18/17 19:42 37.0 117 44 138/80 (99) 94 Nasal Cannula 3.0 02/18/17 17:32 36.8 Physical Exam General Appearance: + thin, + pertinent finding (tachypneic, retractions, unresponsive to name being called ) ENT: + pertinent finding (MM dry ) Neck: no JVD Respiratory/Chest: + respiratory distress (retractions, tachypnea), + accessory muscle use, + crackles (right base ) Cardiovascular: no gallop, no murmur, + tachycardia Abdomen: normal bowel sounds, soft, no organomegaly, + tenderness (all quadrants, worse on right) Extremities: + slow capillary refill, + pertinent finding (ischemic appearing feet, worse on right; cold feet, pulses <1+) Neurologic/Psychiatric: + pertinent finding (lethargic/obtunded) Laboratory Results Last 24 Hours Test 02/18/17 17:34 02/18/17 20:03 02/19/17 00:38 02/19/17 05:19 Bedside Glucose 124 mg/dl 125 mg/dl White Blood Count 25.09 K/uL 29.32 K/uL Red Blood Count 4.56 M/uL 4.50 M/uL Hemoglobin 11.8 g/dL 12.1 g/dL Hematocrit 39.3 % 39.5 % Mean Corpuscular Volume 86.2 fL 87.8 fL Mean Corpuscular Hemoglobin 25.9 pg 26.9 pg Mean Corpuscular Hemoglobin Concent 30.0 g/dl 30.6 g/dl Platelet Count 313 K/uL 344 K/uL Mean Platelet Volume 9.9 fL 10.0 fL Neutrophils (%) (Auto) 88.6 % 92.1 % Lymphocytes (%) (Auto) 5.1 % 3.5 % Monocytes (%) (Auto) 5.6 % 3.7 % Eosinophils (%) (Auto) 0.0 % 0.0 % Basophils (%) (Auto) 0.1 % 0.1 % Neutrophils # (Auto) 22.23 K/uL 26.99 K/uL Lymphocytes # (Auto) 1.28 K/uL 1.04 K/uL Monocytes # (Auto) 1.41 K/uL 1.09 K/uL Eosinophils # (Auto) 0.01 K/uL 0.01 K/uL Basophils # (Auto) 0.02 K/uL 0.02 K/uL RDW Standard Deviation 52.2 fL 54.6 fL RDW Coefficient of Variation 16.4 % 16.7 % Immature Granulocyte % (Auto) 0.6 % 0.6 % Immature Granulocyte # (Auto) 0.14 K/uL 0.17 K/uL Acanthocytes 1+ Prothrombin Time 13.4 SECONDS 13.6 SECONDS Prothromb Time International Ratio 1.2 1.3 Activated Partial Thromboplast Time 30.5 SECONDS 36.1 SECONDS Partial Thromboplastin Ratio 1.2 1.4 Arterial Blood pH 7.45 Arterial Blood Partial Pressure CO2 27 mmHg Arterial Blood Partial Pressure O2 76 mm/Hg Arterial Blood HCO3 18 mmol/L Arterial Blood Oxygen Saturation 94.6 % Arterial Blood Base Excess -4.5 mEq/L Arterial Blood Gas Delivery 3.5L Jonathan Test POS Sodium Level 161 mmol/L 161 mmol/L Potassium Level 4.5 mmol/L 4.6 mmol/L Chloride Level 133 mmol/L 132 mmol/L Carbon Dioxide Level 18 mmol/L 19 mmol/L Anion Gap 10.0 mmol/L 10.0 mmol/L Blood Urea Nitrogen 114 mg/dl 116 mg/dl Creatinine 4.10 mg/dl 3.60 mg/dl Est Creatinine Clear Calc Drug Dose 10.8 ml/min 12.3 ml/min Estimated GFR () 15.4 18.1 Estimated GFR (Non- 13.3 15.6 BUN/Creatinine Ratio 27.8 32.3 Random Glucose 131 mg/dl 125 mg/dl Lactic Acid Level 1.4 mmol/L Calcium Level 8.6 mg/dl 8.7 mg/dl Total Bilirubin 0.4 mg/dl Aspartate Amino Transf (AST/SGOT) 42 U/L Alanine Aminotransferase (ALT/SGPT) 34 U/L Alkaline Phosphatase 97 U/L Total Creatine Kinase 187 U/L 240 U/L Creatine Kinase MB 4.1 ng/ml 5.6 ng/ml Creatine Kinase MB Ratio 2.2 2.3 Troponin I 0.148 ng/ml 0.152 ng/ml Total Protein 6.9 gm/dl Albumin 2.2 gm/dl Globulin 4.7 gm/dl Albumin/Globulin Ratio 0.5 Toxic Granulation 1+ Polychromasia 1+ Echinocytes 1+ Magnesium Level 3.1 mg/dl Random Vancomycin Level 12.6 mcg/ml Test 02/19/17 06:28 02/19/17 07:36 02/19/17 11:04 02/19/17 13:56 Arterial Blood pH 7.33 Arterial Blood Partial Pressure CO2 37 mmHg Arterial Blood Partial Pressure O2 75 mm/Hg Arterial Blood HCO3 19 mmol/L Arterial Blood Oxygen Saturation 92.9 % Arterial Blood Base Excess -6.4 mEq/L Arterial Blood Gas Delivery 9L Jonathan Test POS Bedside Glucose 112 mg/dl Sodium Level 160 mmol/L Potassium Level 4.5 mmol/L Chloride Level 132 mmol/L Carbon Dioxide Level 18 mmol/L Anion Gap 10.0 mmol/L Blood Urea Nitrogen 109 mg/dl Creatinine 3.40 mg/dl Est Creatinine Clear Calc Drug Dose 13.9 ml/min Estimated GFR () 19.3 Estimated GFR (Non- 16.7 BUN/Creatinine Ratio 32.0 Random Glucose 132 mg/dl Lactic Acid Level 1.7 mmol/L Calcium Level 8.9 mg/dl Activated Partial Thromboplast Time 42.4 SECONDS Partial Thromboplastin Ratio 1.6 Assessment and Plan 76yo male: 1. severe sepsis / septicemia with positive blood cultures (gram negative rebel) - source - likely urine. CT abd/pelvis without obstructing kidney stones but some findings concerning for pyelonephritis. continue supportive care - IVF, serial labs, broad-spectrum IV antibiotics to cover gram negatives, follow cultures. I am most concerned about his respiratory status and his ability to continue his current work of breathing (see below). 2. hypernatremia dehydration - severe - increase fluid rate to 150cc/hr. Serial BMPs. Replace losses over 2-3 days. 3. severe acute kidney injury/ARF - continue fluid resuscitation, serial labs. Does not appear to have any obstruction based on imaging; valencia is in place as well. 4. acute hypoxic respiratory failure - worsen. May need to consider CPAP/BIPAP. 2nd to #1 above as well as probable RLL aspiration pneumonia. Patient started on systemic heparin in the event acute PEs contributed to this issue. 5. aspiration pneumonia, RLL - add flagyl for anaerobic coverage. 6. +troponin - myocardial demand ischemia in setting of #1. Although he has CAD doubt true ACS. 7. DVT proph - remains on systemic anticoagulation. 8. ischemia of feet - due to severe sepsis and physiological response to endotoxins. supportive care, IVF, etc. 9. metabolic encephalopathy - due to sepsis. DNR very, very poor prognosis will need to speak with about care plan Continued [facility] stay due to: inadequate po fluid intake, multiple IV medications needed Discharge planning: uncertain
--- NOTE | 2017-02-19 18:40 | Progress Note ---
Progress Note Date of Service Feb 19, 2017. Progress Note Updated Janee Simon, daughter - [phone]. She wants to be notified if any clinical worsening. Nancy SOSA MD
[2017-02-19 21:12] LABS: PARTIAL THROMBOPLASTIN RATIO 1.6
[2017-02-19] MEDS: HEPARIN 25,000 UNIT/500ML D5W 500 ML IV PRN (22:37)
[2017-02-20] VITALS (12 sets, daily range): BP systolic 112–143; BP diastolic 74–87; PULSE 64–123; TEMP 36–38.3; O2SAT 94–98
[2017-02-20] MEDS ORDERED: ACETAMINOPHEN IV 650 MG in EMPTY BAG 0 ML IV PRN (01:15)
[2017-02-20] MEDS: METRONIDAZOLE / NSS 500 MG in PREMIXED NSS 100 ML IV SCH ×3 (04:11→18:02)
[2017-02-20] MEDS: SODIUM CHLORIDE 0.45% 1000ML 1,000 ML IV SCH (04:11)
[2017-02-20 08:12] LABS: HEMATOCRIT 40.1 % (42-52); MEAN CELL VOLUME 87.6 fL (80-100); MEAN CORPUSCULAR HEMOGLOBIN 25.3 pg (25-34); MEAN CORPUSCULAR HGB CONC 28.9 g/dl (32-36); PLATELET COUNT 305 K/uL (130-400); RED BLOOD COUNT 4.58 M/uL (4.7-6.1); WHITE BLOOD COUNT 30.27 K/uL (4.8-10.8)
[2017-02-20 08:28] LABS: BASO % 0.1 %; BASO ABS # 0.04 K/uL (0-0.2); COMPLETE YES; ECHINOCYTES 2+; HYPERSEGMENTED POLYS 2+; IG% 0.8 %; LYMPH % 2.7 %; LYMPH ABS # 0.83 K/uL (1.2-3.4); MONO % 3.6 %; NEUT % 92.8 %; POLYCHROMASIA 1+; TOXIC GRANULATION 2+; VACUOLIZATION 1+
[2017-02-20 08:35] LABS: BUN/CREATININE RATIO 33.7 (10-20); CALCIUM 8.7 mg/dl (8.5-10.1); CREATININE 2.8 mg/dl (0.60-1.40); MAGNESIUM 2.8 mg/dl (1.8-2.4); POTASSIUM 4.1 mmol/L (3.5-5.1)
[2017-02-20 08:42] LABS: PARTIAL THROMBOPLASTIN RATIO 1.9
[2017-02-20 09:34] LABS: ALLEN TEST POS (POS); ARTERIAL BLD GAS O2 SATURATION 98.6 % (90-95); ARTERIAL BLOOD GAS BASE EXCESS -5.8 mEq/L (-9-1.8); ARTERIAL BLOOD GAS HCO3 19 mmol/L (19-24); ARTERIAL BLOOD GAS PO2 141 mm/Hg (80-95); ARTERIAL BLOOD GAS pH 7.37 (7.35-7.45); O2 ADMINISTRATION 40%
--- NOTE | 2017-02-20 10:37 | ECHOCARDIOGRAM REPORT ---
*NOTICE TO RECEIVING REPUBLICAN AGENCY This information is strictly Confidential and protected under [place] law. [place] law prohibits you from making any further disclosure of this information unless further disclosure is expressly permitted by the written consent of the person to whom it pertains or is authorized by law. A general authorization for the release of medical or other information is not sufficient for this purpose. Hospital accepts no responsibility if the information is made available to any other person, INCLUDING THE PATIENT. Interpretation Summary * Name: VEENA LACY Study Date: 02/19/2017 11:20 AM BP: 127/89 mmHg * Patient Location: C.2T\S\S237\S\1 HR: 115 * : 1940 (M/d/yyyy) Gender: Male Height: 68 in * Age: 76 yrs Ethnicity: CA Weight: 108 lb * Ordering Physician: Navarro Gonzalez * Referring Physician: Bianka Zavala * Performed By: Frantz Garcia RDCS * * Reason For Study: Possible PE? right heart strain * BSA: 1.6 m2 * -- Conclusions -- * 1. Mildly dilated LV with normal wall thickness. * 2. Severe LV dysfunction. LVEF 20-25%. Anterior, anteroseptal and apical akinesis. Severe inferior hypokinesis. Normal lateral, inferolateral function. * 3. Normal RV size and function. * 4. No significant valvular pathology. * 5. Normal estimated PA and RA pressures. * 6. Compared with prior study on 06/04/2010: LV function, particularly inferior wall function is worse. Procedure Details * A complete two-dimensional transthoracic echocardiogram was performed (2D, M-mode, Doppler and color flow Doppler). * The study was technically adequate. Left Ventricle * The left ventricle is mildly dilated. * There is normal left ventricular wall thickness. * Ejection Fraction = 20-25%. * There are regional wall motion abnormalities as specified. * Anterior, anteroseptal and apical akinesis. Severe inferior hypokinesis. Preserved lateral, inferolateral function. Right Ventricle * The right ventricle is not well visualized. * The right ventricle is grossly normal size. * The right ventricular systolic function is normal as assessed by tricuspid annular plane systolic excursion (TAPSE) (normal >1.5 cm). Atria * The left atrium is not well visualized. * The right atrium is mildly dilated. * No ASD detected; PFO is not assessed. Mitral Valve * The mitral valve is grossly normal. * There is no mitral valve stenosis. * Significant mitral regurgitation is absent. Tricuspid Valve * The tricuspid valve is not well visualized. * There is trace tricuspid regurgitation. * Right ventricular systolic pressure is normal. Aortic Valve * The aortic valve is trileaflet. * Aortic valve sclerosis mild, without significant aortic valvular stenosis. * No hemodynamically significant valvular aortic stenosis. * There is no significant aortic regurgitation. Pulmonic Valve * The pulmonary valve is inadequately visualized, but the Doppler data is adequate for interpretation. * Pulmonic stenosis is absent. * There is no significant pulmonary regurgitation. Great Vessels * The aortic root and proximal ascending aorta are normal sized. Pericardium/Pleural * There is no pericardial effusion. Great Vessels * Normal inferior vena cava size and collapsability with sniff indicates a normal right atrial pressure of 3 mmHg * There is no evidence of pulmonary hypertension. The PA systolic pressure is less than 36 mmHg. MMode 2D Measurements and Calculations IVSd 0.57 cm IVSs 0.76 cm LVIDd 5.7 cm LVIDs 4.5 cm LVPWd 0.77 cm LVPWs 1.3 cm IVS/LVPW 0.74 FS 20.4 % EDV(Teich) 159.8 ml ESV(Teich) 94.0 ml EF(Teich) 41.2 % EDV(cubed) 184.9 ml ESV(cubed) 93.1 ml EF(cubed) 49.6 % % IVS thick 33.9 % % LVPW thick 63.0 % LV mass(C)d 136.8 grams LV mass(C)dI 87.0 grams/m\S\2 LV mass(C)s 157.2 grams LV mass(C)sI 99.9 grams/m\S\2 SV(Teich) 65.8 ml SI(Teich) 41.8 ml/m\S\2 SV(cubed) 91.8 ml SI(cubed) 58.3 ml/m\S\2 EPSS 2.1 cm Ao root diam 3.5 cm Ao root area 9.8 cm\S\2 ACS 1.7 cm LA dimension 2.9 cm asc Aorta Diam 3.3 cm LA/Ao 0.82 LVOT diam 2.1 cm LVOT area 3.6 cm\S\2 LVAd ap4 35.7 cm\S\2 LVLd ap4 8.6 cm EDV(MOD-sp4) 121.0 ml LVAs ap4 30.5 cm\S\2 LVLs ap4 8.5 cm ESV(MOD-sp4) 89.1 ml EF(MOD-sp4) 26.4 % LVAd ap2 35.5 cm\S\2 LVLd ap2 9.4 cm EDV(MOD-sp2) 109.0 ml LVAs ap2 29.4 cm\S\2 LVLs ap2 8.7 cm ESV(MOD-sp2) 79.3 ml EF(MOD-sp2) 27.2 % SV(MOD-sp4) 31.9 ml SI(MOD-sp4) 20.3 ml/m\S\2 SV(MOD-sp2) 29.7 ml SI(MOD-sp2) 18.9 ml/m\S\2 Doppler Measurements and Calculations MV E max antionette 96.8 cm/sec Ao V2 max 108.6 cm/sec Ao max PG 4.7 mmHg Ao max PG (full) 2.0 mmHg IZA(V,A) 2.7 cm\S\2 IZA(V,D) 2.7 cm\S\2 LV V1 max PG 2.7 mmHg LV V1 max 82.6 cm/sec PA V2 max 99.0 cm/sec PA max PG 3.9 mmHg PA acc slope 701.0 cm/sec\S\2 PA acc time 0.13 sec TR max antionette 269.7 cm/sec PA pr(Accel) 20.4 mmHg
[2017-02-20] MEDS: MoRPHine SULFATE 2 MG/ML CARP IV PRN ×3 (11:37→21:48)
[2017-02-20] MEDS: D5W AND 1/4NSS 1,000 ML IV SCH ×3 (11:37→21:45)
[2017-02-20] MEDS: CEFEPIME IV 1,000 MG in DEXTROSE 5% 100ML 100 ML IV SCH (12:24)
[2017-02-20] MEDS: HEPARIN 25,000 UNIT/500ML D5W 500 ML IV PRN (12:27)
--- NOTE | 2017-02-20 17:05 | Progress Note ---
Subjective Date of Service: Feb 20, 2017. Subjective Pt evaluation today including: conversation w/ family (; son by phone), physical exam, chart review, lab review, review of studies (echo), review of inpatient medication list Pain: grimacing during my exam, unknown source of pain PO Intake: npo Voiding: valencia catheter in place tele overnight with sinus tach, V-tach runs, SVT continues to be unresponsive except to pain (grimaces, moans) at bedside unable to obtain ROS due to altered mental status Problem List Medical Problems: (1) Abnormality of lung on chest x-ray Status: Acute (2) Acute renal failure Status: Acute (3) Altered mental status Status: Acute (4) Anemia Status: Acute (5) Bilateral lower extremity edema Status: Acute (6) Elevated troponin Status: Acute (7) Gross hematuria Status: Acute (8) Scalp laceration Status: Acute (9) Sepsis Status: Acute Objective Vital Signs Date Time Temp Pulse Resp B/P (MAP) Pulse Ox O2 Delivery O2 Flow Rate FiO2 02/20/17 16:00 BiPAP 50 02/20/17 15:22 36.2 64 24 131/87 (102) 96 02/20/17 14:14 89 94 30 02/20/17 11:45 36.1 118 32 143/87 (105) 94 BiPAP 02/20/17 11:30 BiPAP 50 02/20/17 11:28 100 97 40 02/20/17 07:30 BiPAP 50 02/20/17 07:20 103 98 50 02/20/17 07:19 36.0 115 32 123/74 (90) 98 BiPAP 02/20/17 04:12 96 BiPAP 50 02/20/17 03:21 37.9 114 18 117/80 (92) 97 CPAP 02/20/17 00:11 38.3 123 18 120/82 (95) 97 CPAP 02/20/17 00:02 96 BiPAP 50 02/19/17 22:16 125 96 50 02/19/17 20:00 97 BiPAP 50 02/19/17 19:37 36.6 123 30 126/82 (97) 92 BiPAP 02/19/17 19:00 126 95 50 Physical Exam General Appearance: + cachetic, + thin, + pertinent finding (tachypneic, grimacing) ENT: + pertinent finding (MM severely dry) Neck: no JVD Respiratory/Chest: + accessory muscle use, + crackles (right base), + pertinent finding (tachypnea) Cardiovascular: no gallop, no murmur, + tachycardia Abdomen: normal bowel sounds, soft, no organomegaly, + tenderness (right side of abdomen ) Extremities: no pedal edema, + slow capillary refill (2-3 seconds; mottled in appearance), + pertinent finding (pulses still not palpable) Skin: + mottled (feet b/l ) Laboratory Results Last 24 Hours Test 02/19/17 17:39 02/19/17 20:43 02/20/17 03:16 02/20/17 07:29 Bedside Glucose 122 mg/dl Activated Partial Thromboplast Time 41.5 SECONDS 50.9 SECONDS 49.9 SECONDS Partial Thromboplastin Ratio 1.6 2.0 1.9 White Blood Count 30.27 K/uL Red Blood Count 4.58 M/uL Hemoglobin 11.6 g/dL Hematocrit 40.1 % Mean Corpuscular Volume 87.6 fL Mean Corpuscular Hemoglobin 25.3 pg Mean Corpuscular Hemoglobin Concent 28.9 g/dl Platelet Count 305 K/uL Mean Platelet Volume 10.0 fL Neutrophils (%) (Auto) 92.8 % Lymphocytes (%) (Auto) 2.7 % Monocytes (%) (Auto) 3.6 % Eosinophils (%) (Auto) 0.0 % Basophils (%) (Auto) 0.1 % Neutrophils # (Auto) 28.07 K/uL Lymphocytes # (Auto) 0.83 K/uL Monocytes # (Auto) 1.09 K/uL Eosinophils # (Auto) 0.00 K/uL Basophils # (Auto) 0.04 K/uL RDW Standard Deviation 54.7 fL RDW Coefficient of Variation 17.0 % Immature Granulocyte % (Auto) 0.8 % Immature Granulocyte # (Auto) 0.24 K/uL Nucleated RBC Absolute Count (auto) 0.02 K/uL Nucleated Red Blood Cells % 0.1 % Hypersegmented Polys 2+ Toxic Granulation 2+ Toxic Vacuolation 1+ Polychromasia 1+ Echinocytes 2+ Sodium Level 161 mmol/L Potassium Level 4.1 mmol/L Chloride Level 132 mmol/L Carbon Dioxide Level 19 mmol/L Anion Gap 10.0 mmol/L Blood Urea Nitrogen 94 mg/dl Creatinine 2.80 mg/dl Est Creatinine Clear Calc Drug Dose 17.2 ml/min Estimated GFR () 24.5 Estimated GFR (Non- 21.1 BUN/Creatinine Ratio 33.7 Random Glucose 164 mg/dl Calcium Level 8.7 mg/dl Magnesium Level 2.8 mg/dl Test 02/20/17 09:25 02/20/17 13:25 Arterial Blood pH 7.37 Arterial Blood Partial Pressure CO2 33 mmHg Arterial Blood Partial Pressure O2 141 mm/Hg Arterial Blood HCO3 19 mmol/L Arterial Blood Oxygen Saturation 98.6 % Arterial Blood Base Excess -5.8 mEq/L Arterial Blood Gas Delivery 40% Jonathan Test POS Bedside Glucose 163 mg/dl Assessment and Plan 76yo male: 1. severe sepsis / septicemia with positive blood cultures - gram negative rebel likely to be proteus from the urine. CT abd/pelvis without obstructing kidney stones but some findings concerning for pyelonephritis. he continues with fever, high WBC count, and overall poor status. continue supportive care - IVF, serial labs, broad-spectrum IV antibiotics to cover gram negatives, follow cultures. 2. hypernatremia dehydration - severe - with no change in Na level overnight. Change fluid to 1/4 NS from 1/2 NS. leave rate as is. Replace losses over 2-3 days. bmp this afternoon then again in am. 3. severe acute kidney injury/ARF - continue fluid resuscitation, serial labs. Does not appear to have any obstruction based on imaging; valencia is in place as well. slow improvement. 4. acute hypoxic respiratory failure - ongoing. 2nd to RLL pneumonia and compensation for acidosis. Cannot rule out pain/agitation contributing to his rapid breathing. Patient started on systemic heparin in the event acute PEs contributed to this issue but less likely. cont BIPAP and supportive care. check ABG today. 5. aspiration pneumonia, RLL - cont cefepime and flagyl IV. 6. +troponin - myocardial demand ischemia in setting of #1. Although he has CAD doubt true ACS. 7. DVT proph - remains on systemic anticoagulation. 8. ischemia of feet - due to severe sepsis and physiological response to endotoxins. cannot rule out PAD at baseline. supportive care, IVF, etc. 9. metabolic encephalopathy - due to sepsis. no improvement. 10. NS V-tach - no Rx. 11. SVT - no Rx. 12. dementia - severe, by family report. 13. acute systolic CHF - echo reviewed - EF severely depressed with multiple wall motion abnormalities. Appears to have ischemic cardiomyopathy. I am uncertain as to how long his EF has been depressed. [id number], due to his dehydration, he is fortunately not volume overloaded. 14. pain - seems to be in pain; morphine 2mg IV q2h prn DNR remains critically ill spoke with pt's son and his today plan -- another 24 hours of supportive care; if he worsens or fails to improve then comfort care/palliative care Continued [facility] stay due to: inadequate po fluid intake, multiple IV medications needed Discharge planning: uncertain
[2017-02-20 19:38] LABS: BUN/CREATININE RATIO 35.4 (10-20); CALCIUM 8.5 mg/dl (8.5-10.1); CREATININE 2.6 mg/dl (0.60-1.40)
[2017-02-20] MEDS ORDERED: INSULIN GLARGINE SOLOSTAR 100 UNITS/ML 3 ML PEN SC SCH (21:00)
[2017-02-21 00:18] VITALS: BP 121/85; PULSE 91; TEMP 36.2; O2SAT 96
[2017-02-21] MEDS: MoRPHine SULFATE 2 MG/ML CARP IV PRN ×3 (01:27→08:58)
[2017-02-21] MEDS: METRONIDAZOLE / NSS 500 MG in PREMIXED NSS 100 ML IV SCH (03:00)
[2017-02-21 04:00] VITALS: BP 109/75; PULSE 95; TEMP 36.7; O2SAT 94
[2017-02-21] MEDS: D5W AND 1/4NSS 1,000 ML IV SCH (05:19)
[2017-02-21 07:16] VITALS: PULSE 100; O2SAT 93
[2017-02-21 07:31] LABS: HEMATOCRIT 34.2 % (42-52); MEAN CELL VOLUME 85.9 fL (80-100); MEAN CORPUSCULAR HEMOGLOBIN 26.4 pg (25-34); MEAN CORPUSCULAR HGB CONC 30.7 g/dl (32-36); MEAN PLATELET VOLUME 10.4 fL (7.4-10.4); PLATELET COUNT 271 K/uL (130-400); RED BLOOD COUNT 3.98 M/uL (4.7-6.1); WHITE BLOOD COUNT 29.05 K/uL (4.8-10.8)
[2017-02-21 07:40] LABS: PARTIAL THROMBOPLASTIN RATIO 1.6
[2017-02-21 07:48] VITALS: BP 105/73; PULSE 109; TEMP 36.9; O2SAT 95
[2017-02-21 08:00] VITALS: O2SAT 96
[2017-02-21] MEDS ORDERED: HEPARIN IV BOLUS 2,000 UNIT in SYRINGE 0 ML IV ONE (08:00)
[2017-02-21 08:02] LABS: BUN/CREATININE RATIO 35.5 (10-20); CALCIUM 8.4 mg/dl (8.5-10.1); CREATININE 2.2 mg/dl (0.60-1.40); MAGNESIUM 2.6 mg/dl (1.8-2.4); POTASSIUM 3.6 mmol/L (3.5-5.1)
[2017-02-21 08:04] LABS: ANISOCYTOSIS PRESENT; BASO % 0.1 %; BASO ABS # 0.02 K/uL (0-0.2); COMPLETE YES; DOHLE BODIES 1+; ECHINOCYTES 2+; EOS % 0.2 %; HYPERSEGMENTED POLYS 1+; HYPOCHROMIA PRESENT; IG% 0.6 %; LYMPH % 2.9 %; LYMPH ABS # 0.85 K/uL (1.2-3.4); NEUT % 94.2 %; TOXIC GRANULATION 1+; VACUOLIZATION 1+
--- NOTE | 2017-02-21 08:42 | Progress Note ---
Subjective Date of Service: Feb 21, 2017. Subjective Pt evaluation today including: physical exam, chart review, lab review, review of inpatient medication list Pain: grimaces when palpating the abdomen PO Intake: npo Voiding: valencia catheter in place tele with sinus tach required frequent morphine yesterday for agitation/perceived pain this DID help with tachycardia and grimacing patient obtunded; unable to obtain history or ROS no other events per staff Problem List Medical Problems: (1) Abnormality of lung on chest x-ray Status: Acute (2) Acute renal failure Status: Acute (3) Altered mental status Status: Acute (4) Anemia Status: Acute (5) Bilateral lower extremity edema Status: Acute (6) Elevated troponin Status: Acute (7) Gross hematuria Status: Acute (8) Scalp laceration Status: Acute (9) Sepsis Status: Acute Objective Vital Signs Date Time Temp Pulse Resp B/P (MAP) Pulse Ox O2 Delivery O2 Flow Rate FiO2 02/21/17 07:48 36.9 109 20 105/73 (84) 95 BiPAP 02/21/17 07:16 100 93 30 02/21/17 04:00 BiPAP 50 02/21/17 04:00 36.7 95 18 109/75 (86) 94 BiPAP 02/21/17 00:18 36.2 91 18 121/85 (97) 96 CPAP 02/21/17 00:02 BiPAP 50 02/20/17 22:08 102 97 30 02/20/17 20:00 BiPAP 50 02/20/17 19:28 36.8 94 24 112/75 (87) 96 02/20/17 16:00 BiPAP 50 02/20/17 15:22 36.2 64 24 131/87 (102) 96 02/20/17 14:14 89 94 30 02/20/17 11:45 36.1 118 32 143/87 (105) 94 BiPAP 02/20/17 11:30 BiPAP 50 02/20/17 11:28 100 97 40 Physical Exam General Appearance: + mild distress (when I palpable his abdomen; otherwise NAD ) ENT: + pertinent finding (MM extremely dry ) Neck: no JVD Respiratory/Chest: no respiratory distress, no accessory muscle use, + decreased breath sounds (right base; course BS b/l), + pertinent finding (mild tachypnea but no increased wob today) Cardiovascular: no gallop, + tachycardia, + systolic murmur (1/6 MARK LSB) Abdomen: normal bowel sounds, soft, no organomegaly, + tenderness (b/l flanks) Extremities: no pedal edema, + slow capillary refill (2-3 seconds still but perhaps marginally better) Neurologic/Psychiatric: + pertinent finding (obtunded; no spontaneous movement of any limb) Skin: no rash, + mottled (feet b/l - perhaps slightly better today) Laboratory Results Last 24 Hours Test 02/20/17 09:25 02/20/17 13:25 02/20/17 17:36 02/20/17 17:58 Arterial Blood pH 7.37 Arterial Blood Partial Pressure CO2 33 mmHg Arterial Blood Partial Pressure O2 141 mm/Hg Arterial Blood HCO3 19 mmol/L Arterial Blood Oxygen Saturation 98.6 % Arterial Blood Base Excess -5.8 mEq/L Arterial Blood Gas Delivery 40% Jonathan Test POS Bedside Glucose 163 mg/dl 237 mg/dl Sodium Level 159 mmol/L Potassium Level 4.0 mmol/L Chloride Level 127 mmol/L Carbon Dioxide Level 21 mmol/L Anion Gap 11.0 mmol/L Blood Urea Nitrogen 92 mg/dl Creatinine 2.60 mg/dl Est Creatinine Clear Calc Drug Dose 18.5 ml/min Estimated GFR () 26.8 Estimated GFR (Non- 23.1 BUN/Creatinine Ratio 35.4 Random Glucose 264 mg/dl Calcium Level 8.5 mg/dl Test 02/21/17 05:55 02/21/17 06:45 Bedside Glucose 204 mg/dl White Blood Count 29.05 K/uL Red Blood Count 3.98 M/uL Hemoglobin 10.5 g/dL Hematocrit 34.2 % Mean Corpuscular Volume 85.9 fL Mean Corpuscular Hemoglobin 26.4 pg Mean Corpuscular Hemoglobin Concent 30.7 g/dl Platelet Count 271 K/uL Mean Platelet Volume 10.4 fL Neutrophils (%) (Auto) 94.2 % Lymphocytes (%) (Auto) 2.9 % Monocytes (%) (Auto) 2.0 % Eosinophils (%) (Auto) 0.2 % Basophils (%) (Auto) 0.1 % Neutrophils # (Auto) 27.35 K/uL Lymphocytes # (Auto) 0.85 K/uL Monocytes # (Auto) 0.59 K/uL Eosinophils # (Auto) 0.07 K/uL Basophils # (Auto) 0.02 K/uL RDW Standard Deviation 53.7 fL RDW Coefficient of Variation 17.0 % Immature Granulocyte % (Auto) 0.6 % Immature Granulocyte # (Auto) 0.17 K/uL Hypersegmented Polys 1+ Toxic Granulation 1+ Toxic Vacuolation 1+ Dohle Bodies 1+ Hypochromasia PRESENT Anisocytosis PRESENT Echinocytes 2+ Activated Partial Thromboplast Time 41.3 SECONDS Partial Thromboplastin Ratio 1.6 Sodium Level 157 mmol/L Potassium Level 3.6 mmol/L Chloride Level 126 mmol/L Carbon Dioxide Level 20 mmol/L Anion Gap 10.0 mmol/L Blood Urea Nitrogen 78 mg/dl Creatinine 2.20 mg/dl Est Creatinine Clear Calc Drug Dose 21.3 ml/min Estimated GFR () 32.7 Estimated GFR (Non- 28.3 BUN/Creatinine Ratio 35.5 Random Glucose 232 mg/dl Calcium Level 8.4 mg/dl Magnesium Level 2.6 mg/dl Assessment and Plan 76yo male: 1. severe sepsis / septicemia 2nd to proteus UTI - CT abd/pelvis without obstructing kidney stones but some findings concerning for pyelonephritis. Now afebrile, but wbc count still markedly elevated and he continues with b/l flank pain. Cont cefepime IV. Would need at least 2 weeks of IV therapy. Continue IVF, serial labs. If family wishes to continue current care would need repeat blood cultures to ensure sterility. 2. hypernatremic dehydration - severe - but slowly improving with currently fluid. Replace losses over 2-3 days. Rate of improvement is acceptable; can revert to daily labs. 3. severe acute kidney injury/ARF - continue fluid resuscitation, serial labs. Does not appear to have any obstruction based on imaging; valencia is in place as well. slow improvement. 4. acute hypoxic respiratory failure - ongoing but appears more comfortable today. 2nd to RLL pneumonia and compensation for acidosis. Cannot rule out pain/agitation contributing to his rapid breathing. Patient started on systemic heparin in the event acute PEs contributed to this issue but less likely. Trial off BIPAP today; NC O2 or oxymask. 5. aspiration pneumonia, RLL - cont cefepime and flagyl IV. 6. +troponin - myocardial demand ischemia in setting of #1. Although he has CAD doubt true ACS. 7. DVT proph - remains on systemic anticoagulation. 8. ischemia of feet - due to severe sepsis, severe dehydration; cannot r/o element of PAD at baseline. supportive care, IVF, etc. Slightly improved today. 9. metabolic encephalopathy - due to sepsis. no improvement despite Rx of above issues. 10. NS V-tach - no Rx. 11. SVT - no Rx. 12. dementia - severe, by family report. 13. acute systolic CHF - echo reviewed - EF severely depressed with multiple wall motion abnormalities. Appears to have ischemic cardiomyopathy. I am uncertain as to how long his EF has been depressed. He continues to be compensated (ie no active CHF). 14. pain - continue morphine 2mg IV q2h prn 15. hyperglycemia - iatrogenic (Dextrose containing fluids) and stress from #1. Increase lantus to 10 units BID. DNR trial off BIPAP will speak with family about current status and if they wish to pursue ongoing care or transition to palliative approach Continued [facility] stay due to: abnormal vital signs, inadequate po fluid intake, inadequate oral pain control, voiding difficulties, ambulation difficulties, multiple IV medications needed Discharge planning: uncertain
[2017-02-21] MEDS: HEPARIN 25,000 UNIT/500ML D5W 500 ML IV PRN (08:56)
[2017-02-21] MEDS ORDERED: INSULIN GLARGINE SOLOSTAR 100 UNITS/ML 3 ML PEN SC SCH (09:00)
[2017-02-21] MEDS ORDERED: CEFEPIME IV 2000 MG in DEXTROSE 5% 100ML IV SCH (10:00)
[2017-02-21 10:58] VITALS: BP 115/75; PULSE 100; TEMP 36.4; O2SAT 94
--- NOTE | 2017-02-21 11:18 | Death Pronouncement Note ---
Pronouncement Note Date & Time of Feb 21, 2017. 1102 Pronouncement At time of pronouncement the patients pupils were fixed and dilated, there was no spontaneous respiratory effort, no palpable pulse, no audible heart tones, and no response to pain or voice. Certificate completed. Navarro Bettencourt MD
--- NOTE | 2017-02-26 05:43 | Death Summary ---
Summary of Admission Date Feb 18, 2017 at 12:32 Date & Time of Feb 21, 2017. 1102 Cause of ventricular tachycardia 2nd to acute hypoxic respiratory failure Secondary Diagnoses 1. severe sepsis / septicemia 2nd to proteus UTI 2. metabolic encephalopathy 3. severe, end-stage dementia 4. severe hypernatremic dehydration 5. acute systolic CHF 6. acute renal failure 7. RLL aspiration pneumonia 8. +troponin - due to myocardial demand ischemia 9. brief runs of SVT 10. CAD with prior acute [place] [facility] Course 76yo male with history of severe dementia, CAD and HTN who presented from [facility] with worsening lethargy and fever. Found to have a UTI and started on broad-spectrum IV antibiotic therapy. He was also found to have severe acute renal failure and hypernatremic dehydration. Following admission urine culture turned positive for proteus as well as his blood cultures for the same pathogen. He developed acute hypoxic respiratory failure ultimately requiring BIPAP. Despite supportive care measures he did very poorly throughout his stay. Comfort care measures were about to be discussed with his family when he developed ventricular tachycardia following by asystole. In light of his DNR status no resuscitative measures were initiated when he developed the arrhythmia. Time of - 1102. Copy To [facility]
== END 2017-02-21 14:30 | disposition expired | DRG 871 ==
LOC: EDBD 10:01 → C.EDB 10:02 → C.2T 12:32 → ENRESERV 12:59 → C.2T 13:15
PROVIDERS: ADMIT Hospitalist; ATTEND Internal Medicine
DX: A41.9 Sepsis, unspecified organism (principal); N39.0 Urinary tract infection, site not specified; G93.41 Metabolic encephalopathy; I26.99 Other pulmonary embolism without acute cor pulmonale; J69.0 Pneumonitis due to inhalation of food and vomit; J96.01 Acute respiratory failure with hypoxia; I50.21 Acute systolic (congestive) heart failure; R65.20 Severe sepsis without septic shock; I47.1 Supraventricular tachycardia; N17.9 Acute kidney failure, unspecified; E87.0 Hyperosmolality and hypernatremia; I24.8 Other forms of acute ischemic heart disease; R64 Cachexia; Z68.1 Body mass index [BMI] 19.9 or less, adult; R73.9 Hyperglycemia, unspecified; I99.8 Other disorder of circulatory system; I11.9 Hypertensive heart disease without heart failure; I25.2 Old myocardial infarction; I25.10 Atherosclerotic heart disease of native coronary artery without angina pectoris; E78.5 Hyperlipidemia, unspecified; F03.90 Unspecified dementia, unspecified severity, without behavioral disturbance, psychotic disturbance, mood disturbance, and anxiety; Z51.81 Encounter for therapeutic drug level monitoring; Z79.899 Other long term (current) drug therapy; Z66 Do not resuscitate; Z86.73 Personal history of transient ischemic attack (TIA), and cerebral infarction without residual deficits; Z82.49 Family history of ischemic heart disease and other diseases of the circulatory system; Z82.0 Family history of epilepsy and other diseases of the nervous system